=== PATIENT | female | born 1950 | race Caucasian/White ===

== ENCOUNTER 2019-12-06 18:44 | Emergency (ER) | payer MEDICARE, MEDICAID, SELFPAY ==
--- NOTE | ~2019-12-06 | XR_ITS ---
EXAMINATION: XR chest 2V DATE: 12/06/2019 19:32 INDICATION: COPD presenting with shortness of breath TECHNIQUE: PA and lateral views of the chest were obtained. COMPARISON: Chest radiograph dated 11/01/2019 FINDINGS: Persistent mild hyperexpansion of lungs which remain clear with no focal airspace opacities, pulmonar y edema, pleural effusion or pneumothorax. Borderline heart size. Change of prior coronary artery migdalia nting. Mild thoracic spondylosis. IMPRESSION: 1. Borderline heart size with prior coronary artery stenting. 2. Mild hyperexpansion lungs consistent with given history of COPD. Reviewed, dictated and finalized at location A. GER OF WAREHOUSE
[2019-12-06 18:48] VITALS: BP 152/75; PULSE 87; RESP 20; TEMP 36.8; O2SAT 99
--- NOTE | 2019-12-06 18:58 | ECG_ITS ---
Measurements Intervals [place] Rate: 80 P: 61 AL: 158 QRS: 16 QRSD: 85 T: 39 QT: 377 QTc: 437 Interpretive Statements SINUS RHYTHM BASELINE ARTIFACT- I, II, AVR, AVL, AVF NORMAL ECG Electronically Signed On 12-07-2019 7:05:18 FURNITURE MECHANIC by Yvon Gonzales D.O.
[2019-12-06 19:16] LABS: Basophils Absolute Auto 0.03 K/mm3 (0.00-0.10); Basophils Percent Auto 0.4 % (0.0-1.0); Eosinophils Absolute Auto 0.01 K/mm3 (0.02-0.50); Eosinophils Percent Auto 0.1 % (1.0-6.0); Hematocrit 35.9 % (35.0-42.0); Hemoglobin 11.6 g/dL (11.7-13.8); Immature Granulocyte Absolute 0.04 K/mm3 (0.00-0.00); Immature Granulocyte Percent A 0.5 % (0.0-0.0); Lymphocytes Absolute Auto 1.04 K/mm3 (1.10-4.50); Lymphocytes Percent Auto 12.3 % (18.0-42.0); Mean Corpuscular HGB Conc 32.3 g/dL (32.0-36.0); Mean Corpuscular Hemoglobin 28.5 pg (27.0-31.0); Mean Corpuscular Volume 88.2 fL (78.0-102.0); Monocytes Absolute Auto 0.32 K/mm3 (0.10-0.90); Monocytes Percent Auto 3.8 % (2.0-11.0); Neutrophils Percent Auto 82.9 % (50.0-70.0); Platelet Count Result 311 K/mm3 (150-420); Red Blood Count 4.07 M/mm3 (4.20-5.40); Red Cell Distribution Width 13.7 % (11.6-14.4); White Blood Count 8.5 K/mm3 (4.8-10.8)
[2019-12-06 19:31] LABS: D Dimer 0.26 mg/L (0.19-0.50)
[2019-12-06 19:33] LABS: Alanine Aminotransferase 24 U/L (14-59); Albumin Level 3.4 g/dL (3.4-5.0); Alkaline Phosphatase 61 U/L (46-116); Anion Gap 14.2 mmol/L (7-16); Aspartate Amino Transferase 12 U/L (15-37); Bilirubin,Total 0.2 mg/dL (0.00-1.00); Blood Urea Nitrogen 15 mg/dL (7-18); Calcium 8.8 mg/dL (8.5-10.1); Carbon Dioxide 28 mmol/L (21-32); Chloride 101 mmol/L (98-108); Estimated Glomerular Filt Rate 45; Glucose 259 mg/dL (70-99); Lipase 157 U/L (73-393); Osmolality Calculated 297 mOsm/kg (285-295); Potassium 4.2 mmol/L (3.5-5.1); Sodium 139 mmol/L (136-145); Total Protein 7.3 g/dL (6.4-8.2)
[2019-12-06] MEDS: methylPREDNISolone SOD SUCC 125 MG VIAL IV PUSH (19:38)
[2019-12-06 19:39] LABS: Troponin I < 0.02 ng/mL (0.00-0.056)
[2019-12-06] MEDS: IPRATROPIUM 0.5 MG/ALBUTEROL SULFATE 2.5 MG AMPUL.NEB 3 ML INHALATION (19:39)
[2019-12-06 19:40] VITALS: PULSE 80; RESP 20
[2019-12-06 19:56] LABS: Partial Thromboplastin Time 28.5 SEC (22.3-31.6); Prothrombin Time 10.3 Seconds (9.64-11.0)
--- NOTE | 2019-12-06 19:57 | ED.GENADULT ---
HPI - General Adult General Chief complaint: Chest Pain Stated complaint: trouble breathing, chest pain Source: patient Mode of arrival: ambulatory Limitations: no limitations History of Present Illness HPI narrative: Patient presents with some shortness of breath and some chest tightness as have a history of COPD and coronary artery disease with numerous stents, pain started earlier today has been and being treated for a upper respiratory infection with doxycycline. Currently there is some no shortness of breath no nausea vomiting no abdominal pain otherwise some mild wheezing with inspiration. Onset (ago): hour(s) Location: chest Radiation: non-radiation Severity: mild Related Data Home Medications Medication Instructions Recorded Confirmed albuterol sulfate [Ventolin HFA] 2 puff INHALATION PRN 11/01/19 11/01/19 amlodipine 5 mg PO DAILY 11/01/19 11/01/19 atorvastatin 80 mg PO HS 11/01/19 11/01/19 clopidogrel 75 mg PO DAILY 11/01/19 11/01/19 duloxetine 60 mg PO DAILY 11/01/19 11/01/19 fluconazole 150 mg PO DAILY 11/01/19 11/01/19 hydrocodone-acetaminophen 1 tablet PO PRN PRN 11/01/19 11/01/19 isosorbide mononitrate 60 mg PO DAILY 11/01/19 11/01/19 meloxicam 7.5 mg PO DAILY 11/01/19 11/01/19 metoprolol succinate 50 mg PO DAILY 11/01/19 11/01/19 montelukast 10 mg PO DAILY 11/01/19 11/01/19 nitroglycerin 0.4 mg BUCCAL PRN PRN 11/01/19 11/01/19 ranolazine 500 mg PO DAILY 11/01/19 11/01/19 trazodone 50 mg PO HS 11/01/19 11/01/19 umeclidinium-vilanterol [Anoro 1 ea INHALATION DAILY 11/01/19 11/01/19 Ellipta] Allergies Allergy/AdvReac Type Severity Reaction Status Date / Time Cephalosporins Allergy Unknown Verified 11/20/15 14:45 ciprofloxacin Allergy Unknown Verified 04/23/16 12:39 erythromycin base Allergy Unknown Verified 11/20/15 14:45 metronidazole Allergy Unknown Verified 02/05/16 14:11 Sulfa (Sulfonamide Allergy Unknown Verified 11/20/15 14:45 Antibiotics) sulfanilamide Allergy Unknown Verified 04/28/12 16:27 ADHESIVE TAPE Allergy Mild Uncoded 11/08/03 15:54 ERYTHROMYCINS Allergy Mild Uncoded 02/12/09 10:56 CEPHALOSPORIN Allergy Unknown RASH Uncoded 04/26/16 15:12 Review of Systems Review of Systems: All systems reviewed & are unremarkable except as noted in HPI and below PMFSH Past Medical History Medical History COPD (chronic obstructive pulmonary disease) Coronary artery disease Dyslipidemia Hypertension HI (myocardial infarction) Sleep apnea Smoking Surgical History Surgical History H/O breast biopsy H/O tubal ligation 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/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 Family History Family History Father Family history of lung cancer Other Family history of coronary artery disease Social History Social History Smoking status: Current every day smoker Alcohol intake: current Exam Const: General: no acute distress and alert Orientation/consciousness: patient oriented x3 HENMT: Head: normal to inspection Eyes: Conjunctivae: conjunctivae normal Pupils: Equal, round and reactive pupils present Neck: Neck: normal visual inspection Chest: Chest palpation & inspection: normal inspection of the chest Resp: Effort & Inspection: normal respiratory effort Auscultation: wheezes Cardio: Rate: regular rate Rhythm: regular rhythm GI: GI Palp: Yes Soft to palpation : General: Yes no CVA tenderness Back/Spine/Pelvis: Back: no CVA tenderness Skin: General skin exam: normal color Rashes: no rashes Neuro: General: patient oriented x3, moves all extremities and no meningeal signs Extrem: General: normal to inspection and no pedal edema Psych: Appearance: grossly normal Mental Status: mental status grossly normal Medical Decision Making Lab Data Lab re
[2019-12-06 20:05] VITALS: BP 134/64; PULSE 79; RESP 20; O2SAT 98
== END 2019-12-06 20:07 | disposition home or self-care (01) ==
PROVIDERS: Emergency Provider Emergency Medicine; PCP Internal Medicine
DX: J06.9 Acute upper respiratory infection, unspecified (principal); R05 Cough; J44.9 Chronic obstructive pulmonary disease, unspecified
CPT/HCPCS: 36415; 71046; 80053; 83690; 84484; 85025; 85380; 85610; 85730; 93005; 94640; 96374; 99284; J2930

== ENCOUNTER 2019-12-28 16:42 | Outpatient (CLI) | payer MEDICARE, MEDICAID, SELFPAY ==
--- NOTE | ~2019-12-28 | XR_ITS ---
EXAMINATION: XR sinus min 3V DATE: 12/28/2019 17:38 INDICATION: Chronic cough and sinusitis. TECHNIQUE: AP, submental, Barrera, open-mouth Barrera and lateral views of the nasal sinuses were obtai chauncey. COMPARISON: None. FINDINGS: No fractures identified. Specifically the visualized silvestre of the orbits and paranasal sinuses appea r intact. Nasal septum is midline. No nasal bone fracture identified. No air-fluid levels or eviden t mucosal thickening appreciated within the paranasal sinuses and mastoid air cells appear well-aerat ed. IMPRESSION: 1. No evidence sinus disease. Reviewed, dictated and finalized at location A. URCE DEVELOPMENT MANAGER
[2019-12-28 16:59] LABS: Basophils Percent Auto 1.4 % (0.0-1.0); Eosinophils Absolute Auto 0.17 K/mm3 (0.02-0.50); Eosinophils Percent Auto 2.3 % (1.0-6.0); Hematocrit 39.7 % (35.0-42.0); Hemoglobin 12.8 g/dL (11.7-13.8); Immature Granulocyte Absolute 0.02 K/mm3 (0.00-0.00); Immature Granulocyte Percent A 0.3 % (0.0-0.0); Lymphocytes Absolute Auto 2.42 K/mm3 (1.10-4.50); Lymphocytes Percent Auto 32.7 % (18.0-42.0); Mean Corpuscular HGB Conc 32.2 g/dL (32.0-36.0); Mean Corpuscular Hemoglobin 28.7 pg (27.0-31.0); Mean Platelet Volume 8.8 fl (9.2-11.8); Monocytes Absolute Auto 0.65 K/mm3 (0.10-0.90); Monocytes Percent Auto 8.8 % (2.0-11.0); Neutrophils Percent Auto 54.5 % (50.0-70.0); Platelet Count Result 284 K/mm3 (150-420); Red Blood Count 4.46 M/mm3 (4.20-5.40); Red Cell Distribution Width 13.7 % (11.6-14.4); White Blood Count 7.4 K/mm3 (4.8-10.8)
[2019-12-28 17:46] LABS: Cholesterol 188 mg/dL (0-200); HDL Direct 45 mg/dL (40-60); LDL Cholesterol Calculated 111 mg/dL (<130); Triglycerides 161 mg/dL (0-150)
== END 2019-12-28 16:43 | disposition home or self-care (01) ==
LOC: CHSLAB 16:44
PROVIDERS: PCP Internal Medicine; Visit Provider Internal Medicine
DX: R05 Cough (principal); J32.9 Chronic sinusitis, unspecified; E78.5 Hyperlipidemia, unspecified
CPT/HCPCS: 36415; 70220; 80061; 85025

== ENCOUNTER 2020-01-04 11:51 | Outpatient (CLI) | payer MEDICARE, MEDICAID, SELFPAY ==
--- NOTE | ~2020-01-04 | US_ITS ---
EXAMINATION: US venous doppler [facility] DATE: 01/04/2020 12:36 INDICATION: Left lower limb pain and swelling TECHNIQUE: Grayscale ultrasound images without and with compression and Doppler ultrasound images of the left lower extremity veins were obtained. COMPARISON: None. FINDINGS: The visualized portions of left common femoral vein, profunda (deep) femoral vein, femoral vein, popl iteal vein, peroneal veins, posterior tibial veins, gastrocnemius vein and greater saphenous vein out flow are patent. IMPRESSION: 1. No deep venous thrombosis in the left lower limb. Reviewed, dictated and finalized at location A. ING AGENT
--- NOTE | ~2020-01-04 | XR_ITS ---
EXAMINATION: XR knee LT min 4V DATE: 01/04/2020 12:46 INDICATION: Left knee pain. TECHNIQUE: 4 views of left knee were obtained. COMPARISON: Left knee radiographs 07/21/2018 FINDINGS: There is varus angulation at the knee. No fracture. There is severe osteoarthritis of media l compartment and mild osteoarthritis of lateral and patellofemoral compartments. There is a moderate -sized knee joint effusion. IMPRESSION: 1. Severe left knee osteoarthritis. 2. Moderate-sized knee joint effusion. Reviewed, dictated and finalized at location A. STIFFENER AND HEEL DIPPER
== END 2020-01-04 11:52 | disposition home or self-care (01) ==
LOC: CHSIMG 11:54
PROVIDERS: PCP Internal Medicine; Visit Provider Nurse Practitioner Family
DX: M79.89 Other specified soft tissue disorders (principal); M25.562 Pain in left knee
CPT/HCPCS: 73564; 93971

== ENCOUNTER 2020-05-29 07:36 | Emergency (ER) | payer MEDICARE, MEDICAID, SELFPAY ==
[2020-05-29] VITALS (7 sets, daily range): BP systolic 116–133; BP diastolic 55–74; PULSE 66–87; RESP 16–20; TEMP 36.7–36.8; O2SAT 88–96
--- NOTE | ~2020-05-29 | XR_ITS ---
EXAMINATION: XR chest 2V DATE: 05/29/2020 08:47 INDICATION: Chest pain and cough TECHNIQUE: PA and lateral views of the chest are obtained. COMPARISON: 12/06/2019 FINDINGS: The lungs are hyperinflated but free of acute opacities. There is no pleural effusion or pn eumothorax. The cardiomediastinal silhouette is normal. There is mild thoracic spondylosis. Coronary artery stents are noted. IMPRESSION: 1. No acute cardiopulmonary abnormality. Reviewed, dictated and finalized at location B.
--- NOTE | 2020-05-29 07:39 | ECG_ITS ---
Measurements Intervals [place] Rate: 71 P: 64 PA: 168 QRS: 62 QRSD: 89 T: 24 QT: 384 QTc: 419 Interpretive Statements SINUS RHYTHM BORDERLINE R WAVE PROGRESSION, ANTERIOR LEADS BORDERLINE ECG Electronically Signed On 05-29-2020 7:59:50 CDT by Yvon Gonzales D.O.
--- NOTE | 2020-05-29 07:48 | ED.CHESTPAIN ---
HPI - Chest Pain General Chief Complaint: Shortness of Breath/Dyspnea Stated Complaint: cant breathe Time Seen by Provider: 05/29/20 07:39 Source: patient Mode of arrival: wheelchair Limitations: no limitations History of Present Illness HPI narrative: 70-year-old woman with a history of COPD who uses oxygen at home at nighttime (3 L) comes in today complaining of shortness of breath, tightness in her anterior chest, and sats at home on 3 L of oxygen In the 70s when she woke up this morning. She states that she was short of breath yesterday and on room air her sats were in the upper 80s. Her symptoms improved both yesterday and today after using her rescue inhaler. She states he has had rhinorrhea for several days and productive cough. Her systems analysis manager placed her on doxycycline on Tuesday for these symptoms. She states that she gets sweaty with the chest pain but denies nausea, vomiting, lightheadedness, fever or sick exposures. She states she went [employer] a few days ago and no one was wearing masks. Discomfort she had in the past associated with her MT was in her upper back and neck which is far different than today. MD complaint: chest pain Pertinent past history: coronary artery disease and prior MT Onset (ago): hour(s) (3) Timing of current episode: constant Prior episodes: Yes Onset: during rest Pain location: left chest Pain radiation: none Severity: moderate Quality: tightness Exacerbating factors: nothing Context: recent illness Associated symptoms: diaphoresis Risk Factors Coronary artery disease risk factors: none, smoking history, hyperlipidemia and hypertension Related Data On Oral Contraceptives: No Home Medications Medication Instructions Recorded Confirmed albuterol sulfate [Ventolin HFA] 2 puff INHALATION PRN 11/01/19 05/29/20 amlodipine 5 mg PO DAILY 11/01/19 05/29/20 atorvastatin 80 mg PO HS 11/01/19 05/29/20 clopidogrel 75 mg PO DAILY 11/01/19 05/29/20 duloxetine 60 mg PO DAILY 11/01/19 05/29/20 hydrocodone-acetaminophen 1 tablet PO PRN PRN 11/01/19 05/29/20 isosorbide mononitrate 60 mg PO DAILY 11/01/19 05/29/20 meloxicam 7.5 mg PO DAILY 11/01/19 05/29/20 metoprolol succinate 50 mg PO DAILY 11/01/19 05/29/20 montelukast 10 mg PO DAILY 11/01/19 05/29/20 nitroglycerin 0.4 mg BUCCAL PRN PRN 11/01/19 05/29/20 ranolazine 500 mg PO DAILY 11/01/19 05/29/20 umeclidinium-vilanterol [Anoro 1 ea INHALATION DAILY 11/01/19 05/29/20 Ellipta] aspirin 81 mg PO DAILY 05/29/20 05/29/20 duloxetine 30 mg PO HS 05/29/20 05/29/20 omeprazole 20 mg PO DAILY 05/29/20 05/29/20 Allergies Allergy/AdvReac Type Severity Reaction Status Date / Time Cephalosporins Allergy Unknown Verified 11/20/15 14:45 ciprofloxacin Allergy Unknown Verified 04/23/16 12:39 erythromycin base Allergy Unknown Verified 11/20/15 14:45 metronidazole Allergy Unknown Verified 02/05/16 14:11 Sulfa (Sulfonamide Allergy Unknown Verified 11/20/15 14:45 Antibiotics) sulfanilamide Allergy Unknown Verified 04/28/12 16:27 ADHESIVE TAPE Allergy Mild Uncoded 11/08/03 15:54 ERYTHROMYCINS Allergy Mild Uncoded 02/12/09 10:56 CEPHALOSPORIN Allergy Unknown RASH Uncoded 04/26/16 15:12 Review of Systems Constitutional: Constitutional: Denies chills, Denies fatigue, Denies fever(s) and Denies weakness Eyes: Eyes: Denies change in vision and Denies photophobia ENT: Denies dysphagia, Reports nasal congestion and Denies sore throat Cardiovascular: Cardiovascular: Reports as per HPI, Reports chest pain and Denies radiating jaw, neck or arm pain Respiratory: Respiratory: Reports as per HPI, Reports cough, Reports dyspnea and Reports wheezing Gastrointestinal: Gastrointestinal: Denies abdominal pain, Denies diarrhea, Denies nausea and Denies vomiting Genitourinary: Genitourinary: Denies nocturia and Denies dysuria Musculoskeletal: Musculoskeletal: Reports arthralgias ( Chronic knee pain) and Denies joint swelling Integumentary/Breasts: Skin/Breast: [place]
[2020-05-29] MEDS: IPRATROPIUM 0.5 MG/ALBUTEROL SULFATE 2.5 MG AMPUL.NEB 3 ML INHALATION (08:19)
[2020-05-29] MEDS: methylPREDNISolone SOD SUCC 125 MG VIAL IV PUSH (08:20)
[2020-05-29 08:23] LABS: Basophils Absolute Auto 0.07 K/mm3 (0.00-0.10); Eosinophils Absolute Auto 0.15 K/mm3 (0.02-0.50); Eosinophils Percent Auto 2.2 % (1.0-6.0); Hematocrit 36.1 % (35.0-42.0); Hemoglobin 11.8 g/dL (11.7-13.8); Immature Granulocyte Absolute 0.03 K/mm3 (0.00-0.00); Immature Granulocyte Percent A 0.4 % (0.0-0.0); Lymphocytes Percent Auto 27.5 % (18.0-42.0); Mean Corpuscular HGB Conc 32.7 g/dL (32.0-36.0); Mean Corpuscular Hemoglobin 28.9 pg (27.0-31.0); Mean Corpuscular Volume 88.3 fL (78.0-102.0); Mean Platelet Volume 8.6 fl (9.2-11.8); Monocytes Absolute Auto 0.62 K/mm3 (0.10-0.90); Neutrophils Absolute Auto 4.1 K/mm3 (1.7-7.2); Neutrophils Percent Auto 59.9 % (50.0-70.0); Platelet Count Result 247 K/mm3 (150-420); Red Blood Count 4.09 M/mm3 (4.20-5.40); Red Cell Distribution Width 13.4 % (11.6-14.4); White Blood Count 6.9 K/mm3 (4.8-10.8)
[2020-05-29 08:35] LABS: Partial Thromboplastin Time 32.3 SEC (22.3-31.6); Prothrombin Time 10.4 Seconds (9.64-11.0)
[2020-05-29 08:41] LABS: Lactic Acid Reflex 1.5 mmol/L (0.4-2.0)
[2020-05-29 08:42] LABS: Alanine Aminotransferase 26 U/L (14-59); Albumin Level 3.3 g/dL (3.4-5.0); Alkaline Phosphatase 64 U/L (46-116); Anion Gap 9.9 mmol/L (7-16); Aspartate Amino Transferase 16 U/L (15-37); Bilirubin,Total 0.4 mg/dL (0.00-1.00); Blood Urea Nitrogen 15 mg/dL (7-18); CRP 0.5 mg/dL (0.0-0.9); Calcium 9.1 mg/dL (8.5-10.1); Carbon Dioxide 30 mmol/L (21-32); Chloride 103 mmol/L (98-108); Estimated CRCL calculation 53 ml/min; Estimated Glomerular Filt Rate 58; Glucose 112 mg/dL (70-99); Osmolality Calculated 289 mOsm/kg (285-295); Potassium 3.9 mmol/L (3.5-5.1); Sodium 139 mmol/L (136-145); Total Protein 6.9 g/dL (6.4-8.2); Troponin I < 0.02 ng/mL (0.00-0.056)
[2020-05-29 08:46] LABS: BNP 61.7 pg/mL (0-100)
[2020-05-30 02:02] LABS: SARS-CoV-2 RNA PCR Negative
== END 2020-05-29 09:25 | disposition home or self-care (01) ==
PROVIDERS: Emergency Provider Emergency Medicine; PCP Internal Medicine
DX: J44.1 Chronic obstructive pulmonary disease with (acute) exacerbation (principal); I25.10 Atherosclerotic heart disease of native coronary artery without angina pectoris; E78.5 Hyperlipidemia, unspecified; I10 Essential (primary) hypertension; F17.200 Nicotine dependence, unspecified, uncomplicated
CPT/HCPCS: 36415; 71046; 80053; 83605; 83880; 84484; 85025; 85610; 85730; 86140; 87040; 87635; 93005; 94640; 96374; 99284; C9803; J2930; U0003

== ENCOUNTER 2020-07-15 16:19 | Outpatient (CLI) | payer MEDICARE, SELFPAY ==
[2020-07-15 16:37] LABS: Basophils Absolute Auto 0.03 K/mm3 (0.00-0.10); Basophils Percent Auto 0.4 % (0.0-1.0); Eosinophils Absolute Auto 0.01 K/mm3 (0.02-0.50); Eosinophils Percent Auto 0.1 % (1.0-6.0); Hemoglobin 12.5 g/dL (11.7-13.8); Immature Granulocyte Absolute 0.04 K/mm3 (0.00-0.00); Immature Granulocyte Percent A 0.6 % (0.0-0.0); Lymphocytes Absolute Auto 0.93 K/mm3 (1.10-4.50); Lymphocytes Percent Auto 12.8 % (18.0-42.0); Mean Corpuscular HGB Conc 32.1 g/dL (32.0-36.0); Mean Corpuscular Hemoglobin 28.9 pg (27.0-31.0); Mean Corpuscular Volume 90.1 fL (78.0-102.0); Mean Platelet Volume 9.2 fl (9.2-11.8); Monocytes Absolute Auto 0.09 K/mm3 (0.10-0.90); Monocytes Percent Auto 1.2 % (2.0-11.0); Neutrophils Absolute Auto 6.2 K/mm3 (1.7-7.2); Neutrophils Percent Auto 84.9 % (50.0-70.0); Platelet Count Result 303 K/mm3 (150-420); Red Blood Count 4.33 M/mm3 (4.20-5.40); Red Cell Distribution Width 13.2 % (11.6-14.4); White Blood Count 7.3 K/mm3 (4.8-10.8)
[2020-07-15 17:48] LABS: Alanine Aminotransferase 27 U/L (14-59); Albumin Level 3.9 g/dL (3.4-5.0); Alkaline Phosphatase 67 U/L (46-116); Anion Gap 13 mmol/L (8-16); Aspartate Amino Transferase 19 U/L (15-37); Bilirubin,Total 0.3 mg/dL (0.00-1.00); Blood Urea Nitrogen 15 mg/dL (7-18); Calcium 8.9 mg/dL (8.5-10.1); Carbon Dioxide 25 mmol/L (21-32); Chloride 101 mmol/L (98-108); Estimated Glomerular Filt Rate 53; Glucose 236 mg/dL (70-99); Osmolality Calculated 296 mOsm/kg (285-295); Potassium 4.4 mmol/L (3.5-5.1); Sodium 139 mmol/L (136-145); Total Protein 7.5 g/dL (6.4-8.2)
[2020-07-16 10:30] LABS: Hemoglobin A1C 6.4 % (<5.7)
[2020-07-17 12:25] LABS: SARS-CoV-2 RNA PCR Negative
== END 2020-07-15 16:20 | disposition home or self-care (01) ==
LOC: CHSLAB 16:20
PROVIDERS: PCP Internal Medicine; Visit Provider Internal Medicine
DX: R05 Cough (principal); R73.01 Impaired fasting glucose; Z20.828 Contact with and (suspected) exposure to other viral communicable diseases
CPT/HCPCS: 36415; 80053; 83036; 85025; 87635; C9803; U0003

== ENCOUNTER 2020-09-17 12:05 | Outpatient (CLI) | payer MEDICARE, MEDICAID, SELFPAY ==
--- NOTE | ~2020-09-17 | XR_ITS ---
EXAMINATION: XR knee RT 2V DATE: 09/17/2020 12:38 INDICATION: Right knee pain. TECHNIQUE: 2 views of right knee were obtained. COMPARISON: None. FINDINGS: Bone alignment is normal. No fracture. Joint spaces are well maintained. There is no knee j oint effusion. IMPRESSION: 1. Normal right knee. Reviewed, dictated and finalized at location A. SPRING FORMER IMPRESSION: 1. Normal right knee.
--- NOTE | ~2020-09-17 | XR_ITS ---
EXAMINATION: XR knee LT 2V DATE: 09/17/2020 12:39 INDICATION: Left knee pain. TECHNIQUE: 2 views of left knee were obtained. COMPARISON: Left knee radiographs 01/04/2020 FINDINGS: There is varus angulation at the knee. No fracture. There is severe osteoarthritis of media l compartment, moderate osteoarthritis of patellofemoral compartment, and mild osteoarthritis of late ral compartment. There is a small knee joint effusion. IMPRESSION: 1. Severe left knee osteoarthritis. 2. Small knee joint effusion. Reviewed, dictated and finalized at location A. RICT SCOUT EXECUTIVE
== END 2020-09-17 12:06 | disposition home or self-care (01) ==
LOC: CHSIMG 12:07
PROVIDERS: PCP Internal Medicine; Visit Provider Nurse Practitioner Family
DX: M25.561 Pain in right knee (principal); M25.562 Pain in left knee; M17.12 Unilateral primary osteoarthritis, left knee
CPT/HCPCS: 73560

== ENCOUNTER 2021-01-20 15:26 | Outpatient (CLI) | payer MEDICARE, SELFPAY ==
[2021-01-20 15:41] LABS: Basophils Absolute Auto 0.08 K/mm3 (0.00-0.10); Basophils Percent Auto 0.7 % (0.0-1.0); Eosinophils Absolute Auto 0.14 K/mm3 (0.02-0.50); Eosinophils Percent Auto 1.3 % (1.0-6.0); Hematocrit 36.9 % (35.0-42.0); Hemoglobin 11.7 g/dL (11.7-13.8); Immature Granulocyte Absolute 0.03 K/mm3 (0.00-0.00); Immature Granulocyte Percent A 0.3 % (0.0-0.0); Lymphocytes Absolute Auto 2.42 K/mm3 (1.10-4.50); Lymphocytes Percent Auto 21.8 % (18.0-42.0); Mean Corpuscular HGB Conc 31.7 g/dL (32.0-36.0); Mean Corpuscular Hemoglobin 28.3 pg (27.0-31.0); Mean Corpuscular Volume 89.3 fL (78.0-102.0); Mean Platelet Volume 9.1 fl (9.2-11.8); Monocytes Absolute Auto 1.09 K/mm3 (0.10-0.90); Monocytes Percent Auto 9.8 % (2.0-11.0); Neutrophils Absolute Auto 7.4 K/mm3 (1.7-7.2); Neutrophils Percent Auto 66.1 % (50.0-70.0); Platelet Count Result 294 K/mm3 (150-420); Red Blood Count 4.13 M/mm3 (4.20-5.40); White Blood Count 11.1 K/mm3 (4.8-10.8)
[2021-01-20 15:58] LABS: Hemoglobin A1C 7.2 % (<5.7)
[2021-01-20 16:52] LABS: Alanine Aminotransferase 30 U/L (14-59); Albumin Level 3.5 g/dL (3.4-5.0); Alkaline Phosphatase 60 U/L (46-116); Anion Gap 7 mmol/L (8-16); Aspartate Amino Transferase 22 U/L (15-37); Bilirubin,Total 0.4 mg/dL (0.00-1.00); Blood Urea Nitrogen 17 mg/dL (7-18); Calcium 8.9 mg/dL (8.5-10.1); Carbon Dioxide 32 mmol/L (21-32); Chloride 101 mmol/L (98-108); Cholesterol 177 mg/dL (0-200); Estimated Glomerular Filt Rate 54; Ferritin 44 ng/mL (8-252); Glucose 120 mg/dL (70-99); HDL Direct 43 mg/dL (40-60); Iron 37 ug/dL (50-170); LDL Cholesterol Calculated 91 mg/dL (<130); Osmolality Calculated 292 mOsm/kg (285-295); Percent Iron Saturation 11 % (12-57); Potassium 4.1 mmol/L (3.5-5.1); Sodium 140 mmol/L (136-145); Thyroid Stimulating Hormone 1.64 uIU/mL (0.36-3.74); Total Protein 6.7 g/dL (6.4-8.2); Triglycerides 213 mg/dL (0-150)
[2021-01-20 17:22] LABS: Free T4 Free Thyroxine 1.05 ng/dL (0.76-1.46)
[2021-01-24 07:53] LABS: Total Triiodothyronine (T3) 103 ng/dL (76-181)
== END 2021-01-20 15:27 | disposition home or self-care (01) ==
LOC: CHSLAB 15:29
PROVIDERS: PCP Internal Medicine; Visit Provider Internal Medicine Cardiovascular Disease
DX: R53.83 Other fatigue (principal); Z13.6 Encounter for screening for cardiovascular disorders; I87.2 Venous insufficiency (chronic) (peripheral); I25.10 Atherosclerotic heart disease of native coronary artery without angina pectoris; D50.9 Iron deficiency anemia, unspecified; M35.9 Systemic involvement of connective tissue, unspecified; I26.99 Other pulmonary embolism without acute cor pulmonale; R73.09 Other abnormal glucose; E55.9 Vitamin D deficiency, unspecified; R60.9 Edema, unspecified; J98.2 Interstitial emphysema; I10 Essential (primary) hypertension; G47.30 Sleep apnea, unspecified; C53.9 Malignant neoplasm of cervix uteri, unspecified; E78.5 Hyperlipidemia, unspecified; F17.200 Nicotine dependence, unspecified, uncomplicated
CPT/HCPCS: 36415; 80053; 80061; 82728; 83036; 83540; 83550; 84439; 84443; 84480; 85025

== ENCOUNTER → 2021-04-17 04:57 | Outpatient (CLI) | payer MEDICARE, SELFPAY ==
[2021-04-17 18:47] LABS: SARS-CoV-2 RNA PCR Negative
== END ==
PROVIDERS: PCP Internal Medicine; Visit Provider Internal Medicine Gastroenterology
DX: Z01.812 Encounter for preprocedural laboratory examination (principal); Z20.822 Contact with and (suspected) exposure to COVID-19
CPT/HCPCS: C9803; U0003; U0005

== ENCOUNTER 2021-04-20 01:14 | Day surgery (SDC) | payer MEDICARE, MEDICAID, SELFPAY ==
[2021-04-20 07:09] VITALS: BP 140/63; PULSE 98; RESP 18; TEMP 36; O2SAT 96; BMI 31.8
[2021-04-20] MEDS: LACTATED RINGERS 1,000 ML 150 ML IV CONT (07:12)
--- NOTE | 2021-04-20 07:23 | WPDGICN ---
Assessment and Plan Assessment and plan (1) History of colon polyps: Code(s): Z86.010 - Personal history of colonic polyps Status: Acute Assessment and Plan: Patient has a personal history of colon polyps. She has had them recurrent on several occasions. Plan is for surveillance colonoscopy now and at intervals in the future. Further recommendations will be given after endoscopy. GI Consult Note Consult date/time: 04/20/21 07:23 HPI: Felicia Webb is a 71 year old female Presents for screening colonoscopy. Patient has a history of colon polyps in the past. Most recent exam was 5 years ago. Multiple colon polyps were identified. Patient has a history of colon polyps 10 years ago period with post polypectomy bleeding. This was performed at [facility]. Patient states that her current weight appetite bowel movements are normal. She denies abdominal pain. She has had no recent bleeding. Her bowel habits are essentially normal. There is no reported family history of colon polyps or cancer. Patient has been treated for COPD and coronary artery disease. She is felt to have sleep apnea. 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 Family History Family History Father Family history of lung cancer Other Family history of coronary artery disease Social History Social History Smoking packs per day: 1 Smoking cigarettes per day: 20.0 Years smoked: 30 Smoking pack-years: 30.00 Smoking status: Current every day smoker Tobacco type: cigarettes Alcohol intake: current Other substance usage details: norco prn Living arrangements: with family Gender identity (if verbalized by the patient): Female Spiritual care concerns: No Meds Home Medications and Allergies Home Medications Medication Instructions Recorded Confirmed Type albuterol sulfate [Ventolin HFA] 2 puff INHALATION PRN 11/01/19 04/03/21 History amlodipine 5 mg PO DAILY 11/01/19 04/03/21 History atorvastatin 80 mg PO HS 11/01/19 04/03/21 History clopidogrel 75 mg PO DAILY 11/01/19 04/03/21 History doxycycline hyclate 100 mg PO BID #20 tablet 11/01/19 04/03/21 Rx duloxetine 60 mg PO DAILY 11/01/19 04/03/21 History hydrocodone-acetaminophen 1 tablet PO PRN PRN 11/01/19 04/03/21 History isosorbide mononitrate 60 mg PO DAILY 11/01/19 04/03/21 History meloxicam 7.5 mg PO DAILY 11/01/19 04/03/21 History metoprolol succinate 50 mg PO DAILY 11/01/19 04/03/21 History montelukast 10 mg PO DAILY 11/01/19 04/03/21 History nitroglycerin 0.4 mg BUCCAL PRN PRN 11/01/19 04/03/21 History ranolazine 500 mg PO DAILY 11/01/19 04/03/21 History umeclidinium-vilanterol [Anoro 1 ea INHALATION DAILY 11/01/19 04/03/21 History Ellipta] aspirin 81 mg PO DAILY 05/29/20 04/03/21 History duloxetine 30 mg PO HS 05/29/20 04/03/21 History omeprazole 20 mg PO DAILY 05/29/20 04/03/21 History prednisone See Taper PO DAILY 12 Days #42 05/29/20 04/03/21 Rx tablet Allergies Allergy/AdvReac Type Severity Reaction Status Date / Time Cephalosporins Allergy Unknown Other Verified 04/20/21 07:08 ciprofloxacin Allergy Unknown Other Verified 04/20/21 07:08 erythromycin base Allergy Unknown Other Verified 04/20/21 07:08 metronidazole Allergy Unknown Other Verified 04/20/21 07:08 Sulfa (Sulfonamide Allergy Unknown Other Verified 04/20/21 07:08 Antibiotics) sulfa
--- NOTE | 2021-04-20 07:59 | WPDANESEPPF ---
Anes - Initial Pre Proc Eval Procedure: Operation Date: 04/20/21 08:00 Proposed Procedures p Screening Colonoscopy - Sebastian Galaviz MD Date/Time: 04/20/21 07:59 Surgeon: Sebastian Galaviz MD Pre Op Diagnosis: hx colon polyps Patient Data Age: 71 Gender: F Height: 5 ft 5 in Weight: 86.7 kg Last Vital Signs Temp 96.8 F L 04/20/21 07:09 Pulse 98 04/20/21 07:09 Resp 18 04/20/21 07:09 BP 140/63 04/20/21 07:09 Pulse Ox 96 04/20/21 07:09 Allergies Allergy/AdvReac Type Severity Reaction Status Date / Time Cephalosporins Allergy Unknown Other Verified 04/20/21 07:08 ciprofloxacin Allergy Unknown Other Verified 04/20/21 07:08 erythromycin base Allergy Unknown Other Verified 04/20/21 07:08 metronidazole Allergy Unknown Other Verified 04/20/21 07:08 Sulfa (Sulfonamide Allergy Unknown Other Verified 04/20/21 07:08 Antibiotics) sulfanilamide Allergy Unknown Other Verified 04/20/21 07:08 ADHESIVE TAPE Allergy Mild Other Uncoded 04/20/21 07:08 ERYTHROMYCINS Allergy Mild Other Uncoded 04/20/21 07:08 CEPHALOSPORIN Allergy Unknown RASH Uncoded 04/20/21 07:08 Home Medications Medication Instructions Recorded Confirmed Type albuterol sulfate [Ventolin HFA] 2 puff INHALATION PRN 11/01/19 04/03/21 History amlodipine 5 mg PO DAILY 11/01/19 04/03/21 History atorvastatin 80 mg PO HS 11/01/19 04/03/21 History clopidogrel 75 mg PO DAILY 11/01/19 04/03/21 History doxycycline hyclate 100 mg PO BID #20 tablet 11/01/19 04/03/21 Rx duloxetine 60 mg PO DAILY 11/01/19 04/03/21 History hydrocodone-acetaminophen 1 tablet PO PRN PRN 11/01/19 04/03/21 History isosorbide mononitrate 60 mg PO DAILY 11/01/19 04/03/21 History meloxicam 7.5 mg PO DAILY 11/01/19 04/03/21 History metoprolol succinate 50 mg PO DAILY 11/01/19 04/03/21 History montelukast 10 mg PO DAILY 11/01/19 04/03/21 History nitroglycerin 0.4 mg BUCCAL PRN PRN 11/01/19 04/03/21 History ranolazine 500 mg PO DAILY 11/01/19 04/03/21 History umeclidinium-vilanterol [Anoro 1 ea INHALATION DAILY 11/01/19 04/03/21 History Ellipta] aspirin 81 mg PO DAILY 05/29/20 04/03/21 History duloxetine 30 mg PO HS 05/29/20 04/03/21 History omeprazole 20 mg PO DAILY 05/29/20 04/03/21 History prednisone See Taper PO DAILY 12 Days #42 05/29/20 04/03/21 Rx tablet Patient hx anesthesia problems: none Family hx anesthesia problems: none PMFSH Past Medical History Medical History COPD (chronic obstructive pulmonary disease) Coronary artery disease Dyslipidemia Hypertension [place] (myocardial infarction) Sleep apnea Smoking Surgical History Surgical History H/O breast biopsy H/O tubal ligation 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 Family History Family History Father Family history of lung cancer Other Family history of coronary artery disease Social History Social History Smoking packs per day: 1 Smoking cigarettes per day: 20.0 Years smoked: 30 Smoking pack-years: 30.00 Smoking status: Current every day smoker Tobacco type: cigarettes Alcohol intake: current Other substance usage details: norco prn Living arrangements: with family Gender identity (if verbalized by the patient): Female Spiritual care concerns: No Anes - Eval Final PreProcedure Day of Procedure 04/20/21 07:59 Patient weight: obese Heart: regular rate and rhythm Lungs: clear to auscultation Airway: Mallampati scale class II Neurological: alert and oriented Last oral intake: >/= 8 hours ASA classification: III Emergent: no Anesthetic plan: proceed Anesthesia type and monitoring: general GIVS and standard monitoring Informed Consent: The patient's anesthetic plan and its attendant risks and benefits were discussed with the patient/family/POASilvestre Pedraza
[2021-04-20 08:50] VITALS: BP 168/77; PULSE 95; RESP 29; O2SAT 96
[2021-04-20 09:00] VITALS: BP 139/74; PULSE 92; RESP 17; O2SAT 95
[2021-04-20 09:10] VITALS: BP 146/66; PULSE 91; RESP 21; O2SAT 99
== END 2021-04-20 09:46 | disposition home or self-care (01) ==
PROVIDERS: PCP Internal Medicine; Visit Provider Internal Medicine Gastroenterology
PROC: 0DJD8ZZ Inspection of Lower Intestinal Tract, Via Natural or Artificial Opening Endoscopic (ICD-10-PCS; CPT 45378; principal; 2021-04-20 08:00)
DX: Z12.11 Encounter for screening for malignant neoplasm of colon (principal); D12.5 Benign neoplasm of sigmoid colon; D12.2 Benign neoplasm of ascending colon; D12.3 Benign neoplasm of transverse colon; K63.5 Polyp of colon; K57.30 Diverticulosis of large intestine without perforation or abscess without bleeding; J44.9 Chronic obstructive pulmonary disease, unspecified; I25.10 Atherosclerotic heart disease of native coronary artery without angina pectoris; E78.5 Hyperlipidemia, unspecified; I10 Essential (primary) hypertension; I25.2 Old myocardial infarction; G47.30 Sleep apnea, unspecified; Z95.5 Presence of coronary angioplasty implant and graft; F17.210 Nicotine dependence, cigarettes, uncomplicated; Z79.51 Long term (current) use of inhaled steroids; Z79.02 Long term (current) use of antithrombotics/antiplatelets; E66.9 Obesity, unspecified; Z68.31 Body mass index [BMI] 31.0-31.9, adult
CPT/HCPCS: 45385; 88305; J2704; J7120

== ENCOUNTER 2021-05-25 14:33 | Outpatient (CLI) | payer MEDICARE, SELFPAY | END 2021-05-25 14:34 | disposition home or self-care (01) | LOC: CHSLAB 14:38 | PROVIDERS: PCP Internal Medicine | DX: J18.9 Pneumonia, unspecified organism (principal) | CPT/HCPCS: 87070; 87205 ==

== ENCOUNTER 2021-06-05 23:09 | Emergency (ER) | payer MEDICARE, MEDICAID, SELFPAY ==
--- NOTE | ~2021-06-05 | CT_ITS ---
EXAMINATION:CT diagnostic chest wo con DATE: 06/05/2021 23:55 INDICATION: Chest pain. Shortness breath. TECHNIQUE: Computed tomography (CT) of the chest was performed without intravenous contrast. Automate d exposure control and iterative reconstruction technique were employed. The dose-length product (DLP ) was 358.18 mGy-cm. COMPARISON: CT 06/29/2009 FINDINGS: There is diffuse septal thickening in the lungs with a peripheral predominance. There is mi ld atelectasis bilaterally. No bronchiectasis or honeycombing. No pleural effusion. The heart size is normal. There are coronary artery calcifications. No pericardial effusion. There is mild thoracic sp ondylosis. IMPRESSION: 1. Mild chronic interstitial lung disease in a pattern of nonspecific interstitial pneumonia (UIP). Reviewed, dictated and finalized at location A. IMPRESSION: 1. Mild chronic interstitial lung disease in a pattern of nonspecific interstit ial pneumonia (UIP).
--- NOTE | 2021-06-05 23:13 | ECG_ITS ---
Measurements Intervals [place] Rate: 89 P: 58 MS: 169 QRS: 15 QRSD: 89 T: 43 QT: 372 QTc: 454 Interpretive Statements SINUS RHYTHM DELAYED PRECORDIAL R/S TRANSITION BORDERLINE ECG Electronically Signed On 06-06-2021 8:13:00 CDT by Yvon Gonzales D.O.
[2021-06-05 23:36] LABS: Basophils Absolute Auto 0.03 K/mm3 (0.00-0.10); Basophils Percent Auto 0.5 % (0.0-1.0); Immature Granulocyte Absolute 0.05 K/mm3 (0.00-0.00); Immature Granulocyte Percent A 0.8 % (0.0-0.0); Lymphocytes Absolute Auto 0.85 K/mm3 (1.10-4.50); Lymphocytes Percent Auto 12.8 % (18.0-42.0); Mean Corpuscular HGB Conc 32.4 g/dL (32.0-36.0); Mean Corpuscular Hemoglobin 29.1 pg (27.0-31.0); Mean Corpuscular Volume 89.8 fL (78.0-102.0); Monocytes Absolute Auto 0.19 K/mm3 (0.10-0.90); Monocytes Percent Auto 2.9 % (2.0-11.0); Neutrophils Absolute Auto 5.5 K/mm3 (1.7-7.2); Platelet Count Result 263 K/mm3 (150-420); Red Blood Count 4.12 M/mm3 (4.20-5.40); White Blood Count 6.6 K/mm3 (4.8-10.8)
[2021-06-05 23:39] VITALS: BP 139/58; PULSE 90; RESP 18; TEMP 36.5; O2SAT 96
[2021-06-05 23:46] LABS: Partial Thromboplastin Time 29.1 SEC (23.90-30.70); Prothrombin Time 10.3 Seconds (9.50-12.10)
[2021-06-05 23:55] LABS: Alanine Aminotransferase 30 U/L (14-59); Albumin Level 3.4 g/dL (3.4-5.0); Alkaline Phosphatase 70 U/L (46-116); Anion Gap 11 mmol/L (8-16); Aspartate Amino Transferase 14 U/L (15-37); Bilirubin,Total 0.2 mg/dL (0.00-1.00); Blood Urea Nitrogen 16 mg/dL (7-18); Calcium 9.3 mg/dL (8.5-10.1); Carbon Dioxide 26 mmol/L (21-32); Chloride 103 mmol/L (98-108); Estimated CRCL calculation 42 ml/min; Estimated Glomerular Filt Rate 45; Glucose 321 mg/dL (70-99); Lipase 177 U/L (73-393); NT Pro B Type Natriuretic Pept 370 pg/mL (0-125); Osmolality Calculated 303 mOsm/kg (285-295); Potassium 4.2 mmol/L (3.5-5.1); Sodium 140 mmol/L (136-145); Total Protein 7.2 g/dL (6.4-8.2)
[2021-06-05 23:57] LABS: Troponin I < 4.0 ng/L (0.00-60.4)
[2021-06-06] MEDS: methylPREDNISolone SOD SUCC 125 MG VIAL IV PUSH
[2021-06-06] MEDS: ALBUTEROL SULFATE (*SP) INHALER 2 PUFF INHALATION
[2021-06-06] MEDS: MORPHINE SULFATE (*CRX) 2 MG/ML INJ IV PUSH
[2021-06-06] MEDS: ASPIRIN 325 MG ENTERIC TABLET PO
--- NOTE | 2021-06-06 00:02 | ED.CHESTPAIN ---
HPI - Chest Pain General Chief Complaint: Chest Pain Stated Complaint: Shortness of Breath Time Seen by Provider: 06/05/21 23:15 Source: patient and RN notes reviewed Mode of arrival: wheelchair Limitations: no limitations History of Present Illness MD complaint: chest pain Pertinent past history: coronary artery disease, prior [place] and asthma Onset (ago): hour(s) (2) Timing of current episode: episodic Prior episodes: Yes Onset: during rest Pain location: substernal and posterior Pain radiation: none Severity: moderate Pain scale (0-10): 7 Quality: tightness, aching, heaviness and dull Relieving factors: nitroglycerin Exacerbating factors: nothing Context: recent illness Associated symptoms: cough Treatment prior to arrival: nitroglycerin and oxygen Risk Factors Coronary artery disease risk factors: smoking history and family history of CAD before age 50 Related Data Home Medications Medication Instructions Recorded Confirmed albuterol sulfate [Ventolin HFA] 2 puff INHALATION PRN 11/01/19 06/05/21 amlodipine 5 mg PO DAILY 11/01/19 06/05/21 atorvastatin 80 mg PO HS 11/01/19 06/05/21 clopidogrel 75 mg PO DAILY 11/01/19 06/05/21 duloxetine 60 mg PO DAILY 11/01/19 06/05/21 hydrocodone-acetaminophen 1 tablet PO PRN PRN 11/01/19 06/05/21 isosorbide mononitrate 60 mg PO DAILY 11/01/19 06/05/21 meloxicam 7.5 mg PO DAILY 11/01/19 06/05/21 metoprolol succinate 50 mg PO DAILY 11/01/19 06/05/21 montelukast 10 mg PO DAILY 11/01/19 06/05/21 nitroglycerin 0.4 mg BUCCAL PRN PRN 11/01/19 06/05/21 ranolazine 500 mg PO DAILY 11/01/19 06/05/21 umeclidinium-vilanterol [Anoro 1 ea INHALATION DAILY 11/01/19 06/05/21 Ellipta] aspirin 81 mg PO DAILY 05/29/20 06/05/21 duloxetine 30 mg PO HS 05/29/20 06/05/21 omeprazole 20 mg PO DAILY 05/29/20 06/05/21 Allergies Allergy/AdvReac Type Severity Reaction Status Date / Time Cephalosporins Allergy Unknown Other Verified 04/20/21 07:08 ciprofloxacin Allergy Unknown Other Verified 04/20/21 07:08 erythromycin base Allergy Unknown Other Verified 04/20/21 07:08 metronidazole Allergy Unknown Other Verified 04/20/21 07:08 Sulfa (Sulfonamide Allergy Unknown Other Verified 04/20/21 07:08 Antibiotics) sulfanilamide Allergy Unknown Other Verified 04/20/21 07:08 ADHESIVE TAPE Allergy Mild Other Uncoded 04/20/21 07:08 ERYTHROMYCINS Allergy Mild Other Uncoded 04/20/21 07:08 CEPHALOSPORIN Allergy Unknown RASH Uncoded 04/20/21 07:08 Review of Systems Review of Systems: All systems reviewed & are unremarkable except as noted in HPI and below Constitutional: Constitutional: Reports as per HPI and Reports no additional constitutional complaints Eyes: Eyes: Reports as per HPI and Reports no additional eye complaints ENT: Reports system reviewed and no additional complaints, except as documented and Reports as per HPI Cardiovascular: Cardiovascular: Reports as per HPI, Reports no additional cardiovascular complaints and Reports chest pain Respiratory: Respiratory: Reports as per HPI and Reports no additional respiratory complaints Gastrointestinal: Gastrointestinal: Reports as per HPI and Reports no additional gastrointestinal complaints Genitourinary: Genitourinary: Reports no additional female genitourinary complaints and Reports as per HPI Musculoskeletal: Musculoskeletal: Reports no additional musculoskeletal complaints and Reports as per HPI Integumentary/Breasts: Skin/Breast: Reports system reviewed and no additional complaints, except as docu and Reports as per HPI Neurologic: Reports system reviewed and no additional complaints, except as documented and Reports as per HPI Psychiatric: Psychiatric: Reports no additional psychiatric complaints and Reports as per HPI Endocrine: Endocrine: Reports no additional endocrine complaints and Reports as per HPI Hematologic/Lymphatic: Hematologic/Lymphatic: Reports no additional hematologic/lymphatic complaints and Reports as per HPI Allergic/Immunologic:
[2021-06-06 00:30] VITALS: BP 136/59; PULSE 80; RESP 18; O2SAT 98
[2021-06-06 00:59] LABS: SARS-CoV-2 RNA PCR Negative (Negative)
[2021-06-06 01:01] LABS: Device NASAL CANNULA; HCO3 ABG 27.4 mmol/L (23-29); Modified Allen's Test Pass; Oxygen Content ABG 16.6 %vol (16.0-22.0); Oxygen Saturation ABG 95.7 % (95-97); Oxyhemoglobin 91.8 % (94-100); PCO2 ABG 41.2 mmHg (35-45); PO2 ABG 81.6 mmHg (75-85); Site Drawn RIGHT RADIAL; Total Hemoglobin 12.8 g/dL (12.0-18.0); pH ABG 7.44 (7.35-7.45)
[2021-06-06 01:48] LABS: Glucose Point of Care 228 mg/dl (65-105)
[2021-06-06 01:49] VITALS: BP 130/62; PULSE 87; RESP 20; O2SAT 95
[2021-06-06 02:07] VITALS: BP 132/78; PULSE 78; RESP 18; TEMP 36.6; O2SAT 94
== END 2021-06-06 02:18 | disposition home or self-care (01) ==
PROVIDERS: Emergency Provider Emergency Medicine; PCP Internal Medicine
DX: J44.0 Chronic obstructive pulmonary disease with (acute) lower respiratory infection (principal); J44.9 Chronic obstructive pulmonary disease, unspecified; I25.10 Atherosclerotic heart disease of native coronary artery without angina pectoris; E78.5 Hyperlipidemia, unspecified; I10 Essential (primary) hypertension; F17.200 Nicotine dependence, unspecified, uncomplicated; Z20.822 Contact with and (suspected) exposure to COVID-19
CPT/HCPCS: 36415; 36600; 71250; 80053; 82805; 82948; 83690; 83880; 84484; 85025; 85610; 85730; 93005; 96374; 96375; 99283; 99284; A9270; C9803; J2270; J2930; U0003; U0005

== ENCOUNTER 2021-07-09 17:11 | Outpatient (CLI) | payer MEDICARE, SELFPAY ==
[2021-07-09 18:41] LABS: SARS-CoV-2 RNA PCR Negative (Negative)
== END 2021-07-09 17:12 | disposition home or self-care (01) ==
LOC: CHSLAB 17:17
PROVIDERS: PCP Internal Medicine; Visit Provider Internal Medicine
DX: Z20.822 Contact with and (suspected) exposure to COVID-19 (principal)
CPT/HCPCS: C9803; U0003; U0005

== ENCOUNTER 2021-07-16 12:37 | Outpatient (CLI) | payer MEDICARE, MEDICAID, SELFPAY ==
[2021-07-16 12:47] VITALS: BMI 31.6
[2021-07-16 12:58] VITALS: BP 128/67; PULSE 80; RESP 14; TEMP 36.3; O2SAT 97
[2021-07-16] MEDS: DENOSUMAB 60 MG/ML SYRINGE SUB-Q (13:01)
--- NOTE | 2021-07-16 13:05 | PC.NURSE ---
Here for Prolia injection. Patient has had this before. Education given. No concerns voiced. Prolia injection given. Tolerated well. Safe exit of hospital.
== END 2021-07-16 12:38 | disposition home or self-care (01) ==
PROVIDERS: PCP Internal Medicine; Visit Provider Internal Medicine
DX: M80.00XA Age-related osteoporosis with current pathological fracture, unspecified site, initial encounter for fracture (principal)
CPT/HCPCS: 96372; J0897

== ENCOUNTER 2021-07-22 15:53 | Outpatient (CLI) | payer MEDICARE, MEDICAID, SELFPAY ==
--- NOTE | ~2021-07-22 | XR_ITS ---
EXAMINATION: XR hand LT min 3V, XR wrist LT min 3V DATE: 07/22/2021 16:22 INDICATION: Posterior left hand and wrist pain. TECHNIQUE: 1. Posteroanterior, ulnar deviation, oblique, and lateral views of the left wrist were obtained. 2. Dorsal palmar, oblique and lateral views of the left hand were obtained. COMPARISON: None. FINDINGS: Alignment of the hand and wrist are normal. No fracture identified. Minimal osteoarthritis at the tr iscaphe and several distal interphalangeal joints. Diffuse osteopenia. No focal soft tissue swelling. IMPRESSION: 1. No acute osseous abnormality. Reviewed, dictated and finalized at location A. IMPRESSION: 1. No acute osseous abnormality.
== END 2021-07-22 15:54 | disposition home or self-care (01) ==
LOC: CHSLAB 15:55
PROVIDERS: PCP Internal Medicine; Visit Provider Internal Medicine
DX: M25.532 Pain in left wrist (principal); M79.642 Pain in left hand
CPT/HCPCS: 73110; 73130

== ENCOUNTER 2021-07-30 13:12 | Outpatient (CLI) | payer MEDICARE, SELFPAY ==
[2021-07-30 13:31] LABS: Basophils Absolute Auto 0.08 K/mm3 (0.00-0.10); Basophils Percent Auto 0.8 % (0.0-1.0); Eosinophils Absolute Auto 0.06 K/mm3 (0.02-0.50); Eosinophils Percent Auto 0.6 % (1.0-6.0); Hematocrit 36.7 % (35.0-42.0); Immature Granulocyte Absolute 0.06 K/mm3 (0.00-0.00); Immature Granulocyte Percent A 0.6 % (0.0-0.0); Lymphocytes Absolute Auto 1.27 K/mm3 (1.10-4.50); Lymphocytes Percent Auto 12.9 % (18.0-42.0); Mean Corpuscular HGB Conc 32.7 g/dL (32.0-36.0); Mean Corpuscular Volume 91.8 fL (78.0-102.0); Mean Platelet Volume 8.6 fl (9.2-11.8); Monocytes Absolute Auto 0.41 K/mm3 (0.10-0.90); Monocytes Percent Auto 4.2 % (2.0-11.0); Neutrophils Percent Auto 80.9 % (50.0-70.0); Platelet Count Result 275 K/mm3 (150-420); Red Cell Distribution Width 13.3 % (11.6-14.4); White Blood Count 9.9 K/mm3 (4.8-10.8)
[2021-07-30 13:32] LABS: Add Urine Microscopic? NO; Appearance Urine Clear (Clear); Bilirubin Urine Negative (Negative); Blood Urine Negative (Negative); Color Urine Light Yellow (Yellow); Glucose Urine UA Negative (Negative); Ketones Urine Negative (Negative); Leukocyte Esterase Ur Negative (Negative); Nitrate Urine Negative (Negative); Protein Urine Negative (Negative); Urobilinogen Urine 0.2 mg/dL (0.2-1.0); pH Urine 6.5 (5.0-8.0)
[2021-07-30 14:02] LABS: Alanine Aminotransferase 30 U/L (14-59); Albumin Level 3.7 g/dL (3.4-5.0); Alkaline Phosphatase 55 U/L (46-116); Anion Gap 9 mmol/L (8-16); Aspartate Amino Transferase 10 U/L (15-37); Bilirubin,Total 0.4 mg/dL (0.00-1.00); Blood Urea Nitrogen 17 mg/dL (7-18); CRP < 0.2 mg/dL (0.0-0.9); Calcium 9.4 mg/dL (8.5-10.1); Carbon Dioxide 32 mmol/L (21-32); Chloride 101 mmol/L (98-108); Creatine Kinase 41 U/L (26-192); Estimated Glomerular Filt Rate 49; Glucose 155 mg/dL (70-99); Osmolality Calculated 298 mOsm/kg (285-295); Sodium 142 mmol/L (136-145); Total Protein 6.8 g/dL (6.4-8.2)
[2021-08-03 06:54] LABS: Myoglobin, Urine 67 mcg/L (<28)
[2021-08-03 17:19] LABS: Complement Total CH50 >60 U/mL (31-60)
[2021-08-04 10:37] LABS: Complement C3 136 mg/dL (83-193)
[2021-08-06 13:26] LABS: SS-A <1.0; SS-B <1.0
[2021-08-07 09:52] LABS: SM Antibody <1.0; SM/RNP Antibody <1.0
== END 2021-07-30 13:13 | disposition home or self-care (01) ==
LOC: CHSLAB 13:14
PROVIDERS: PCP Internal Medicine; Visit Provider Internal Medicine Rheumatology
DX: M35.9 Systemic involvement of connective tissue, unspecified (principal)
CPT/HCPCS: 36415; 80053; 81003; 82550; 83874; 85025; 86140; 86160; 86162; 86225; 86235

== ENCOUNTER 2021-08-12 14:29 | Outpatient (CLI) | payer MEDICARE, MEDICAID, SELFPAY ==
--- NOTE | ~2021-08-12 | DEXA_ITS ---
Bone Density Report Name: Felicia Webb Age: 71 Sex: Female Ethnicity: White Date of : 1950 Indication: screening for osteoporosis; height loss; prior fracture; hysterectomy; Referring Provider: Pilar, Sebastian Lamar Study: Bone densitometry was performed. Exam Date: August 12, 2021 Accession number: [id number] Bone Density: Region BMD T-score Z-score Classification AP Spine(L1-L4) 0.875 -1.6 0.6 Osteopenia Femoral Neck (Left) 0.456 -3.5 -1.7 Osteoporosis Total Hip (Left) 0.570 -3.1 -1.5 Osteoporosis Femoral Neck (Right) 0.497 -3.2 -1.4 Osteoporosis Total Hip (Right) 0.671 -2.2 -0.7 Osteopenia Femoral Neck Mean 0.476 -3.4 -1.5 Osteoporosis Total Hip Mean 0.620 -2.6 -1.1 Osteoporosis World Health Organization criteria for BMD impression classify patients as: Normal (T-score at or above -1.0), Osteopenia (T-score between -1.0 and -2.5), or Osteoporosis (T-score at or below -2.5). 10-year Fracture Risk: FRAX not reported because: Premenopausal woman Some T-score for Spine Total or Hip Total or Femoral Neck at or below -2.5 Prior hip or vertebral fracture Treated for osteoporosis Clinical Information Provided by Patient: Have had a previous hip or vertebral fracture Has had a low trauma fracture Smokes Has 3 or more alcoholic drinks per day Is being treated for osteoporosis Has used the following medications: Prolia (i.e. denosumab), Vitamin D, Calcium Has the following medical conditions: Hysterectomy Patient maximum height was 67 Menopause Age: 36 No regular weight bearing exercise Drinks caffeinated beverages Onset of menses at age 16 Premenopausal Number of children 3 Impression: The patient's bone mass is within expected range for age, gender and ethnicity. The patient has risk factors, including: smoking, excessive alcohol use, previous fracture. Discussion: It is important to ask patients whether they are taking their medications and to encourage continued and appropriate compliance with their osteoporosis therapies to reduce fracture risk. It is also important to review their risk factors and encourage appropriate calcium and vitamin D intakes, exercise, fall prevention and other lifestyle measures. Follow-Up: Consider a repeat BMD and Vertebral Fracture Assessment (VFA) exam in 2 years or sooner if medically necessary, to reassess this patient's status. Reported by: Dr. Jaspal Chua on 08/12/2021 3:14:00 PM. Reviewed, dictated and finalized at location ASilvestre [facility] CENTERCaroline
== END 2021-08-12 14:30 | disposition home or self-care (01) ==
LOC: CHSIMG 14:31
PROVIDERS: PCP Internal Medicine; Visit Provider Internal Medicine Rheumatology
DX: M81.0 Age-related osteoporosis without current pathological fracture (principal)
CPT/HCPCS: 77080

== ENCOUNTER 2021-10-11 21:51 | Emergency (ER) | payer MEDICARE, MEDICAID, SELFPAY ==
--- NOTE | ~2021-10-11 | XR_ITS ---
EXAMINATION: XR chest 2V EXAM DATE: 10/11/2021 22:46 INDICATION: Chest Pain TECHNIQUE: Frontal and lateral projections of the chest obtained and reviewed. Comparison is made to prior examination from 05/29/2020. FINDINGS: Linear atelectasis best identified on lateral projection, probably in the lingula. There ar e no pleural effusions. The cardiomediastinal silhouette is within normal limits. There is no pneum othorax suspected. The bones and soft tissues are unremarkable. IMPRESSION: Subsegmental linear atelectasis. Reviewed, dictated and finalized at location B. TER DRIVER
--- NOTE | 2021-10-11 21:53 | ECG_ITS ---
Measurements Intervals [place] Rate: 70 P: 52 NC: 147 QRS: 11 QRSD: 85 T: 35 QT: 387 QTc: 418 Interpretive Statements SINUS RHYTHM BASELINE ARTIFACT- III, V3, V6 NORMAL ECG Electronically Signed On 10-12-2021 6:06:27 BLOWER INSULATOR by Yvon Gonzales D.O.
--- NOTE | 2021-10-11 21:53 | ED.CHESTPAIN ---
HPI - Chest Pain General Chief Complaint: Chest Pain Stated Complaint: chest pain Time Seen by Provider: 10/11/21 21:52 Source: patient and RN notes reviewed Mode of arrival: wheelchair Limitations: no limitations History of Present Illness MD complaint: chest heaviness Pertinent past history: coronary artery disease and prior [place] Onset (ago): hour(s) (1) Timing of current episode: constant (but lets up yet never goes away) Onset: during rest Pain location: substernal Pain radiation: left arm Severity: moderate Quality: heaviness (pressure) Relieving factors: nothing Exacerbating factors: nothing Associated symptoms: dyspnea Treatment prior to arrival: nitroglycerin (no help) Risk Factors Thoracic aortic dissection risk factors: history of thoracic aortic aneurysm Related Data Home Medications Medication Instructions Recorded Confirmed albuterol sulfate [Ventolin HFA] 2 puff INHALATION PRN 11/01/19 10/11/21 amlodipine 5 mg PO DAILY 11/01/19 10/11/21 atorvastatin 80 mg PO HS 11/01/19 10/11/21 clopidogrel 75 mg PO DAILY 11/01/19 10/11/21 duloxetine 60 mg PO DAILY 11/01/19 10/11/21 hydrocodone-acetaminophen 1 tablet PO PRN PRN 11/01/19 10/11/21 isosorbide mononitrate 60 mg PO DAILY 11/01/19 10/11/21 meloxicam 7.5 mg PO DAILY 11/01/19 10/11/21 metoprolol succinate 50 mg PO DAILY 11/01/19 10/11/21 montelukast 10 mg PO DAILY 11/01/19 10/11/21 nitroglycerin 0.4 mg BUCCAL PRN PRN 11/01/19 10/11/21 ranolazine 500 mg PO DAILY 11/01/19 10/11/21 umeclidinium-vilanterol [Anoro 1 ea INHALATION DAILY 11/01/19 10/11/21 Ellipta] aspirin 81 mg PO DAILY 05/29/20 10/11/21 duloxetine 30 mg PO HS 05/29/20 10/11/21 omeprazole 20 mg PO DAILY 05/29/20 10/11/21 prednisone 20 mg PO DAILY 10/11/21 10/11/21 Allergies Allergy/AdvReac Type Severity Reaction Status Date / Time Cephalosporins Allergy Unknown Other Verified 10/11/21 22:10 ciprofloxacin Allergy Unknown Other Verified 10/11/21 22:10 erythromycin base Allergy Unknown Other Verified 10/11/21 22:10 metronidazole Allergy Unknown Other Verified 10/11/21 22:10 Sulfa (Sulfonamide Allergy Unknown Other Verified 10/11/21 22:10 Antibiotics) sulfanilamide Allergy Unknown Other Verified 10/11/21 22:10 ADHESIVE TAPE Allergy Mild Other Uncoded 04/20/21 07:08 ERYTHROMYCINS Allergy Mild Other Uncoded 04/20/21 07:08 CEPHALOSPORIN Allergy Unknown RASH Uncoded 04/20/21 07:08 Review of Systems Review of Systems: All systems reviewed & are unremarkable except as noted in HPI and below PMFSH Past Medical History Medical History Bilateral edema of lower extremity Body mass index [BMI] 32.0-32.9, adult (08/28/15) Controlled type 2 diabetes mellitus without complication, without long-term current use of insulin COPD (chronic obstructive pulmonary disease) Coronary artery disease Dyslipidemia Hypertension Major depressive disorder, single episode, unspecified [place] (myocardial infarction) Sleep apnea Smoking Surgical History Surgical History H/O breast biopsy H/O tubal ligation 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 Family History Family History Father Family history of lung cancer Other Family history of coronary artery disease Social History Social History Smoking packs per day: 1 Smoking cigarettes per day: 20.0 Years smoked: 30 Smoking pack-years: 30.00 Smoking status: Current every day smoker Tobacco type: cigarettes Alcohol intake: current Other substance usage details: norco prn Gender identity (if verbalized by the patient): Female Spiritual care concerns: No Exam Const: General: healthy appearing, no acute distress and alert Nutritional Appearance: well nourished and obese centrally obese Orientation/consciousness: patient oriented x3 HENMT:
[2021-10-11 22:00] VITALS: BP 126/70; PULSE 70; RESP 16; O2SAT 97
[2021-10-11 22:12] VITALS: BP 151/66; PULSE 75; RESP 18; TEMP 36.4; O2SAT 99
[2021-10-11 22:16] LABS: Basophils Absolute Auto 0.04 K/mm3 (0.00-0.10); Basophils Percent Auto 0.4 % (0.0-1.0); Hemoglobin 11.9 g/dL (11.7-13.8); Immature Granulocyte Absolute 0.06 K/mm3 (0.00-0.00); Immature Granulocyte Percent A 0.6 % (0.0-0.0); Lymphocytes Absolute Auto 0.83 K/mm3 (1.10-4.50); Lymphocytes Percent Auto 8.3 % (18.0-42.0); Mean Corpuscular HGB Conc 32.2 g/dL (32.0-36.0); Mean Corpuscular Hemoglobin 29.3 pg (27.0-31.0); Mean Corpuscular Volume 91.1 fL (78.0-102.0); Mean Platelet Volume 9.3 fl (9.2-11.8); Neutrophils Absolute Auto 8.8 K/mm3 (1.7-7.2); Neutrophils Percent Auto 87.7 % (50.0-70.0); Platelet Count Result 321 K/mm3 (150-420); Red Blood Count 4.06 M/mm3 (4.20-5.40)
[2021-10-11 22:26] LABS: Partial Thromboplastin Time 27.2 SEC (23.90-30.70); Prothrombin Time 10.7 Seconds (9.50-12.10)
[2021-10-11 22:30] VITALS: BP 121/62; PULSE 67; RESP 16; O2SAT 94
[2021-10-11 22:31] LABS: Alanine Aminotransferase 29 U/L (14-59); Albumin Level 3.5 g/dL (3.4-5.0); Alkaline Phosphatase 50 U/L (46-116); Anion Gap 10 mmol/L (8-16); Aspartate Amino Transferase < 10 U/L (15-37); Bilirubin,Total 0.3 mg/dL (0.00-1.00); Blood Urea Nitrogen 27 mg/dL (7-18); Carbon Dioxide 28 mmol/L (21-32); Chloride 100 mmol/L (98-108); Estimated CRCL calculation 40 ml/min; Estimated Glomerular Filt Rate 42; Glucose 264 mg/dL (70-99); Osmolality Calculated 300 mOsm/kg (285-295); Potassium 4.5 mmol/L (3.5-5.1); Sodium 138 mmol/L (136-145); Total Protein 7.3 g/dL (6.4-8.2)
[2021-10-11 22:51] VITALS: BP 130/59; PULSE 70; RESP 20; O2SAT 97
[2021-10-12 00:42] LABS: Troponin I 6.6 ng/L (0.00-60.4)
[2021-10-12 01:07] VITALS: BP 116/61; PULSE 63; RESP 16; O2SAT 94
== END 2021-10-12 00:55 | disposition home or self-care (01) ==
PROVIDERS: Emergency Provider Emergency Medicine; PCP Internal Medicine
DX: I20.8 Other forms of angina pectoris (principal); E11.9 Type 2 diabetes mellitus without complications; J44.9 Chronic obstructive pulmonary disease, unspecified; E78.5 Hyperlipidemia, unspecified; I10 Essential (primary) hypertension; F17.200 Nicotine dependence, unspecified, uncomplicated
CPT/HCPCS: 36415; 71046; 80053; 84484; 85025; 85610; 85730; 93005; 99283; 99284

== ENCOUNTER 2021-10-20 14:49 | Outpatient (CLI) | payer MEDICARE, MEDICAID, SELFPAY ==
--- NOTE | ~2021-10-20 | XR_ITS ---
XR knee LT min 4V 10/20/2021 15:13 Indication: Left knee pain Procedure: 4 views left knee Comparison: Comparison to multiple prior studies sequentially, with oldest reviewed study dated 03/2018. Findings: Severe tricompartment osteoarthritis, most advanced in the medial compartment. No acute fra cture or traumatic malalignment. No significant joint effusion. There are vascular calcifications. Os teopenia. Impression: 1: Severe osteoarthritis of the left knee. Reviewed, dictated and finalized at location A. AGENT Impression: 1: Severe osteoarthritis of the left knee.
== END 2021-10-20 14:50 | disposition home or self-care (01) ==
LOC: CHSLAB 14:54
PROVIDERS: PCP Internal Medicine
DX: M17.0 Bilateral primary osteoarthritis of knee (principal)
CPT/HCPCS: 73564

== ENCOUNTER 2022-01-07 09:35 | Outpatient (CLI) | payer MEDICARE, SELFPAY ==
[2022-01-07 10:42] LABS: Alanine Aminotransferase 27 U/L (14-59); Albumin Level 3.3 g/dL (3.4-5.0); Alkaline Phosphatase 52 U/L (46-116); Anion Gap 7 mmol/L (8-16); Aspartate Amino Transferase 14 U/L (15-37); Bilirubin,Total 0.4 mg/dL (0.00-1.00); Blood Urea Nitrogen 11 mg/dL (7-18); Calcium 9.1 mg/dL (8.5-10.1); Carbon Dioxide 31 mmol/L (21-32); Chloride 103 mmol/L (98-108); Cholesterol 195 mg/dL (0-200); Estimated Glomerular Filt Rate > 60; Glucose 131 mg/dL (70-99); HDL Direct 49 mg/dL (40-60); LDL Cholesterol Calculated 110 mg/dL (<130); Osmolality Calculated 293 mOsm/kg (285-295); Potassium 4.1 mmol/L (3.5-5.1); Sodium 141 mmol/L (136-145); Total Protein 6.4 g/dL (6.4-8.2); Triglycerides 179 mg/dL (0-150)
== END 2022-01-07 09:36 | disposition home or self-care (01) ==
PROVIDERS: PCP Internal Medicine; Visit Provider Internal Medicine
DX: I25.10 Atherosclerotic heart disease of native coronary artery without angina pectoris (principal); E78.5 Hyperlipidemia, unspecified; R73.01 Impaired fasting glucose
CPT/HCPCS: 36415; 80053; 80061; 83036

== ENCOUNTER 2022-01-16 02:41 | Emergency (ER) | payer MEDICARE, MEDICAID, SELFPAY ==
--- NOTE | ~2022-01-16 | XR_ITS ---
XR hip LT 2V w AP pelvis 01/16/2022 03:24 INDICATION: Left hip pain PROCEDURE: 4 views left hip including AP pelvis COMPARISON: 03/13/2016 FINDINGS: Fracture, dislocation or subluxation is not identified. Pelvic rings are intact. There is m ild osteoarthritis of the hips. The soft tissues appear within normal limits. No foreign bodies are identified. Moderate retained fecal material present in the colon. IMPRESSION: 1: NO ACUTE BONE OR JOINT ABNORMALITY IDENTIFIED. Reviewed, dictated and finalized at location A.
[2022-01-16 02:49] VITALS: BP 148/82; PULSE 74; RESP 22; TEMP 36.6; O2SAT 95
--- NOTE | 2022-01-16 02:59 | ED.LOWEXIN ---
HPI - Extremity Injury (Lower) General Chief Complaint: Extremity Injury, Lower Stated Complaint: R Hip Pain Time Seen by Provider: 01/16/22 03:00 Source: patient, EMS and RN notes reviewed Mode of arrival: EMS Limitations: no limitations History of Present Illness MD complaint: hip injury Onset (ago): hour(s) (4.5) Injury: Left: hip Place: home Severity: severe Relieving factors: nothing Exacerbating factors: weight bearing Context: fall ( Into the wall she was walking with her walker) and walking Other symptoms: none Related Data Home Medications Medication Instructions Recorded Confirmed albuterol sulfate [Ventolin HFA] 2 puff INHALATION PRN 11/01/19 01/16/22 amlodipine 5 mg PO DAILY 11/01/19 01/16/22 atorvastatin 80 mg PO HS 11/01/19 01/16/22 clopidogrel 75 mg PO DAILY 11/01/19 01/16/22 duloxetine 60 mg PO DAILY 11/01/19 01/16/22 hydrocodone-acetaminophen 1 tablet PO PRN PRN 11/01/19 01/16/22 isosorbide mononitrate 60 mg PO DAILY 11/01/19 01/16/22 meloxicam 7.5 mg PO DAILY 11/01/19 01/16/22 metoprolol succinate 50 mg PO DAILY 11/01/19 01/16/22 montelukast 10 mg PO DAILY 11/01/19 01/16/22 nitroglycerin 0.4 mg BUCCAL PRN PRN 11/01/19 01/16/22 ranolazine 500 mg PO DAILY 11/01/19 01/16/22 umeclidinium-vilanterol [Anoro 1 ea INHALATION DAILY 11/01/19 01/16/22 Ellipta] aspirin 81 mg PO DAILY 05/29/20 01/16/22 duloxetine 30 mg PO HS 05/29/20 01/16/22 omeprazole 20 mg PO DAILY 05/29/20 01/16/22 prednisone 20 mg PO DAILY 10/11/21 01/16/22 Allergies Allergy/AdvReac Type Severity Reaction Status Date / Time Cephalosporins Allergy Unknown Other Verified 01/16/22 02:55 ciprofloxacin Allergy Unknown Other Verified 01/16/22 02:55 erythromycin base Allergy Unknown Other Verified 01/16/22 02:55 metronidazole Allergy Unknown Other Verified 01/16/22 02:55 Sulfa (Sulfonamide Allergy Unknown Other Verified 01/16/22 02:55 Antibiotics) sulfanilamide Allergy Unknown Other Verified 01/16/22 02:55 ADHESIVE TAPE Allergy Mild Other Uncoded 01/16/22 02:55 ERYTHROMYCINS Allergy Mild Other Uncoded 01/16/22 02:55 CEPHALOSPORIN Allergy Unknown RASH Uncoded 01/16/22 02:55 Review of Systems Review of Systems: All systems reviewed & are unremarkable except as noted in HPI and below PMFSH Past Medical History Medical History Bilateral edema of lower extremity Body mass index [BMI] 32.0-32.9, adult (08/28/15) Controlled type 2 diabetes mellitus without complication, without long-term current use of insulin COPD (chronic obstructive pulmonary disease) Coronary artery disease Dyslipidemia Hypertension Major depressive disorder, single episode, unspecified [place] (myocardial infarction) Sleep apnea Smoking Surgical History Surgical History H/O breast biopsy H/O tubal ligation 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 Family History Family History Father Family history of lung cancer Other Family history of coronary artery disease Social History Social History Smoking packs per day: 1 Smoking cigarettes per day: 20.0 Years smoked: 30 Smoking pack-years: 30.00 Smoking status: Current every day smoker Tobacco type: cigarettes Alcohol intake: current Other substance usage details: norco prn Gender identity (if verbalized by the patient): Female Spiritual care concerns: No Exam Const: General: healthy appearing, no acute distress and alert Nutritional Appearance: well nourished and obese centrally obese Orientation/consciousness: patient oriented x3 HENMT: Head: normal to inspection Ears: external ears normal Face and sinus: normal facial exam Mouth: Yes moist mucous membranes Eyes: Conjunctivae: conjunctivae normal Pupils: Equal, round and reactive pupils present EOM: EOMs intact bilaterally Ne
[2022-01-16] MEDS: HYDROmorphone HCL INJ (*CRX) 2 MG/ML VIAL 1 MG IM (03:23)
--- NOTE | 2022-01-16 03:54 | PC.NURSE ---
pt used bedside commode with tech assistance
[2022-01-16 05:25] VITALS: BP 148/71; PULSE 77; RESP 18; TEMP 36.6; O2SAT 97
== END 2022-01-16 05:26 | disposition home or self-care (01) ==
PROVIDERS: Emergency Provider Emergency Medicine; PCP Internal Medicine
DX: S76.012A Strain of muscle, fascia and tendon of left hip, initial encounter (principal); W19.XXXA Unspecified fall, initial encounter; J44.9 Chronic obstructive pulmonary disease, unspecified; I25.10 Atherosclerotic heart disease of native coronary artery without angina pectoris; E78.5 Hyperlipidemia, unspecified; I10 Essential (primary) hypertension; F17.200 Nicotine dependence, unspecified, uncomplicated
CPT/HCPCS: 73502; 96372; 99283; J1170

== ENCOUNTER 2022-01-21 10:35 | Emergency (ER) | payer MEDICARE, MEDICAID, SELFPAY ==
[2022-01-21] VITALS (12 sets, daily range): BP systolic 109–154; BP diastolic 59–81; PULSE 82–100; RESP 16–22; TEMP 36.7; O2SAT 93–97
--- NOTE | ~2022-01-21 | XR_ITS ---
EXAMINATION: XR foot LT 2V DATE: 01/21/2022 13:10 INDICATION: Generalized left foot pain post fall TECHNIQUE: Dorsoplantar and lateral views of the left foot were obtained. COMPARISON: None. FINDINGS: Alignment is normal. No fracture. Mild osteoarthritis at the first metatarsophalangeal and a few of t he tarsal metatarsal and interphalangeal joints. Tiny plantar calcaneal spur. Soft tissues are unrema rkable. No ankle joint effusion. IMPRESSION: 1. Mild polyarticular osteoarthritis in the mid and forefoot. No acute osseous abnormality. Reviewed, dictated and finalized at location A.
--- NOTE | ~2022-01-21 | CT_ITS ---
EXAMINATION: CT brain wo con DATE: 01/21/2022 13:03 INDICATION: Status post fall. Head injury. TECHNIQUE: Computed tomography (CT) of the head was performed without intravenous contrast. The dose- length product was 605.33 mGy-cm. Automated exposure control and iterative reconstruction technique w ere employed. COMPARISON: None FINDINGS: There is mild generalized atrophy. There are scattered moderate periventricular and subcort ical white matter changes, most likely related to small vessel ischemic disease (microangiopathy). No ventriculomegaly or midline shift. Basilar cisterns are patent. There is intracranial atherosclerosi s. Paranasal sinuses and mastoids are pneumatized. No depressed skull fractures. IMPRESSION: 1. No acute intracranial abnormality. 2: Chronic age-related findings. Reviewed, dictated and finalized at location A.
[2022-01-21 11:20] LABS: Add Urine Microscopic? NO; Appearance Urine Clear (Clear); Bilirubin Urine Negative (Negative); Blood Urine Negative (Negative); Color Urine Yellow (Yellow); Glucose Urine UA Negative (Negative); Ketones Urine Negative (Negative); Leukocyte Esterase Ur Negative LEU/UL (Negative); Nitrate Urine Negative (Negative); Protein Urine Negative (Negative); Specific Grav Ur 1.018 (1.001-1.035); Urobilinogen Urine Negative mg/dL (<2.0)
[2022-01-21 13:25] LABS: Basophils Absolute Auto 0.1 K/mm3 (0.0-0.1); Basophils Percent Auto 0.7 % (0.2-1.2); Eosinophils Absolute Auto 0.2 K/mm3 (0-0.3); Eosinophils Percent Auto 2.5 % (0-4.4); Hemoglobin 13.6 g/dL (12.0-15.0); Immature Granulocyte Absolute 0.02 K/mm3 (0.00-0.031); Immature Granulocyte Percent A 0.2 % (0-0.5); Lymphocytes Absolute Auto 1.66 K/mm3 (0.9-3.2); Lymphocytes Percent Auto 19.5 % (18.3-44.2); Mean Corpuscular HGB Conc 31.6 g/dl (32-36); Mean Corpuscular Hemoglobin 29.3 pg (26-34); Mean Corpuscular Volume 92.7 fl (80-100); Mean Platelet Volume 9.1 fl (7.4-10.4); Monocytes Absolute Auto 0.8 K/mm3 (0.1-0.6); Monocytes Percent Auto 8.8 % (2.6-8.5); Neutrophils Absolute Auto 5.8 K/mm3 (1.3-6.7); Neutrophils Percent Auto 68.3 % (45.5-73.1); Platelet Count Result 254 k/mm3 (150-375); Red Blood Count 4.64 M/mm3 (4.2-5.4); Red Cell Distribution Width 13.5 % (11.5-14.5); White Blood Count 8.5 K/mm3 (4.5-10.0)
[2022-01-21 13:34] LABS: Anion Gap 2 mmol/L (8-16); Blood Urea Nitrogen 15 mg/dL (7-17); Calcium 8.9 mg/dL (8.4-10.2); Carbon Dioxide 33 mmol/L (22-30); Chloride 102 mmol/L (98-107); Estimated CRCL calculation 54 ml/min; Estimated Glomerular Filt Rate > 60; Glucose 152 mg/dL (65-110); Potassium 3.9 mmol/L (3.4-5.0); Sodium 137 mmol/L (137-145)
--- NOTE | 2022-01-21 13:51 | ED.FALL ---
HPI - Fall General Chief Complaint: Fall Stated Complaint: left leg pain Time Seen by Provider: 01/21/22 10:40 Source: patient Mode of arrival: EMS Limitations: no limitations History of Present Illness HPI Narrative: 71-year-old with a history of hypertension, diabetes, COPD presently rehabbing in the detention for knee pain. Patient states that she was admitted to [facility] and was later discharged to the detention for knee pain. Patient states that she was trying to use the restroom lost her balance and fell backwards. No history of loss of consciousness. Complains of left ankle pain. No history of chest pain or shortness of breath. She states that she fell twice at the detention she has barely any help at the detention MD complaint: fall Onset (ago): day(s) (1) Fall witnessed: yes, by living facility staff Place fall occurred: detention/SNF Loss of consciousness: none Context: other (Loss of balance) Location of injury: head Severity: mild Quality: dull Associated symptoms (after fall): denies Related Data Home Medications Medication Instructions Recorded Confirmed albuterol sulfate [Ventolin HFA] 2 puff INHALATION PRN 11/01/19 01/16/22 amlodipine 5 mg PO DAILY 11/01/19 01/16/22 atorvastatin 80 mg PO HS 11/01/19 01/16/22 clopidogrel 75 mg PO DAILY 11/01/19 01/16/22 duloxetine 60 mg PO DAILY 11/01/19 01/16/22 hydrocodone-acetaminophen 1 tablet PO PRN PRN 11/01/19 01/16/22 isosorbide mononitrate 60 mg PO DAILY 11/01/19 01/16/22 meloxicam 7.5 mg PO DAILY 11/01/19 01/16/22 metoprolol succinate 50 mg PO DAILY 11/01/19 01/16/22 montelukast 10 mg PO DAILY 11/01/19 01/16/22 nitroglycerin 0.4 mg BUCCAL PRN PRN 11/01/19 01/16/22 ranolazine 500 mg PO DAILY 11/01/19 01/16/22 umeclidinium-vilanterol [Anoro 1 ea INHALATION DAILY 11/01/19 01/16/22 Ellipta] aspirin 81 mg PO DAILY 05/29/20 01/16/22 duloxetine 30 mg PO HS 05/29/20 01/16/22 omeprazole 20 mg PO DAILY 05/29/20 01/16/22 prednisone 20 mg PO DAILY 10/11/21 01/16/22 Allergies Allergy/AdvReac Type Severity Reaction Status Date / Time Cephalosporins Allergy Unknown Other Verified 01/21/22 11:11 ciprofloxacin Allergy Unknown Other Verified 01/21/22 11:11 erythromycin base Allergy Unknown Other Verified 01/21/22 11:11 metronidazole Allergy Unknown Other Verified 01/21/22 11:11 Sulfa (Sulfonamide Allergy Unknown Other Verified 01/21/22 11:11 Antibiotics) sulfanilamide Allergy Unknown Other Verified 01/21/22 11:11 ADHESIVE TAPE Allergy Mild Other Uncoded 01/21/22 11:11 ERYTHROMYCINS Allergy Mild Other Uncoded 01/21/22 11:11 CEPHALOSPORIN Allergy Unknown RASH Uncoded 01/21/22 11:11 Review of Systems Constitutional: Constitutional: Reports no additional constitutional complaints Eyes: Eyes: Reports no additional eye complaints ENT: Reports system reviewed and no additional complaints, except as documented Cardiovascular: Cardiovascular: Reports no additional cardiovascular complaints Respiratory: Respiratory: Reports no additional respiratory complaints Gastrointestinal: Gastrointestinal: Reports no additional gastrointestinal complaints Musculoskeletal: Musculoskeletal: Reports no additional musculoskeletal complaints Neurologic: Reports system reviewed and no additional complaints, except as documented Endocrine: Endocrine: Reports no additional endocrine complaints PMFSH Past Medical History Medical History Bilateral edema of lower extremity Body mass index [BMI] 32.0-32.9, adult (08/28/15) Controlled type 2 diabetes mellitus without complication, without long-term current use of insulin COPD (chronic obstructive pulmonary disease) Coronary artery disease Dyslipidemia Hypertension Major depressive disorder, single episode, unspecified [place] (myocardial infarction) Sleep apnea Smoking Surgical History Surgical History H/O breast biopsy H/O tubal ligation History of
== END 2022-01-21 14:43 ==
PROVIDERS: Emergency Provider Family Medicine; PCP Internal Medicine
DX: S93.402A Sprain of unspecified ligament of left ankle, initial encounter (principal); S09.90XA Unspecified injury of head, initial encounter; E11.9 Type 2 diabetes mellitus without complications; J44.9 Chronic obstructive pulmonary disease, unspecified; I25.10 Atherosclerotic heart disease of native coronary artery without angina pectoris; E78.5 Hyperlipidemia, unspecified; I10 Essential (primary) hypertension; I25.2 Old myocardial infarction; G47.30 Sleep apnea, unspecified; Z79.82 Long term (current) use of aspirin; F17.210 Nicotine dependence, cigarettes, uncomplicated; M19.072 Primary osteoarthritis, left ankle and foot; W18.39XA Other fall on same level, initial encounter
CPT/HCPCS: 36415; 51701; 70450; 73620; 80048; 81003; 85025; 99284

== ENCOUNTER 2022-03-16 11:35 | Outpatient (CLI) | payer MEDICARE, MEDICAID, SELFPAY ==
--- NOTE | ~2022-03-16 | XR_ITS ---
EXAM: [id number] HISTORY: Neck pain with finger numbness . COMPARISON: 11/14/2007. FINDINGS: Craniocervical association and atlantoaxial joint are aligned, with moderate degenerative change. No prevertebral soft tissue swelling. 4 mm anterolisthesis of C3 on C4. 6 mm anterolisthesis of C4 on C5, increased since the prior study. Vertebral body heights are maintained. Multilevel disc space narrowing. Multilevel facet sclerosis, worst in the mid cervical spine. IMPRESSION: Presumed degenerative grade 1 anterolistheses at C3-4 and C4-5, more severe at C4-5. Mult ilevel degenerative disc disease and facet arthropathy. Reviewed, dictated and finalized at location K. IMPRESSION: Presumed degenerative grade 1 anterolistheses at C3-4 and C4-5, mor e severe at C4-5. Multilevel degenerative disc disease and facet arthropathy.
== END 2022-03-16 11:36 | disposition home or self-care (01) ==
LOC: CHSIMG 11:41
PROVIDERS: PCP Internal Medicine; Visit Provider Nurse Practitioner Family
DX: M54.2 Cervicalgia (principal)
CPT/HCPCS: 72040

== ENCOUNTER 2022-03-31 14:24 | Outpatient (NON) | payer MEDICARE, MEDICAID, SELFPAY ==
[2022-03-31 14:50] LABS: Basophils Absolute Auto 0.07 K/mm3 (0.00-0.10); Basophils Percent Auto 0.9 % (0.0-1.0); Eosinophils Absolute Auto 0.19 K/mm3 (0.02-0.50); Eosinophils Percent Auto 2.3 % (1.0-6.0); Hematocrit 39.5 % (35.0-42.0); Hemoglobin 12.5 g/dL (11.7-13.8); Immature Granulocyte Absolute 0.04 K/mm3 (0.00-0.00); Immature Granulocyte Percent A 0.5 % (0.0-0.0); Lymphocytes Absolute Auto 1.99 K/mm3 (1.10-4.50); Lymphocytes Percent Auto 24.3 % (18.0-42.0); Mean Corpuscular HGB Conc 31.6 g/dL (32.0-36.0); Mean Corpuscular Hemoglobin 30.3 pg (27.0-31.0); Mean Corpuscular Volume 95.9 fL (78.0-102.0); Mean Platelet Volume 9.5 fl (9.2-11.8); Monocytes Absolute Auto 0.77 K/mm3 (0.10-0.90); Monocytes Percent Auto 9.4 % (2.0-11.0); Neutrophils Absolute Auto 5.1 K/mm3 (1.7-7.2); Neutrophils Percent Auto 62.6 % (50.0-70.0); Platelet Count Result 292 K/mm3 (150-420); Red Blood Count 4.12 M/mm3 (4.20-5.40); White Blood Count 8.2 K/mm3 (4.8-10.8)
[2022-03-31 15:27] LABS: Alanine Aminotransferase 35 U/L (14-59); Albumin Level 3.5 g/dL (3.4-5.0); Alkaline Phosphatase 53 U/L (46-116); Anion Gap 3 mmol/L (8-16); Aspartate Amino Transferase 29 U/L (15-37); Bilirubin,Total 0.3 mg/dL (0.00-1.00); Blood Urea Nitrogen 17 mg/dL (7-18); Calcium 9.4 mg/dL (8.5-10.1); Carbon Dioxide 34 mmol/L (21-32); Chloride 99 mmol/L (98-108); Estimated Glomerular Filt Rate > 60; Glucose 102 mg/dL (70-99); Osmolality Calculated 283 mOsm/kg (285-295); Sodium 136 mmol/L (136-145); Thyroid Stimulating Hormone 1.94 uIU/mL (0.36-3.74); Total Protein 7.1 g/dL (6.4-8.2)
[2022-03-31 15:28] LABS: CRP < 0.2 mg/dL (0.0-0.9)
== END 2022-03-31 14:25 | disposition home or self-care (01) ==
LOC: CHSHH 14:27
PROVIDERS: Visit Provider Internal Medicine
DX: R53.1 Weakness (principal); R20.0 Anesthesia of skin; R63.0 Anorexia
CPT/HCPCS: 80053; 84443; 85025; 86140

== ENCOUNTER 2022-04-20 13:31 | Outpatient (CLI) | payer MEDICARE, MEDICAID, SELFPAY ==
[2022-04-20 13:38] VITALS: BMI 30.9
[2022-04-20 13:41] VITALS: BP 124/62; PULSE 72; RESP 14; TEMP 36.4; O2SAT 96
[2022-04-20] MEDS: DENOSUMAB 60 MG/ML SYRINGE SUB-Q (13:44)
--- NOTE | 2022-04-20 13:47 | PC.NURSE ---
Patient here for Prolia injection. Education on med given. No concerns voiced. Prolia injection given. SEE MAR. Tolerated well. Safe exit of hospital.
== END 2022-04-20 13:32 | disposition home or self-care (01) ==
PROVIDERS: PCP Internal Medicine; Visit Provider Internal Medicine
DX: M81.0 Age-related osteoporosis without current pathological fracture (principal)
CPT/HCPCS: 96372; J0897

== ENCOUNTER 2022-04-26 15:05 | Outpatient (CLI) | payer MEDICARE, SELFPAY ==
--- NOTE | 2022-04-26 15:15 | PC.NURSE ---
PT to room 211 per wc. A&Ox3. Has no complaints. Plan of care explained. Consent signed. Pt apprehensive regarding medication but wishes to receive it anyway. Oriented to room. Call beal in reach. Reminded to call with needs.
[2022-04-26] MEDS: diphenhydrAMINE HCl CAP 25 MG CAPSULE PO (15:27)
[2022-04-26] MEDS: FAMOTIDINE 20 MG TABLET PO (15:27)
[2022-04-26] MEDS: BEBTELOVIMAB 175 MG/2 ML VIAL IV PUSH (15:30)
[2022-04-26 15:42] VITALS: BP 123/61; PULSE 66; RESP 20; O2SAT 94
--- NOTE | 2022-04-26 16:08 | PC.NURSE ---
Pt tolerated medication well. Has no questions or complaints. Discharged to home per with spouse.
== END 2022-04-26 15:06 | disposition home or self-care (01) ==
LOC: CHSTREATRM 15:10
PROVIDERS: PCP Internal Medicine; Visit Provider Internal Medicine
DX: U07.1 COVID-19 (principal); I10 Essential (primary) hypertension; J44.9 Chronic obstructive pulmonary disease, unspecified
CPT/HCPCS: A9270; M0222; Q0222

== ENCOUNTER 2022-06-16 12:15 | Outpatient (CLI) | payer MEDICARE, SELFPAY ==
[2022-06-16 12:35] LABS: Basophils Absolute Auto 0.05 K/mm3 (0.00-0.10); Basophils Percent Auto 0.6 % (0.0-1.0); Eosinophils Absolute Auto 0.15 K/mm3 (0.02-0.50); Eosinophils Percent Auto 1.7 % (1.0-6.0); Hematocrit 39.2 % (35.0-42.0); Hemoglobin 12.8 g/dL (11.7-13.8); Immature Granulocyte Absolute 0.03 K/mm3 (0.00-0.00); Immature Granulocyte Percent A 0.3 % (0.0-0.0); Lymphocytes Absolute Auto 2.14 K/mm3 (1.10-4.50); Lymphocytes Percent Auto 24.3 % (18.0-42.0); Mean Corpuscular HGB Conc 32.7 g/dL (32.0-36.0); Mean Corpuscular Hemoglobin 30.3 pg (27.0-31.0); Mean Corpuscular Volume 92.7 fL (78.0-102.0); Mean Platelet Volume 8.9 fl (9.2-11.8); Monocytes Absolute Auto 0.86 K/mm3 (0.10-0.90); Monocytes Percent Auto 9.8 % (2.0-11.0); Neutrophils Absolute Auto 5.6 K/mm3 (1.7-7.2); Neutrophils Percent Auto 63.3 % (50.0-70.0); Platelet Count Result 285 K/mm3 (150-420); Red Blood Count 4.23 M/mm3 (4.20-5.40); Red Cell Distribution Width 12.4 % (11.6-14.4); White Blood Count 8.8 K/mm3 (4.8-10.8)
[2022-06-16 12:56] LABS: Alanine Aminotransferase 25 U/L (14-59); Albumin Level 3.6 g/dL (3.4-5.0); Alkaline Phosphatase 52 U/L (46-116); Anion Gap 7 mmol/L (8-16); Aspartate Amino Transferase 13 U/L (15-37); Bilirubin,Total 0.4 mg/dL (0.00-1.00); Blood Urea Nitrogen 19 mg/dL (7-18); CRP < 0.5 mg/dL (0.0-0.9); Calcium 9.4 mg/dL (8.5-10.1); Carbon Dioxide 33 mmol/L (21-32); Chloride 97 mmol/L (98-108); Cholesterol 139 mg/dL (0-200); Estimated Glomerular Filt Rate 53; Glucose 102 mg/dL (70-99); HDL Direct 41 mg/dL (40-60); LDL Cholesterol Calculated 56 mg/dL (<130); Osmolality Calculated 286 mOsm/kg (285-295); Sodium 137 mmol/L (136-145); Total Protein 7.1 g/dL (6.4-8.2); Triglycerides 212 mg/dL (0-150)
[2022-06-16 13:01] LABS: Hemoglobin A1C 6.1 % (<5.7)
[2022-06-16 13:18] LABS: Thyroid Stimulating Hormone 2.88 uIU/mL (0.36-3.74)
== END 2022-06-16 12:16 | disposition home or self-care (01) ==
LOC: CHSLAB 12:19
PROVIDERS: PCP Internal Medicine; Visit Provider Internal Medicine
DX: I25.10 Atherosclerotic heart disease of native coronary artery without angina pectoris (principal); M54.9 Dorsalgia, unspecified; E11.9 Type 2 diabetes mellitus without complications
CPT/HCPCS: 36415; 80053; 80061; 83036; 84443; 85025; 86140

== ENCOUNTER 2022-06-23 09:31 | Emergency (ER) | payer MEDICARE, MEDICAID, SELFPAY ==
[2022-06-23] VITALS (21 sets, daily range): BP systolic 110–128; BP diastolic 53–68; PULSE 68–79; RESP 18–20; TEMP 36.2; O2SAT 88–99
--- NOTE | ~2022-06-23 | CT_ITS ---
EXAMINATION: CT chest abdomen pelvis wo con DATE: 06/23/2022 11:12 INDICATION: Wheezing, abdominal pain and constipation. TECHNIQUE: Computed tomography (CT) of the chest, abdomen, and pelvis was performed without intraveno us contrast. Automated exposure control and iterative reconstruction technique were employed. The dos e-length product was 1015.38 mGy-cm. COMPARISON: Chest CT dated 06/05/[address] abdomen and pelvis dated 09/01/2016 FINDINGS: CHEST CT: No significant interval change in a pattern of peripheral and lower lung predominant mild irregular s eptal line thickening consistent with chronic interstitial lung disease with either nonspecific inter stitial pneumonia (NSIP) or usual interstitial pneumonia (UIP) pattern. Mild linear atelectasis/scarr ing at the bilateral lower lobes. No pulmonary edema, pleural effusion or pneumothorax. Heart size is normal. Atherosclerotic coronary artery calcifications and possible coronary artery stenting. Aortic valve calcification. No pericardial effusion. Thoracic aorta is normal in caliber. No pathologically enlarged thoracic lymphadenopathy. Mild thoracic spondylosis. ABDOMEN/PELVIS CT: Liver, gallbladder, spleen, pancreas and bilateral adrenal glands are normal. A few small bilateral n onobstructing renal stones, the largest measuring up to 2 mm in each moderate lumbar and severe lumbo sacral spondylosis. Kidney. There is also some atherosclerotic calcification involving a couple of th e arteries at the left renal hilum. There are also a couple low-attenuation right renal cysts the lar gest at the upper pole measuring 2.2 cm. No no ureteral stones or hydronephrosis. Bladder is normal. There is moderate colonic diverticulosis with a sigmoid predominance. There is no adjacent inflammat ory change to suggest diverticulitis. There is some fatty infiltration of the proximal colonic wall l ikely related to body habitus. Appendix is not visualized and likely surgically absent. No bowel obst ruction. Small fat-containing umbilical hernia and small bilateral fat-containing inguinal hernias. N o free intraperitoneal gas or fluid. No pathologically enlarged abdominal or pelvic lymphadenopathy. There is calcified atherosclerosis of the aorta and many of the other arteries. IMPRESSION: 1. Stable appearance of peripheral and lower lung predominant irregular septal line thickening consis tent with either NSIP or UIP pattern chronic interstitial lung disease. No acute cardiopulmonary dise ase. 2. No acute intra-abdominal/pelvic process. 3. Diverticulosis. 4. Nonobstructing bilateral nephrolithiasis. 5. Small fat-containing umbilical and bilateral inguinal hernias. Reviewed, dictated and finalized at location A. IMPRESSION: 1. Stable appearance of peripheral and lower lung predominant irregular septal line thickening consistent with either NSIP or UIP pattern chronic interstitial lung disease. No acute cardiopulmonary disease. 2. No acute intra-abdominal/pelvic process. 3. Diverticulosis. 4. Nonobstructing bilateral nephrolithiasis. 5. Small fat-containing umbilical and bilateral inguinal hernias.
--- NOTE | 2022-06-23 10:10 | ECG_ITS ---
Measurements Intervals [place] Rate: 67 P: 60 ND: 167 QRS: 29 QRSD: 88 T: 48 QT: 397 QTc: 422 Interpretive Statements SINUS RHYTHM NORMAL ECG COMPARED TO ECG 10/11/2021 21:57:36 NO SIGNIFICANT CHANGES Electronically Signed On 06-23-2022 15:57:41 CDT by Félix Ireland M.D.
[2022-06-23] MEDS: MORPHINE SULFATE (*CRX) 2 MG/ML INJ IV PUSH (10:22)
[2022-06-23] MEDS: ONDANSETRON INJ 4 MG/2 ML VIAL IV PUSH (10:23)
[2022-06-23] MEDS: methylPREDNISolone SOD SUCC 125 MG VIAL IV PUSH (10:23)
[2022-06-23 10:49] LABS: Influenza A QL RT-PCR Negative (Negative); Influenza B QL RT-PCR Negative (Negative); SARS-CoV-2 RNA PCR Negative (Negative)
[2022-06-23 10:50] LABS: Basophils Absolute Auto 0.08 K/mm3 (0.00-0.10); Basophils Percent Auto 1.1 % (0.0-1.0); Eosinophils Absolute Auto 0.14 K/mm3 (0.02-0.50); Eosinophils Percent Auto 1.9 % (1.0-6.0); Hematocrit 38.4 % (35.0-42.0); Hemoglobin 12.2 g/dL (11.7-13.8); Immature Granulocyte Absolute 0.04 K/mm3 (0.00-0.00); Immature Granulocyte Percent A 0.5 % (0.0-0.0); Lymphocytes Absolute Auto 1.64 K/mm3 (1.10-4.50); Lymphocytes Percent Auto 21.8 % (18.0-42.0); Mean Corpuscular HGB Conc 31.8 g/dL (32.0-36.0); Mean Corpuscular Hemoglobin 29.9 pg (27.0-31.0); Mean Corpuscular Volume 94.1 fL (78.0-102.0); Mean Platelet Volume 9.4 fl (9.2-11.8); Monocytes Absolute Auto 0.64 K/mm3 (0.10-0.90); Monocytes Percent Auto 8.5 % (2.0-11.0); Neutrophils Percent Auto 66.2 % (50.0-70.0); Platelet Count Result 263 K/mm3 (150-420); Red Blood Count 4.08 M/mm3 (4.20-5.40); Red Cell Distribution Width 12.3 % (11.6-14.4); White Blood Count 7.5 K/mm3 (4.8-10.8)
[2022-06-23] MEDS: IPRATROPIUM 0.5 MG/ALBUTEROL SULFATE 2.5 MG AMPUL.NEB 3 ML INHALATION (10:50)
[2022-06-23 10:51] LABS: Base Excess ABG 4.6 mmol/L (0-2); Device ROOM AIR; HCO3 ABG 29.5 mmol/L (23-29); Modified Allen's Test Pass; Oxygen Content ABG 18.5 %vol (16.0-22.0); Oxygen Saturation ABG 91.8 % (95-97); Oxyhemoglobin 90.2 % (94-100); PCO2 ABG 44.5 mmHg (35-45); PO2 ABG 59.2 mmHg (75-85); Site Drawn LEFT RADIAL; Total Hemoglobin 14.6 g/dL (12.0-18.0); pH ABG 7.44 (7.35-7.45)
[2022-06-23 10:53] LABS: Add Urine Microscopic? NO; Appearance Urine Clear (Clear); Bilirubin Urine Negative (Negative); Blood Urine Negative (Negative); Color Urine Yellow (Yellow); Glucose Urine UA Negative (Negative); Ketones Urine Negative (Negative); Leukocyte Esterase Ur Negative LEU/UL (Negative); Nitrate Urine Negative (Negative); Protein Urine Negative (Negative)
[2022-06-23 10:55] LABS: Strep Group A RT-PCR Negative (Negative)
[2022-06-23 11:13] LABS: Alanine Aminotransferase 27 U/L (14-59); Albumin Level 3.4 g/dL (3.4-5.0); Alkaline Phosphatase 52 U/L (46-116); Anion Gap 6 mmol/L (8-16); Aspartate Amino Transferase 16 U/L (15-37); Bilirubin,Total 0.3 mg/dL (0.00-1.00); Blood Urea Nitrogen 16 mg/dL (7-18); Carbon Dioxide 31 mmol/L (21-32); Chloride 101 mmol/L (98-108); Estimated CRCL calculation 56 ml/min; Estimated Glomerular Filt Rate > 60; Glucose 147 mg/dL (70-99); NT Pro B Type Natriuretic Pept 617 pg/mL (0-125); Osmolality Calculated 290 mOsm/kg (285-295); Potassium 3.7 mmol/L (3.5-5.1); Sodium 138 mmol/L (136-145); Total Protein 7.1 g/dL (6.4-8.2); Troponin I 6.3 ng/L (0.00-60.4)
--- NOTE | 2022-06-23 11:58 | ED.SOB ---
HPI - SOB/Dyspnea General Chief Complaint: Shortness of Breath/Dyspnea Stated Complaint: sob Time Seen by Provider: 06/23/22 09:35 Source: patient, family and RN notes reviewed Mode of arrival: wheelchair Limitations: no limitations History of Present Illness MD elicited complaint: shortness of breath Pertinent past history: COPD Onset (ago): day(s) (5) Context: recent illness Timing: constant Severity: mild Exacerbating factors: smoke Relieving factors: oxygen and bronchodilators Known history of: COPD Associated symptoms: wheezing Treatment prior to arrival: oxygen Related Data Home oxygen amount: 4 liters Home Medications Medication Instructions Recorded Confirmed albuterol sulfate 90 mcg/actuation 2 puff inhalation PRN 11/01/19 06/23/22 aerosol inhaler (Ventolin HFA) amlodipine 5 mg tablet 5 mg PO DAILY 11/01/19 06/23/22 atorvastatin 80 mg tablet 80 mg PO HS 11/01/19 06/23/22 clopidogrel 75 mg tablet 75 mg PO DAILY 11/01/19 06/23/22 duloxetine 60 mg capsule,delayed 60 mg PO DAILY 11/01/19 06/23/22 release isosorbide mononitrate 60 mg 120 mg PO DAILY 11/01/19 06/23/22 tablet,extended release 24 hr metoprolol succinate 50 mg 100 mg PO DAILY 11/01/19 06/23/22 tablet,extended release 24 hr montelukast 10 mg tablet 10 mg PO DAILY 11/01/19 06/23/22 nitroglycerin 0.4 mg sublingual 0.4 mg buccal PRN PRN Chest Pain 11/01/19 06/23/22 tablet ranolazine 500 mg tablet,extended 500 mg PO DAILY 11/01/19 06/23/22 release,12 hr umeclidinium 62.5 mcg-vilanterol 1 ea inhalation DAILY 11/01/19 06/23/22 25 mcg/actuation powdr for inhalation (Anoro Ellipta) aspirin 81 mg tablet,delayed 81 mg PO DAILY 05/29/20 06/23/22 release duloxetine 30 mg capsule,delayed 30 mg PO HS 05/29/20 06/23/22 release omeprazole 20 mg tablet,delayed 20 mg PO DAILY 05/29/20 06/23/22 release azelastine 205.5 mcg (0.15 %) 2 spray intranasal BID 06/23/22 06/23/22 nasal spray fluticasone propionate 50 2 spray intranasal DAILY 06/23/22 06/23/22 mcg/actuation nasal spray,suspension furosemide 20 mg tablet 20 mg PO DAILY PRN Edema 06/23/22 06/23/22 metformin 500 mg tablet,extended 500 mg PO HS 06/23/22 06/23/22 release 24 hr Allergies Allergy/AdvReac Type Severity Reaction Status Date / Time Cephalosporins Allergy Unknown Other Verified 06/23/22 09:34 ciprofloxacin Allergy Unknown Other Verified 06/23/22 09:34 erythromycin base Allergy Unknown Other Verified 06/23/22 09:34 metronidazole Allergy Unknown Other Verified 06/23/22 09:34 Sulfa (Sulfonamide Allergy Unknown Other Verified 06/23/22 09:34 Antibiotics) sulfanilamide Allergy Unknown Other Verified 06/23/22 09:34 ADHESIVE TAPE Allergy Mild Other Uncoded 06/23/22 09:34 ERYTHROMYCINS Allergy Mild Other Uncoded 06/23/22 09:34 CEPHALOSPORIN Allergy Unknown RASH Uncoded 06/23/22 09:34 Review of Systems Review of Systems: All systems reviewed & are unremarkable except as noted in HPI and below Constitutional: Constitutional: Reports no additional constitutional complaints Eyes: Eyes: Reports no additional eye complaints ENT: Reports system reviewed and no additional complaints, except as documented Cardiovascular: Cardiovascular: Reports no additional cardiovascular complaints Respiratory: Respiratory: Reports no additional respiratory complaints, Reports cough, Reports dyspnea and Reports wheezing Gastrointestinal: Gastrointestinal: Reports no additional gastrointestinal complaints Genitourinary: Genitourinary: Reports no additional female genitourinary complaints Musculoskeletal: Musculoskeletal: Reports no additional musculoskeletal complaints Integumentary/Breasts: Skin/Breast: Reports system reviewed and no additional complaints, except as docu Neurologic: Reports system reviewed and no additional complaints, except as documented Psychiatric: Psychiatric: Reports no additional psychiatric complaints Endocrine: Endocrine: Reports no additional endoc
== END 2022-06-23 12:48 | disposition home or self-care (01) ==
PROVIDERS: Emergency Provider Emergency Medicine; PCP Internal Medicine
DX: J44.9 Chronic obstructive pulmonary disease, unspecified (principal); Z20.822 Contact with and (suspected) exposure to COVID-19
CPT/HCPCS: 36415; 36600; 71250; 74176; 80053; 81003; 82805; 83735; 83880; 84484; 85025; 87040; 87502; 87651; 93005; 94640; 96374; 96375; 99284; C9803; J2270; J2405; J2930; U0003; U0005

== ENCOUNTER 2023-01-18 11:16 | Outpatient (CLI) | payer MEDICARE, MEDICAID, SELFPAY ==
--- NOTE | ~2023-01-18 | XR_ITS ---
PA, oblique, and lateral views of the left fourth finger COMPARISON: 07/22/2021 clinical history: Injury FINDINGS: No acute fracture or dislocation seen. Stable small calcification adjacent to the radial as pect of the base of the fourth distal phalanx. No other soft tissue abnormality seen. Joint spaces ar e preserved. IMPRESSION: No acute abnormality. Reviewed, dictated and finalized at location . IMPRESSION: No acute abnormality.
--- NOTE | ~2023-01-18 | XR_ITS ---
Right Shoulder Technique: AP and scapular Y views were obtained. Clinical History: Pain Findings: No fracture or dislocation is seen. Osseous alignment is anatomic. The glenohumeral and acr omioclavicular joint spaces are preserved. Probable calcific tendinitis noted focally at the distal s upraspinatus tendon insertion region. Impression: Probable calcific tendinitis of the rotator cuff, as noted above. No fracture or dislocation. Reviewed, dictated and finalized at location . Impression: Probable calcific tendinitis of the rotator cuff, as noted above. No fracture or dislocation.
== END 2023-01-18 11:17 | disposition home or self-care (01) ==
PROVIDERS: PCP Family Medicine; Visit Provider Nurse Practitioner Family
DX: S69.92XA Unspecified injury of left wrist, hand and finger(s), initial encounter (principal); M25.511 Pain in right shoulder
CPT/HCPCS: 73030; 73140

== ENCOUNTER 2023-02-03 17:47 | Emergency (ER) | payer MEDICARE, MEDICAID, SELFPAY ==
[2023-02-03 18:01] VITALS: BP 137/60; PULSE 71; RESP 18; TEMP 36.6; O2SAT 97
--- NOTE | 2023-02-03 18:29 | ED.EXTPRO ---
HPI - Extremity Problem General Chief complaint: Extremity Problem,Nontraumatic Stated complaint: leg pain Time Seen by Provider: 02/03/23 18:07 Source: patient and family Mode of arrival: wheelchair Limitations: no limitations History of Present Illness HPI Narrative: this is a 72-year-old female that presents with some left posterior calf and leg pain on the left that started earlier today, patient was confined in a chair for [id number] subsequent to that developed calf pain. The area is warm tender and red to touch, the patient has a remote history of DVT years ago when she was on control. Currently the patient has history of CAD diabetes hypertension and COPD, currently there is no chest pain no shortness of breath no fever chills no nausea vomiting or abdominal pain no known injury to the left lower extremity. MD Complaint: extremity pain Onset (ago): hour(s) Pain Consistency: constant Location: left Severity scale (1-10): 4 Quality: aching Radiation: other ( Posterior left leg and calf tenderness warmth and redness) Relieving factors: immobilization Exacerbating factors: range of motion Related Data Home Medications Medication Instructions Recorded Confirmed albuterol sulfate 90 mcg/actuation 2 puff inhalation PRN 11/01/19 06/23/22 aerosol inhaler (Ventolin HFA) amlodipine 5 mg tablet 5 mg PO DAILY 11/01/19 06/23/22 atorvastatin 80 mg tablet 80 mg PO HS 11/01/19 06/23/22 clopidogrel 75 mg tablet 75 mg PO DAILY 11/01/19 06/23/22 duloxetine 60 mg capsule,delayed 60 mg PO DAILY 11/01/19 06/23/22 release isosorbide mononitrate 60 mg 120 mg PO DAILY 11/01/19 06/23/22 tablet,extended release 24 hr metoprolol succinate 50 mg 100 mg PO DAILY 11/01/19 06/23/22 tablet,extended release 24 hr montelukast 10 mg tablet 10 mg PO DAILY 11/01/19 06/23/22 nitroglycerin 0.4 mg sublingual 0.4 mg buccal PRN PRN Chest Pain 11/01/19 06/23/22 tablet ranolazine 500 mg tablet,extended 500 mg PO DAILY 11/01/19 06/23/22 release,12 hr aspirin 81 mg tablet,delayed 81 mg PO DAILY 05/29/20 06/23/22 release duloxetine 30 mg capsule,delayed 30 mg PO HS 05/29/20 06/23/22 release omeprazole 20 mg tablet,delayed 20 mg PO DAILY 05/29/20 06/23/22 release azelastine 205.5 mcg (0.15 %) 2 spray intranasal BID 06/23/22 06/23/22 nasal spray fluticasone propionate 50 2 spray intranasal DAILY 06/23/22 06/23/22 mcg/actuation nasal spray,suspension furosemide 20 mg tablet 20 mg PO DAILY PRN Edema 06/23/22 06/23/22 metformin 500 mg tablet,extended 500 mg PO HS 06/23/22 06/23/22 release 24 hr cetirizine 10 mg tablet 10 mg PO DAILY 02/03/23 02/03/23 hydrocodone 7.5 mg-acetaminophen 1 tablet PO QID 02/03/23 02/03/23 325 mg tablet hydroxyzine HCl 25 mg tablet 25 mg PO TID 02/03/23 02/03/23 Allergies Allergy/AdvReac Type Severity Reaction Status Date / Time Cephalosporins Allergy Unknown Other Verified 02/03/23 18:34 ciprofloxacin Allergy Unknown Other Verified 02/03/23 18:34 erythromycin base Allergy Unknown Other Verified 02/03/23 18:34 metronidazole Allergy Unknown Other Verified 02/03/23 18:34 Sulfa (Sulfonamide Allergy Unknown Other Verified 02/03/23 18:34 Antibiotics) sulfanilamide Allergy Unknown Other Verified 02/03/23 18:34 ADHESIVE TAPE Allergy Mild Other Uncoded 02/03/23 18:34 ERYTHROMYCINS Allergy Mild Other Uncoded 02/03/23 18:34 CEPHALOSPORIN Allergy Unknown RASH Uncoded 02/03/23 18:34 Review of Systems Review of Systems: All systems reviewed & are unremarkable except as noted in HPI and below PMFSH Past Medical History Medical History Bilateral edema of lower extremity Body mass index [BMI] 32.0-32.9, adult (08/28/15) Controlled type 2 diabetes mellitus without complication, without long-term current use of insulin COPD (chronic obstructive pulmonary disease) Coronary artery disease Dyslipidemia Hypertension Major depressive disorder, single episode, unspecified NV (myocardial infarct
[2023-02-03 18:30] LABS: Basophils Absolute Auto 0.06 K/mm3 (0.00-0.10); Eosinophils Absolute Auto 0.13 K/mm3 (0.02-0.50); Eosinophils Percent Auto 2.1 % (1.0-6.0); Hematocrit 37.5 % (35.0-42.0); Hemoglobin 12.3 g/dL (11.7-13.8); Immature Granulocyte Absolute 0.02 K/mm3 (0.00-0.00); Immature Granulocyte Percent A 0.3 % (0.0-0.0); Lymphocytes Absolute Auto 2.01 K/mm3 (1.10-4.50); Lymphocytes Percent Auto 32.5 % (18.0-42.0); Mean Corpuscular HGB Conc 32.8 g/dL (32.0-36.0); Mean Corpuscular Hemoglobin 29.8 pg (27.0-31.0); Mean Corpuscular Volume 90.8 fL (78.0-102.0); Mean Platelet Volume 8.8 fl (9.2-11.8); Monocytes Absolute Auto 0.68 K/mm3 (0.10-0.90); Neutrophils Absolute Auto 3.3 K/mm3 (1.7-7.2); Neutrophils Percent Auto 53.1 % (50.0-70.0); Platelet Count Result 231 K/mm3 (150-420); Red Blood Count 4.13 M/mm3 (4.20-5.40); Red Cell Distribution Width 12.3 % (11.6-14.4); White Blood Count 6.2 K/mm3 (4.8-10.8)
[2023-02-03 18:44] LABS: D Dimer 0.31 mg/L (0.19-0.50); INR 0.9; Partial Thromboplastin Time 31.7 SEC (23.90-30.70); Prothrombin Time 10.2 Seconds (9.50-12.10)
[2023-02-03 18:46] LABS: Alanine Aminotransferase 23 U/L (14-59); Albumin Level 3.4 g/dL (3.4-5.0); Alkaline Phosphatase 53 U/L (46-116); Anion Gap 4 mmol/L (8-16); Aspartate Amino Transferase 15 U/L (15-37); Bilirubin,Total 0.3 mg/dL (0.00-1.00); Blood Urea Nitrogen 13 mg/dL (7-18); Calcium 9.3 mg/dL (8.5-10.1); Carbon Dioxide 35 mmol/L (21-32); Chloride 102 mmol/L (98-108); Estimated CRCL calculation 53 ml/min; Estimated Glomerular Filt Rate > 60; Glucose 118 mg/dL (70-99); Osmolality Calculated 293 mOsm/kg (285-295); Potassium 4.1 mmol/L (3.5-5.1); Sodium 141 mmol/L (136-145); Total Protein 6.9 g/dL (6.4-8.2)
--- NOTE | 2023-02-03 18:55 | PC.NURSE ---
1814 spoke elvira ambriz sup for U/S at [facility] aware of pt coming 182 [facility] paged out and no response [id number] Adrianna Baker called for transfer for U/S
--- NOTE | 2023-02-03 19:00 | PC.NURSE ---
1899 DR LINCOLN GAVE VERBAL CONSENT FOR PT TO TAKE HER HOME MEDS
--- NOTE | 2023-02-03 19:10 | PC.NURSE ---
On 02/03/23, the student, [SEVERINO TAN ], provided care and completed [facility] documentation on this patient. I have reviewed the student's documentation and agree with the findings.
--- NOTE | 2023-02-03 19:10 | PC.NURSE ---
191 [facility] HERE TO TAKE PT TO [facility] AND RETURN TO [facility] ED
--- NOTE | 2023-02-03 20:31 | PC.NURSE ---
Pt back from having US at [facility]
[2023-02-03 20:39] VITALS: BP 117/87; PULSE 65; RESP 12; O2SAT 94
--- NOTE | 2023-02-03 20:41 | PC.NURSE ---
Spoke with US at [facility], Per US there is no evidence of DVT on pt study. Dr. Langston aware
== END 2023-02-03 20:55 | disposition home or self-care (01) ==
PROVIDERS: Emergency Provider Emergency Medicine; PCP Family Medicine
DX: M79.662 Pain in left lower leg (principal); I25.10 Atherosclerotic heart disease of native coronary artery without angina pectoris; E11.9 Type 2 diabetes mellitus without complications; I10 Essential (primary) hypertension; J44.9 Chronic obstructive pulmonary disease, unspecified; E78.5 Hyperlipidemia, unspecified; I25.2 Old myocardial infarction; F17.210 Nicotine dependence, cigarettes, uncomplicated; Z79.891 Long term (current) use of opiate analgesic
CPT/HCPCS: 36415; 80053; 85025; 85380; 85610; 85730; 99283

== ENCOUNTER 2023-02-03 19:45 | Outpatient (CLI) | payer OTHER, SELFPAY ==
--- NOTE | ~2023-02-03 | US_ITS ---
US venous doppler [facility] DATE: 02/03/2023 20:15 INDICATION: Left leg pain TECHNIQUE: Real-time and color flow imaging and Doppler analysis of the veins of left lower extremity COMPARISON: None FINDINGS: There is spontaneous and phasic flow and normal augmentation and color flow signal and norm al compression of the veins of the left leg. IMPRESSION: No evidence of deep venous thrombosis of the left leg Reviewed, dictated and finalized at Location A. Reviewed, dictated and finalized at location A.
== END 2023-02-03 19:46 | disposition home or self-care (01) ==
LOC: ANHIMG 19:45
PROVIDERS: PCP Family Medicine
DX: M79.662 Pain in left lower leg (principal)
CPT/HCPCS: 93971

== ENCOUNTER 2023-08-17 15:09 | Outpatient (CLI) | payer MEDICARE, MEDICAID, SELFPAY ==
--- NOTE | ~2023-08-17 | XR_ITS ---
XR chest 2V DATE: 08/17/2023 15:32 INDICATION: Cough for one month TECHNIQUE: 2 views COMPARISON: 06/19/2022 CT chest abdomen pelvis FINDINGS: Heart size is within normal limits. Coronary artery calcifications and probable coronary ar dali stenting. Aortic arch calcification. No hilar or mediastinal enlargement. Lungs are hyperinflated suggesting obstructive airways disease. No pulmonary infiltrate or consolidation, pleural effusion or pulmonary vascular congestion or pneumo thorax is detected. Osteopenia. Mild thoracic dextroscoliosis. IMPRESSION: Bilateral hyperinflation suggesting chronic obstructive pulmonary disease No active cardiopulmonary disease Coronary and aortic atherosclerosis, probable coronary artery stenting Osteopenia Reviewed, dictated and finalized at location B. IMPRESSION: Bilateral hyperinflation suggesting chronic obstructive pulmonary d isease No active cardiopulmonary disease Coronary and aortic atherosclerosis, probable coronary artery stenting Osteopenia
== END 2023-08-17 15:10 | disposition home or self-care (01) ==
PROVIDERS: PCP Family Medicine; Visit Provider Family Medicine
DX: R05.9 Cough, unspecified (principal); R91.8 Other nonspecific abnormal finding of lung field; I70.0 Atherosclerosis of aorta; M85.89 Other specified disorders of bone density and structure, multiple sites
CPT/HCPCS: 71046

== ENCOUNTER 2023-11-30 10:29 | Outpatient (CLI) | payer MEDICARE, MEDICAID, SELFPAY ==
--- NOTE | ~2023-11-30 | XR_ITS ---
XR chest 2V DATE: 11/30/2023 11:04 INDICATION: Chronic cough TECHNIQUE: 2 views COMPARISON: 08/17/2023 2 view chest 06/19/2022 CT chest FINDINGS: Moderate bilateral hyperinflation. Borderline heart size. Coronary artery atherosclerosis. Thoracic and abdominal aortic calcification. No hilar or mediastinal enlargement is evident. No pulmonary infiltrate or consolidation, pleural eff usion or pulmonary vascular congestion or pneumothorax. Diffuse osteopenia. IMPRESSION: Moderate hyperinflation; no active pulmonary disease Borderline heart size, coronary artery and thoracic and abdominal aortic calcification Reviewed, dictated and finalized at location B. CARDIOVASCULAR ICU IMPRESSION: Moderate hyperinflation; no active pulmonary disease Borderline heart size, coronary artery and thoracic and abdominal aortic calcif ication
--- NOTE | ~2023-11-30 | US_ITS ---
EXAMINATION: US retroperitoneal comp DATE: 11/30/2023 10:56 INDICATION: Urinary retention TECHNIQUE: Multiple ultrasound grayscale images of the kidneys were obtained. COMPARISON: None. FINDINGS: The right kidney measures 10.9 x 4.4 x 4.9 cm. The left kidney measures 10.3 x 4.9 x 5.4 cm. The kidn eys demonstrate normal echogenicity. 1.8 cm anechoic cyst at the upper pole of the right kidney. Ther e is no hydronephrosis in either kidney. No stones identified. The bladder is normal with calculated prevoid bladder volume of 36 mL and with no postvoid residual bladder volume. IMPRESSION: 1. Normal kidneys without hydronephrosis. 2. Normal bladder which is completely decompressed post void with no post void residual bladder volum e. Reviewed, dictated and finalized at location A. GER APPLICATION IMPRESSION: 1. Normal kidneys without hydronephrosis. 2. Normal bladder which is completely decompressed post void with no post void residual bladder volume.
== END 2023-11-30 10:30 | disposition home or self-care (01) ==
LOC: CHSIMG 10:30
PROVIDERS: PCP Family Medicine; Visit Provider Family Medicine
DX: R05.3 Chronic cough (principal); R33.9 Retention of urine, unspecified; R91.8 Other nonspecific abnormal finding of lung field; I25.10 Atherosclerotic heart disease of native coronary artery without angina pectoris
CPT/HCPCS: 71046; 76770

== ENCOUNTER 2024-05-09 13:06 | Outpatient (CLI) | payer MEDICARE, MEDICAID, SELFPAY ==
--- NOTE | ~2024-05-09 | US_ITS ---
LEFT LOWER EXTREMITY VENOUS ULTRASOUND Ordering provider: Beronica Woodson, History: . LEFT LEG SWELLING . Comparison: None. FINDINGS: --COMMON FEMORAL: Patent and free of thrombus. Normal compressibility, phasic flow and augmentation. --PROXIMAL SUPERFICIAL FEMORAL: Patent and free of thrombus. Normal compressibility, phasic flow and augmentation. --DISTAL SUPERFICIAL FEMORAL: Patent and free of thrombus. Normal compressibility, phasic flow and au gmentation. --POPLITEAL: Patent and free of thrombus. Normal compressibility, phasic flow and augmentation. --POSTERIOR TIBIAL: Patent and free of thrombus. Normal compressibility, phasic flow and augmentation . IMPRESSION: Negative left lower extremity venous US. No deep vein thrombosis. Reviewed, dictated and finalized at location A.
== END 2024-05-09 13:07 | disposition home or self-care (01) ==
PROVIDERS: PCP Family Medicine; Visit Provider Family Medicine
DX: M79.89 Other specified soft tissue disorders (principal)
CPT/HCPCS: 93971

== ENCOUNTER 2024-05-15 14:12 | Outpatient (CLI) | payer MEDICARE, MEDICAID, SELFPAY ==
--- NOTE | ~2024-05-15 | XR_ITS ---
XR foot LT min 3V Ordering provider: Jerry Vinson, WEBLOG[employer] DEVELOPER History: . dropped object on foot, acute LT foot pain . Comparison: January 21, 2022 FINDINGS: BONES: No acute fracture or dislocation. JOINT SPACES: Narrowing of the proximal and distal interphalangeal joints. No tarsal coalition. SOFT TISSUES: Normal. IMPRESSION: No acute osseous abnormality left foot. 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 Reviewed, dictated and finalized at location A.
== END 2024-05-15 14:13 | disposition home or self-care (01) ==
LOC: CHSIMG 14:15
PROVIDERS: PCP Family Medicine; Visit Provider Registered Nurse
DX: S99.922A Unspecified injury of left foot, initial encounter (principal); M19.072 Primary osteoarthritis, left ankle and foot
CPT/HCPCS: 73630

== ENCOUNTER 2024-05-24 15:43 | Outpatient (CLI) | payer MEDICARE, MEDICAID, SELFPAY ==
--- NOTE | ~2024-05-24 | XR_ITS ---
XR foot LT min 3V DATE: 05/24/2024 16:05 INDICATION: Foot injury TECHNIQUE: 4 views COMPARISON: 05/15/2024 FINDINGS: Osteopenia. No fracture, dislocation, periosteal reaction or bone destruction is detected. IMPRESSION: No fracture or dislocation Reviewed, dictated and finalized at location J. IMPRESSION: No fracture or dislocation
== END 2024-05-24 15:44 | disposition home or self-care (01) ==
LOC: CHSIMG 15:46
PROVIDERS: PCP Family Medicine; Visit Provider Family Medicine
DX: S99.922S Unspecified injury of left foot, sequela (principal)
CPT/HCPCS: 73630

== ENCOUNTER 2024-06-20 10:41 | Outpatient (RCR) | payer MEDICARE, MEDICAID, SELFPAY ==
--- NOTE | 2024-06-20 13:28 | OPREHPOC ---
Outpatient Therapy Plan of Care This is a Multidisciplinary Plan of Care that may contain components documented by all disciplines (PT, OT, and ST.) PT Problem 1 PT Problem #1 Knowledge Deficit PT Goal 1 Goal / Goal Update The patient will be independent in a home exercise program. Target Visit 4 PT Problem 2 PT Problem #2 Impaired Endurance PT Goal 1 Goal / Goal Update 1. The patient will be able to ambulate 50 feet without SOB or rest breaks. 2. The patient will be able to transfer sit to stand 5 times without SOB or rest breaks. Target Visit 10 PT Problem 3 PT Problem #3 Impaired Gait PT Goal 1 Goal / Goal Update The patient will be able to ambulate 25 feet with a FWW with SBA. Target Visit 10 PT Problem 4 PT Problem #4 Impaired Strength PT Goal 1 Goal / Goal Update The patient will improve bilateral hip abduction and extension strength to at least 3/5 to improve ability to stand, ambulate, and balance for household mobility. Target Visit 10 PT Problem 5 PT Problem #5 Impaired Balance PT Goal 1 Goal / Goal Update 1. The patient will improve Tinetti Balance Scale score to 19 to move to a moderate fall risk versus high fall risk. 2. The patient will improve her 5x STS time to under 30 seconds indicating improved balance. Target Visit 10
--- NOTE | 2024-06-20 13:28 | PTOPEVAL1 ---
Assessment and note entered by Lynette Burleson, PT Evaluation Information Assessment Status Evaluation Diagnosis Fall Risk Other ICD-10 Condition Codes ( Z91.81 PT) Subjective Information Felicia Sanford reports 4 years ago she started having unrelenting pain in her lower back and was hospitalized. She was put into a medically induced coma for 3 days due to extreme pain. She then went to a longterm and was having PT because she was having difficulty moving her LE. She has been using a wheelchair for her primary mobility for the last 4 years. She has constant low back pain over the past 4 years and has difficulty using her legs. She uses Vicodin on a regular schedule to help with chronic back pain. She is using grab bars in her bathroom to perform toilet transfers and when she gets into bed or a different chair her or caregiver helps her . She is hoping to get to where she can use a walker and eventually a cane for mobility. She also reports she dropped something on her left foot about 6 weeks ago and 2 different x-rays were performed a few weeks apart and did not show fractures. She continues to have pain on the top of her left foot and twisting on it makes the pain worse. In addition, she has neck pain and has been diagnosed with bulging discs which give her pain, weakness, and numbness in both hands. 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 She has been told she needs lumbar, cervical, and L knee surgery however, she is not a candidate for surgery due to her cardiac issues. Reported Pain Level Pain Score 5,7: Self Report Assessment PT Clinical Summary Felicia Sanford presents with chronic low back pain which has lead to her being wheelchair bound. She was hospitalized 4 years ago due to relentless low back pain and was put into a medically induced coma for 3 days due to the severe pain. 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 She is reporting difficulty standing without support as well as inability to transfer without help. She is using a wheelchair for her primary locomotion but is able to perform standing pivot transfers if she is able to hold grab bars or her . She is hoping to improve her ability to walk. She demonstrates bilateral hip weakness, core weakness, poor balance, poor endurance, decreased transfer ability, and is unable to walk more than one a few steps with a walker. She is a high fall risk per the standard balance tests, Plan of Care Interventions Gait Training,Neuro Re-education,Patient/Caregiver Educati,Therapeutic Activities,Therapeutic Exercise PT Services Indicated Yes Treatment Frequency and 2 times a week for 10 visits Duration These treatments will address the objective and functional deficits as defined above. The patient will be advanced safely and appropriately in order for the patient to progress towards his/her prior level of function. Additional exercises will be introduced and as well as a comprehensive home exercise program upon discharge, if needed, ?to ensure carryover of functional gains achieved in the clinic. This treatment plan has been reviewed and agreement upon by the patient.
--- NOTE | 2024-06-20 13:30 | PTOPEVAL1 ---
Assessment and note entered by Lynette Burleosn, PT Evaluation Information Assessment Status Evaluation Diagnosis Fall Risk Other ICD-10 Condition Codes ( Z91.81 PT) Subjective Information Felicia Sanford reports 4 years ago she started having unrelenting pain in her lower back and was hospitalized. She was put into a medically induced coma for 3 days due to extreme pain. She then went to a custodial and was having PT because she was having difficulty moving her LE. She has been using a wheelchair for her primary mobility for the last 4 years. She has constant low back pain over the past 4 years and has difficulty using her legs. She uses Vicodin on a regular schedule to help with chronic back pain. She is using grab bars in her bathroom to perform toilet transfers and when she gets into bed or a different chair her or caregiver helps her . She is hoping to get to where she can use a walker and eventually a cane for mobility. She also reports she dropped something on her left foot about 6 weeks ago and 2 different x-rays were performed a few weeks apart and did not show fractures. She continues to have pain on the top of her left foot and twisting on it makes the pain worse. In addition, she has neck pain and has been diagnosed with bulging discs which give her pain, weakness, and numbness in both hands. 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 She has been told she needs lumbar, cervical, and L knee surgery however, she is not a candidate for surgery due to her cardiac issues. Reported Pain Level Pain Score 5,7: Self Report Assessment PT Clinical Summary Felicia Sanford presents with chronic low back pain which has lead to her being wheelchair bound. She was hospitalized 4 years ago due to relentless low back pain and was put into a medically induced coma for 3 days due to the severe pain. 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 She is reporting difficulty standing without support as well as inability to transfer without help. She is using a wheelchair for her primary locomotion but is able to perform standing pivot transfers if she is able to hold grab bars or her . She is hoping to improve her ability to walk. She demonstrates bilateral hip weakness, core weakness, poor balance, poor endurance, decreased transfer ability, and is unable to walk more than one a few steps with a walker. She is a high fall risk per standard balance tests. She will benefit from skilled PT to address these limitations and improve her daily functional abilities. Plan of Care Interventions Gait Training,Neuro Re-education,Patient/Caregiver Educati,Therapeutic Activities,Therapeutic Exercise PT Services Indicated Yes Treatment Frequency and 2 times a week for 10 visits Duration These treatments will address the objective and functional deficits as defined above. The patient will be advanced safely and appropriately in order for the patient to progress towards his/her prior level of function. Additional exercises will be introduced and as well as a comprehensive home exercise program upon discharge, if needed, ?to ensure carryover of functional gains achieved in the clinic. This treatment plan has been reviewed and agreement upon by the patient.
--- NOTE | 2024-06-26 11:46 | PCPTNOTE ---
Patient called & cancelled scheduled appointment this date due to high heat and clinical geneticist does not want her going out when it is hot. -Lynette Burleson, PT
--- NOTE | 2024-07-10 14:16 | PCPTNOTE ---
Patient called & cancelled scheduled appointment this date due to not feeling well. -Lynette Burleson, PT
--- NOTE | 2024-07-12 14:08 | PCPTNOTE ---
Cancelled session. Will not make it today. Having difficulty keeping oxygen up.
--- NOTE | 2024-08-15 14:55 | OPREHPOC ---
Outpatient Therapy Plan of Care This is a Multidisciplinary Plan of Care that may contain components documented by all disciplines (PT, OT, and ST.) PT Problem 1 PT Problem #1 Knowledge Deficit PT Goal 1 Goal / Goal Update The patient will be independent in a home exercise program. Target Visit 4 Progress Not Met PT Goal 2 Goal / Goal Update Continue Target Visit 8 PT Problem 2 PT Problem #2 Impaired Endurance PT Goal 1 Goal / Goal Update 1. The patient will be able to ambulate 50 feet without SOB or rest breaks. 2. The patient will be able to transfer sit to stand 5 times without SOB or rest breaks. Target Visit 10 Progress Not Met PT Goal 2 Goal / Goal Update Continue Target Visit 14 PT Problem 3 PT Problem #3 Impaired Gait PT Goal 1 Goal / Goal Update The patient will be able to ambulate 25 feet with a FWW with SBA. Target Visit 10 Progress Not Met PT Goal 2 Goal / Goal Update Continue Target Visit 14 PT Problem 4 PT Problem #4 Impaired Strength PT Goal 1 Goal / Goal Update The patient will improve bilateral hip abduction and extension strength to at least 3/5 to improve ability to stand, ambulate, and balance for household mobility. Target Visit 10 Progress Not Met PT Goal 2 Goal / Goal Update Continue Target Visit 14 PT Problem 5 PT Problem #5 Impaired Balance PT Goal 1 Goal / Goal Update 1. The patient will improve Tinetti Balance Scale score to 19 to move to a moderate fall risk versus high fall risk. 2. The patient will improve her 5x STS time to under 30 seconds indicating improved balance. Target Visit 10 Progress Not Met PT Goal 2 Goal / Goal Update Continue Target Visit 14
--- NOTE | 2024-08-15 14:56 | PTOPREEVAL ---
Assessment and note entered by Lynette Burleson, PT Evaluation Information Assessment Status Re-evaluation Diagnosis Fall Risk Other ICD-10 Condition Codes ( Z91.81 PT) Onset 04/17/24 Subjective Information Felicia Sanford reports she developed pneumonia a few days after the last time she came to PT. She was having more trouble breathing and checked her oxygen level and it was 85%. She got on her home oxygen and called her grommet machine operator. She saw the grommet machine operator the next day and was started steroid and antibiotics. She is feeling better and has been monitoring her oxygen levels. She reports she has still been coughing and her oxygen levels have been up and down. She sleeps with a nasal canula with 4L of oxygen but does not usually use it during the day. She has not had any falls since the last time she was seen in PT. Reported Pain Level Pain Score 4,6,0: Self Report Assessment PT Clinical Summary Felicia Sanford presents for re-evaluation after missing the last 6 weeks of PT due to developing pneumonia. She reports she has had to use her home oxygen a lot more lately and has felt more fatigued. She objectively demonstrates decreased LE strength, decreased balance, decreased endurance, and impaired gait. She remains a high fall risk per standard balance tests. She will benefit from re-initiation of skilled PT to improve the above listed physical and functional limitations. Plan of Care Interventions Gait Training,Neuro Re-education,Patient/Caregiver Educati,Therapeutic Activities,Therapeutic Exercise PT Services Indicated Yes Treatment Frequency and 2 times a week for 10 visits Duration These treatments will address the objective and functional deficits as defined above. The patient will be advanced safely and appropriately in order for the patient to progress towards his/her prior level of function. Additional exercises will be introduced and as well as a comprehensive home exercise program upon discharge, if needed, ?to ensure carryover of functional gains achieved in the clinic. This treatment plan has been reviewed and agreement upon by the patient.
== END 2024-09-18 23:59 | disposition home or self-care (01) ==
LOC: CHSPT 10:41
PROVIDERS: PCP Family Medicine; Visit Provider Family Medicine
DX: M54.50 Low back pain, unspecified (principal); G89.29 Other chronic pain; Z91.81 History of falling
CPT/HCPCS: 97110; 97150; 97162; 97164; 97530

== ENCOUNTER 2024-09-17 23:07 | Emergency (ER) | payer MEDICARE, MEDICAID, SELFPAY ==
[2024-09-17] VITALS (7 sets, daily range): BP systolic 141–162; BP diastolic 59–80; PULSE 71–83; RESP 17–20; TEMP 36.2; O2SAT 93–98
--- NOTE | ~2024-09-17 | XR_ITS ---
Portable chest x-ray Comparison: 11/30/2023 Clinical History: Chest pain Findings: Lungs are clear, without focal consolidation or pleural effusion. Cardiomediastinal silho uette is stable. Bones and soft tissues are unremarkable. Impression: Clear lungs. Reviewed, dictated and finalized at location . [facility] Impression: Clear lungs.
--- NOTE | 2024-09-17 23:14 | ED_ITS ---
HPI - Chest Pain General Chief Complaint: Chest Pain Stated Complaint: chest pain Time Seen by Provider: 09/17/24 23:13 Source: patient Mode of arrival: ambulatory History of Present Illness HPI narrative: 74 YEARS OLD WHITE FEMALE CAME FROM HOME WITH HER BY PRIVATE CAR COMPLAINING OF SUDDEN ONSET OF LEFT CHEST, CENTRAL PRESSURE TYPE PAIN, 04/09, AT REST. PATIENT DENIES RADIATION OF PAIN, AGGRAVATION OR RELIEVING FACTORS, FEVER , CHILLS, NAUSEA, VOMITING, OR SHORTNESS OF BREATH. PATIENT CURRENTLY ON BABY ASPIRIN ONCE A DAY AND PLAVIX. PATIENT RECEIVED 2 NITROGLYCERIN AT HOME WITHOUT IMPROVEMENT, ON ARRIVAL TO THE ED CHEST PAIN GOT WORSE UP TO 05/09. PATIENT IS TOBACCO DEPENDENT, HISTORY OF DIABETES, HYPERTENSION, HYPERLIPIDEMIA, COPD, 11 CORONARY STENTS, LAST 1 WAS 8 YEARS AGO. PATIENT ON 4 L OF OXYGEN DURING SLEEP AT NIGHT. PATIENT REPORTS HAVING JAW PAIN 2 DAYS AGO Related Data Home Medications Medication Instructions Recorded Confirmed albuterol sulfate 90 mcg/actuation 2 puff inhalation PRN 11/01/19 09/17/24 aerosol inhaler (Ventolin HFA) amlodipine 5 mg tablet 5 mg PO DAILY 11/01/19 09/17/24 atorvastatin 80 mg tablet 80 mg PO HS 11/01/19 09/17/24 clopidogrel 75 mg tablet 75 mg PO DAILY 11/01/19 09/17/24 duloxetine 60 mg capsule,delayed 60 mg PO DAILY 11/01/19 09/17/24 release isosorbide mononitrate 60 mg 120 mg PO DAILY 11/01/19 09/17/24 tablet,extended release 24 hr metoprolol succinate 50 mg 50 mg PO DAILY 11/01/19 09/17/24 tablet,extended release 24 hr nitroglycerin 0.4 mg sublingual 0.4 mg buccal PRN PRN Chest Pain 11/01/19 09/17/24 tablet ranolazine 500 mg tablet,extended 500 mg PO BID 11/01/19 09/17/24 release,12 hr aspirin 81 mg tablet,delayed 81 mg PO DAILY 05/29/20 09/17/24 release duloxetine 30 mg capsule,delayed 20 mg PO HS 05/29/20 09/17/24 release omeprazole 20 mg tablet,delayed 20 mg PO DAILY 05/29/20 09/17/24 release azelastine 205.5 mcg (0.15 %) 2 spray intranasal BID 06/23/22 09/17/24 nasal spray fluticasone propionate 50 2 spray intranasal DAILY 06/23/22 09/17/24 mcg/actuation nasal spray,suspension furosemide 20 mg tablet 20 mg PO DAILY PRN Edema 06/23/22 09/17/24 metformin 500 mg tablet,extended 500 mg PO HS 06/23/22 09/17/24 release 24 hr cetirizine 10 mg tablet 10 mg PO DAILY 02/03/23 09/17/24 hydroxyzine HCl 25 mg tablet 25 mg PO TID 02/03/23 09/17/24 cholecalciferol (vitamin D3) 50 50 mcg PO DAILY 09/17/24 09/17/24 mcg (2,000 unit) capsule (Vitamin D3) ezetimibe 10 mg tablet 10 mg PO DAILY 09/17/24 09/17/24 fluticasone fur. 100 mcg-umeclid 1 inh inhalation DAILY 09/17/24 09/17/24 62.5 mcg-vilant 25 mcg inhalat.powder (Trelegy Ellipta) hydrocodone 10 mg-acetaminophen 1 tablet PO QID 09/17/24 09/17/24 325 mg tablet roflumilast 250 mcg tablet 250 mcg PO DAILY 09/17/24 09/17/24 Allergies Allergy/AdvReac Type Severity Reaction Status Date / Time Cephalosporins Allergy Unknown Other Verified 02/03/23 18:34 ciprofloxacin Allergy Unknown Other Verified 02/03/23 18:34 erythromycin base Allergy Unknown Other Verified 02/03/23 18:34 metronidazole Allergy Unknown Other Verified 02/03/23 18:34 Sulfa (Sulfonamide Allergy Unknown Other Verified 02/03/23 18:34 Antibiotics) sulfanilamide Allergy Unknown Other Verified 02/03/23 18:34 ADHESIVE TAPE Allergy Mild Other Uncoded 02/03/23 18:34 ERYTHROMYCINS Allergy Mild Other Uncoded 02/03/23 18:34 CEPHALOSPORIN Allergy Unknown RASH Uncoded 02/03/23 18:34 Review of Systems Review of Systems: All systems reviewed & are unremarkable except as noted in HPI and below PMFSH Past Medical History Medical History Bilateral edema of lower extremity Body mass index [BMI] 32.0-32.9, adult (08/28/15) Controlled type 2 diabetes mellitus without complication, without long-term current use of insulin COPD (chronic obstructive pulmonary disease) Coronary artery disease Dyslipidemia Hypertension Major depressive disorder, single episode, unspecified MT (myocardial infarction) Sleep apnea Smoking Surgical History Surgical History H/O breast biopsy H/O tubal ligation 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/P percutaneous transluminal angioplasty (PHOTOTYPESETTING EQUIPMENT MONITOR) with stent placement Family History Family History Father Family history of lung cancer Other Family history of coronary artery disease Social History Social History Smoking packs per day: 1 Smoking cigarettes per day: 20.0 Years smoked: 30 Smoking pack-years: 30.00 Smoking status: Current every day smoker Tobacco type: cigarettes Alcohol intake: current Other substance usage details: norco prn Living arrangements: with family Gender identity (if verbalized by the patient): Female Spiritual care concerns: No Exam Narrative: GENERAL APPEARANCE: WELL-DEVELOPED, WELL-NOURISHED SKIN: NORMAL COLOR , 1+ EDEMA BILATERALLY HEAD: NORMOCEPHALIC, NONTRAUMATIC EYES: CLEAR CONJUNCTIVA ENT: OROPHARYNX NORMAL, EARS NORMAL, NOSE NORMAL NECK: SUPPLE, NONTENDER CHEST AND RESPIRATORY: AIRWAY PATENT, NO RESPIRATORY DISTRESS, NO ACCESSORY MUSCLE USE HEART: REGULAR RATE/RHYTHM ABDOMEN: SOFT, NONTENDER, NO ORGANOMEGALY, QUIET BOWEL SOUNDS VASCULAR: NORMAL PERIPHERAL PULSES, NORMAL CAPILLARY REFILL. MUSCULOSKELETAL: NORMAL RANGE OF MOTION, NONTENDER BACK NEUROLOGIC: ALERT AND ORIENTED ?3, SUBASSEMBLIES WIRER IS NORMAL TESTED, NO GROSS MOTOR DEFICIT Course Consultations Consultation #1: DR CRUM, HOSPITALIST AT [facility] Date: 09/18/24 Time: 01:39 Vital Signs Vital signs: Vital Signs Temperature 36.2 C L 09/17/24 23:07 Pulse Rate 77 09/17/24 23:07 Respiratory Rate 19 09/17/24 23:07 Blood Pressure 162/80 H 09/17/24 23:07 Pulse Oximetry 96 09/17/24 23:07 Oxygen Delivery Room Air 09/17/24 23:07 Temperature 36.2 C L 09/17/24 23:07 Pulse Rate 71 09/18/24 03:01 Respiratory Rate 16 09/18/24 03:01 Blood Pressure 115/58 L 09/18/24 03:01 Pulse Oximetry 92 09/18/24 03:01 Oxygen Delivery Nasal Cannula 09/17/24 23:46 Oxygen Flow Rate 2 09/17/24 23:46 MDM - Chest Pain MDM Narrative Medical decision making narrative: PATIENT CAME TO THE ED BY PRIVATE CAR FROM HOME WITH SUDDEN ONSET CHEST PAIN AT REST, VITAL SIGNS STABLE PHYSICAL EXAMINATION INSIGNIFICANT, DIFFERENTIAL DIAGNOSIS CORONARY ARTERY DISEASE, MUSCULOSKELETAL, COSTOCHONDRITIS, PNEUMONIA, COPD RELATED SYMPTOMS. BLOOD WORKUP TODAY INCLUDE CBC, CMP, TROPONIN, PT PTT , BNP , LIPAS SHOWED INSIGNIFICANT ABNORMALITIES EKG ON ARRIVAL SHOWED POOR R-WAVE PROGRESSION, OCCASIONAL PVCS, NORMAL SINUS RHYTHM, WHICH IS DIFFERENT THAN HER EKG 2 YEARS AGO CHEST X-RAY SHOWED NO ACUTE ABNORMALITIES PATIENT CHEST PAIN STILL 6/10, HEPARIN DRIP STARTED Differential Diagnosis Differential diagnosis: Likely other ( ABOVE) Medical Records Data Attestation: I reviewed the patient's medical records. Lab Data Attestation: I reviewed the patient's lab results. 09/17/24 23:32 09/17/24 23:32 Labs: Lab Results 09/17/24 09/18/24 Range/Units 23:32 01:57 WBC 8.8 (4.8-10.8) K/mm3 RBC 4.14 L (4.20-5.40) M/mm3 Hgb 11.7 (11.7-13.8) g/dL Hct 35.8 (35.0-42.0) % MCV 86.5 (78.0-102.0) fL MCH 28.3 (27.0-31.0) pg MCHC 32.7 (32-36) g/dL RDW 13.0 (11.6-14.4) % Plt Count 253 (150-420) K/mm3 MPV 8.7 L (9.2-11.8) fl Immature Gran % (Auto) 0.3 H (0.0-0.0) % Neut % (Auto) 53.3 (50.0-70.0) % Lymph % (Auto) 34.1 (18.0-42.0) % [place] % (Auto) 9.8 (2.0-11.0) % Eos % (Auto) 1.5 (1.0-6.0) % Baso % (Auto) 1.0 (0.0-1.0) % Lymph # (Auto) 3.00 (1.10-4.50) K/mm3 [place] # (Auto) 0.86 (0.10-0.90) K/mm3 Eos # (Auto) 0.13 (0.02-0.50) K/mm3 Baso # (Auto) 0.09 (0.00-0.10) K/mm3 Abs Immat Gran (auto) 0.03 H (0.00-0.00) K/mm3 Absolute Neuts (auto) 4.69 (1.70-7.20) K/mm3 Absolute Nucleated RBC 0.00 (0.00-0.00) K/mm3 Nucleated RBC % 0.0 (0-0.0) % PT 10.5 (9.50-12.1) Seconds INR 0.9 APTT 29.9 (23.9-30.70) Sec Sodium 139 (136-145) mmol/L Potassium 3.7 (3.5-5.1) mmol/L Chloride 99 (98-108) mmol/L Carbon Dioxide 31 (21-32) mmol/L Anion Gap 9 (4-12) mmol/L BUN 12 (7-18) mg/dL Creatinine 0.96 (0.55-1.02) mg/dL Estim Creat Clear Calc 41 ml/min Estimated GFR 57 L (59 - ) Glucose 96 (70-99) mg/dL Calculated Osmolality 287 (285-295) mOsm/kg Calcium 9.4 (8.5-10.1) mg/dL Total Bilirubin 0.4 (0.00-1.00) mg/dL AST 15 (15-37) U/L ALT 21 (14-59) U/L Alkaline Phosphatase 51 (46-116) U/L Troponin I 4.4 4.8 (0.00-60.4) ng/L NT-Pro-B Natriuret Pep 322 H (0-125) pg/mL Total Protein 7.1 (6.4-8.2) g/dL Albumin 3.7 (3.4-5.0) g/dL Lipase 90 H (16-77) U/L Imaging Data Radiologist's impression: CHEST X-RAY SHOWED A MODERATE HYPERINFLATION, NO ACTIVE PULMONARY DISEASE. ECG Data EKG #1: Attestation: I personally reviewed and interpreted this ECG as follows: ECG completion date: 09/17/24 ECG completion time: 23:36 Prior ECG tracings: available for review Interpretation: NORMAL SINUS RHYTHM AT 75 BEATS PER MINUTE WITH OCCASIONAL PVCS, POOR R-WAVE PROGRESSION, SEPTAL MYOCARDIAL INFARCTION, INDETERMINATE AGE, ABNORMAL EKG, COMPARED TO EKG ON JUNE 21, 2022 WAS NORMAL EKG AT THAT TIME. Critical Care Time Critical Care Time Critical Care Time: No Discharge Plan Discharge Clinical Impression: Angina pectoris, unstable Patient Disposition: Acute Care Hospital Condition: Guarded Prognosis Additional Instructions: TRANSFERRED TO [facility] Prescriptions: No Action atorvastatin 80 mg tablet 80 mg PO HS metoprolol succinate 50 mg tablet extended release 24 hr 50 mg PO DAILY clopidogrel 75 mg tablet 75 mg PO DAILY amlodipine 5 mg tablet 5 mg PO DAILY isosorbide mononitrate 60 mg tablet extended release 24 hr 120 mg PO DAILY nitroglycerin 0.4 mg tablet, sublingual 0.4 mg buccal PRN PRN (Reason: Chest Pain) albuterol sulfate [Ventolin HFA] 90 mcg/actuation HFA aerosol inhaler 2 puff INHALATION PRN duloxetine 60 mg capsule,delayed release(DR/EC) 60 mg PO DAILY ranolazine 500 mg tablet extended release 12 hr 500 mg PO BID furosemide 20 mg tablet 20 mg PO DAILY PRN (Reason: Edema) fluticasone propionate 50 mcg/actuation spray,suspension 2 spray INTRANASAL DAILY metformin 500 mg tablet extended release 24 hr 500 mg PO HS azelastine 205.5 mcg (0.15 %) spray,non-aerosol 2 spray INTRANASAL BID cetirizine 10 mg tablet 10 mg PO DAILY hydroxyzine HCl 25 mg tablet 25 mg PO TID aspirin 81 mg Tablet,Delayed Release (Dr/Ec) 81 mg PO DAILY duloxetine 30 mg Capsule,Delayed Release(Dr/Ec) 20 mg PO HS omeprazole 20 mg Tablet,Delayed Release (Dr/Ec) 20 mg PO DAILY hydrocodone-acetaminophen 10-325 mg tablet 1 tablet PO QID ezetimibe 10 mg tablet 10 mg PO DAILY cholecalciferol (vitamin D3) [Vitamin D3] 50 mcg (2,000 unit) Capsule 50 mcg PO DAILY Trelegy Ellipta 100-62.5-25 mcg blister with device 1 inh INHALATION DAILY roflumilast 250 mcg tablet 250 mcg PO DAILY Follow-up/Referrals: Octavia,MD Mahin [Primary Care Provider] - Quality HEART score for chest pain patients History: highly suspicioius ECG: non specific repolarization disturbance/LBTB/PM Age: > or = to 65 years Risk factors: > or = to 3 risk factors of atherosclerotic disease Troponin: < or = to 1x normal limit Heart score: 7
--- NOTE | 2024-09-17 23:15 | ECG_ITS ---
Test Date: 2024-09-17 23:11:59 Measurements Intervals [place] Rate: 75 P: 55 FL: 156 QRS: 2 QRSD: 94 T: 41 QT: 383 QTc: 428 Interpretive Statements SINUS RHYTHM WITH OCCASIONAL VENTRICULAR PREMATURE COMPLEXES ANTEROSEPTAL INFARCT, AGE INDETERMINATE CONSIDER INFERIOR INFARCT, AGE INDETERMINATE BASELINE ARTIFACT- II, III, AVL, AVF ABNORMAL ECG No previous ECG available for comparison Electronically Signed On 09-18-2024 05:51:55 SWITCH TENDER by Yvon Gonzales D.O.
[2024-09-17] MEDS: NITROGLYCERIN SL 0.4 MG TABLET SUBLINGUAL (23:20)
[2024-09-17] MEDS: ASPIRIN 81 MG CHEWABLE TABLET 324 MG PO (23:23)
[2024-09-17 23:37] LABS: Basophils Absolute Auto 0.09 K/mm3 (0.00-0.10); Eosinophils Absolute Auto 0.13 K/mm3 (0.02-0.50); Eosinophils Percent Auto 1.5 % (1.0-6.0); Hematocrit 35.8 % (35.0-42.0); Hemoglobin 11.7 g/dL (11.7-13.8); Immature Granulocyte Absolute 0.03 K/mm3 (0.00-0.00); Immature Granulocyte Percent A 0.3 % (0.0-0.0); Lymphocytes Percent Auto 34.1 % (18.0-42.0); Mean Corpuscular HGB Conc 32.7 g/dL (32-36); Mean Corpuscular Hemoglobin 28.3 pg (27.0-31.0); Mean Corpuscular Volume 86.5 fL (78.0-102.0); Mean Platelet Volume 8.7 fl (9.2-11.8); Monocytes Absolute Auto 0.86 K/mm3 (0.10-0.90); Monocytes Percent Auto 9.8 % (2.0-11.0); Neutrophils Absolute Auto 4.69 K/mm3 (1.70-7.20); Neutrophils Percent Auto 53.3 % (50.0-70.0); Platelet Count Result 253 K/mm3 (150-420); Red Blood Count 4.14 M/mm3 (4.20-5.40); White Blood Count 8.8 K/mm3 (4.8-10.8)
[2024-09-17 23:49] LABS: INR 0.9; Partial Thromboplastin Time 29.9 Sec (23.9-30.70); Prothrombin Time 10.5 Seconds (9.50-12.1)
[2024-09-17 23:57] LABS: Alanine Aminotransferase 21 U/L (14-59); Albumin Level 3.7 g/dL (3.4-5.0); Alkaline Phosphatase 51 U/L (46-116); Anion Gap 9 mmol/L (4-12); Aspartate Amino Transferase 15 U/L (15-37); Bilirubin,Total 0.4 mg/dL (0.00-1.00); Blood Urea Nitrogen 12 mg/dL (7-18); Calcium 9.4 mg/dL (8.5-10.1); Carbon Dioxide 31 mmol/L (21-32); Chloride 99 mmol/L (98-108); Estimated CRCL calculation 41 ml/min; Estimated Glomerular Filt Rate 57; Glucose 96 mg/dL (70-99); Lipase 90 U/L (16-77); NT Pro B Type Natriuretic Pept 322 pg/mL (0-125); Osmolality Calculated 287 mOsm/kg (285-295); Potassium 3.7 mmol/L (3.5-5.1); Sodium 139 mmol/L (136-145); Total Protein 7.1 g/dL (6.4-8.2); Troponin I 4.4 ng/L (0.00-60.4)
[2024-09-18] VITALS (7 sets, daily range): BP systolic 105–160; BP diastolic 46–74; PULSE 71–77; RESP 16–20; TEMP 36.4; O2SAT 92–99
--- NOTE | 2024-09-18 00:11 | PC.NURSE ---
Pts heading machine operator is Dr Orville Bourgeois and is located at [facility] per pt info. She wants transfer if possible to [facility]. Will make calls for possible transfer to [facility].
--- NOTE | 2024-09-18 00:25 | PC.NURSE ---
After call placed to [facility] for [facility], informed Dr Bourgeois does not go to this hospital. Pt and spouse informed that Dr Bourgeois has no practicing privilege at [facility]. Pt wants to go to where Dr Bourgeois is located. Advised pt she is [facility] and will have to try [facility] for transfer thru [facility]. Call then placed to [facility] for possible transfer to [facility] for Dr Bourgeois.
[2024-09-18] MEDS: ONDANSETRON INJ 4 MG/2 ML VIAL IV PUSH (00:37)
[2024-09-18] MEDS: MORPHINE SULFATE (*CRX) 2 MG/ML INJ IV PUSH (00:38)
[2024-09-18] MEDS: HEPARIN SODIUM 5,000 UNITS/ML VIAL 4000 UNITS IV PUSH (00:41)
[2024-09-18] MEDS: HEPARIN SOD/D5W 100 UNITS/ML 25,000 UNITS/250 ML BAG 8 UNITS IV CONT (00:42)
--- NOTE | 2024-09-18 00:58 | PC.NURSE ---
Pt resting, lights dimmed, VSS. Awaiting call back from [facility] cardiology.
--- NOTE | 2024-09-18 01:17 | PC.NURSE ---
Pt c/o back pain and repositioned in bed. Pt wanting to know if she can have a hydrocodone pill because she normally takes them for her pain. ERP informed and order received.
[2024-09-18] MEDS: HYDROcodone/acetaminophen (*CRX) 5-325 MG TABLET 1 TAB PO (01:21)
--- NOTE | 2024-09-18 01:33 | PC.NURSE ---
Call jackelyn Savage at [facility] transfer center, initial report given and states she is putting in bed placement request for CNE, will call back when bed is made available.
--- NOTE | 2024-09-18 01:35 | ECG_ITS ---
Test Date: 2024-09-18 02:04:39 Measurements Intervals [place] Rate: 76 P: 65 W[place]: 148 QRS: 18 QRSD: 96 T: 39 QT: 396 QTc: 447 Interpretive Statements SINUS RHYTHM ANTEROSEPTAL INFARCT, AGE INDETERMINATE BASELINE ARTIFACT- I, II, III, AVR, AVL, AVF ABNORMAL ECG Compared to ECG 09/17/2024 23:11:59 NO SIGNIFICANT CHANGE Electronically Signed On 09-18-2024 05:52:44 COLLAR STAY FUSER TENDER by Yvon Gonzales D.O.
[2024-09-18 02:33] LABS: Troponin I 4.8 ng/L (0.00-60.4)
--- NOTE | 2024-09-18 03:39 | PC.NURSE ---
Call back received and pt will go to Bed 907 at [facility].
== END 2024-09-18 04:13 | disposition short-term general hospital (02) ==
PROVIDERS: Emergency Provider Emergency Medicine; PCP Family Medicine
DX: I20.0 Unstable angina (principal); I10 Essential (primary) hypertension; E11.9 Type 2 diabetes mellitus without complications; E78.5 Hyperlipidemia, unspecified; J44.9 Chronic obstructive pulmonary disease, unspecified; F17.210 Nicotine dependence, cigarettes, uncomplicated; Z99.81 Dependence on supplemental oxygen; Z79.82 Long term (current) use of aspirin; Z79.899 Other long term (current) drug therapy; Z79.891 Long term (current) use of opiate analgesic
CPT/HCPCS: 36415; 71045; 80053; 83690; 83880; 84484; 85025; 85610; 85730; 93005; 96365; 96366; 96375; 99285; A9270; J1644; J2270; J2405

== ENCOUNTER 2024-09-25 10:08 | Outpatient (RCR) | payer MEDICARE, MEDICAID, SELFPAY ==
--- NOTE | 2024-10-02 14:23 | PCPTNOTE ---
Patient called & cancelled scheduled appointment this date due to pt being sick. -Lynette Burleson, PT
--- NOTE | 2024-10-10 12:11 | OPREHPOC ---
Outpatient Therapy Plan of Care This is a Multidisciplinary Plan of Care that may contain components documented by all disciplines (PT, OT, and ST.) PT Problem 1 PT Problem #1 Knowledge Deficit PT Goal 1 Goal / Goal Update The patient will be independent in a home exercise program. Target Visit 4 Progress Not Met PT Goal 2 Goal / Goal Update Continue Target Visit 24 PT Problem 2 PT Problem #2 Impaired Endurance PT Goal 1 Goal / Goal Update 1. The patient will be able to ambulate 50 feet without SOB or rest breaks. -distance met, still SOB 2. The patient will be able to transfer sit to stand 5 times without SOB or rest breaks. -not met Target Visit 10 Progress Not Met PT Goal 2 Goal / Goal Update Continue Target Visit 24 PT Problem 3 PT Problem #3 Impaired Gait PT Goal 1 Goal / Goal Update The patient will be able to ambulate 25 feet with a FWW with SBA. Target Visit 10 Progress Not Met PT Goal 2 Goal / Goal Update Continue Target Visit 24 PT Problem 4 PT Problem #4 Impaired Strength PT Goal 1 Goal / Goal Update The patient will improve bilateral hip abduction and extension strength to at least 3/5 to improve ability to stand, ambulate, and balance for household mobility. Target Visit 10 Progress Met PT Goal 2 Goal / Goal Update Continue Target Visit 14 Progress Met PT Problem 5 PT Problem #5 Impaired Balance PT Goal 1 Goal / Goal Update 1. The patient will improve Tinetti Balance Scale score to 19 to move to a moderate fall risk versus high fall risk. -not met 2. The patient will improve her 5x STS time to under 30 seconds indicating improved balance. - met Target Visit 10 Progress Partially Met PT Goal 2 Goal / Goal Update Continue Target Visit 24
--- NOTE | 2024-10-10 12:12 | PTOPPROG ---
Assessment and note entered by Lynette Burleson, PT Evaluation Information Assessment Status Progress Diagnosis Fall Risk Other ICD-10 Condition Codes ( Z91.81 PT) Onset 04/17/24 Subjective Information Felicia Sanford reports she is moving around better since she started PT. She notes she feels more energized after her PT sessions and she is able to transfer easier. She has been working on sit to stand transfers at home but has not been walking with her rollator. She uses her wheelchair for her primary locomotion at home. She notes her balance is better with transferring as well. She would like to continue skilled PT. Assessment PT Clinical Summary Felicia Sanford has completed 14 skilled PT visits for fall risk. She is reporting improved balance with transfers, improved LE strength, and improved endurance. She does still get SOB with ambulation and is not ambulating on her own only at PT. She demonstrates improved LE strength, improved ambulation distance, and improved balance. She does still have deficits in these areas and remains a high fall risk. She is only ambulating 50 feet at a time and is not safe to do so without a wheelchair follow or CGA. She will continue to benefit from skilled PT to further address these limitations and improve her functional mobility and endurance. Plan of Care Interventions Neuro Re-education,Patient/Caregiver Education, Therapeutic Activities,Therapeutic Exercise PT Services Indicated Yes Treatment Frequency and 2 times a week for 10 visits Duration These treatments will address the objective and functional deficits as defined above. The patient will be advanced safely and appropriately in order for the patient to progress towards his/her prior level of function. Additional exercises will be introduced and as well as a comprehensive home exercise program upon discharge, if needed, ?to ensure carryover of functional gains achieved in the clinic. This treatment plan has been reviewed and agreement upon by the patient.
--- NOTE | 2024-10-16 11:30 | PCPTNOTE ---
Patient called & cancelled scheduled appointment this date due to illness. -Lynette Burleson, PT
--- NOTE | 2024-11-06 17:29 | PCPTNOTE ---
Patient called & cancelled scheduled appointment this date due to the weather.
== END 2024-12-24 23:59 | disposition home or self-care (01) ==
LOC: CHSPT 10:08
PROVIDERS: PCP Family Medicine; Visit Provider Family Medicine
DX: M54.50 Low back pain, unspecified (principal); G89.29 Other chronic pain; Z91.81 History of falling
CPT/HCPCS: 97110; 97530; 97750

== ENCOUNTER 2025-01-22 15:09 | Outpatient (RCR) | payer MEDICARE, MEDICAID, SELFPAY ==
--- NOTE | 2025-01-22 16:18 | OPREHPOC ---
Outpatient Therapy Plan of Care This is a Multidisciplinary Plan of Care that may contain components documented by all disciplines (PT, OT, and ST.) PT Problem 1 PT Problem #1 Knowledge Deficit PT Goal 1 Goal / Goal Update The patient will be independent in a home exercise program. Target Visit 4 PT Problem 2 PT Problem #2 Impaired Gait PT Goal 1 Goal / Goal Update The patient will ambulate 100 feet with the least restrictive assistive device to improve household ambulation. Target Visit 10 PT Problem 3 PT Problem #3 Impaired Strength PT Goal 1 Goal / Goal Update The patient will demonstrate 3+/5 or greater bilateral LE strength. The patient will perform 10 sit to stands with SBA with minimal UE use indicating improved functional LE strength. Target Visit 10 PT Problem 4 PT Problem #4 Impaired Balance PT Goal 1 Goal / Goal Update The patient will improve Tinetti balance score to 19 or higher indicating a moderate fall risk versus high fall risk. The patient will improve TUG score to 30 seconds or less. Target Visit 10
--- NOTE | 2025-01-22 16:18 | PTOPEVAL1 ---
Assessment and note entered by Lynette Burleson, PT Evaluation Information Assessment Status Evaluation Diagnosis Fall Risk Other ICD-10 Condition Codes ( Z91.81 PT) Onset 01/22/25 Subjective Information Felicia Sanford reports she was in the hospital at the end of October for 4 days for chest pain, difficulty breathing, and malnutrition. She has been having weakness since then. She has been using just her wheelchair for mobility. She is still able to perform pivot transfers into bed and onto the toilet. She has not had any falls. She has been taking steroids for her breathing so her usual low back pain, left knee pain, and right shoulder pain is better. Reported Pain Level Pain Score 6,5: Self Report Assessment PT Clinical Summary Felicia Sanford presents with a decline in her strength and endurance after a recent hospitalization. She has a history of VA and CAD, COPD, and lumbar surgery that has lead to her using a wheelchair for her primary means of locomotion. She is using pivot transfers for bed and toilet transfers. Her assists with her showers and getting dressed. She does not perform cooking or cleaning. She demonstrates decreased endurance, decreased LE and UE strength, decreased balance, and impaired gait. She is a high fall risk. She will benefit from skilled PT to address these limitations and improve her functional mobility. Plan of Care Interventions Gait Training,Neuro Re-education,Patient/Caregiver Education,Therapeutic Activities,Therapeutic Exercise PT Services Indicated Yes Treatment Frequency and 2 times a week for 10 visits Duration These treatments will address the objective and functional deficits as defined above. The patient will be advanced safely and appropriately in order for the patient to progress towards his/her prior level of function. Additional exercises will be introduced and as well as a comprehensive home exercise program upon discharge, if needed, ?to ensure carryover of functional gains achieved in the clinic. This treatment plan has been reviewed and agreement upon by the patient.
--- NOTE | 2025-01-24 07:27 | PCPTNOTE ---
Patient called & cancelled scheduled appointment this date due to patient states she is not going to make it in. -Lynette Burleson, PT
--- NOTE | 2025-02-07 09:51 | PCPTNOTE ---
Patient called & cancelled scheduled appointment this date due to forgetting the appointment. -Lynette Burleson, PT
--- NOTE | 2025-02-14 10:01 | PCPTNOTE ---
Patient called & cancelled scheduled appointment this date.
--- NOTE | 2025-02-28 09:42 | PCPTNOTE ---
Patient called & cancelled scheduled appointment this date due to not feeling well. -Lynette Burleson, PT
--- NOTE | 2025-03-15 10:59 | OPREHPOC ---
Outpatient Therapy Plan of Care This is a Multidisciplinary Plan of Care that may contain components documented by all disciplines (PT, OT, and ST.) PT Problem 1 PT Problem #1 Knowledge Deficit PT Goal 1 Goal / Goal Update The patient will be independent in a home exercise program. Target Visit 4 Progress Met PT Problem 2 PT Problem #2 Impaired Gait PT Goal 1 Goal / Goal Update The patient will ambulate 100 feet with the least restrictive assistive device to improve household ambulation. Target Visit 10 Progress Not Met PT Problem 3 PT Problem #3 Impaired Strength PT Goal 1 Goal / Goal Update The patient will demonstrate 3+/5 or greater bilateral LE strength. -partially met The patient will perform 10 sit to stands with SBA with minimal UE use indicating improved functional LE strength. -partially met, pt performs 3 without use of arms Target Visit 10 Progress Partially Met PT Problem 4 PT Problem #4 Impaired Balance PT Goal 1 Goal / Goal Update The patient will improve Tinetti balance score to 19 or higher indicating a moderate fall risk versus high fall risk. -not met The patient will improve TUG score to 30 seconds or less. -met Target Visit 10 Progress Partially Met
--- NOTE | 2025-03-15 11:00 | PTOPPROG ---
Assessment and note entered by Lorena Colorado, PT Evaluation Information Assessment Status Progress Diagnosis Fall Risk Other ICD-10 Condition Codes ( Z91.81 PT) Onset 01/22/25 Subjective Information Pt feels that her fall set her back in PT. She stated she is not having a good day because of her pain and oversleeping this morning. Pt recently started a new medicine and it might be why she feels off. She also reports that she does not feel like PT has made her stronger, however she states she regularly performs sit to stands when doing transfers and also performs seated marching throughout the day. Assessment PT Clinical Summary Mrs. Webb is a 74 yo Female who is on her 6th skilled PT visit for revaluation. Despite subjective reports of continued weakness pt has made slight improvements in her gross LE strength. She also demonstrates slightly improved functional mobility and is able to perform sit to stands without use of arms for short periods of time. Her TUG time improved however she is still at high fall risk per Tinetti. She also continues to demonstrate impaired endurance and only tolerates short distance ambulation. She will benefit from continued skilled PT intervention to improve deficits and keep progressing toward goals to be able to perform daily functional tasks safely at home. Plan of Care Interventions Gait Training,Neuro Re-education,Patient/Caregiver Education,Therapeutic Activities,Therapeutic Exercise PT Services Indicated Yes Treatment Frequency and 2x/week for 6 additional visits Duration These treatments will address the objective and functional deficits as defined above. The patient will be advanced safely and appropriately in order for the patient to progress towards his/her prior level of function. Additional exercises will be introduced and as well as a comprehensive home exercise program upon discharge, if needed, ?to ensure carryover of functional gains achieved in the clinic. This treatment plan has been reviewed and agreement upon by the patient.
--- NOTE | 2025-04-02 11:48 | OPREHPOC ---
Outpatient Therapy Plan of Care This is a Multidisciplinary Plan of Care that may contain components documented by all disciplines (PT, OT, and ST.) PT Problem 1 PT Problem #1 Knowledge Deficit PT Goal 1 Goal / Goal Update The patient will be independent in a home exercise program. Target Visit 4 Progress Met PT Problem 2 PT Problem #2 Impaired Gait PT Goal 1 Goal / Goal Update The patient will ambulate 100 feet with the least restrictive assistive device to improve household ambulation. Target Visit 10 Progress Met PT Goal 2 Goal / Goal Update New Goal: The patient will ambulate 200 feet with the least restrictive device to improve household ambulation. Target Visit 18 PT Problem 3 PT Problem #3 Impaired Strength PT Goal 1 Goal / Goal Update The patient will demonstrate 3+/5 or greater bilateral LE strength. -partially met The patient will perform 10 sit to stands with SBA with minimal UE use indicating improved functional LE strength. -partially met, heavier UE use after 5 reps Target Visit 10 Progress Partially Met PT Goal 2 Goal / Goal Update continue Target Visit 18 PT Problem 4 PT Problem #4 Impaired Balance PT Goal 1 Goal / Goal Update The patient will improve Tinetti balance score to 19 or higher indicating a moderate fall risk versus high fall risk. -not met The patient will improve TUG score to 30 seconds or less. -regressed, not met Target Visit 10 Progress Not Met PT Goal 2 Goal / Goal Update continue Target Visit 18
--- NOTE | 2025-04-02 11:49 | PTOPPROG ---
Assessment and note entered by Lynette Burleson, PT Evaluation Information Assessment Status Progress Diagnosis Fall Risk Other ICD-10 Condition Codes ( Z91.81 PT) Onset 01/22/25 Subjective Information Felicia Sanford reports she is getting stronger and able to do more since she has been coming to PT. She reports she was able to make a cake for her 's birthday over the weekend with frequent sitting rest breaks. She still uses her wheelchair primarily for getting around in the house. She would like to try using her rollator more but she is afraid of falling. She has not had any falls since she has started PT. She has been having less pain recently after changes to her pain medication were made by her pain management doctor the last few weeks. She is having more pain today because she is not able to take her 12 hour pain pill until 10:30 am. She would like to continue PT to further improve her standing and walking tolerance. Assessment PT Clinical Summary Felicia Sanford has completed 11 skilled PT visits for decreased balance and weakness. She is reporting improved endurance with standing since re-initiating PT and she has not had any falls. She still uses her wheelchair as her primary locomotion and does not use her rollator for fear of falling. She demonstrates improving strength in the LE, improving balance, and improving gait and endurance. She does still have deficits in these areas and is a high fall risk. She will continue to benefit from skilled PT to improve deficits and keep progressing toward goals to be able to perform daily functional tasks safely at home. Plan of Care Interventions Gait Training,Neuro Re-education,Patient/Caregiver Education,Therapeutic Activities,Therapeutic Exercise PT Services Indicated Yes Treatment Frequency and 2x/week for 6 additional visits Duration These treatments will address the objective and functional deficits as defined above. The patient will be advanced safely and appropriately in order for the patient to progress towards his/her prior level of function. Additional exercises will be introduced and as well as a comprehensive home exercise program upon discharge, if needed, ?to ensure carryover of functional gains achieved in the clinic. This treatment plan has been reviewed and agreement upon by the patient.
--- NOTE | 2025-05-29 15:25 | PCPTNOTE ---
The patient was last seen in the clinic on 04/02/25 and has not returned since. She is discharged. -Lynette Burleson, PT
== END 2025-04-22 23:59 | disposition home or self-care (01) ==
LOC: CHSPT 15:09
PROVIDERS: PCP Family Medicine; Visit Provider Family Medicine
DX: Z91.81 History of falling (principal); R53.1 Weakness
CPT/HCPCS: 97110; 97112; 97150; 97161; 97530; 97750

== ENCOUNTER 2025-02-16 15:53 | Emergency (ER) | payer MEDICARE, MEDICAID, SELFPAY ==
--- NOTE | ~2025-02-16 | CT_ITS ---
CT brain wo con Ordering provider: Martin Langston MD History: 74 years Female with . Fall, head injury. Headache/dizziness/cervical pain . Comparison: January 21, 2022 Technique: CT of the head without contrast. Radiation reduction technique utilized.The dose-length pr oduct was 681 mGy-cm. FINDINGS: BRAIN PARENCHYMA AND CSF SPACES: Small Focus of calcification seen in the left centrum semiovale unch anged. Bilateral old lacunar infarcts in the anterior limb of the internal capsule bilaterally unchan ged. Old lacunar infarct in the left insula unchanged. Matter ischemic changes are noted. No midline shift, mass effect or hemorrhage. The brain parenchyma and CSF spaces are otherwise normal. VISUALIZED PARANASAL SINUSES: Well aerated. MASTOIDS: Well aerated. BONES: The bones appear intact. SOFT TISSUES: Visualized nasopharynx is normal. Superficial soft tissues are normal. IMPRESSION: No acute intracranial findings. Reviewed, dictated and finalized at location A.
--- NOTE | ~2025-02-16 | CT_ITS ---
CT cervical spine wo con Ordering provider: Martin Langston MD History: . Fall, head injury. Headache/dizziness/cervical pain . Comparison: April 2005 Technique: CT of the cervical spine was performed without contrast. Sagittal and coronal reformatted images were also obtained and reviewed. Automated exposure control and iterative reconstruction martha hnique were employed. The dose-length product was 405.78 mGy-cm. FINDINGS: VERTEBRAE: Anterolisthesis at the level of C3-C4 and C4-C5 is noted. Areas of calcification are seen near to the occipital condyles which may be ligamentous ossification. No definite bony stone is seen in the area. Otherwise, No subluxation or acute fracture. The occipital condyles are intact. DISC SPACES: Narrowing of the disc C5-C6 is noted. Multilevel facet joint disease. Multilevel uncover tebral joint osteoarthritic changes. Narrowing of both foramina at the level of C3-C4. Narrowing of t he left foramina at the level of C4-C5. PARASPINOUS SOFT TISSUES: Bilateral carotid calcification. IMPRESSION: Anterolisthesis at the level of C3-C4 and C4-C5. Otherwise, no definite acute osseous abnormality. If still suspicious MRI is advised. Small foci of calcifications seen bilaterally near to the occipital condyles with no definite fractur es. Degenerative disc disease at the level of C5-C6. Reviewed, dictated and finalized at location A. IMPRESSION: Anterolisthesis at the level of C3-C4 and C4-C5. Otherwise, no definite acute o sseous abnormality. If still suspicious MRI is advised. Small foci of calcifications seen bilaterally near to the occipital condyles wi th no definite fractures. Degenerative disc disease at the level of C5-C6.
--- NOTE | ~2025-02-16 | XR_ITS ---
XR shoulder RT min 2V Ordering provider: Martin Langston MD History: . Fall, Rt. shoulder pain . Comparison: None. FINDINGS: BONES: No acute fracture or dislocation. JOINT SPACES: The acromioclavicular joint shows osteoarthritic changes.. The glenohumeral joint is no rmal. SOFT TISSUES: Ossification of the insertion of the tendo Achilles is noted. IMPRESSION: No acute osseous abnormality right shoulder. Ossific tendinosis of the supraspinatus tendon. Reviewed, dictated and finalized at location A.
--- OUTSIDE RECORDS SUMMARY | 2025-02-16 15:55 | XMS_ITS ---
Author Organization [facility] Address [address] [place] [id number] Care Team Providers Care Lumber Stacker Driver Name Role Phone Lourdes August NP Unavailable [phone] Mahin Dudley MD Primary Care Provider [phone] Marek Vitale MD Unavailable [phone] Active Problems Problem Noted Date Diagnosed Date Chest pain 09/18/2024 Moderate protein-calorie malnutrition 09/18/2024 Other and unspecified angina pectoris 04/05/2022 Jaw pain 03/03/2022 Acute left-sided low back pain with left-sided s ciatica 01/16/2022 Assessment & Plan (01/20/2022 11:45 AM CDT): Patient presents with acute on chronic low back pain with sciatica. Follows with pain management in [place]; on chronic Vicodin 7.5mg TID PRN. Last injection 2 weeks ago. No red flag symptoms. Lumbar Xray neg for fracture; last MRI 07/2021 - Pain control: hydrocodone/apap 7.5mg q4 PRN, flexeril 5 TID PRN, lidocaine patches; continue home duloxetine 60mg AM/20mg PM -T spine MRI-- degenerative changes of the cervical, lumbar, and thoracic spine - PT-- recommended SNF, planning to discharge today Assessment & Plan (01/19/2022 2:17 PM CDT): Patient presents with acute on chronic low back pain with sciatica. Follows with pain management in [place]; on chronic Vicodin 7.5mg TID PRN. Last injection 2 weeks ago. No red flag symptoms. Lumbar Xray neg for fracture; last MRI 07/2021 - Pain control: hydrocodone/apap 7.5mg q4 PRN, flexeril 5 TID PRN, lidocaine patches; continue home duloxetine 60mg AM/20mg PM -T spine MRI-- degenerative changes of the cervical, lumbar, and thoracic spine - PT-- recommended SNF, patient currently agreeable Assessment & Plan (01/18/2022 3:46 PM CDT): Patient presents with acute on chronic low back pain with sciatica. Follows with pain management in [place]; on chronic Vicodin 7.5mg TID PRN. Last injection 2 weeks ago. No red flag symptoms. Lumbar Xray neg for fracture; last MRI 07/2021 - Pain control: hydrocodone/apap 7.5mg q4 PRN, flexeril 5 TID PRN, lidocaine patches; continue home duloxetine 60mg AM/20mg PM -T spine MRI-- degenerative changes of the cervical, lumbar, and thoracic spine - PT Assessment & Plan (01/17/2022 12:17 PM CDT): Patient presents with acute on chronic low back pain with sciatica. Follows with pain management in [place]; on chronic Vicodin 7.5mg TID PRN. Last injection 2 weeks ago. No red flag symptoms. Lumbar Xray neg for fracture; last MRI 07/2021 -Pain control: hydrocodone/apap 7.5mg q4 PRN, flexeril 5 TID PRN, lidocaine patches; continue home duloxetine 60mg AM/20mg PM -PT -Basic labs -Will check T spine MRI Assessment & Plan (01/16/2022 9:34 PM CDT): Patient presents with acute on chronic low back pain with sciatica. Follows with pain management in [place]; on chronic Vicodin 7.5mg TID PRN. Last injection 2 weeks ago No red flag symptoms. Lumbar Xray neg for fracture; last MRI 07/2021 -Pain control: hydrocodone/apap 7.5mg q4 PRN, flexeril 5 TID PRN, lidocaine patches; continue home duloxetine 60mg AM/20mg PM -PT -Basic labs Neuropathy 01/16/2022 Assessment & Plan (01/20/2022 11:45 AM CDT): Reports several weeks of numbness of tips of fingers/toes - Cervical spine XR demonstrated Multilevel degenerative disc disease of the cervical spine greatest and moderate C5-C6 and C6-C7. - A1c 7.0% (recently started on metformin for pre-DM), HIV non reactive, TSH normal, B12 normal - T spine MRI as above Assessment & Plan (01/19/2022 2:18 PM CDT): Reports several weeks of numbness of tips of fingers/toes - Cervical spine XR demonstrated Multilevel degenerative disc disease of the cervical spine greatest and moderate C5-C6 and C6-C7. - A1c 7.0% (recently started on metformin for pre-DM), HIV non reactive, TSH normal, B12 normal - T spine MRI as above Assessment & Plan (01/18/2022 3:47 PM CDT): Reports several weeks of numbness of tips of fingers/toes - Cervical spine XR demonstrated Multilevel degenerative disc disease of the cervical spine greatest and moderate C5-C6 and C6-C7. - A1c 7.0% (recently started on metformin for pre-DM), HIV non reactive, TSH normal, B12 normal - T spine MRI as above Assessment & Plan (01/17/2022 12:18 PM CDT): Reports several weeks of numbness of tips of fingers/toes -Cervical spine XR demonstrated Multilevel degenerative disc disease of the cervical spine greatest and moderate C5-C6 and C6-C7. -A1c 7.0% (recently started on metformin for pre-DM), HIV non reactive, TSH normal, B12 normal -check T spine MRI Assessment & Plan (01/16/2022 9:34 PM CDT): Reports several weeks of numbness of tips of fingers/toes -C spine xr -A1c (recently started on metformin for pre-DM), HIV, TSH, B12 Hyperlipidemia 06/12/2021 Venous insufficiency 01/22/2020 Primary osteoarthritis of both knees 02/19/2019 Dental decay 03/09/2018 Chronic midline low back pain without sciatica 1 11/19/2016 Chronic rhinosinusitis 07/29/2017 Cough 07/29/2017 Bronchitis, not specified as acute or chronic Obesity (BMI 30.0-34.9) 07/27/2017 Assessment & Plan (01/20/2022 11:46 AM CDT): Outpatient f/u Assessment & Plan (01/19/2022 2:18 PM CDT): Outpatient f/u Assessment & Plan (01/18/2022 3:47 PM CDT): Outpatient f/u Assessment & Plan (01/17/2022 11:58 AM CDT): Outpatient f/u Assessment & Plan (01/16/2022 9:37 PM CDT): Outpatient f/u Mass of breast 05/16/2017 High risk medication use 05/11/2017 Ecchymosis 05/11/2017 Scarring of lung 05/11/2017 Iron deficiency anemia 12/01/2016 Disorder of connective tissue (CMS/HCC) 10/28/20 16 Other abnormal glucose 10/28/2016 Other pulmonary embolism without acute cor pulmo nale 10/28/2016 Vitamin D deficiency 10/28/2016 Abnormal cervical Papanicolaou smear 10/15/2016 Abdominal bloating 10/15/2016 Papanicolaou smear of cervix with high grade squamous intraepithelial lesion (HGSIL) 09/14/2016 Screening for malignant neoplasm of cervix 08/04 Acquired trigger finger 05/31/2016 Inguinal pain 03/19/2016 Edema 03/04/2016 Fatigue 02/25/2016 Memory impairment 02/25/2016 Lumbago 06/27/2015 Arthralgia of shoulder 10/29/2014 Bursitis of hip 02/15/2014 Cervical intraepithelial malick plasia grade III with severe dysplasia 10/29/2013 Human papilloma virus (HPV) infection 10/29/2013 Gastric ulcer 09/24/2013 Gastroesophageal reflux disease 09/20/2013 Heartburn 09/13/2013 Osteoporosis 07/26/2013 Overview (02/10/2018): Description: seen in bone health 2011 on ALN starting 07/2013 DMAb only took 2 doses, quit do to dental problem and then lost to f/u 01/2017 BMD in hip has CRATERED -->restart DMAb Assessment & Plan (06/12/2020 2:07 PM CDT): She wants to restart prolia as this is the only Rx which has led to a BMD increase. Warned of the risk of discontinuation and rebound, we will see if her local hospital can accept order to get it there Difficulty in swallowing 06/13/2013 Crohn's disease 04/05/2013 Abdominal pain 10/03/2012 Menopausal and postmenopausal disorder 2 Laryngopharyngeal reflux 11/25/2011 Tobacco dependence syndrome 12/19/2009 Encounter for screening for cardiovascular disor ders 06/16/2009 Pulmonary emphysema ([facility] 02/04/2009 Assessment & Plan (01/20/2022 11:45 AM CDT): -Trelegy ellipta per med list -PRN albuterol Assessment & Plan (01/19/2022 2:17 PM CDT): -Trelegy ellipta per med list -PRN albuterol Assessment & Plan (01/18/2022 3:46 PM CDT): -Trelegy ellipta per med list -PRN albuterol Assessment & Plan (01/17/2022 12:15 PM CDT): -Trelegy ellipta per med list -PRN albuterol Assessment & Plan (01/16/2022 9:35 PM CDT): -Trelegy ellipta per med list -PRN albuterol Sleep apnea, unspecified 07/15/2008 Assessment & Plan (01/20/2022 11:46 AM CDT): Nocturnal hypoventilation related to obesity -Continue chronic O2 4L PRN sleeping Assessment & Plan (01/19/2022 2:18 PM CDT): Nocturnal hypoventilation related to obesity -Continue chronic O2 4L PRN sleeping Assessment & Plan (01/18/2022 3:50 PM CDT): Nocturnal hypoventilation related to obesity -Continue chronic O2 4L PRN sleeping Assessment & Plan (01/17/2022 11:58 AM CDT): Nocturnal hypoventilation related to obesity -Continue chronic O2 4L PRN sleeping Assessment & Plan (01/16/2022 9:36 PM CDT): Nocturnal hypoventilation related to obesity -Continue chronic O2 4L PRN sleeping Malignant neoplasm of cervix 04/03/2008 Atherosclerotic heart diseas e of [place] coronary artery without angina pectoris 10/31/1958 Overview (04/05/2022): Description: loaded with blockage now has 11-stents Assessment & Plan (01/20/2022 11:45 AM CDT): With prior stents -ASA, plavix -Atorvastatin, Zetia -Imdur, metoprolol Assessment & Plan (01/19/2022 2:18 PM CDT): With prior stents -ASA, plavix -Atorvastatin, Zetia -Imdur, metoprolol Assessment & Plan (01/18/2022 3:46 PM CDT): With prior stents -ASA, plavix -Atorvastatin, Zetia -Imdur, metoprolol Assessment & Plan (01/17/2022 12:13 PM CDT): With prior stents -ASA, plavix -Atorvastatin, Zetia -Imdur, metoprolol Assessment & Plan (01/16/2022 9:37 PM CDT): With prior stents -ASA, plavix -Atorvastatin, Zetia -Imdur, metoprolol Essential (primary) hypertension 10[birth year]31/1958 Assessment & Plan (01/20/2022 11:45 AM CDT): -Imdur, metoprolol, lasix, amlodipine -Unclear if patient still taking amlodipine as listed on med list Assessment & Plan (01/19/2022 2:17 PM CDT): -Imdur, metoprolol, lasix, amlodipine -Unclear if patient still taking amlodipine as listed on med list Assessment & Plan (01/18/2022 3:46 PM CDT): -Imdur, metoprolol, lasix, amlodipine -Unclear if patient still taking amlodipine as listed on med list Assessment & Plan (01/17/2022 12:14 PM CDT): -Imdur, metoprolol, lasix, amlodipine -Unclear if patient still taking amlodipine as listed on med list Assessment & Plan (01/16/2022 9:35 PM CDT): -Imdur, metoprolol, lasix -Unclear if patient still taking amlodipine as listed on med list Solitary pulmonary nodule Current Treatment and Therapy Plans No current plan information found. Past Treatment and Therapy Plans Lifetime Dose Tracking * Chemical Lifetime Dose Automatic Entry Manual Entr y Fluoro Time 2.336 minutes 2.336 minutes 0 minutes Air kerma at the reference point (Ka,r) 0.001 mGy 0 .001 mGy 0 mGy
--- OUTSIDE RECORDS SUMMARY | 2025-02-16 15:55 | XMS_ITS | Encounter Summary ---
Author Organization [facility] Healthcare Address [address] [place] [address] Care Team Providers Care School Speech Language Pathologist Name Role Phone Cooper Nieto MD Primary Care Provider [phone] Lourdes August NP Unavailable [phone] Mahin Dudley MD Primary Care Provider Marek Vitale MD Unavailable [phone] Encounter Details Date Type Department Care Team (Late st Contact Info) Description 01/20/2022 Documentation [facility] [address] [place] [id number] Heike Howard Social History Tobacco Use Types Packs/Day Years Used Date Smoking Tobacco: Every Day Smokeless Tobacco: Never Alcohol Use Standard Drinks/Week Comments No 0 (1 standard drink = 0.6 oz pur e alcohol) AUDIT-C Answer Date Recorded Q1: How often do you have a drink containing alc ohol? Never 01/17/2022 Average Number of Drinks Not on file 022 Q3: How often do you have si x or more drinks on one occasion? 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 Gender Identity Not on file Sexual Orientation Not on file documented as of this encounter Plan of Treatment Not on file documented as of this encounter Visit Diagnoses Not on filedocumented in this encounter Care Teams School Speech Language Pathologist Relationship Specialty Start Date End Date Cooper Nieto MD PCP - General Internal Medicine 08/25/18 03/11/24 Mahin Dudley MD [address] [place] [id number] PCP - General Family Medicine 03/12/24 Lourdes August NP Nurse Practitioner Plastic Surgery 06/10/22 Marek Vitale MD [address] [place] [address] Consulting Physician Cardiology 09/19/24 documented as of this encounter
--- OUTSIDE RECORDS SUMMARY | 2025-02-16 15:55 | XMS_ITS | Continuity of Care Document ---
Author Organization [facility] Address [address] [place] [address] [place] [address] Phone Care Team Providers Care Folder Machine Name Role Phone Leo Piper Unavailable Unavailable Procedures Procedure Date Office/outpatient Visit, [facility] No Script Advance Directives Directive Yes / No Effective Date File Name No Information Encounters Encounter Description Practice Location Reason(s) For Visit Diagnoses Date Provider Providers Copied on Encounter Office/outpat ient Visit, [facility], [address] [place], [place], [id number], [place] tel:[phone] [facility] No Information [address] Larymari Leo. [address] [facility] [address], [address], [place]. tel:[phone] Family History Family Member Type Diagnosis Age At Onset No Information Payers Payer name Insurance type Covered democrat ID Authoriza tion(s) Medicare [facility] [id number] [employer] SOI 09 [id number] Social History Type Description Quantity Date Captured [...]
--- OUTSIDE RECORDS SUMMARY | 2025-02-16 15:55 | XMS_ITS | Encounter Summary ---
Author Organization [facility] Healthcare Address [address] [place] [address] Care Team Providers Care Zigzag Stitcher Name Role Phone Cooper Nieto MD Primary Care Provider [phone] Lourdes August NP Unavailable [phone] Mahin Dudley MD Primary Care Provider Marek Vitale MD Unavailable [phone] Encounter Details Date Type Department Care Team (Late st Contact Info) Description 12/19/2020 Telephone [facility] [address] [place] [id number] Eyal Platt, RT Social History Tobacco Use Types Packs/Day Years Used Date Smoking Tobacco: Every Day Smokeless Tobacco: Never Alcohol Use Standard Drinks/Week Comments No 0 (1 standard drink = 0.6 oz pur e alcohol) Comments No Sex and Gender Information Value Date Recorded Sex Assigned at Not on file Legal Sex 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 Gender Identity Not on file Sexual Orientation Not on file documented as of this encounter Plan of Treatment Not on file documented as of this encounter Visit Diagnoses Not on filedocumented in this encounter Additional Health Concerns Infection Onset Date Last Indicated Resolved Time COVID: Suspected 01/19/2022 01/19/2022 01/19/2022 7:50 PM CDT documented as of this encounter Care Teams Zigzag Stitcher Relationship Specialty Start Date End Date Cooper Nieto MD PCP - General Internal Medicine 08/25/18 03/11/24 Mahin Dudley MD [address] [place] [id number] PCP - General Family Medicine 03/12/24 Lourdes August NP Nurse Practitioner Plastic Surgery 06/10/22 Marek Vitale MD [address] [place] [address] Consulting Physician Cardiology 09/19/24 documented as of this encounter
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
--- OUTSIDE RECORDS SUMMARY | 2025-02-16 15:55 | XMS_ITS | Encounter Summary ---
Author Organization [facility] Address [facility] [place] [address] Care Team Providers Care Roving Tester Laboratory Name Role Phone Cooper Nieto MD Primary Care Provider [phone] Mahin Dudley MD Primary Care Provider [phone] Encounter Details Date Type Department Care Team (Late st Contact Info) Description 02/16/2023 Hospital Orders Only [facility] [address] [place] [address] [place] [address] Kathy Vega RN Social History Tobacco Use Types Packs/Day Years Used Date Smoking Tobacco: Never Assessed Comments Unknown Sex and Gender Information Value Date Recorded Sex Assigned at Female 12/13/2024 9:43 AM SURETY BOND AGENT Legal Sex Female 8:58 PM CDT Gender Identity Not on file Sexual Orientation Not on file documented as of this encounter Plan of Treatment Not on file documented as of this encounter Visit Diagnoses Not on filedocumented in this encounter Care Teams Roving Tester Laboratory Relationship Specialty Start Date End Date Cooper Nieto MD [address] [place] [address] PCP - General INTERNAL MEDICINE 01/28/21 02/23/23 Mahin Dudley MD [address] [place] [id number] PCP - General FAMILY PRACTICE 02/24/23 documented as of this encounter
--- OUTSIDE RECORDS SUMMARY | 2025-02-16 15:55 | XMS_ITS | Referral Summary ---
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 No 09/19/2024 Social Connection and Isolat ion Panel [NHANES] Answer Date Recorded In a typical week, how many times do you talk on the phone with family, friends, or neighbors? Patient declined 09/19/2024 How often do you get togethe r with friends or relatives? Patient declined 09/19/2024 How often do you attend chur ch or druze services? More than 4 times per year 09/19/2024 Do you belong to any clubs o r organizations such as caodaism groups, unions, fraternal or athletic groups, or [...] any time in the past 12 m [facility], were you homeless or living in a chcf (including now)? No 09/19/2024 Personal Safety Answer Date Recorded Have you ever been in or are you currently in a harmful physical or emotional relationship or is someone making you feel afraid or unsafe? 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 MACHINE OFFBEARER Gender Identity Not on file Sexual Orientation Not on file Last Filed Vital Signs Vital Sign Reading Time Taken Comments Blood Pressure 114/54 09/19/2024 6:05 PM COMPOUND COATING MACHINE OFFBEARER Pulse 76 09/19/2024 6:05 PM COMPOUND COATING MACHINE OFFBEARER Temperature 36.7 C (98 F) 09/19/2024 4:50 AM COMPOUND COATING MACHINE OFFBEARER Respiratory Rate 18 09/19/2024 6:05 PM COMPOUND COATING MACHINE OFFBEARER Oxygen Saturation 90% 09/19/2024 6:05 PM COMPOUND COATING MACHINE OFFBEARER Inhaled Oxygen Concentration - - Weight 71.7 kg (158 lb 1.1 oz) 09/18/2024 5:20 A M [employer] COATING MACHINE OFFBEARER Height 165.1 cm (5' 5 ) 09/18/2024 8:22 AM COMPOUND COATING MACHINE OFFBEARER Body Mass Index 26.3 09/18/2024 5:20 AM COMPOUND COATING MACHINE OFFBEARER Plan of Treatment Not on file Procedures Procedure Name Priority Date/Time Associated Diagnosis Comments SCREENING MAMMOGRAM BILATERAL W JOHNNY Schedule Routine, Read Routine (OP Routine) 08/09/2024 10:54 AM CDT Visit for screening mammogram CT LUNG CANCER SCREENING Schedule Routine, Read Routine (OP Routine) 12/06/2018 12:38 PM COMPOUND COATING MACHINE OFFBEARER Personal history of tobacco use, presenting hazards to health BONE MINERAL DENSITY 03/09/2018 SERUM HEPATITIS C AB Routine 07/20/2016 4:49 PM CDT from Last 3 Months or Most Recently Relevant to Health Maintenance Results * Screening Mammogram Bilateral W Johnny (08/09/2024 10:54 AM CDT) Anatomical Region Laterality [...] nodes seen in the axillae or elsewhere. us Mahin Dudley MD IMG MAMMO PROCEDURES Final Result * CT Lung Cancer Screening (12/06/2018 12:38 PM COMPOUND COATING MACHINE OFFBEARER) Anatomical Region Laterality Modality Chest N/A Computed Tomogra phy 12/06/2018 12:5 5 PM COMPOUND COATING MACHINE OFFBEARER Impressions 12/06/2018 1:10 PM COMPOUND COATING MACHINE OFFBEARER INTERVAL RIGHT LOWER LOBE 6 MM NODULE, PROBABLY BENIGN, CATEGORY 2 PER LUNG-RADS. RECOMMEND 6 MONTH FOLLOW-UP LOW DOSE CT CHEST. BRONCHIAL THICKENING WITH MOSAIC LUNG ATTENUATION PROBABLY AT TRAPPING FROM BRONCHIOLITIS. STABLE RIGHT MIDDLE LOBE MEDIAL SEGMENTAL ATELECTASIS WITH INTERVAL UPPER LOBE SUBSEGMENTAL ATELECTASIS. Electronically signed by: Anna Castañeda M.D. Narrative 12/06/2018 1:10 PM COMPOUND COATING MACHINE OFFBEARER RESULT: Examination: CT LUNG CANCER SCREENING Date: [...] Narrative 03/09/2018 Ordered by an unspecified provider. Result [facility] Tammi Provider IMG DXA PROCEDURES Final Result * Serum Hepatitis C ab (07/20/2016 4:49 PM CDT) HCV ab Negative Negative CDR HISTOR ICAL RESULTS Serum 07/20/2016 4:49 PM CDT Amber Terrazas MD LAB BLOOD ORDERABLES Final Resul t CDR HISTORICAL RESULTS from Last 3 Months or Most Recently Relevant to Health Maintenance Insurance [facility] [employer] [employer] [employer] Advance Directives For more information, please contact: [phone] * Full Code (Latest Code Status on File) Date Activated Date Inactivated Comments 09/18/2024 5:54 AM 09/19/2024 11:16 PM * Full Code Date Activated Date Inactivated Comments 11/01/2023 10:33 AM 11/01/2023 5:11 PM * Full Code Date Activated Date Inactivated Comments 11/01/2023 10:32 AM 11/01/2023 10:33 AM * Full Code Date Activated Date Inactivated Comments 01/17/2022 2:31 AM 01/20/2022 5:37 PM Care Teams Back Digger Operator Relationship Specialty Start Date End Date Mahin Dudley MD [address] [place] [id number] PCP - General Family Medicine 03/12/24 Lourdes August NP Nurse Practitioner Plastic Surgery 06/10/22 Marek Vitale MD [address] [place] [address] Consulting Physician Cardiology 09/19/24
--- OUTSIDE RECORDS SUMMARY | 2025-02-16 15:55 | XMS_ITS | Clinical Summary ---
Author Organization [facility] Address [address] [place] [id number] Phone Care Team Providers Care Consultant Education Name Role Phone [facility], External Provider Primary Care Provider Un available Allergies Active Allergy Reactions Criticality Noted Date Comments Cephalosporins Hives High 01/24/2015 Erythromycin Hives High 01/24/2015 Sulfa (Sulfonamide Antibiotics) Hives High 12/30 Medications Aspirin, Buffered 81 mg Tablet Take by mouth. Activ e omeprazole (PRILOSEC) 10 mg Capsule, Delayed Release(E.C.) Take 10 mg by mouth daily. Active metoprolol succinate (TOPROL XL) 100 mg Extended Release 24 hour tablet Take 100 mg by mouth daily. Active ranolazine ER (RANEXA) 500 mg Extended Release 12 hour tablet Take 500 mg by mouth every 12 hours. Active amLODIPine (NORVASC) 5 mg tablet Take 5 mg by mouth daily. Active ALPRAZolam (XANAX) 0.5 mg tablet Take 0.5 mg by mouth nightly as needed for Anxiety. Active clopidogrel (PLAVIX) 75 mg Tablet Take 75 mg by mouth. Active atorvastatin (LIPITOR) 80 mg tablet Take 80 mg by mouth Daily LATE. Active isosorbide mononitrate (IMDUR) 60 mg Extended Release 24 hour tablet Take 60 mg by mouth daily talent advisor. Active DULoxetine (CYMBALTA) 60 mg Capsule, Delayed Release(E.C.) Take 60 mg by mouth daily. Active NYSTATIN, BULK, MISC by Misc.(Non-Drug; Combo Route) route. Active nitroglycerin (NITROSTAT) 0.3 mg Tablet, Sublingual Place 0.3 mg under tongue every 5 minutes as needed for Chest Pain. Active HYDROcodone-acet aminophen (NORCO) 5-325 mg tablet Take 1 Tab by mouth every 4 hours as needed for Pain, Moderate. Active furosemide (LASIX) 20 mg tablet Take 20 mg by mouth daily. Active donepezil (ARICEPT) 5 mg tablet Take 5 mg by mouth daily at bedtime. Active cyclobenzaprine (FLEXERIL) 10 mg tablet Take 10 mg by mouth 3 times daily as needed for Spasm. Active fluticasone-salm eterol (ADVAIR DISKUS) 250-50 mcg/dose Disk with Device Take 1 Puff by inhalation 2 times daily. Active Active Problems No known active problems Immunizations Immunization Administration Dates Next Due (TDVAX)(7 YRS UP) TETANUS AN D DIPHTHERIA TOXOIDS, ADSORBED (2 LF OF TETANUS TOXOID AND 2 LF OF DIPHTHERIA TOXOID), 0.5ML (PF), IM 08/10/1999 Influenza Vaccine High Dose 65+ Yrs IM 6 Social History Tobacco Use Types Packs/Day Years Used Date Smoking Tobacco: Every Day Alcohol Use Standard Drinks/Week Comments No 0 (1 standard drink = 0.6 oz pur e alcohol) Comments No Sex and Gender Information Value Date Recorded Sex Assigned at Not on file Legal Sex Female 2:56 PM CDT Gender Identity Not on file Sexual Orientation Not on file Last Filed Vital Signs Vital Sign Reading Time Taken Comments Blood Pressure 132/75 01/24/2015 3:36 PM CDT Pulse 70 01/24/2015 3:36 PM CDT Temperature 37.2 C (98.9 F) 01/24/2015 3:36 PM CDT Respiratory Rate 20 01/24/2015 3:36 PM CDT Oxygen Saturation 98% 01/24/2015 3:36 PM CDT Inhaled Oxygen Concentration - - Weight 76.2 kg (168 lb) 01/24/2015 3:36 PM CDT Height 167.6 cm (5' 6 ) 01/24/2015 3:36 PM CDT Body Mass Index 27.12 01/24/2015 3:36 PM CDT Plan of Treatment Health Maintenance Due Date Last Done Comments PNEUMOCOCCAL VACCINE 50+ YEARS (1 of 2 - PCV) 03/21/19 70 BREAST CANCER SCREENING 1991 COLORECTAL SCREENING 1996 Colorectal Cancer Screening 1996 FIT-DNA Q 3 years 1996 FIT/FOBT Q 1 year 1996 Flex Sig/CT Colonography Q 5 years 1996 DTAP/TDAP/TD VACCINES (1 - Tdap) 08/11/1999 08/10/19 99 ZOSTER VACCINE (1 of 2) 2001 OSTEOPOROSIS SCREENING 2016 INFLUENZA VACCINE (#1) 2024 07/30/2016 RSV VACCINE (60+ or ) (1 - 1-dose 75+ series) 2026 Insurance MEDICARE PART A AND B MEDICAID [place] Care Teams Consultant Education Relationship Specialty Start Date End Date [facility], External Provider [address] [place] [address] PCP - General 01/24/15
--- OUTSIDE RECORDS SUMMARY | 2025-02-16 15:55 | XMS_ITS | CONTINUITY OF CARE DOCUMENT ---
Author Name bonnie nicole Address Unknown Organization [facility] Address [address] [place] [address] Phone [phone] Care Team Providers Care Oil Sprayer Name Role Phone Bk RANDALL, Ayla Unavailable [phone] ADAN BARRAZA MD Unavailable [phone] ADAN BARRAZA MD Unavailable [phone] PROBLEMS Condition Status Date Provider Notes Dyspnea on exertion--stress nuc nl, 04/2023 active Shekhar Hewitt Hyperlipidemia active Ayla Bourgeois MD Fatigue active Sylvester Bustillo Iron deficiency anemia active Savanna brady CERVICAL CANCER active Rachna Noble CAD-07/08 CAROTID NEG completed - Ayla Bourgeois MD HTN ESSENTIAL--echo ef nl, 04/2023 active Shekhar Hewitt ANGINA PECTORIS-NO NEW LESIO NS ON completed - Ayla Bourgeois MD SLEEP APNEA ON HOME 02 active Ayla Bourgeois MD CAD-08/06 TAXUS LAD, multipl e RCA stents, , small rev lat wall defect on nuc 01/2021 active Ayla Bourgeois MD EMPHYSEMA active Ayla Bourgeois MD TOBACCO ABUSE active Ayla Bourgeois MD DIARRHEA completed - Ayla Bourgeois MD hx of Microvascular angina;h ad ecp completed - Ayla Bourgeois MD Vitamin D deficiency active Yimi Velazquez PREDIABETES; active Yimi Hernández MD B12 deficiency completed - Ayla Bourgeois MD Venous insufficiency active Ayla Bourgeois MD Acute back pain with sciatica active Ayla Bourgeois MD Jaw pain completed - Ayla Bourgeois MD Cardiology examination active Shekhar Hewitt ENCOUNTERS Date Type Provider Location Encounter Diag nosis - In-person encounter Office Visit Ayla Bourgeois MD [facility] Cardiology examinati on - In-person encounter Office Visit Ayla Bourgeois MD [facility] hx of Microvascular angina;had ecpJaw pain - In-person encounter Office Visit Ayla Bourgeois MD [facility] - In-person encounter Office Visit Ayla Bourgeois MD [facility] Acute back pain with sciatica - In-person encounter Office Visit Ayla Bourgeois MD SL - In-person encounter Office Visit Ayla Bourgeois MD [facility] - In-person encounter Office Visit Ayla Bourgeois MD TeleHealth - In-person encounter Office Visit Ayla Bourgeois MD TeleHealth hx of Microvascular angina;had ecpB12 deficiencyVenous insufficiency - In-person encounter Office Visit Ayla Bourgeois MD [facility] - In-person encounter Office Visit Ayla Bourgeois MD [facility] - In-person encounter Office Visit Ayla Bourgeois MD [facility] - In-person encounter Office Visit Ayla Bourgeois MD [facility] - In-person encounter Office Visit Yimi Hernández MD [facility] -08/06 TAXUS LAD, multiple RCA stents, , small rev lat wall defect on nuc 01/2021Vitamin D deficiencyPREDIABETES; - In-person encounter Office Visit Ayla Bourgeois MD [facility] - In-person encounter Office Visit Ayla Bourgeois MD [facility] - In-person encounter Office Visit Ayla Bourgeois MD [facility] - In-person encounter Office Visit Ayla Bourgeois MD [facility] - In-person encounter Office Visit Ayla Bourgeois MD [facility] - In-person encounter Office Visit Ayla Bourgeois MD [facility] CAD-07/08 CAROTID NEGANGINA PECTORIS-NO NEW LESIONS ON CATH11/09CAD-08/06 TAXUS LAD, multiple RCA stents, , small rev lat wall defect on nuc IARRHEA - In-person encounter Office Visit Ayla Bourgeois MD [facility] - In-person encounter Office Visit Ayla Bourgeois MD [facility] - In-person encounter Office Visit Ayla Bourgeois MD [facility] - In-person encounter Office Visit Ayla Bourgeois MD [facility] - In-person encounter Office Visit Ayla Bourgeois MD [facility] - In-person encounter Office Visit Ayla Bourgeois MD [facility] - In-person encounter Office Visit Ayla Bourgeois MD [facility] - In-person encounter Office Visit Ayla Bourgeois MD [facility] - In-person encounter Office Visit Ayla [facility] - In-person encounter Office Visit Ayla Bourgeois MD [facility] - In-person encounter Office Visit Ayla [facility] SLEEP APNEA ON HOME 02TOBACCO ABUSE - In-person encounter Office Visit Ayla [place] [facility] - In-person encounter Office Visit Ayla Bourgeois MD [facility] - In-person encounter Office Visit Augie Pugh MD [facility] - In-person encounter Office Visit Ayla Bourgeois MD [facility] - In-person encounter Office Visit Ayla Bourgeois MD [facility] - In-person encounter Office Visit Ayla Bourgeois MD [facility] HTN ESSENTIAL--echo ef nl, NGINA PECTORIS-NO NEW LESIONS ON CATH11/09CAD-08/06 TAXUS LAD, multiple RCA stents, , small rev lat wall defect on nuc MPHYSEMA - In-person encounter Office Visit Ayla Bourgeois MD [facility] - In-person encounter Office Visit Ayla Bourgeois MD [facility] SLEEP APNEA ON HOME - In-person encounter Office Visit Ayla Bourgeois MD [facility] - In-person encounter Office Visit Ayla Bourgeois MD [facility] VITAL SIGNS Date Observation Value Provider Body Mass Index (Ratio) 25.82 kg/m2 Pravin Bourgeois MD blood pressure, diastolic 48 mm[Hg] Deborah nkLoglisy blood pressure, systolic 120 mm[Hg] Bianca kLoglisy pulse rate 83 /min Sasha Bartlett blood pressure, cuff size regular Justen Bartlett blood pressure, diastolic 48 mm[Hg] Justen Bartlett blood pressure, systolic 120 mm[Hg] Geo itharpan Bartlett oxygen saturation, oximetry 96 % Sasha Bartlett weight E&M 160 [lb_av] Sashasteph Bartlett respiratory rate E&M 12 /min Sasha Bartlett height E&M 66 [in_i] Sasha Bartlett Body Mass Index (Ratio) 26.79 kg/m2 Pravin Bourgeois MD blood pressure, cuff size regular Eric rret blood pressure, diastolic 64 mm[Hg] Ja rret blood pressure, systolic 118 mm[Hg] Jar ret pulse rate 73 /min Prince y oxygen saturation, oximetry 94 % Prince respiratory rate E&M 14 /min Prince weight E&M 166 [lb_av] Prince y height E&M 66 [in_i] Prince y Body Mass Index (Ratio) 27.76 kg/m2 Pravin Bourgeois MD blood pressure, diastolic 64 mm[Hg] St torri Moreno blood pressure, systolic 122 mm[Hg] Juancarlos Moreno oxygen saturation, oximetry 90 % Patito Moreno pulse rate 74 /min Patito Moreno respiratory rate E&M 18 /min Patito vick weight E&M 172 [lb_av] Patito Moreno height E&M 66 [in_i] Patito Moreno blood pressure, diastolic 69 mm[Hg] Kristi Ambriz blood pressure, systolic 119 mm[Hg] Josie Ambriz respiratory rate E&M 18 /min Antoni Ambriz pulse rate 74 /min Yuliya brady oxygen saturation, oximetry 94 % Yuliya Ambriz blood pressure, cuff size regular Kristi Ambriz height E&M 66 [in_i] Yuliya brady Body Mass Index (Ratio) 31.15 kg/m2 Pravin Bourgeois MD blood pressure, cuff size large Isaiah quintana Keaton blood pressure, diastolic 60 mm[Hg] Isaiah quintana Keaton blood pressure, systolic 116 mm[Hg] Diane bearden Keaton oxygen saturation, oximetry 97 % Ramu Keaton respiratory rate E&M 16 /min Ramu Keaton pulse rate 73 /min Ramu Keaton weight E&M 193 [lb_av] Ramu Keaton height E&M 66 [in_i] Ramu Keaton height E&M 66 [in_i] Sunil Smith Body Mass Index (Ratio) 31.15 kg/m2 Pravin Bourgeois MD blood pressure, cuff size regular Cy vira Duncan blood pressure, diastolic 64 mm[Hg] Cy ntashutosha Duncan blood pressure, systolic 116 mm[Hg] Ebonie gaudencio Duncan oxygen saturation, oximetry 92 % Sana Duncan respiratory rate E&M 16 /min Sana Duncan pulse rate 69 /min Sana Campbel l weight E&M 193 [lb_av] Sana Campbel l height E&M 66 [in_i] Sana Campbel l Body Mass Index (Ratio) 29.37 kg/m2 Pravin Bourgeois MD blood pressure, diastolic 60 mm[Hg] Ki elvi Ordonez blood pressure, systolic 100 mm[Hg] Wes Ordonez oxygen saturation, oximetry 98 % Fernando Ordonez respiratory rate E&M 16 /min Fernando Ordonez pulse rate 83 /min Fernando Ordonez weight E&M 182 [lb_av] Houston Ordonez height E&M 66 [in_i] Fernando Ordonez Body Mass Index (Ratio) 28.08 kg/m2 Pravin Bourgeois MD blood pressure, diastolic 68 mm[Hg] Isaiah Martinez blood pressure, systolic 121 mm[Hg] Emilee Martinez oxygen saturation, oximetry 94 % Brice Martinez respiratory rate E&M 18 /min Je Martinez pulse rate 77 /min Brice rm weight E&M 174 [lb_av] Brice Miguel kit height E&M 66 [in_i] Brice Miguel [facility] Body Mass Index (Ratio) 28.57 kg/m2 Pravin Bourgeois MD blood pressure, diastolic 58 mm[Hg] David daniels Rod blood pressure, systolic 134 mm[Hg] Tommy scanlon [facility] oxygen saturation, oximetry 97 % [facility] respiratory rate E&M 15 /min Francesca [facility] pulse rate 77 /min [facility]&M 177 [lb_av] [facility] height E&M 66 [in_i] [facility] Body Mass Index (Ratio) 29.82 kg/m2 Adrienne ica N Campbell blood pressure, diastolic 68 mm[Hg] Je ssica N Campbell blood pressure, systolic 138 mm[Hg] Judi teddy N Campbell oxygen saturation, oximetry 98 % Savanna N Campbell respiratory rate E&M 18 /min Savanna N Campbell pulse rate 86 /min Savanna N Efrainso n weight E&M 184.8 [lb_av] Savanna Raquel pantoja Body Mass Index (Ratio) 29.99 kg/m2 Adrienne ica N Campbell blood pressure, diastolic 70 mm[Hg] Je ssica N Campbell blood pressure, systolic 120 mm[Hg] Judi teddy N Campbell oxygen saturation, oximetry 95 % Savanna Raquel Campbell respiratory rate E&M 20 /min Savanna N Campbell pulse rate 77 /min Savanna Zunigalori n weight E&M 185.8 [lb_av] Savanna Richards on Body Mass Index (Ratio) 30.82 kg/m2 Fritz Hernández MD blood pressure, resting Yes Fritz Hernández MD blood pressure, diastolic 70 mm[Hg] Ralph Arndtby blood pressure, systolic 122 mm[Hg] Marsha Arndtby pulse rate 71 /min Belkys Lattimore respiratory rate E&M 16 /min Belkys Digna oxygen saturation, oximetry 98 % Belkys Lattimore weight E&M 191.0 [lb_av] Belkys Lattimore blood pressure, cuff size regular Ralph Arndtby height E&M 66 [in_i] Belkys Lattimore blood pressure, diastolic 66 mm[Hg] Me kalpana Alvarez blood pressure, systolic 118 mm[Hg] Nandini smith Alvarez pulse rate 72 /min Cristina Alvarez oxygen saturation, oximetry 96 % Cristina Alvarez respiratory rate E&M 15 /min Cristina Alvarez Body Mass Index (Ratio) 30.82 kg/m2 Ngoc gomez Alvarez weight E&M 191 [lb_av] Cristina Alvarez blood pressure, diastolic 70 mm[Hg] Me acuna Jeevan blood pressure, systolic 127 mm[Hg] Nandini mongea Jeevan pulse rate 88 /min Cristina Jeevan oxygen saturation, oximetry 94 % Cristina Jeevan respiratory rate E&M 18 /min Cristina Jeevan Body Mass Index (Ratio) 32.76 kg/m2 Ngoc jason Jeevan weight E&M 203.0 [lb_av] Cristina Chew blood pressure, diastolic 72 mm[Hg] Garth Trevizo blood pressure, systolic 120 mm[Hg] Ilene Trevizo pulse rate 82 /min Felix Trevizo oxygen saturation, oximetry 96 % Felix Trevizo respiratory rate E&M 18 /min Felix Trevizo Body Mass Index (Ratio) 33.83 kg/m2 Mekhi Trevizo weight E&M 209.6 [lb_av] Felix Trevizo blood pressure, diastolic 67 mm[Hg] Isaiah Martinez blood pressure, systolic 118 mm[Hg] Emilee Lemus Martinez Body Mass Index (Ratio) 29.05 kg/m2 Skylar Serrano Martinez pulse rate 69 /min Brice Miguel jag oxygen saturation, oximetry 91 % Brice Martinez respiratory rate E&M 16 /min Je Martinez weight E&M 180 [lb_av] Brice Miguel carlkit Body Mass Index (Ratio) 28.89 kg/m2 Anea darin Wynne blood pressure, diastolic 67 mm[Hg] An eatris Ricci blood pressure, systolic 116 mm[Hg] Ane atrijosias Wynne pulse rate 70 /min Aneatris Ricci oxygen saturation, oximetry 93 % Eddie Wynne respiratory rate E&M 16 /min Aneatri josias Wynne weight E&M 179 [lb_av] Eddie Wynne Body Mass Index (Ratio) 27.92 kg/m2 Josselyn Harvey blood pressure, ontiveros tolic, second observation 60 mm[Hg] Ninfa Harvey blood pressure, syst olic, second observation 116 mm[Hg] Ninfa Harvey blood pressure, diastolic 60 mm[Hg] Na guillermo Harvey blood pressure, systolic 116 mm[Hg] Alondra Harvey pulse rate 99 /min Ninfa Harvey oxygen saturation, oximetry 95 % Ninfa Harvey respiratory rate E&M 17 /min Ninfa Harvey weight E&M 173 [lb_av] Ninfa Harvey Body Mass Index (Ratio) 28.83 kg/m2 Josselyn Harvey blood pressure, ontiveros tolic, second observation 71 mm[Hg] Ninfa Harvey blood pressure, syst olic, second observation 107 mm[Hg] Ninfa Harvey blood pressure, diastolic 71 mm[Hg] Na guillermo Harvey blood pressure, systolic 107 mm[Hg] Alondra Harvey pulse rate 75 /min Ninfa Harvey oxygen saturation, oximetry 94 % Ninfa Harvey respiratory rate E&M 17 /min Ninfa Harvey weight E&M 178 [lb_av] Ninfa Bashironey blood pressure, diastolic 67 mm[Hg] Justen Quiros blood pressure, systolic 112 mm[Hg] Tyson Quiros pulse rate 64 /min Jahaira Ishaan oxygen saturation, oximetry 92 % Jahaira Ishaan Body Mass Index (Ratio) 27.38 kg/m2 Nemo Quiros respiratory rate E&M 17 /min Jahaira Quiros weight E&M 169 [lb_av] Jahaira Quiros pulse rate 64 /min Martha Ko oxygen saturation, oximetry 93 % Martha Ko blood pressure, diastolic 67 mm[Hg] Ch erese Maikel blood pressure, systolic 135 mm[Hg] Annmarie reshyun Ko respiratory rate E&M 18 /min Martha Ko weight E&M 181 [lb_av] Martha Ko blood pressure, diastolic 60 mm[Hg] Ta rossana Quiros blood pressure, systolic 120 mm[Hg] Tyson Quiros Body Mass Index (Ratio) 29.64 kg/m2 Nemo davila Qiuros pulse rate 74 /min Jahaira Quiros oxygen saturation, oximetry 93 % Jahaira Quiros respiratory rate E&M 17 /min Jahaira Quiros height E&M 66 [in_i] Jahaira Quiros weight E&M 183 [lb_av] Jahaira Quiros blood pressure, diastolic 72 mm[Hg] Logan Gallegos blood pressure, systolic 126 mm[Hg] Marleny Gallegos pulse rate 65 /min Anca jameson oxygen saturation, oximetry 97 % Anca Gallegos respiratory rate E&M 16 /min Anca bowers weight E&M 185.8 [lb_av] Anca joshua blood pressure, diastolic 75 mm[Hg] Zakidonita fitzgerald Nestor blood pressure, systolic 137 mm[Hg] Zakiyl beck Nestor pulse rate 78 /min Zakiylisha Nestor oxygen saturation, oximetry 95 % Angieisharpan Baez respiratory rate E&M 16 /min Zakiylisha Nestor weight E&M 187 [lb_av] Angieisha Nestor blood pressure, diastolic 67 mm[Hg] Basurto blood pressure, systolic 123 mm[Hg] Edward Jacob pulse rate 77 /min Yolette Jacob respiratory rate E&M 16 /min Yolette Jacob oxygen saturation, oximetry 97 % Yolette Jacob weight E&M 191 [lb_av] Yolette Jacob blood pressure, diastolic, left arm 52 mm [Hg] Milton Martínez blood pressure, systolic, left arm 90 mm[ Hg] [facility], [facility], right arm 53 m m[Hg] [facility], systolic, right arm 98 mm [Hg] [facility], [facility] 53 mm[Hg] [facility], systolic 98 mm[Hg] [facility] /[facility] E&M 16 /min [facility] weight E&M 189 [lb_av] [facility] blood pressure, diastolic, left arm 72 mm [Hg] Eduardo Benito RN blood pressure, systolic, left arm 127 mm [Hg] Eduardo Benito RN blood pressure, diastolic, right arm 71 m m[Hg] Eduardo Benito RN blood pressure, systolic, right arm 121 m m[Hg] Eduardo Benito RN blood pressure, diastolic 71 mm[Hg] Eric Benito RN blood pressure, systolic 121 mm[Hg] Eduardo Benito RN pulse rate 73 /min Eduardo Benito RN oxygen saturation, oximetry 95 % Eduardo Benito RN respiratory rate E&M 16 /min Eduardo sargent RN weight E&M 187.5 [lb_av] Eduardo Benito RN blood pressure, diastolic, left arm 62 mm [Hg] Nora Josh blood pressure, systolic, left arm 120 mm [Hg] Nora Josh blood pressure, diastolic, right arm 60 m m[Hg] Nora Josh blood pressure, systolic, right arm 118 m m[Hg] Nora Josh blood pressure, diastolic 60 mm[Hg] Do francoisa Josh blood pressure, systolic 118 mm[Hg] Lan Moreno pulse rate 66 /min Nora Josh oxygen saturation, oximetry 96 % Nora Moreno respiratory rate E&M 16 /min Nora artels weight E&M 197 [lb_av] Nora Josh blood pressure, diastolic, left arm 68 mm [Hg] Poppy [facility] blood pressure, systolic, left arm 110 mm [Hg] Poppy [facility] blood pressure, diastolic, right arm 64 m m[Hg] Poppy [facility] blood pressure, systolic, right arm 108 m m[Hg] Poppy [facility] pulse rate 72 /min Poppy [facility] oxygen saturation, oximetry 95 % Poppy [facility] respiratory rate E&M 16 /min Poppy rice weight E&M 195 [lb_av] Poppy [facility] blood pressure, diastolic 78 mm[Hg] Reshma seph Manacop blood pressure, systolic 136 mm[Hg] Bryant eph [place] pulse rate 74 /min Milton [place] oxygen saturation, oximetry 95 % Milton [place] respiratory rate E&M 16 /min Milton [place] weight E&M 197 [lb_av] Milton [place] blood pressure, diastolic 74 mm[Hg] Ca diana LaceyBonnie blood pressure, systolic 116 mm[Hg] Hugo Laceykermann pulse rate 81 /min Poppy [facility] oxygen saturation, oximetry 94 % Poppy [facility] respiratory rate E&M 20 /min Poppy rice weight E&M 200 [lb_av] Poppy Bonnie blood pressure, diastolic 64 mm[Hg] Reshma seph [place] blood pressure, systolic 18 mm[Hg] Bryant eph [place] pulse rate 80 /min Milton [place] oxygen saturation, oximetry 97 % Milton [place] respiratory rate E&M 16 /min Milton [place] weight E&M 194 [lb_av] Milton [place] blood pressure, diastolic 73 mm[Hg] Eric garcía Benito RN blood pressure, systolic 118 mm[Hg] Eduardo Benito RN pulse rate 76 /min Eduardo Benito RN oxygen saturation, oximetry 95 % Eduardo Benito RN respiratory rate E&M 16 /min Eduardo Cosmo sargent RN weight E&M 198 [lb_av] Eduardo Benito RN blood pressure, diastolic 62 mm[Hg] Eric raquel Thomass RN blood pressure, systolic 110 mm[Hg] Eduardo Benito RN pulse rate 88 /min Eduardo Benito RN oxygen saturation, oximetry 97 % Eduardo Benito RN respiratory rate E&M 16 /min Eduardo Cosmo sargent RN weight E&M 198 [lb_av] Eduardo Benito RN blood pressure, diastolic 70 mm[Hg] Jia Shukla MA blood pressure, systolic 113 mm[Hg] Moris Shukla MA pulse rate 68 /min Ebony Shukla MA oxygen saturation, oximetry 96 % Ebony Shukla MA respiratory rate E&M 18 /min Ebony Shukla MA weight E&M 198 [lb_av] Ebony Shukla MA blood pressure, diastolic 67 mm[Hg] Pradeep Dukes blood pressure, systolic 103 mm[Hg] Willis pulse rate 72 /min Shantell Dukes oxygen saturation, oximetry 97 % Shantell Dukes respiratory rate E&M 20 /min Shantell myrick weight E&M 190 [lb_av] Shantell Dukes blood pressure, diastolic 74 mm[Hg] Te raphael Dukes blood pressure, systolic 122 mm[Hg] Willis pulse rate 88 /min Shantell Dukes oxygen saturation, oximetry 95 % Sahntell Dukes respiratory rate E&M 20 /min Shantell myrick weight E&M 196 [lb_av] Shantell Dukes blood pressure, diastolic 67 mm[Hg] Pradeep Dukes blood pressure, systolic 115 mm[Hg] Willis pulse rate 83 /min Shantell Dukes oxygen saturation, oximetry 94 % Shantell Dukes respiratory rate E&M 16 /min Shantell myrick weight E&M 193 [lb_av] Shantell Dukes ALLERGIES Allergy Name Onset Date Reaction Criticality Status CEPHALOSPORINS High Criticality acti ve AVELOX rash rash High Criticality active SULFA High Criticality active ERYTHROMYCIN High Criticality active RESULTS Date Observation Value Provider Reference Range Interpretation Location very low density lipoproteins 40.2 mg/dL [facility] 5.0 - 40.0 High LDL/HDL (low-density lipoprotein/high-den sity lipoprotein) ratio 3.3 RATIO [facility] - lipoprotein, beta, serum, point, quantitative, calculated 153.8 (?) [facility] 0.0 - 100.0 High HDL cholesterol, serum 46.0 mg/dL [facility] 45.0 - 65.0 cholesterol, serum 240.0 mg/dL [facility] 0.0 - 200.0 High triglyceride, serum, fasting 201.0 mg/dL [facility] 0.0 - 150.0 High urea nitrogen/creatinine ratio, serum 17.5 [facility] - Estimated Glomerular Filtration Rate (calc) 76.3 (?) [facility] 59.0 - chloride, serum 100.1 mmol/L [facility] 98.0 - 107.0 potassium, serum 4.4 mmol/L [facility] 3.5 - 5.1 sodium, serum 140.0 mmol/L [facility] 136.0 - 145.0 creatinine, serum 0.8 mg/dL [facility] 0.5 - 1.0 carbon dioxide, venous blood 23.0 mmol/L [facility] 23.0 - 31.0 calcium, serum 9.6 mg/dL [facility] 8.6 - 10.2 urea nitrogen, blood 14.0 mg/dL [facility] 8.0 - 23.0 blood glucose, random 105.0 mg/dL [facility] 74.0 - 99.0 High red blood cell distribution width, size density 42.5 fL [facility] - immature granulocytes, percentage of total cells, blood 0.2 % [facility] - nucleated red blood cells as percent of blood leukocytes 0.0 % [facility] - red blood cell (erythrocyte) count, per high power field 0.0 10*3/UL [facility] - eosinophils as percent of blood leukocytes 1.7 % [facility] - neutrophils as percent of blood leukocytes 58.3 % [facility] - Absolute Neutrophils 3.8 CELLS/[facility] 1[facility] - 7.8 basophils as percent of blood leukocytes 0.9 % [facility] - Absolute Basophils 0.1 CELLS/UL [facility] 0.0 - 0.2 monocytes as percent of blood leukocytes 7.2 % [facility] - Absolute Monocytes 0.5 CELLS/UL [facility] 0.2 - 1.0 lymphocytes as percent of blood leukocytes 31.7 % [facility] - Absolute Lymphocytes 2.1 CELLS/UL [facility] 0.9 - 3.9 mean platelet volume 9.9 (?) [facility] - platelet count 272.0 THOUSAND/ UL [facility] 100.0 - 400.0 mean corpuscular hemoglobin concentration, RBC 33.1 G/DL [facility] 31.0 - 38.0 mean corpuscular hemoglobin, RBC 30.1 pg [facility] 25.0 - 35.0 mean corpuscular volume, RBC 90.9 fL [facility] 75.0 - 100.0 hematocrit, blood 39.0 % [facility] 35.0 - 55.0 hemoglobin, blood 12.9 g/dL [facility] 11.5 - 16.5 erythrocyte count, whole blood 4.3 MILLION/U L [facility] 3.5 - 5.5 prothrombin time (patient) 9.6 [facility] 9.0 - 11.5 international normalized ratio (INR) 0.9 [facility] 0.9 - 1.1 pro brain natriuretic peptide 461.3 pg/mL [facility] 0.0 - 125.0 High very low density lipoproteins 26.2 mg/dL [facility] 5.0 - 40.0 LDL/HDL (low-density lipoprotein/high-den sity lipoprotein) ratio 2.3 RATIO [facility] - lipoprotein, beta, serum, point, quantitative, calculated 122.8 (?) [facility] 0.0 - 100.0 High HDL cholesterol, serum 54.0 mg/dL [facility] 45.0 - 65.0 cholesterol, serum 203.0 mg/dL [facility] 0.0 - 200.0 High triglyceride, serum, fasting 131.0 mg/dL [facility] 0.0 - 150.0 ferritin, serum 22.1 ng/mL [facility] 13.0 - 150.0 iron, serum 58.0 ug/dL [facility] 25.0 - 156.0 iron saturation percent, serum 12.1 % [facility] 20.0 - 50.0 Low iron binding capacity, total 480.2 ug/dL [facility] 250.0 - 450.0 High hemoglobin A1C, blood, as % of total hemoglobin 6.0 % [facility] 4.0 - 5.6 High troponin I <0.02 Annette Miramontes creatine kinase, serum 38 1/L Annette Miramontes anion gap, serum 8 Annette Miramontes estimated glomerular filtration rate 68 mL/min Annette Miramontes albumin/globulin ratio, serum 1.1 [facility] protein, total, serum 7.0 g/dL [facility] albumin, serum 3.6 g/dL [facility] bilirubin, serum, total 0.23 mg/dL [facility] alkaline phosphatase, serum 59 1/L [facility] alanine aminotransferase (SGPT), serum 45 1/L [facility] aspartate aminotransferase (SGOT), serum 21 1/L [facility] calcium, serum 8.9 mg/dL [facility] blood glucose, fasting 91 mg/dL [facility] creatinine, serum 0.9 mg/dL [facility] urea nitrogen, blood 13 mg/dL [facility] carbon dioxide, serum, total 30.7 mmol/L [facility] [facility], serum 103 mmol/L [facility] potassium, serum 3.8 mmol/L [facility] sodium, serum 142 mmol/L [facility] PTT patient 28.6 s [facility] prothrombin time (patient) 10.20 s [facility] international normalized ratio (INR) 0.99 [facility] monocytes as percent of blood leukocytes 7.6 % [facility] lymphocytes as percent of blood leukocytes 36.0 % [facility] platelet count 346 10*3/uL [facility] mean corpuscular hemoglobin concentration, RBC 32.1 g/dL [facility] mean corpuscular hemoglobin, RBC 25.2 pg [facility] mean corpuscular volume, RBC 78 fL [facility] hematocrit, blood 35.8 % [facility] hemoglobin, blood 11.5 g/dL [facility] erythrocyte (RBC) count 4.57 10*6/mm3 [facility] leukocyte count, blood 6.5 10*3/mm3 [facility] prothrombin time (patient) 10.1 s [facility] international normalized ratio (INR) 0.98 [facility] calcium, serum 9.1 mg/dL [facility] blood glucose, fasting 99 mg/dL [facility] creatinine, serum 0.9 mg/dL [facility] urea nitrogen, blood 13 mg/dL [facility] carbon dioxide, serum, total 34.4 mmol/L [facility] chloride, serum 103 mmol/L [facility] potassium, serum 4.3 mmol/L [facility] sodium, serum 139 mmol/L [facility] platelet count 250 10*3/uL [facility] mean corpuscular hemoglobin concentration, RBC 32.8 g/dL [facility] mean corpuscular hemoglobin, RBC 28.9 pg [facility] mean corpuscular volume, RBC 88 fL [facility] hematocrit, blood 40.2 % [facility] hemoglobin, blood 13.2 g/dL [facility] erythrocyte (RBC) count 4.56 10*6/mm3 [facility] monocytes as percent of blood leukocytes 9.8 % [facility] lymphocytes as percent of blood leukocytes 30.3 % [facility] leukocyte count, blood 7.7 10*3/mm3 [facility] international normalized ratio (INR) 1.0 Joie Brown RN blood glucose, random 96 mg/dL Joie Brown RN creatinine, serum 1.0 mg/dL Joie Brown RN urea nitrogen, blood 17 mg/dL Joie Brown RN carbon dioxide, serum, total 34 mmol/L Joie Brown RN chloride, serum 100 mmol/L Joie Brown RN potassium, serum 4.0 mmol/L Joie Brown RN sodium, serum 138 mmol/L Joie Brown RN platelet count 341 10*3/uL Joie Brown RN hematocrit, blood 37.8 % Joie Brown RN hemoglobin, blood 12.6 g/dL Joie Brown RN leukocyte count, blood 8.5 10*3/mm3 Joie Brown RN HISTORY OF MEDICATION USE Medication Status Instructions Dates Provider Indications Com ments nitroglycerin 0.4 mg tablet, [address] active [address] 1 TABLET UNDER TONGUE EVERY 5 MINS, UP TO 3 DOSES NEEDED FOR CHEST PAIN, GO TO ER AFTER 3RD Radha Wynne RN ezetimibe 10 mg tablet active TAKE 1 TABLET BY MOUTH EVERY DAY [facility] nitroglycerin 0.4 mg tablet, sublingual completed PLACE 1 TABLET UNDER TONGUE EVERY 5 MINS, UP TO 3 DOSES NEEDED FOR CHEST PAIN , AFTER 3RD GO ER - Radha Wynne RN nitroglycerin 0.4 mg tablet, sublingual completed 1 TABLET UNDER TONGUE FOR CHEST PAIN. MAY REPEAT EVERY 5 MIN- TO MAX OF 3 TABLETS PER EPISODE. IF NO RELIEF AFTER 3RD DOSE, GO TO ER - Radha Wynne RN atorvastatin 80 mg tablet active TAKE 1 TABLET BY MOUTH EVERY DAY [facility] ranolazine 500 mg tablet extended release 12 hr active TAKE 1 TABLET BY MOUTH TWICE A DAY [facility] isosorbide mononitrate 60 mg tablet extended release 24 hr active TAKE 2 TABLETS BY MOUTH EVERY DAY [facility] ranolazine 500 mg tablet extended release 12 hr completed TAKE 1 TABLET BY MOUTH TWICE A DAY - Shekhar Hewitt furosemide 20 mg tablet active TAKE 1 TABLET BY MOUTH EVERY DAY NEEDED Sasha Bartlett clopidogrel 75 mg tablet active TAKE 1 TABLET BY MOUTH EVERY DAY [facility] ezetimibe 10 mg tablet completed Take 1 tablet by mouth once a day - Lorna Osborne metoprolol succinate 50 mg tablet extended release 24 hr active TAKE 1 TABLET BY MOUTH THREE TIMES A DAY Dionnainocencia Mosher ezetimibe 10 mg tablet completed Take 1 tablet by mouth every night - Jody Clements RN amlodipine 5 mg tablet active TAKE 1 TABLET BY MOUTH EVERY DAY Sasha Bartlett Anoro Ellipta 62.5-25 mcg/actuation blister with device active Take 2 puff twice a day Sana Duncan ERGOCALCIFEROL [id number] UNIT ORAL CAPSULE completed 1 cap once a week - Fernando Ordonez SPIRIVA HANDIHALER 18 MCG INHALATION CAPSULE completed as directed - Sana Duncan azelastine 137 mcg (0.1 %) aerosol,spray active as directed Brice Martinez donepezil 10 mg tablet completed 1 tablet once a day - Shekhar Hewitt TIZANIDINE HCL 4 MG ORAL TABLET completed 1 tab 3 times daily as needed - Ramu Keaton montelukast 10 mg tablet active as directed Brice Martinez TRAZODONE HCL TABLET completed 50 mg 1 tab daily - Sana Duncan ranolazine 1,000 mg tablet extended release 12 hr completed Take 1 tablet by mouth twice a day - Guera Martinez atorvastatin 80 mg tablet completed Take 1 tablet by mouth once a day as directed - Viviana Power VITAMIN B-12 1000 MCG ORAL TABLET completed One tablet daily - Ramu Keaton omeprazole 20 mg capsule,delayed release(/EC) active Take 1 capsule once a day Shekhar Hewitt VITAMIN D TABLET completed D2 [id number] international units once weekly - Yimi Hernández MD HYDROXYCHLOROQUINE SULFATE 200 MG ORAL TABLET completed TAKE ONE TABLET BY MOUTH ONCE DAILY - Fernando Ordonez RANITIDINE HCL 150 MG ORAL TABLET completed ONE TAB TWICE DAILY - Cristina Alvarez amlodipine 5 mg tablet completed Take 1 tablet by mouth once a day - Shekhar Hewitt Floshanice Allergy Relief 50 mcg/actuation spray,suspension active Take as needed Shekhar Hewitt VENTOLIN HFA 108 (90 BASE) MCG/ACT INHALATION AEROSOL SOLUTION completed TAKE NEEDED - Brice Martinez BENADRYL 25 MG ORAL CAPSULE completed 2-3 times daily as needed - Ramu Pugh NYSTATIN ORAL POWDER active as needed Skylar Martinez OMEPRAZOLE 10 MG ORAL CAPSULE DELAYED RELEASE completed 1 tab daily - Ayla Bourgeois MD furosemide 20 mg tablet completed Take 1 tablet by mouth once a day - Guera Martinez ADVAIR DISKUS AEROSOL POWDER BREATH ACTIVATED completed twice daily - Brice Martinez AMLODIPINE BESYLATE 5 MG ORAL TABLET completed po daily - Ayla Bourgeois MD CYCLOBENZAPRINE HCL 10 MG ORAL TABLET completed 1 three times daily - Brice Martinez ISOSORBIDE MONONITRATE ER 60 MG ORAL TABLET EXTENDED RELEASE 24 HOUR completed 1 daily - Ninfa Harvey CYMBALTA 60 MG ORAL CAPSULE DELAYED RELEASE PARTICLES completed 1 daily - Brice Martinez LASIX 20 MG ORAL TABLET completed 1 tab bid daily - Ninfa Harvey TRICOR 145 MG ORAL TABLET completed ONE TAB. DAILY - Ninfa Harvey isosorbide mononitrate 60 mg tablet extended release 24 hr completed Take 2 tablet by mouth once a day - Shekhar ANNAON [id number] UNIT ORAL CAPSULE DELAYED RELEASE PARTICLES completed daily - Jahaira Quiros AMLODIPINE BESYLATE 10 MG ORAL TABLET completed daily - Reshma Hightower VENLAFAXINE HCL ER 150 MG ORAL TABLET EXTENDED RELEASE 24 HOUR completed daily - Ninfa Harvey RANITIDINE HCL 150 MG ORAL TABLET completed daily - Aneatrestella Brown LOMOTIL TABLET completed as directed - Jahaira Quiros DONEPEZIL HCL 5 MG ORAL TABLET completed once daily - Felix Trevizo BENADRYL CAPSULE completed as directed - Jahaira Quiros LOVASTATIN 40 MG ORAL TABLET completed Take one tablet daily - Patricia Camarena RN Lipid panel w/ elevated levels ISOSORBIDE MONONITRATE ER 60 MG ORAL TABLET EXTENDED RELEASE 24 HOUR completed 2 TABS DAILY - Ayla Bourgeois MD NITRO-DUR 0.4 MG/HR TRANSDERMAL PATCH 24 HOUR completed ONCE DAILY 8am and 10 pm - Jahaira Quiros NITROSTAT 0.4 MG SUBLINGUAL TABLET SUBLINGUAL completed as directed as needed - Jahaira Quiros SYMBICORT 80-4.5 MCG/ACT INHALATION AEROSOL completed 2 puffs by mouth twice daily - Ninfa Harvey ZYRTEC ALLERGY TABLET DISINTEGRATING completed as needed - Jahaira Quiros RANITIDINE HCL 150 MG ORAL TABLET completed twice daily - Ayla Bourgeois MD NYSTATIN SUSPENSION completed 480ml four times daily - Ninfa Harvey CADUET 10-80 MG ORAL TABLET completed ONE TAB. DAILY - Jahaira Quiros NORVASC 10 MG ORAL TABLET completed one tablet daiy - Zylbeck Baez SKELAXIN 800 MG ORAL TABLET completed 1 tablet by mouth 3 times daily as needed - Jahaira Quiros hydrocodone-acetamin ophen 5-325 mg tablet active 1 tablet every six hours Shekhar Hewitt NITROSTAT 0.4 MG SUBLINGUAL TABLET SUBLINGUAL completed 1 tab as needed - Zakiylbeck Nestor SYMBICORT 80-4.5 MCG/ACT INHALATION AEROSOL completed as directed - Zakiylbeck Billingsted RANEXA 500 MG ORAL TABLET EXTENDED RELEASE 12 HOUR completed twice a day - Skylar Brink RN KLOR-CON 10 10 MEQ ORAL TABLET EXTENDED RELEASE completed ONE TALBE DAILY - Lubna Baez DARVOCET A500 TABS completed - Zakisanjay Nestor LEVAQUIN 500 MG ORAL TABLET completed one tab. daily for 7 days - Eduardo Benito RN metoprolol succinate 50 mg tablet extended release 24 hr completed Take 1 tablet by mouth three times a day - Radha Wynne RN PER PHONE NOTE MIRALAX ORAL POWDER completed NEEDED - Milton Manacolen VICODIN 5-500 MG TABS completed every 4 hours as needed - Lubna Baez ALBUTEROL AERS completed DIRECTED - Zakisanjay Nestor ABILIFY TABLET completed 1mg daily - Poppy Nicole XANAX 0.5 MG ORAL TABLET completed ONE TAB. DAILY - Milton Martínez PRILOSEC 20 MG ORAL CAPSULE DELAYED RELEASE completed ONE TAB.twice DAILY - Yolette MORAI PRES-B LIQD completed NEEDED - Yolette Jacob AMRIX 30 MG ORAL CAPSULE EXTENDED RELEASE 24 HOUR completed NEEDED - Yolette Jacob LOVAZA 1 GM ORAL CAPSULE completed - Eduardo Benito RN LIPITOR 80 MG ORAL TABLET completed one tablet daily - Lubna Baez TRICOR 145 MG ORAL TABLET completed 1 tablet by mouth at bedtime - Ayla Bourgeois MD DARVOCET A500 TABS completed - Poppy Nicole ASPIRIN 81 MG ORAL TABLET completed ONE TAB. DAILY - Ebony Shukla MA LASIX 40 MG ORAL TABLET completed 1 tab daiyl - Lubna Baez nitroglycerin 0.4 mg tablet, sublingual completed Use as directed - Yolis Barraza ASPIRIN 81 MG ORAL TABLET active 1 tablet once a day [facility] AMOXICILL[facility]T completed 875mg one tab . twice daily - Shantell Dukes EFFEXOR XR 150 MG ORAL CAPSULE EXTENDED RELEASE 24 HOUR completed 1 tab daily - Ayla Bourgeois MD XANAX 0.5 MG ORAL TABLET completed 1 tablet by mouth as needed - Brice Martinez LIPITOR 80 MG ORAL TABLET completed ONE TAB. DAILY - Shantell Dukes RANEXA 1000 MG ORAL TABLET EXTENDED RELEASE 12 HOUR completed ONE TAB. TWICE DAILY for chronic angina - Ramesh Franco TOPROL XL 100 MG ORAL TABLET EXTENDED RELEASE 24 HOUR completed ONE TAB DAILY IN AM - Eduardo Benito RN Plavix 75 mg tablet completed 1 tablet onc e a day - Radha Wynne RN IMDUR 60 MG ORAL TABLET EXTENDED RELEASE 24 HOUR completed 2 tablets by mouth daily - Ayla Bourgeois MD SOCIAL HISTORY Date Observation Value Provider drug use none [facility] smoking/tobacco cess ation, patient education and counseling yes [facility] number of years as a smoker less than 10 years [facility] smoking, date started 1971 [facility] smoking history, tot al pack/year 45 [facility] smoking history, tot al pack/day 1 [facility] cigarette use yes [facility] smoking status Current [facility] use none [facility] smoking/tobacco cess ation, patient education and counseling [facility] number of years as a smoker less than 10 [facility], tot al pack/day 1 Shekhar Solimaninocencio cigarette use yes Shekhar Solimaninocencio smoking status Current every day smoker R tequila Shiness smoking status Current every day smoker Mandy lopez Chema social history reviewed E&M revi ewed - no changes required Erich Bear seatbelt usage 100 % Patito Josh exercise type swimming Patito Josh physical exercise, f requency, days per week 2 /wk Patito Josh caffeine use, averag e drinks per day 3 /d Patito Josh smoking/tobacco cess ation, patient education and counseling yes Patito Josh number of years as a smoker less than 10 years Patito Josh smoking, date started 1971 Patito Josh smoking history, tot al pack/year 45 Patito Josh smoking history, tot al pack/day 1 Patito Josh cigarette use yes Patito Josh smoking/tobacco cess ation, patient education and counseling yes Ayla Bourgeois MD social history reviewed E&M revi ewed - no changes required Teri Fernández drug use none Sebastian Bear social history E&M Marital Statu s: L little with family/friends E thnicity: S moking History: P atulices currently smokes every day. P atulices has been counseled to quit. Sebastian Bear social history reviewed E&M revi ewed - no changes required Sebastian Bear social history reviewed E&M revi ewed - no changes required Sylvester Mccauley seatbelt usage 100 % Ramu Keaton exercise type swimming Ramu Keaton physical exercise, f requency, days per week 2 /wk Ramu Keaton caffeine use, averag e drinks per day 3 /d Ramu Keaton number of years as a smoker less than 10 years Ramusuleiman Pugh smoking, date started 1971 Ramusuleiman Pugh smoking history, tot al pack/year 45 Ramusuleiman Pugh smoking history, tot al pack/day 1 Ramusuleiman Pugh cigarette use yes Ramusuleiman Pugh smoking status Current every day smoker M suleiman Pugh social history E&M Marital Statu s: L little with family/friends E thnicity: Smoking History: P atient currently smokes every day. P atient has been counseled to quit. Ayla Bourgeois MD social history reviewed E&M revi ewed - no changes required Ayla Bourgeois MD seatbelt usage 100 % [facility] exercise type swimming [facility] physical exercise, f requency, days per week 2 /wk [facility] caffeine use, averag e drinks per day 3 /d [facility] smoking/tobacco cess ation, patient education and counseling yes [facility] number of years as a smoker less than 10 years [facility] smoking, date started 1971 [facility] smoking history, tot al pack/year 45 [facility] smoking history, tot al pack/day 1 [facility] cigarette use yes [facility] smoking status Current every day smoker [facility] social history E&M Marital Statu s: L little with family/friends E thnicity: Smoking History: P atient currently smokes every day. P atient has been counseled to quit. Ayla Bourgeois MD seatbelt usage 100 % Ayla Bourgeois MD exercise type swimming Ayla Velazquez physical exercise, f requency, days per week 2 /wk Ayla Bourgeois MD caffeine use, averag e drinks per day 3 /d Ayla Bourgeois MD smoking/tobacco cess ation, patient education and counseling yes Ayla Bourgeois MD number of years as a smoker less than 10 years Ayla Bourgeois MD smoking, date started 1971 Ayla Bourgeois MD smoking history, tot al pack/year 45 Ayla Bourgeois MD smoking history, tot al pack/day 1 Ayla Bourgeois MD cigarette use yes Ayla Velazquez smoking status Current every day smoker T delilah Bourgeois MD social history reviewed E&M revi ewed - no changes required Ayla Bourgeois MD smoking/tobacco cess ation, patient education and counseling yes Ayla Bourgeois MD smoking status Current every day smoker T delilah Bourgeois MD social history E&M Marital Statu s: L little with family/friends E thnicity: Smoking History: P atient currently smokes every day. P atient has been counseled to quit. Ayla Bourgeois MD social history reviewed E&M revi ewed - no changes required Ayla Bourgeois MD seatbelt usage 100 % Sana tovar exercise type swimming Sana ngo physical exercise, f requency, days per week 2 /wk Sana Duncan caffeine use, averag e drinks per day 3 /d Sana Duncan number of years as a smoker less than 10 years Sana Duncan smoking, date started 1971 Charlie Duncan smoking history, tot al pack/year 45 Sana Duncan smoking history, tot al pack/day 1 Sana Duncan cigarette use yes Sana ngo social history reviewed E&M revi ewed - no changes required Ayla Bourgeois MD social history E&M Marital Statu s: L little with family/friends E thnicity: Smoking History: P atient currently smokes every day. P atient has been counseled to quit. Ayla Bourgeois MD number of grandchildren Toniya Bourgeois MD K tiana Alsey seatbelt usage 100 % [facility] exercise type swimming [facility] physical exercise, f requency, days per week 2 /wk [facility] alcohol use, average drinks per day social basis only [facility] caffeine use, averag e drinks per day 3 /d [facility] smoking/tobacco cess ation, patient education and counseling yes [facility] drug use none [facility] number of years as a smoker less than 10 years [facility] smoking, date started 1971 [facility] raquel Alsey smoking history, tot al pack/year 45 [facility] smoking history, tot al pack/day 1 [facility] cigarette use yes [facility] smoking status Current every day smoker K tiana Alsey smoking history, tot al pack/day 1 [facility] cigarette use yes [facility] smoking status Current every day smoker Arabella Thao exercise type swimming [facility] physical exercise, f requency, days per week 2 /wk [facility] caffeine use, averag e drinks per day 3 /d [facility] seatbelt usage 100 % Kim zhou physical exercise, f requency, days per week no Kim Gonzalez alcohol use, average drinks per day social basis only Kim Gonzalez caffeine use, averag e drinks per day yes Kim Gonzalez smoking/tobacco cess ation, patient education and counseling yes Kim Gonzalez drug use none Kim zambrano number of years as a smoker less than 10 years Kim Gonzalez smoking, date started 1971 Kim Gonzalez smoking history, tot al pack/year 45 Kim Gonzalez smoking history, tot al pack/day 1/2 Kim Gonzalez smoking status Current every day smoker S uriah Gonzalez cigarette use yes Kim carballo seatbelt usage 100 % Kim zhou physical exercise, f requency, days per week no Kim Gonzalez alcohol use, average drinks per day social basis only Kim Gonzalez caffeine use, averag e drinks per day yes Kim Gonzalez smoking/tobacco cess ation, patient education and counseling yes Kim Gonzalez drug use none Kim Vasquez r number of years as a smoker less than 10 years Kim Gonzalez smoking, date started 1971 Kim Gonzalez smoking history, tot al pack/year 45 Kim Gonzalez smoking history, tot al pack/day 1/2 Kim Gonzalez smoking status Current every day smoker S uriah Gonzalez cigarette use yes Kim carballo social history reviewed E&M revi ewed - no changes required Ayla Bourgeois MD physical exercise, f requency, days per week no Brice Martinez alcohol use, average drinks per day social basis only Brice Martinez caffeine use, averag e drinks per day yes Brice Martinez smoking/tobacco cess ation, patient education and counseling yes Brice Martinez drug use none Brice Lamont jag number of years as a smoker less than 10 years Brice Martinez smoking, date started 1971 Geo Martinez smoking history, tot al pack/year 45 Brice Leeenson smoking history, tot al pack/day 1/2 Brice Leeenson cigarette use yes Brice Jesus francisca smoking status Current every day smoker Arabella Ammy Maritnez smoking history, tot al pack/year 45 Donna Bwoman RN social history reviewed E&M revi ewed - no changes required Toniya Bourgeois MD social history E&M Marital Statu s: Triny fitch with family/friends E thnicity: Smoking History: P lashonda currently smokes every day. P lashonda has been counseled to quit. Yimi Hernández MD social history reviewed E&M revi ewed - no changes required Yimi Hernández MD number of grandchildren Yimi Sawyer physical exercise, f requency, days per week no [facility] alcohol use, average drinks per day social basis only [facility] caffeine use, averag e drinks per day yes [facility] smoking/tobacco cess ation, patient education and counseling yes [facility] drug use none [facility] number of years as a smoker less than 10 years [facility] smoking, date started 1971 [facility] smoking history, tot al pack/year 44 [facility] smoking history, tot al pack/day 1/2 [facility] cigarette use yes [facility] smoking status Current every day smoker Ash Sawyer smoking history, tot al pack/year 44 Anca El social history reviewed E&M revi ewed - no changes required Ayla Bourgeois MD physical exercise, f requency, days per week no Cristina Hurtadoann alcohol use, average drinks per day social basis only Cristina Hurtadoann caffeine use, averag e drinks per day yes Cristina Alvarez drug use none Cristina Alvarez number of years as a smoker less than 10 years Cristina Hurtadoann smoking, date started 1971 Marisela Alvarez smoking history, tot al pack/year 44 Cristina Alvarez smoking history, tot al pack/day 1/2 Cristina Hurtadoann cigarette use yes Cristina Alvarez smoking status Current every day smoker Arabella Alvarez smoking history, tot al pack/year 44 Skylar Sanchez RN physical exercise, f requency, days per week no Cristina Chew alcohol use, average drinks per day social basis only Cristina Chew caffeine use, averag e drinks per day yes Cristina Chew smoking/tobacco cess ation, patient education and counseling yes Cristina Chew drug use none Cristina Chew number of years as a smoker less than 10 years Cristina Chew smoking, date started 1971 Marisela Chew smoking history, tot al pack/year 44 Cristina Chew smoking history, tot al pack/day 1/2 Cristina Chew cigarette use yes Cristina Chew smoking status Current every day smoker Arabella Chew social history reviewed E&M revi ewed - no changes required Cristina Chew smoking history, tot al pack/year 44 Elio Coppola RN social history reviewed E&M revi ewed - no changes required Ayla Bourgeois MD social history reviewed E&M revi ewed - no changes required Ayla Bourgeois MD physical exercise, f requency, days per week no Brice Martinez alcohol use, average drinks per day social basis only Brice Martinez caffeine use, averag e drinks per day yes Brice Martinez drug use none Brice rm smoking/tobacco cess ation, patient education and counseling yes Brice Martinez number of years as a smoker less than 10 years Brice Martinez smoking, date started 1971 Geo Martinez smoking history, tot al pack/year 42 Brice Martinez smoking history, tot al pack/day 1/2 Brice Martinez cigarette use yes Brice espinosa smoking status Current every day smoker Arabella Martinez social history reviewed E&M revi ewed - no changes required [facility] physical exercise, f requency, days per week no [facility] alcohol use, average drinks per day social basis only [facility] caffeine use, averag e drinks per day yes [facility] drug use none [facility] smoking/tobacco cess ation, patient education and counseling yes [facility] number of years as a smoker less than 10 years [facility] smoking, date [facility] tot [facility] pack/year 42 [facility] smoking history, tot al pack/day 1/2 [facility] cigarette use yes [facility] smoking status current every day smoker [facility] social history reviewed E&M revi ewed - no changes required Ayla Bourgeois MD physical exercise, f requency, days per week no Ninfa Harvey alcohol use, average drinks per day social basis only Ninfa Harvey caffeine use, averag e drinks per day yes Ninfa Harvey drug use none Ninfa Harvey smoking/tobacco cess ation, patient education and counseling yes Ninfa Harvey number of years as a smoker less than 10 years Ninfa Harvey smoking, date started 1971 [place] [facility] smoking history, tot al pack/year 42 Ninfa Harvey smoking history, tot al pack/day 1/2 Ninfa Harvey cigarette use yes Ninfa Harvey smoking status current every day smoker Raquel Harvey smoking/tobacco cess ation, patient education and counseling yes Ayla Bourgeois MD social history reviewed E&M reviewed Ayla Bourgeois MD smoking status current every day smoker N sriram Harvey smoking history, tot al pack/year 42 Ninfa Wes social history reviewed E&M reviewed Ayla Bourgeois MD smoking history, tot al pack/year 41 Jahaira Ishaan social history reviewed E&M reviewed Ayla Bourgeois MD smoking history, tot al pack/year 41 Martha Ko smoking, date started 1972 Cheres hyun Ko smoking history, tot al pack/day 1/ Martha Ko cigarette use yes Martha Ko social history reviewed E&M reviewed Ayla Bourgeois MD smoking status smoker - current status unknown Jahaira Ishaan social history reviewed E&M reviewed Ayla Bourgeois MD social history reviewed E&M reviewed Ayla Bourgeois MD smoking/tobacco cess ation, patient education and counseling yes Ayla Bourgeois MD social history reviewed E&M reviewed Ayla Bourgeois MD social history reviewed E&M reviewed Ayla Bourgeois MD smoking/tobacco cess ation, patient education and counseling yes Ayla Bourgeois MD smoking/tobacco cess ation, patient education and counseling yes Ayla Bourgeois MD social history reviewed E&M reviewed Ayla Bourgeois MD smoking status Smoker Eduardo Benito RN smoking/tobacco cess ation, patient education and counseling yes Eduardo Benito RN social history reviewed E&M reviewed Eduardo Benito RN social history reviewed E&M reviewed Ayla Bourgeois MD social history reviewed E&M reviewed Ayla Bourgeois MD smoking/tobacco cess ation, patient education and counseling yes Ayla Bourgeois MD social history reviewed E&M reviewed Augie Pugh MD social history reviewed E&M reviewed Eduardo Benito RN social history reviewed E&M reviewed Eduardo Benito RN social history reviewed E&M reviewed Ayla Bourgeois MD drug use none Ayla Bourgeois MD social history reviewed E&M reviewed Ayla Bourgeois MD social history E&M Marital Statu s: L little with family/friends E thnicity: Ayla Bourgeois MD social history reviewed E&M reviewed Ayla Bourgeois MD physical exercise, f requency, days per week no [employer] caffeine use, averag e drinks per day yes [employer] alcohol use, average drinks per day social basis only [employer] number of years as a smoker less than 10 years [employer] smoking status Quit [employer] FUNCTIONAL STATUS Date Observation Value Provider HRA, CV Assess/Plan, Angina (inactive) Management Plan continue current therapy Shekhar Hewitt HRA, CV Assess/Plan, Angina (inactive) Management Plan continue current therapy Shekhar Hewitt HRA, CV Assess/Plan, Angina (inactive) Management Plan continue current therapy Erich Bear HRA, CV Assess/Plan, Angina (inactive) Management Plan continue current therapy Teri Fernández HRA, CV Assess/Plan, Angina (inactive) Management Plan continue current therapy Sebastian Bear HRA, CV Assess/Plan, Angina (inactive) Management Plan continue current therapy Sylvester Mccauley HRA, CV Assess/Plan, Angina (inactive) Management Plan continue current therapy Ayla Bourgeois MD HRA, CV Assess/Plan, Angina (inactive) Management Plan continue current therapy Ayla Bourgeois MD HRA, CV Assess/Plan, Angina (inactive) Management Plan continue current therapy Ayla Bourgeois MD HRA, CV Assess/Plan, Angina (inactive) Management Plan continue current therapy Ayla Bourgeois MD HRA, CV Assess/Plan, Angina (inactive) Management Plan schedule PCI Ayla Bourgeois MD HRA, CV Assess/Plan, Angina (inactive) Management Plan continue current therapy Yimi Hernández MD HRA, CV Assess/Plan, Angina (inactive) Management Plan continue current therapy Ayla Bourgeois MD HRA, CV Assess/Plan, Angina (inactive) Management Plan continue current therapy Ayla Bourgeois MD HRA, CV Assess/Plan, Angina (inactive) Management Plan continue current therapy Ayla Bourgeois MD MENTAL STATUS Date Observation Value Provider assessment of judgme nt and insight E&M Alert and oriented to time, place and person. Mood and affect are normal. Eduardo Benito RN assessment of judgme nt and insight E&M Alert and oriented to time, place and person. Mood and affect are normal. Ayla Bourgeois MD assessment of judgme nt and insight E&M Alert and oriented to time, place and person. Mood and affect are normal. Ayla Bourgeois MD assessment of judgme nt and insight E&M Alert and oriented to time, place and person. Mood and affect are normal. Ayla Bourgeois MD assessment of judgme nt and insight E&M Alert and oriented to time, place and person. Mood and affect are normal. Ayla Bourgeois MD assessment of judgme nt and insight E&M Alert and oriented to time, place and person. Mood and affect are normal. Ayla Bourgeois MD assessment of judgme nt and insight E&M Alert and oriented to time, place and person. Mood and affect are normal. Ayla Bourgeois MD assessment of judgme nt and insight E&M Alert and oriented to time, place and person. Mood and affect are normal. Ayla Bourgeois MD assessment of judgme nt and insight E&M Alert and oriented to time, place and person. Mood and affect are normal. Eduardo Benito RN assessment of judgme nt and insight E&M Alert and oriented to time, place and person. Mood and affect are normal. Ayla Bourgeois MD assessment of judgme nt and insight E&M Alert and oriented to time, place and person. Mood and affect are normal. Ayla Bourgeois MD assessment of judgme nt and insight E&M Alert and oriented to time, place and person. Mood and affect are normal. Augie Pugh MD assessment of judgme nt and insight E&M Alert and oriented to time, place and person. Mood and affect are normal. Ayla Bourgeois MD assessment of judgme nt and insight E&M Alert and oriented to time, place and person. Mood and affect are normal. Eduardo Benito RN assessment of judgme nt and insight E&M Alert and oriented to time, place and person. Mood and affect are normal. Eduardo Benito RN assessment of judgme nt and insight E&M Alert and oriented to time, place and person. Mood and affect are normal. Ayla Bourgeois MD assessment of judgme nt and insight E&M Alert and oriented to time, place and person. Mood and affect are normal. Ayla Bourgeois MD assessment of judgme nt and insight E&M Alert and oriented to time, place and person. Mood and affect are normal. Ayla Bourgeois MD assessment of judgme nt and insight E&M Alert and oriented to time, place and person. Mood and affect are normal. Ayla Bourgeois MD FAMILY HISTORY Family Member Condition Mother Family History Unkno wn Father Negative FH of Coron grant Artery Disease INSURANCE PROVIDERS Payer name Policy type / Coverage type [place] red green party ID [facility] [id number] (PPO C-SNP) [place] insurance [employer] [id number] HEALTHCARE AND FAMILY SERVICES Medicaid 2 [id number] ADVANCE DIRECTIVES Name Date DISCUSSED - NO DECISION MADE TREATMENT PLAN Date Name Performer [id number],Shekhar Mattson i [id number],SShekhar i [id number],SShekhar i [id number],Shekhar Mattson i [id number],Shekhar Mattson i [id number],Shekhar Mattson i [id number],Ayla Knox MD [id number],S, Ayla Bourgeois MD [id number],S, Ayla Bourgeois MD [id number],S, Ayla Bourgeois MD [id number],W, Ayla Bourgeois MD [id number],S, Shekhar Ahmedza i [id number],S, Shekhar Ahmedza i [id number],S, Shekhar Ahmedza i [id number],S, Shekhar Ahmedza i [id number],S, Shekhar Ahmedza i [id number],S, Shekhar Ahmedza i [id number],S, Shekhar Ahmedza i [id number],S, Shekhar Ahmedza i [id number],S, Shekhar Ahmedza i [id number],S, Shekhar Ahmedza i [id number],S, Shekhar Ahmedza i [id number],S, Shekhar Ahmedza i [id number],W, Teri Fernández [id number],S, Teri Fernández [id number],S, Teri Fernández [id number],N, Teri Fernández [id number],S, Ayla Bourgeois MD [id number],S, Ayla Bourgeois MD [id number],S, Ayla Bourgeois MD [id number],B, Ayla Bourgeois MD [id number],S,S ANNA ENCOURAGED TO STOP SMOKING; SMOKING CESSATION TECHNIQUES DISCUSSED. Ingris More [id number],SShekhar i [id number],SShekhar i [id number],SShekhar i [id number],S, Shekhar Soliman i [id number],S, Shekhar Soliman i [id number],SShekhar i Telehealth Ayla Bourgeois MD Telehealth Ayla Bourgeois MD Telehealth: H er updated medication list for this problem includes: Metoprolol Succinate 50 Mg Tablet Extended Release 24 Hr (Metoprolol succinate) ..... Take 1 tablet by mouth three times a day Amlodipine 5 Mg Tablet (Amlodipine) ..... Take 1 tablet by mouth every day Furosemide 20 Mg Tablet (Furosemide) ..... Take 1 tablet by mouth every day as needed Prior BP: 120/48 (06/25/2024) Labs Reviewed: C reat: 0.8 (06/11/2017) C hol: 240.0 (06/11/2017) HDL: 46.0 (06/11/2017) LDL: 153.8 (?) (06/11/2017) T.0 (06/11/2017) Ayla Bourgeois MD Telehealth: H er updated medication list for this problem includes: Atorvastatin 80 Mg Tablet (Atorvastatin) ..... Take 1 tablet by mouth every day Ezetimibe 10 Mg Tablet (Ezetimibe) ..... Take 1 tablet by mouth every day Ayla Bourgeois MD Telehealth: H er updated medication list for this problem includes: Metoprolol Succinate 50 Mg Tablet Extended Release 24 Hr (Metoprolol succinate) ..... Take 1 tablet by mouth three times a day Amlodipine 5 Mg Tablet (Amlodipine) ..... Take 1 tablet by mouth every day Isosorbide Mononitrate 60 Mg Tablet Extended Release 24 Hr (Isosorbide mononitrate) ..... Take 2 tablets by mouth every day Nitroglycerin 0.4 Mg Tablet, Sublingual (Nitroglycerin) ..... Place 1 tablet under tongue every 5 mins, up to 3 doses as needed for chest pain, go to er after 3rd Clopidogrel 75 Mg Tablet (Clopidogrel) ..... Take 1 tablet by mouth every day Ranolazine 500 Mg Tablet Extended Release 12 Hr (Ranolazine) ..... Take 1 tablet by mouth twice a day Ayla Bourgeois MD Telehealth Ayla Bourgeois MD Telehealth: H er updated medication list for this problem includes: Metoprolol Succinate 50 Mg Tablet Extended Release 24 Hr (Metoprolol succinate) ..... Take 1 tablet by mouth three times a day Amlodipine 5 Mg Tablet (Amlodipine) ..... Take 1 tablet by mouth every day Isosorbide Mononitrate 60 Mg Tablet Extended Release 24 Hr (Isosorbide mononitrate) ..... Take 2 tablets by mouth every day Nitroglycerin 0.4 Mg Tablet, Sublingual (Nitroglycerin) ..... Place 1 tablet under tongue every 5 mins, up to 3 doses as needed for chest pain, go to er after 3rd Clopidogrel 75 Mg Tablet (Clopidogrel) ..... Take 1 tablet by mouth every day Ranolazine 500 Mg Tablet Extended Release 12 Hr (Ranolazine) ..... Take 1 tablet by [facility] Tele[facility] Telehealth: H er updated medication list for this problem includes: Atorvastatin 80 Mg Tablet (Atorvastatin) ..... Take 1 tablet by mouth every day Ezetimibe 10 Mg Tablet (Ezetimibe) ..... Take 1 tablet by mouth every day [facility] Tele[facility]: H er updated medication list for this problem includes: Amlodipine 5 Mg Tablet (Amlodipine) ..... Take 1 tablet by mouth every day Isosorbide Mononitrate 60 Mg Tablet Extended Release 24 Hr (Isosorbide mononitrate) ..... Take 2 tablets by mouth every day Nitroglycerin 0.4 Mg Tablet, Sublingual (Nitroglycerin) ..... Place 1 tablet under tongue every 5 mins, up to 3 doses as needed for chest pain, go to er after 3rd Clopidogrel 75 Mg Tablet (Clopidogrel) ..... Take 1 tablet by mouth every day Ranolazine 500 Mg Tablet Extended Release 12 Hr (Ranolazine) ..... Take 1 tablet by mouth twice a day Metoprolol Succinate 50 Mg Tablet Extended Release 24 Hr (Metoprolol succinate) ..... Take 1 tablet by mouth three times a day [facility] Telehealth: Len aviles BP: 120/48 (06/25/2024) Labs Reviewed: C reat: 0.8 (06/11/2017) C hol: 240.0 (06/11/2017) HDL: 46.0 (06/11/2017) LDL: 153.8 (?) (06/11/2017) T.0 (06/11/2017) Her updated medication list for this problem includes: Amlodipine 5 Mg Tablet (Amlodipine) ..... Take 1 tablet by mouth every day Furosemide 20 Mg Tablet (Furosemide) ..... Take 1 tablet by mouth every day as needed Metoprolol Succinate 50 Mg Tablet Extended Release 24 Hr (Metoprolol succinate) ..... Take 1 tablet by mouth three times a day [facility] Cardiology:This visi t has been a part of the consistent, comprehensive, and ongoing management of the chronic medical condition(s) listed above for the patient. Her updated medication list for this problem includes: Isosorbide Mononitrate 60 Mg Tablet Extended Release 24 Hr (Isosorbide mononitrate) ..... Take 2 tablets by mouth every day Nitroglycerin 0.4 Mg Tablet, Sublingual (Nitroglycerin) ..... Place 1 tablet under tongue every 5 mins, up to 3 doses as needed for chest pain, go to er after 3rd Clopidogrel 75 Mg Tablet (Clopidogrel) ..... Take 1 tablet by mouth every day Ranolazine 500 Mg Tablet Extended Release 12 Hr (Ranolazine) ..... Take 1 tablet by mouth twice a day Metoprolol Succinate 50 Mg Tablet Extended Release 24 Hr (Metoprolol succinate) ..... Take 1 tablet by mouth three times a day Amlodipine 5 Mg Tablet (Amlodipine) ..... Take 1 tablet by mouth every day Ayla Bourgeois MD Cardiology: H er updated medication list for this problem includes: Atorvastatin 80 Mg Tablet (Atorvastatin) ..... Take 1 tablet by mouth every day Ezetimibe 10 Mg Tablet (Ezetimibe) ..... Take 1 tablet by mouth every day [facility] Cardiology:Patient w as advised to stop smoking. Shekharzaki Hewitt Cardiology Shekhar sharon Cardiology: H er updated medication list for this problem includes: Metoprolol Succinate 50 Mg Tablet Extended Release 24 Hr (Metoprolol succinate) ..... Take 1 tablet by mouth three times a day Furosemide 20 Mg Tablet (Furosemide) ..... Take 1 tablet by mouth every day as needed Amlodipine 5 Mg Tablet (Amlodipine) ..... Take 1 tablet by mouth every day BP today: 120/48 Prior BP: 118/64 (01/17/2024) Labs Reviewed: C reat: 0.8 (06/11/2017) C hol: 240.0 (06/11/2017) HDL: 46.0 (06/11/2017) LDL: 153.8 (?) (06/11/2017) T.0 (06/11/2017) [facility]aki Hewitt [facility]: H er updated medication list for this problem includes: Isosorbide Mononitrate 60 Mg Tablet Extended Release 24 Hr (Isosorbide mononitrate) ..... Take 2 tablets by mouth every day Nitroglycerin 0.4 Mg Tablet, Sublingual (Nitroglycerin) ..... Place 1 tablet under tongue every 5 mins, up to 3 doses as needed for chest pain, go to er after 3rd Clopidogrel 75 Mg Tablet (Clopidogrel) ..... Take 1 tablet by mouth every day Ranolazine 500 Mg Tablet Extended Release 12 Hr (Ranolazine) ..... Take 1 tablet by mouth twice a day Metoprolol Succinate 50 Mg Tablet Extended Release 24 Hr (Metoprolol succinate) ..... Take 1 tablet by mouth three times a day Amlodipine 5 Mg Tablet (Amlodipine) ..... Take 1 tablet by mouth every day Shekhar Hewitt Cardiology: B P today: 118/64 P rior BP: 122/64 (04/18/2023) Labs Reviewed: C reat: 0.8 (06/11/2017) C hol: 240.0 (06/11/2017) HDL: 46.0 (06/11/2017) LDL: 153.8 (?) (06/11/2017) T.0 (06/11/2017) Her updated medication list for this problem includes: Metoprolol Succinate 50 Mg Tablet Extended Release 24 Hr (Metoprolol succinate) ..... Take 1 tablet by mouth three times a day Furosemide 20 Mg Tablet (Furosemide) ..... Take 1 tablet by mouth every day as needed Amlodipine 5 Mg Tablet (Amlodipine) ..... Take 1 tablet by mouth every day Shekhar Hewitt Cardiology: H er updated medication list for this problem includes: Metoprolol Succinate 50 Mg Tablet Extended Release 24 Hr (Metoprolol succinate) ..... Take 1 tablet by mouth three times a day Isosorbide Mononitrate 60 Mg Tablet Extended Release 24 Hr (Isosorbide mononitrate) ..... Take 2 tablets by mouth every day Amlodipine 5 Mg Tablet (Amlodipine) ..... Take 1 tablet by mouth every day Ranolazine 500 Mg Tablet Extended Release 12 Hr (Ranolazine) ..... Take 1 tablet by mouth twice a day Nitroglycerin 0.4 Mg Tablet, Sublingual (Nitroglycerin) ..... Place 1 tablet under tongue every 5 mins, up to 3 doses as needed for chest pain , after 3rd go er Clopidogrel 75 Mg Tablet (Clopidogrel) ..... Take 1 tablet by mouth every day Shekhar Prakashbrettness Cardiology:Patient w as advised to stop smoking. Shekhar Dwainmedzai Cardiology Shekhar Dwainmedzai Cardiology Shekhar Dwainmedzai Cardiology Shekhar Prakashmedzai Telehealth- 11-20 min Shekhrazaki ramoni Telehealth- 11-20 min Shekharzaki ramoni Telehealth- 11-20 min Shekhar ramoni Telehealth- 11-20 min Shekharzaki ramoni Telehealth- 11-20 min Shekhar ramoni Telehealth- 11-20 min Shekhar Jose Guadalupe arzola Cardiology- High Complexity Pravininocencio Bourgeois MD Cardiology- High Complexity Pravin jareth Bourgeois MD Cardiology- High Complexity Pravininocencio Bourgeois MD Cardiology- High Complexity Pravin jareth Bourgeois MD Cardiology- High Complexity Pravin jareth Bourgeois MD Telehealth Shekhar Ahmedzai Telehealth Shekhar Prakashmedzai Telehealth Shekhar Ahmedzai Telehealth Shekhar Prakashmedzai Telehealth Shekhar Ahmedzai Telehealth Shekhar Ahmedzai Telehealth Shekhar Ahmedzai Telehealth Shekhar Ahmedzai Telehealth Shekhar Ahmedzai Telehealth Shekhar Ahmedzai Telehealth Shekhar Ahmedzai Telehealth Shekhar Ahmedzai Cardiology Teri Fernández Cardiology Teri Fernández Cardiology Teri Fernández Cardiology Teri Fernández Telehealth Ayla Bourgeois MD Telehealth Ayla Bourgeois MD Telehealth Ayla Bourgeois MD Telehealth Ayla Bourgeois MD Telehealth:STRONGLY ENCOURAGED TO STOP SMOKING; SMOKING CESSATION TECHNIQUES DISCUSSED. Ingris Desirin Telehealth Shekhar Ahmedzai Telehealth Shekhar Ahmedzai Telehealth Shekhar Ahmedzai Telehealth Shekhar Ahmedzai Telehealth Shekhar Ahmedzai Telehealth Shekhar Ahmedzai Cardiology:The Patie nt was reencouraged to stop smoking. Sebastian Bear Cardiology Sebastian Bear Cardiology: P rior BP: 116/60 (06/04/2020) Labs Reviewed: C reat: 0.8 (06/11/2017) C hol: 240.0 (06/11/2017) HDL: 46.0 (06/11/2017) T.0 (06/11/2017) Her updated medication list for this problem includes: Aspirin 81 Mg Oral Tablet (Aspirin) ..... One tab. daily- on hold while taking med for gi infection Amlodipine Besylate 5 Mg Tab (Amlodipine besylate) ..... Take 1 tablet by mouth every day Furosemide 20 Mg Oral Tablet (Furosemide) ..... 1 tab daily as needed Metoprolol Succ Er 50 Mg Tab (Metoprolol succinate) ..... Take 1 tablet by mouth three times a day Sebastian Bear Cardiology Sebastian Bear Cardiology Sebastian Bear Telehealth, rega str es, echo, carotid, labs, f/u after testing Sylvester Bustillo Telehealth, rega str es, echo, carotid, labs, f/u after testing Sylvester Bustillo Telehealth, rega str es, echo, carotid, labs, f/u after testing Sylvester Bustillo Telehealth, rega str es, echo, carotid, labs, f/u after testing Sylvester Bustillo Telehealth, rega str es, echo, carotid, labs, f/u after testing Sylvester Bustillo Cardiology Ayla Bourgeois MD Cardiology Ayla Bourgeois MD Cardiology Ayla Bourgeois MD Cardiology Ayla Bourgeois MD TeleHealth 3 month f/up Ayla mays MD TeleHealth 3 month f/up Ayla mays MD TeleHealth 3 month f/up Ayla mays MD TeleHealth 3 month f/up Ayla mays MD TeleHealth 3 month f/up Ayla mays MD TeleHealth, 3 MONTH F/U, send im your doc link Ayla Bourgeois MD TeleHealth, 3 MONTH F/U, send im your doc link Ayla Bourgeois MD TeleHealth, 3 MONTH F/U, send im your doc link Ayla Bourgeois MD TeleHealth, 3 MONTH F/U, send im your doc link Ayla Bourgeois MD TeleHealth, 3 MONTH F/U, send im your doc link Ayla Bourgeois MD Cardiology follow up Ayla pro MD Cardiology follow up Ayla pro MD Cardiology follow up Ayla pro MD Cardiology follow up Ayla pro MD Cardiology follow up :Advised to take an extra dose of Lasix PRN for swelling, lower extremity, and compression stocking compliance. Ayla Bourgeois MD Cardiology Ayla Bourgeois MD Cardiology Ayla Bourgeois MD Cardiology Ayla Bourgeois MD Cardiology Ayla Bourgeois MD Cardiology Ayla Bourgeois MD Cardiology Ayla Bourgeois MD Cardiology Ayla Bourgeois MD Cardiology:Increase Lipitor to 8 0mg Ayla Bourgeois MD Cardiology Ayla Bourgeois MD Cardiology:Cath showed no new di sease. Ayla Bourgeois MD Cardiology faxed 08-11, magaly Bourgeois MD Cardiology faxed 08-11, magaly Bourgeois MD Cardiology faxed 08-11, magaly Bourgeois MD Cardiology faxed 08-11, magaly Bourgeois MD Cardiology Yimi Hernández MD Cardiology Yimi Hernández MD Cardiology:check pro bnp and sta nding venous doppler Yimi Hernández MD Cardiology:all stent ss opein in 2009, stress nuc neg 15, clear for surgery, just want to check iron levels and ehco Yimi Hernández MD Cardiology: H er updated medication list for this problem includes: Lovastatin 40 Mg Oral Tabs (Lovastatin) ..... Take one tablet daily Yimi Hernández MD Cardiology:will fu Yimi Hernández MD Cardiology: H er updated medication list for this problem includes: Aspirin 81 Mg Tabs (Aspirin) ..... One tab. daily- on hold while taking med for gi infection Amlodipine Besylate 5 Mg Oral Tabs (Amlodipine besylate) ..... Take 1 tablet once a day. Metoprolol Succinate 50 Mg [id number] (Metoprolol succinate) ..... 1 tablet by mouth 3 times daily Furosemide 40 Mg Tabs (Furosemide) ..... Po daily BP today: 122/70 P rior BP: 118/66 (08/31/2016) Labs Reviewed: C reat: 0.9 (02/19/2011) Yimi Hernández MD Cardiology:will rx Yimi Hernández MD Cardiology:sees johnathon ochoa MD Cardiology Ayla Bourgeois MD Cardiology Ayla Bourgeois MD Cardiology Ayla Bourgeois MD Cardiology Ayla Bourgeois MD Cardiology Ayla Bourgeois MD Cardiology Ayla Bourgeois MD Cardiology Ayla Bourgeois MD Cardiology Ayla Bourgeois MD Cardiology Ayla Bourgeois MD Cardiology Ayla Bourgeois MD Cardiology Ayla Bourgeois MD Cardiology Ayla Bourgeois MD Cardiology Ayla Bourgeois MD Cardiology Ayla Bourgeois MD Cardiology Ayla Bourgeois MD Cardiology Ayla Bourgeois MD fu Ayla Bourgeois MD fu Ayla Bourgeois MD fu:on 02 at night Ayla Velazquez fu:increase sob and jaw pain will schedule stress cardiolite Ayla Bourgeois MD follow up: H er updated medication list for this problem includes: Aspirin 81 Mg Tabs (Aspirin) ..... One tab. daily- on hold while taking med for gi infection Amlodipine Besylate 5 Mg Tabs (Amlodipine besylate) ..... Po daily Metoprolol Succinate 50 Mg [id number] (Metoprolol succinate) ..... 1 tablet by mouth 3 times daily Furosemide 20 Mg Tabs (Furosemide) ..... 1 tab daily Ayla Bourgeois MD follow up: H er updated medication list for this problem includes: Aspirin 81 Mg Tabs (Aspirin) ..... One tab. daily- on hold while taking med for gi infection Plavix 75 Mg Tabs (Clopidogrel bisulfate) ..... One tab. daily Amlodipine Besylate 5 Mg Tabs (Amlodipine besylate) ..... Po daily Metoprolol Succinate 50 Mg [id number] (Metoprolol succinate) ..... 1 tablet by mouth 3 times daily Lipitor 80 Mg Tabs (Atorvastatin calcium) ..... Daily Nitroglycerin 0.4 Mg Subl (Nitroglycerin) ..... Use as directed for chest pain Ranexa 500 Mg Tb12 (Ranolazine) ..... 1 tablet by mouth in the morning and 2 tablets in the afternoon Isosorbide Mononitrate Er 60 Mg [id number] (Isosorbide mononitrate) ..... 2 tablets daily Ayal Bourgeois MD follow up: H er updated medication list for this problem includes: Aspirin 81 Mg Tabs (Aspirin) ..... One tab. daily- on hold while taking med for gi infection Amlodipine Besylate 5 Mg Tabs (Amlodipine besylate) ..... Po daily Metoprolol Succinate 50 Mg [id number] (Metoprolol succinate) ..... 1 tablet by mouth 3 times daily Furosemide 20 Mg Tabs (Furosemide) ..... 1 tab daily Ayla Bourgeois MD follow up : T he following medications were removed from the medication list: Lasix 20 Mg Tabs (Furosemide) ..... 1 tab bid daily Her updated medication list for this problem includes: Amlodipine Besylate 5 Mg Tabs (Amlodipine besylate) ..... Po daily Metoprolol Succinate 50 Mg [id number] (Metoprolol succinate) ..... 1 tablet by mouth 3 times daily Aspirin 81 Mg Tabs (Aspirin) ..... One tab. daily- on hold while taking med for gi infection Ayla Bourgeois MD follow up : H er updated medication list for this problem includes: Lipitor 80 Mg Tabs (Atorvastatin calcium) ..... Daily Tricor 145 Mg Tabs (Fenofibrate) ..... One tab. daily BP today: 107/71 Prior BP: 112/67 (06/22/2013) Ayla Bourgeois MD follow up : H er updated medication list for this problem includes: Metoprolol Succinate 50 Mg [id number] (Metoprolol succinate) ..... 1 tablet by mouth 3 times daily Plavix 75 Mg Tabs (Clopidogrel bisulfate) ..... One tab. daily Aspirin 81 Mg Tabs (Aspirin) ..... One tab. daily- on hold while taking med for gi infection Nitroglycerin 0.4 Mg Subl (Nitroglycerin) ..... Use as directed for chest pain Ranexa 500 Mg Tb12 (Ranolazine) ..... 1 tablet by mouth in the morning and 2 tablets in the afternoon Amlodipine Besylate 10 Mg Tabs (Amlodipine besylate) ..... Daily Isosorbide Mononitrate Er 60 Mg [id number] (Isosorbide mononitrate) ..... 2 tablets daily Isosorbide Mononitrate Er 60 Mg [id number] (Isosorbide mononitrate) ..... 1 daily BP today: 107/71 Prior BP: 112/67 (06/22/2013) N uclear Stress Findings: 1. Normal myocardial perfusion imaging after vasodilator stress with Regadenoson. 2 . Normal left ventricular systolic function with a calculated ejection fraction of 66%. 3 . No obvious significant scintigraphic evidence of myocardial ischemia or scar. - GC (07/03/2013) C ardiac Cath: Patent stents. Normal LV systolic function. EF 55%. The patient is on a fair amount of antianginal medication. She continues to have chest pain. We will schedule her for EECP. (11/05/2009) C ardiac Cath Comments: Successful stenting of the LAD with a 3.0 x 12mm Taxus stent. (08/02/2007) C arotid Doppler/Duplex: Normal (09/18/2009) A rterial Doppler (leg): Normal arterial flow of the upper extremities. G C (09/18/2009) C K: 38 (02/19/2011) Troponin I: <0.02 (02/19/2011) Hgb: 11.5 (02/19/2011) HCT: 35.8 (02/19/2011) RBC: 4.57 (02/19/2011) WBC: 6.5 (02/19/2011) B UN: 13 (02/19/2011) Creat: 0.9 (02/19/2011) Glucose: 91 (02/19/2011) N a+: 142 (02/19/2011) K+: 3.8 (02/19/2011) Cl: 103 (02/19/2011) PT: 10.20 (02/19/2011) INR: 0.99 (02/19/2011) P TT: 28.6 (02/19/2011) Ayla Bourgeois MD follow up : H er updated medication list for this problem includes: Metoprolol Succinate 50 Mg [id number] (Metoprolol succinate) ..... 1 tablet by mouth 3 times daily Aspirin 81 Mg Tabs (Aspirin) ..... One tab. daily- on hold while taking med for gi infection Amlodipine Besylate 10 Mg Tabs (Amlodipine besylate) ..... Daily Lasix 20 Mg Tabs (Furosemide) ..... 1 tab daily & #13;BP today: 107/71 P rior BP: 112/67 (06/22/2013) Labs Reviewed: C reat: 0.9 (02/19/2011) Ayla Bourgeois MD follow up: H er updated medication list for this problem includes: Metoprolol Succinate 50 Mg [id number] (Metoprolol succinate) ..... 1 tablet by mouth 3 times daily Aspirin 81 Mg Tabs (Aspirin) ..... One tab. daily Amlodipine Besylate 10 Mg Tabs (Amlodipine besylate) ..... Daily Lasix 20 Mg Tabs (Furosemide) ..... 1 tab daily BP today: 112/67 P rior BP: 135/67 (12/22/2012) Labs Reviewed: C reat: 0.9 (02/19/2011) Ayla Bourgeois MD follow up: H er updated medication list for this problem includes: Lipitor 80 Mg Tabs (Atorvastatin calcium) ..... Daily Tricor 145 Mg Tabs (Fenofibrate) ..... One tab. daily BP today: 112/67 Prior BP: 135/67 (12/22/2012) Ayla Bourgeois MD follow up: H er updated medication list for this problem includes: Metoprolol Succinate 50 Mg [id number] (Metoprolol succinate) ..... 1 tablet by mouth 3 times daily Plavix 75 Mg Tabs (Clopidogrel bisulfate) ..... One tab. daily Aspirin 81 Mg Tabs (Aspirin) ..... One tab. daily Nitroglycerin 0.4 Mg Subl (Nitroglycerin) ..... Use as directed for chest pain Ranexa 500 Mg Tb12 (Ranolazine) ..... 1 tablet by mouth in the morning and 2 tablets in the afternoon Lipitor 80 Mg Tabs (Atorvastatin calcium) ..... Daily Amlodipine Besylate 10 Mg Tabs (Amlodipine besylate) ..... Daily Isosorbide Mononitrate Er 60 Mg Ma41t-pby (Isosorbide mononitrate) ..... 2 tablets daily Tricor 145 Mg Tabs (Fenofibrate) ..... One tab. daily BP today: 112/67 Prior BP: 135/67 (12/22/2012) N uclear Stress Findings: 1. Regadenoson mediated myocardial perfusion study 2 . Normal left ventricular systolic function with a calculated ejection fraction of 50%. 3. No obvious significant scintigraphic evidence of myocardial ischemia or scar. (03/18/2011) C ardiac Cath: Patent stents. Normal LV systolic function. EF 55%. The patient is on a fair amount of antianginal medication. She continues to have chest pain. We will schedule her for EECP. (11/05/2009) C ardiac Cath Comments: Successful stenting of the LAD with a 3.0 x 12mm Taxus stent. (08/02/2007) C arotid Doppler/Duplex: Normal (09/18/2009) A rterial Doppler (leg): Normal arterial flow of the upper extremities. (09/18/2009) C K: 38 (02/19/2011) Troponin I: <0.02 (02/19/2011) Hgb: 11.5 (02/19/2011) HCT: 35.8 (02/19/2011) RBC: 4.57 (02/19/2011) WBC: 6.5 (02/19/2011) B UN: 13 (02/19/2011) Creat: 0.9 (02/19/2011) Glucose: 91 (02/19/2011) N a+: 142 (02/19/2011) K+: 3.8 (02/19/2011) Cl: 103 (02/19/2011) PT: 10.20 (02/19/2011) INR: 0.99 (02/19/2011) P TT: 28.6 (02/19/2011) Ayla Bourgeois MD follow up: H er updated medication list for this problem includes: Metoprolol Succinate 50 Mg [id number] (Metoprolol succinate) ..... 1 tablet by mouth 3 times daily Aspirin 81 Mg Tabs (Aspirin) ..... One tab. daily Amlodipine Besylate 10 Mg Tabs (Amlodipine besylate) ..... Daily Lasix 20 Mg Tabs (Furosemide) ..... 1 tab daily BP today: 112/67 P rior BP: 135/67 (12/22/2012) Labs Reviewed: C reat: 0.9 (02/19/2011) Ayla Bourgeois MD follow up: H er updated medication list for this problem includes: Metoprolol Succinate 50 Mg [id number] (Metoprolol succinate) ..... 1 tablet by mouth 3 times daily Plavix 75 Mg Tabs (Clopidogrel bisulfate) ..... One tab. daily Aspirin 81 Mg Tabs (Aspirin) ..... One tab. daily Nitroglycerin 0.4 Mg Subl (Nitroglycerin) ..... Use as directed for chest pain Ranexa 500 Mg Tb12 (Ranolazine) ..... 1 tablet by mouth in the morning and 2 tablets in the afternoon Amlodipine Besylate 10 Mg Tabs (Amlodipine besylate) ..... Daily Isosorbide Mononitrate Er 60 Mg [id number] (Isosorbide mononitrate) ..... 2 tablets daily Ayla Bourgeois MD follow up Ayla Bourgeois MD follow up: H er updated medication list for this problem includes: Metoprolol Succinate 50 Mg Kb79s-act (Metoprolol succinate) ..... 1 tablet by mouth 3 times daily Plavix 75 Mg Tabs (Clopidogrel bisulfate) ..... One tab. daily Aspirin 81 Mg Tabs (Aspirin) ..... One tab. daily Nitroglycerin 0.4 Mg Subl (Nitroglycerin) ..... Use as directed for chest pain Ranexa 500 Mg Tb12 (Ranolazine) ..... 1 tablet by mouth in the morning and 2 tablets in the afternoon Lipitor 80 Mg Tabs (Atorvastatin calcium) ..... Daily Amlodipine Besylate 10 Mg Tabs (Amlodipine besylate) ..... Daily Imdur 60 Mg [id number] (Isosorbide mononitrate) ..... Daily Tricor 145 Mg Tabs (Fenofibrate) ..... One tab. daily BP today: 135/67 Prior BP: 120/60 (09/01/2012) N uclear Stress Findings: 1. Regadenoson mediated myocardial perfusion study 2 . Normal left ventricular systolic function with a calculated ejection fraction of 50%. 3 . No obvious significant scintigraphic evidence of myocardial ischemia or scar. (03/18/2011) C ardiac Cath: Patent stents. Normal LV systolic function. EF 55%. The patient is on a fair amount of antianginal medication. She continues to have chest pain. We will schedule her for EECP. (11/05/2009) C ardiac Cath Comments: Successful stenting of the LAD with a 3.0 x 12mm Taxus stent. (08/02/2007) Carotid Doppler/Duplex: Normal (09/18/2009) A rterial Doppler (leg): Normal arterial flow of the upper extremities. (09/18/2009) C K: 38 (02/19/2011) Troponin I: <0.02 (02/19/2011) Hgb: 11.5 (02/19/2011) HCT: 35.8 (02/19/2011) RBC: 4.57 (02/19/2011) WBC: 6.5 (02/19/2011) B UN: 13 (02/19/2011) Creat: 0.9 (02/19/2011) Glucose: 91 (02/19/2011) N a+: 142 (02/19/2011) K+: 3.8 (02/19/2011) Cl: 103 (02/19/2011) PT: 10.20 (02/19/2011) INR: 0.99 (02/19/2011) P TT: 28.6 (02/19/2011) Ayla Bourgeois MD follow up: T he following medications were removed from the medication list: Caduet 10-80 Mg Tabs (Amlodipine-atorvastatin) ..... One tab. daily Her updated medication list for this problem includes: Toprol Xl 50 Mg Tb24 (Metoprolol succinate) ..... Three tabs po daily Aspirin 81 Mg Tabs (Aspirin) ..... One tab. daily BP today: 120/60 P rior BP: 126/72 (04/11/2012) Labs Reviewed: C reat: 0.9 (02/19/2011) Ayla Bourgeois MD follow up Ayla Bourgeois MD follow up: T he following medications were removed from the medication list: Tricor 145 Mg Tabs (Fenofibrate) ..... 1 tablet by mouth at bedtime Caduet 10-80 Mg Tabs (Amlodipine-atorvastatin) ..... One tab. daily Nitrostat 0.4 Mg Subl (Nitroglycerin) ..... As directed as needed Nitro-dur 0.4 Mg/hr Pt24 (Nitroglycerin) ..... Once daily 8am and 10 pm Isosorbide Mononitrate Cr 60 Mg [id number] (Isosorbide mononitrate) ..... 2 tabs daily Her updated medication list for this problem includes: Toprol Xl 50 Mg Tb24 (Metoprolol succinate) ..... Three tabs po daily Plavix 75 Mg Tabs (Clopidogrel bisulfate) ..... One tab. daily Aspirin 81 Mg Tabs (Aspirin) ..... One tab. daily Nitroglycerin 0.4 Mg Subl (Nitroglycerin) ..... Use as directed for chest pain Ranexa 500 Mg Tb12 (Ranolazine) ..... 1 tablet by mouth in the morning and 2 tablets in the afternoon Lipitor 80 Mg Tabs (Atorvastatin calcium) ..... Daily Ayla Bourgeois MD follow up Ayla Bourgeois MD follow up Ayla Bourgeois MD Chest Pain Ayla Bourgeois MD Chest Pain Ayla Bourgeois MD Chest Pain: T he following medications were removed from the medication list: Imdur 60 Mg [id number]-xuy (Isosorbide mononitrate) ..... 2 tablets by mouth daily Her updated medication list for this problem includes: Toprol Xl 50 Mg Tb24 (Metoprolol succinate) ..... 2 tabs in am = 100mg one tab daily at night Plavix 75 Mg Tabs (Clopidogrel bisulfate) ..... One tab. daily Aspirin 81 Mg Tabs (Aspirin) ..... One tab. daily Nitroglycerin 0.4 Mg Subl (Nitroglycerin) ..... Use as directed for chest pain Tricor 145 Mg Tabs (Fenofibrate) ..... 1 tablet by mouth at bedtime Ranexa 500 Mg Tb12 (Ranolazine) ..... 1 tablet by mouth in the morning and 2 tablets in the afternoon Caduet 10-80 Mg Tabs (Amlodipine-atorvastatin) ..... One tab. daily Nitrostat 0.4 Mg Subl (Nitroglycerin) ..... As directed as needed Nitro-dur 0.4 Mg/hr Pt24 (Nitroglycerin) ..... Once daily 8am and 10 pm Ayla Bourgeois MD Chest Pain: H er updated medication list for this problem includes: Toprol Xl 50 Mg Tb24 (Metoprolol succinate) ..... 2 tabs in am = 100mg one tab daily at night Aspirin 81 Mg Tabs (Aspirin) ..... One tab. daily Caduet 10-80 Mg Tabs (Amlodipine-atorvastatin) ..... One tab. daily BP today: 126/72 P rior BP: 137/75 (01/14/2012) Labs Reviewed: C reat: 0.9 (02/19/2011) Ayla Bourgeois MD folllow up: T he following medications were removed from the medication list: Lipitor 80 Mg Tabs (Atorvastatin calcium) ..... One tablet daily Her updated medication list for this problem includes: Tricor Tabs (Fenofibrate tabs) ..... 145mg once daily Caduet 10-80 Mg Tabs (Amlodipine-atorvastatin) ..... One tab. daily BP today: 137/75 Prior BP: 123/67 (11/16/2011) Ayla Bourgeois MD folllow up: T he following medications were removed from the medication list: Lasix 40 Mg Tabs (Furosemide) ..... 1 tab daiyl Norvasc 10 Mg Tabs (Amlodipine besylate) ..... One tablet daiy Her updated medication list for this problem includes: Toprol Xl 50 Mg Tb24 (Metoprolol succinate) ..... 2 tabs in am = 100mg one tab daily at night Aspirin 81 Mg Tabs (Aspirin) ..... One tab. daily Caduet 10-80 Mg Tabs (Amlodipine-atorvastatin) ..... One tab. daily BP today: 137/75 P rior BP: 123/67 (11/16/2011) Labs Reviewed: C reat: 0.9 (02/19/2011) Ayla Bourgeois MD folllow up: T he following medications were removed from the medication list: Nitrostat 0.4 Mg Subl (Nitroglycerin) ..... 1 tab as needed Norvasc 10 Mg Tabs (Amlodipine besylate) ..... One tablet anisay Her updated medication list for this problem includes: Toprol Xl 50 Mg Tb24 (Metoprolol succinate) ..... 2 tabs in am = 100mg one tab daily at night Plavix 75 Mg Tabs (Clopidogrel bisulfate) ..... One tab. daily Aspirin 81 Mg Tabs (Aspirin) ..... One tab. daily Nitroglycerin 0.4 Mg Subl (Nitroglycerin) ..... Use as directed for chest pain Ranexa 500 Mg Tb12 (Ranolazine) ..... 1tab. twice daily for chronic angina Ayla Bourgeois MD follow up: H er updated medication list for this problem includes: Toprol Xl 50 Mg Tb24 (Metoprolol succinate) ..... 2 tabs in am = 100mg one tab daily at night Caduet 10-80 Mg Tabs (Amlodipine-atorvastatin) ..... One tab. daily Lasix 40 Mg Tabs (Furosemide) ..... 1 tab daiyl Aspirin 81 Mg Tabs (Aspirin) ..... One tab. daily BP today: 123/67 P rior BP: 98/53 (07/17/2010) Labs Reviewed: C reat: 0.9 (02/19/2011) Ayla Bourgeois MD follow up: H er updated medication list for this problem includes: Toprol Xl 50 Mg Tb24 (Metoprolol succinate) ..... 2 tabs in am = 100mg one tab daily at night Plavix 75 Mg Tabs (Clopidogrel bisulfate) ..... One tab. daily Aspirin 81 Mg Tabs (Aspirin) ..... One tab. daily Nitroglycerin 0.4 Mg Subl (Nitroglycerin) ..... Use as directed for chest pain Ranexa 500 Mg Tb12 (Ranolazine) ..... 1tab. twice daily for chronic angina Nitrostat 0.4 Mg Subl (Nitroglycerin) ..... 1 tab as needed Orders: Hyun KG ([id number]) Ayla Bourgeois MD follow up: H er updated medication list for this problem includes: Toprol Xl 50 Mg Tb24 (Metoprolol succinate) ..... 2 tabs in am = 100mg one tab daily at night Caduet 10-80 Mg Tabs (Amlodipine-atorvastatin) ..... One tab. daily Plavix 75 Mg Tabs (Clopidogrel bisulfate) ..... One tab. daily Aspirin 81 Mg Tabs (Aspirin) ..... One tab. daily Nitroglycerin 0.4 Mg Subl (Nitroglycerin) ..... Use as directed for chest pain Tricor Tabs (Fenofibrate tabs) ..... 145mg once daily Ranexa 500 Mg Tb12 (Ranolazine) ..... 1tab. twice daily for chronic angina Nitrostat 0.4 Mg Subl (Nitroglycerin) ..... 1 tab as needed BP today: 123/67 Prior BP: 98/53 (07/17/2010) N uclear Stress Findings: 1. Regadenoson mediated myocardial perfusion study 2 . Normal left ventricular systolic function with a calculated ejection fraction of 50%. 3 . No obvious significant scintigraphic evidence of myocardial ischemia or scar. GC (03/18/2011) C ardiac Cath: Patent stents. Normal LV systolic function. EF 55%. The patient is on a fair amount of antianginal medication. She continues to have chest pain. We will schedule her for EECP. (11/05/2009) C ardiac Cath Comments: Successful stenting of the LAD with a 3.0 x 12mm Taxus stent. (08/02/2007) C arotid Doppler/Duplex: Normal GC (09/18/2009) A rterial Doppler (leg): Normal arterial flow of the upper extremities. GC (09/18/2009) C K: 38 (02/19/2011) Troponin I: <0.02 (02/19/2011) Hgb: 11.5 (02/19/2011) HCT: 35.8 (02/19/2011) RBC: 4.57 (02/19/2011) WBC: 6.5 (02/19/2011) B UN: 13 (02/19/2011) Creat: 0.9 (02/19/2011) Glucose: 91 (02/19/2011) N a+: 142 (02/19/2011) K+: 3.8 (02/19/2011) Cl: 103 (02/19/2011) PT: 10.20 (02/19/2011) INR: 0.99 (02/19/2011) P TT: 28.6 (02/19/2011) Ayla Bourgeois MD : H er updated medication list for this problem includes: Caduet 10-80 Mg Tabs (Amlodipine-atorvastatin) ..... One tab. daily Tricor Tabs (Fenofibrate tabs) ..... 145mg once daily BP today: / Prior BP: 98/53 (07/17/2010) Ayla Bourgeois MD : H er updated medication list for this problem includes: Toprol Xl 50 Mg Tb24 (Metoprolol succinate) ..... 2 tabs in am = 100mg one tab daily at night Ranexa 1000 Mg Tb12 (Ranolazine) ..... One tab. twice daily for chronic angina Plavix 75 Mg Tabs (Clopidogrel bisulfate) ..... One tab. daily Aspirin 81 Mg Tabs (Aspirin) ..... One tab. daily Nitroglycerin 0.4 Mg Subl (Nitroglycerin) ..... Use as directed for chest pain Ayla Bourgeois MD 3 month follow-up: H er updated medication list for this problem includes: Toprol Xl 50 Mg Tb24 (Metoprolol succinate) ..... 2 tabs in am = 100mg one tab daily at night Caduet 10-80 Mg Tabs (Amlodipine-atorvastatin) ..... One tab. daily Lasix 20 Mg Tabs (Furosemide) ..... One tab daily Aspirin 81 Mg Tabs (Aspirin) ..... One tab. daily Orders: E KG ([id number]) B P today: 98/53 P rior BP: 121/71 (04/27/2010) Labs Reviewed: C reat: 0.9 (11/04/2009) Ayla Bourgeois MD 3 month follow-up: H er updated medication list for this problem includes: Toprol Xl 50 Mg Tb24 (Metoprolol succinate) ..... 2 tabs in am = 100mg one tab daily at night Ranexa 500 Mg Tb12 (Ranolazine) ..... Two tabs in am and 1 tab in evening Caduet 10-80 Mg Tabs (Amlodipine-atorvastatin) ..... One tab. daily Plavix 75 Mg Tabs (Clopidogrel bisulfate) ..... One tab. daily Aspirin 81 Mg Tabs (Aspirin) ..... One tab. daily Nitroglycerin 0.4 Mg Subl (Nitroglycerin) ..... Use as directed for chest pain Tricor Tabs (Fenofibrate tabs) ..... 145mg once daily & #13;BP today: 98/53 Prior BP: 121/71 (04/27/2010) N uclear Stress Findings: EF - 49% N o EKG changes diagnostic for ischemia. M oderate sized reversible anteroapcial defect consistent ischemia. (07/26/2007) C ardiac Cath: Patent stents. Normal LV systolic function. EF 55%. The patient is on a fair amount of antianginal medication. She continues to have chest pain. We will schedule her for EECP. (11/05/2009) C ardiac Cath Comments: Successful stenting of the LAD with a 3.0 x 12mm Taxus stent. (08/02/2007) C arotid Doppler/Duplex: Normal GC (09/18/2009) Arterial Doppler (leg): Normal arterial flow of the upper extremities. GC (09/18/2009) H gb: 13.2 (11/04/2009) HCT: 40.2 (11/04/2009) RBC: 4.56 (11/04/2009) WBC: 7.7 (11/04/2009) B UN: 13 (11/04/2009) Creat: 0.9 (11/04/2009) Glucose: 99 (11/04/2009) N a+: 139 (11/04/2009) K+: 4.3 (11/04/2009) Cl: 103 (11/04/2009) PT: 10.1 (11/04/2009) INR: 0.98 (11/04/2009) Ayla Bourgeois MD 3 month follow-up: H er updated medication list for this problem includes: Toprol Xl 50 Mg Tb24 (Metoprolol succinate) ..... 2 tabs in am = 100mg one tab daily at night Caduet 10-80 Mg Tabs (Amlodipine-atorvastatin) ..... One tab. daily Lasix 20 Mg Tabs (Furosemide) ..... One tab daily Aspirin 81 Mg Tabs (Aspirin) ..... One tab. daily BP today: 98/53 P rior BP: 121/71 (04/27/2010) Labs Reviewed: C reat: 0.9 (11/04/2009) Ayla Bourgeois MD 3 month follow-up Ayla eVlazquez : H er updated medication list for this problem includes: Toprol Xl 50 Mg Tb24 (Metoprolol succinate) ..... 2 tabs in am = 100mg one tab daily at night Caduet 10-80 Mg Tabs (Amlodipine-atorvastatin) ..... One tab. daily Lasix 20 Mg Tabs (Furosemide) ..... One tab daily Aspirin 81 Mg Tabs (Aspirin) ..... One tab. daily Prior BP: 118/60 (12/19/2009) Labs Reviewed: C reat: 0.9 (11/04/2009) Ayla Bourgeois MD : H er updated medication list for this problem includes: Toprol Xl 50 Mg Tb24 (Metoprolol succinate) ..... 2 tabs in am = 100mg one tab daily at night Ranexa 500 Mg Tb12 (Ranolazine) ..... Two tabs in am and 1 tab in evening Plavix 75 Mg Tabs (Clopidogrel bisulfate) ..... One tab. daily Aspirin 81 Mg Tabs (Aspirin) ..... One tab. daily Nitroglycerin Pt24 (Nitroglycerin pt24) ..... As needed BP today: / Prior BP: 118/60 (12/19/2009) N uclear Stress Findings: EF - 49% N o EKG changes diagnostic for ischemia. M oderate sized reversible anteroapcial defect consistent ischemia. (07/26/2007) C ardiac Cath: Patent stents. Normal LV systolic function. EF 55%. The patient is on a fair amount of antianginal medication. She continues to have chest pain. We will schedule her for EECP. (11/05/2009) C ardiac Cath Comments: Successful stenting of the LAD with a 3.0 x 12mm Taxus stent. (08/02/2007) C arotid Doppler/Duplex: Normal GC (09/18/2009) A rterial Doppler (leg): Normal arterial flow of the upper extremities. GC (09/18/2009) H gb: 13.2 (11/04/2009) HCT: 40.2 (11/04/2009) RBC: 4.56 (11/04/2009) WBC: 7.7 (11/04/2009) B UN: 13 (11/04/2009) Creat: 0.9 (11/04/2009) Glucose: 99 (11/04/2009) N a+: 139 (11/04/2009) K+: 4.3 (11/04/2009) Cl: 103 (11/04/2009) PT: 10.1 (11/04/2009) INR: 0.98 (11/04/2009) E chocardiogram: TDS. Normal LV systolic function. Normal LV size. Normal LV wall thickness. There is E to A wave reversal consistent with impaired LV relaxation. Normal E/E` 9.0. LVEF 55%. Trace MR. Non-specific t hickening of the MVL. Mild MAV. AV appears structurally normal. Trace TR. Non-specific thickening of the TV. IVC is normal in size. Unable to adequately assess the RVSP. GC (10/30/2009) Ayla Bourgeois MD Ayla Bourgeois MD : H er updated medication list for this problem includes: Toprol Xl 50 Mg Tb24 (Metoprolol succinate) ..... 2 tabs in am = 100mg one tab daily at night Ranexa 500 Mg Tb12 (Ranolazine) ..... Two tabs in am and 1 tab in evening Caduet 10-80 Mg Tabs (Amlodipine-atorvastatin) ..... One tab. daily Plavix 75 Mg Tabs (Clopidogrel bisulfate) ..... One tab. daily Aspirin 81 Mg Tabs (Aspirin) ..... One tab. daily Nitroglycerin Pt24 (Nitroglycerin pt24) ..... As needed Tricor Tabs (Fenofibrate tabs) ..... 145mg once daily BP today: / Prior BP: 118/60 (12/19/2009) N uclear Stress Findings: EF - 49% N o EKG changes diagnostic for ischemia. M oderate sized reversible anteroapcial defect consistent ischemia. (07/26/2007) C ardiac Cath: Patent stents. Normal LV systolic function. EF 55%. The patient is on a fair amount of antianginal medication. She continues to have chest pain. We will schedule her for EECP. (11/05/2009) C ardiac Cath Comments: Successful stenting of the LAD with a 3.0 x 12mm Taxus stent. (08/02/2007) C arotid Doppler/Duplex: Normal GC (09/18/2009) A rterial Doppler (leg): Normal arterial flow of the upper extremities. (09/18/2009) H gb: 13.2 (11/04/2009) HCT: 40.2 (11/04/2009) RBC: 4.56 (11/04/2009) WBC: 7.7 (11/04/2009) B UN: 13 (11/04/2009) Creat: 0.9 (11/04/2009) Glucose: 99 (11/04/2009) N a+: 139 (11/04/2009) K+: 4.3 (11/04/2009) Cl: 103 (11/04/2009) PT: 10.1 (11/04/2009) INR: 0.98 (11/04/2009) Ayla Bourgeois MD : H er updated medication list for this problem includes: Toprol Xl 50 Mg Tb24 (Metoprolol succinate) ..... 2 tabs in am = 100mg one tab daily at night Caduet 10-80 Mg Tabs (Amlodipine-atorvastatin) ..... One tab. daily Lasix 20 Mg Tabs (Furosemide) ..... One tab daily Aspirin 81 Mg Tabs (Aspirin) ..... One tab. daily Prior BP: 118/60 (12/19/2009) Labs Reviewed: C reat: 0.9 (11/04/2009) Ayla Bourgeois MD Follow-up from Cardiac Cath RM#3 Ayla Bourgeois MD Follow-up from Cardi ac Cath RM#3: H er updated medication list for this problem includes: Toprol Xl 50 Mg Tb24 (Metoprolol succinate) ..... 2 tabs in am = 100mg one tab daily at night Caduet 10-80 Mg Tabs (Amlodipine-atorvastatin) ..... One tab. daily Lasix 20 Mg Tabs (Furosemide) ..... As needed for 5 days then go off Aspirin 81 Mg Tabs (Aspirin) ..... One tab. daily & #13;BP today: 118/60 P rior BP: 136/78 (06/09/2009) Labs Reviewed: C reat: 0.9 (11/04/2009) Ayla Bourgeois MD Follow-up from Cardi ac Cath RM#3: H er updated medication list for this problem includes: Toprol Xl 50 Mg Tb24 (Metoprolol succinate) ..... 2 tabs in am = 100mg one tab daily at night Caduet 10-80 Mg Tabs (Amlodipine-atorvastatin) ..... One tab. daily Lasix 20 Mg Tabs (Furosemide) ..... As needed for 5 days then go off Aspirin 81 Mg Tabs (Aspirin) ..... One tab. daily & #13;BP today: 118/60 P rior BP: 136/78 (06/09/2009) Labs Reviewed: C reat: 0.9 (11/04/2009) Ayla Bourgeois MD Follow-up from Cardi ac Cath RM#3: B P today: 118/60 Prior BP: 136/78 (06/09/2009) N uclear Stress Findings: EF - 49% N o EKG changes diagnostic for ischemia. M oderate sized reversible anteroapcial defect consistent ischemia. (07/26/2007) C ardiac Cath: Patent stents. Normal LV systolic function. EF 55%. The patient is on a fair amount of antianginal medication. She continues to have chest pain. We will schedule her for EECP. (11/05/2009) C ardiac Cath Comments: Successful stenting of the LAD with a 3.0 x 12mm Taxus stent. (08/02/2007) C arotid Doppler/Duplex: Normal GC (09/18/2009) A rterial Doppler (leg): Normal arterial flow of the upper extremities. GC (09/18/2009) H gb: 13.2 (11/04/2009) HCT: 40.2 (11/04/2009) RBC: 4.56 (11/04/2009) WBC: 7.7 (11/04/2009) B UN: 13 (11/04/2009) Creat: 0.9 (11/04/2009) Glucose: 99 (11/04/2009) N a+: 139 (11/04/2009) K+: 4.3 (11/04/2009) Cl: 103 (11/04/2009) PT: 10.1 (11/04/2009) INR: 0.98 (11/04/2009) E chocardiogram: TDS. Normal LV systolic function. Normal LV size. Normal LV wall thickness. There is E to A wave reversal consistent with impaired LV relaxation. Normal E/E` 9.0. LVEF 55%. Trace MR. Non-specific t hickening of the MVL. Mild MAV. AV appears structurally normal. Trace TR. Non-specific thickening of the TV. IVC is normal in size. Unable to adequately assess the RVSP. GC (10/30/2009) Ayla Bourgeois MD Follow-up from Cardi ac Cath RM#3: H er updated medication list for this problem includes: Toprol Xl 50 Mg Tb24 (Metoprolol succinate) ..... 2 tabs in am = 100mg one tab daily at night Ranexa 500 Mg Tb12 (Ranolazine) ..... One tab. twice daily for chronic angina Plavix 75 Mg Tabs (Clopidogrel bisulfate) ..... One tab. daily Aspirin 81 Mg Tabs (Aspirin) ..... One tab. daily Nitroglycerin Pt24 (Nitroglycerin pt24) ..... As needed BP today: 118/60 Prior BP: 136/78 (06/09/2009) N uclear Stress Findings: EF - 49% N o EKG changes diagnostic for ischemia. Moderate sized reversible anteroapcial defect consistent ischemia. (07/26/2007) C ardiac Cath: Patent stents. Normal LV systolic function. EF 55%. The patient is on a fair amount of antianginal medication. She continues to have chest pain. We will schedule her for EECP. (11/05/2009) C ardiac Cath Comments: Successful stenting of the LAD with a 3.0 x 12mm Taxus stent. (08/02/2007) C arotid Doppler/Duplex: Normal GC (09/18/2009) A rterial Doppler (leg): Normal arterial flow of the upper extremities. GC (09/18/2009) H gb: 13.2 (11/04/2009) HCT: 40.2 (11/04/2009) RBC: 4.56 (11/04/2009) WBC: 7.7 (11/04/2009) B UN: 13 (11/04/2009) Creat: 0.9 (11/04/2009) Glucose: 99 (11/04/2009) N a+: 139 (11/04/2009) K+: 4.3 (11/04/2009) Cl: 103 (11/04/2009) PT: 10.1 (11/04/2009) INR: 0.98 (11/04/2009) E chocardiogram: TDS. Normal LV systolic function. Normal LV size. Normal LV wall thickness. There is E to A wave reversal consistent with impaired LV relaxation. Normal E/E` 9.0. LVEF 55%. Trace MR. Non-specific t hickening of the MVL. Mild MAV. AV appears structurally normal. Trace TR. Non-specific thickening of the TV. IVC is normal in size. Unable to adequately assess the RVSP. GC (10/30/2009) Ayla Bourgeois MD 3 month follow-up: H er updated medication list for this problem includes: Caduet 10-80 Mg Tabs (Amlodipine-atorvastatin) ..... One tab. daily Tricor Tabs (Fenofibrate tabs) ..... 145mg once daily BP today: / Prior BP: 136/78 (06/09/2009) Ayla Bourgeois MD 3 month follow-up: H er updated medication list for this problem includes: Toprol Xl 50 Mg Tb24 (Metoprolol succinate) ..... 2 tabs in am = 100mg one tab daily at night Ranexa 500 Mg Tb12 (Ranolazine) ..... One tab. twice daily for chronic angina Caduet 10-80 Mg Tabs (Amlodipine-atorvastatin) ..... One tab. daily Plavix 75 Mg Tabs (Clopidogrel bisulfate) ..... One tab. daily Aspirin 81 Mg Tabs (Aspirin) ..... One tab. daily Nitroglycerin Pt24 (Nitroglycerin pt24) ..... As needed Tricor Tabs (Fenofibrate tabs) ..... 145mg once daily Orders: E KG (CPT-63299) BP today: / Prior BP: 136/78 (06/09/2009) N uclear Stress Findings: EF - 49% N o EKG changes diagnostic for ischemia. M oderate sized reversible anteroapcial defect consistent ischemia. (07/26/2007) C ardiac Cath: Angiography and RADI wire assessment revealed no signficant stenosis in the LAD. N o significant stenosis of the RCA. C ollaterals were noted from the LAD towards the RCA that may suggest there is an occluded right ventricular branch. [facility] (02/11/2009) C ardiac Cath Comments: Successful stenting of the LAD with a 3.0 x 12mm Taxus stent. (08/02/2007) C arotid Doppler/Duplex: Normal GC (09/18/2009) A rterial Doppler (leg): Normal arterial flow of the upper extremities. (09/18/2009) H gb: 12.6 (02/11/2009) HCT: 37.8 (02/11/2009) WBC: 8.5 (02/11/2009) B UN: 17 (02/11/2009) Creat: 1.0 (02/11/2009) Glucose: 96 (02/11/2009) N a+: 138 (02/11/2009) K+: 4.0 (02/11/2009) Cl: 100 (02/11/2009) INR: 1.0 (02/11/2009) Ayla Bourgeois MD 3 month follow-up: H er updated medication list for this problem includes: Toprol Xl 50 Mg Tb24 (Metoprolol succinate) ..... 2 tabs in am = 100mg one tab daily at night Ranexa 500 Mg Tb12 (Ranolazine) ..... One tab. twice daily for chronic angina Plavix 75 Mg Tabs (Clopidogrel bisulfate) ..... One tab. daily Aspirin 81 Mg Tabs (Aspirin) ..... One tab. daily Nitroglycerin Pt24 (Nitroglycerin pt24) ..... As needed Orders: E KG (CPT-03555) BP today: / Prior BP: 136/78 (06/09/2009) N uclear Stress Findings: EF - 49% N o EKG changes diagnostic for ischemia. M oderate sized reversible anteroapcial defect consistent ischemia. (07/26/2007) C ardiac Cath: Angiography and RADI wire assessment revealed no signficant stenosis in the LAD. No significant stenosis of the RCA. C ollaterals were noted from the LAD towards the RCA that may suggest there is an occluded right ventricular branch. [facility] (02/11/2009) C ardiac Cath Comments: Successful stenting of the LAD with a 3.0 x 12mm Taxus stent. (08/02/2007) C arotid Doppler/Duplex: Normal (09/18/2009) A rterial Doppler (leg): Normal arterial flow of the upper extremities. (09/18/2009) H gb: 12.6 (02/11/2009) HCT: 37.8 (02/11/2009) WBC: 8.5 (02/11/2009) B UN: 17 (02/11/2009) Creat: 1.0 (02/11/2009) Glucose: 96 (02/11/2009) N a+: 138 (02/11/2009) K+: 4.0 (02/11/2009) Cl: 100 (02/11/2009) INR: 1.0 (02/11/2009) E chocardiogram: EF - 60%. D iastolic dysfunction. B orderline LVH. M itral annular calcification. M inimal mitral regurgitation. M inimal to mild tricuspid regurgitation. (02/21/2008) Ayla Bourgeois MD 3 month follow-up: H er updated medication list for this problem includes: Toprol Xl 50 Mg Tb24 (Metoprolol succinate) ..... 2 tabs in am = 100mg one tab daily at night Ranexa 500 Mg Tb12 (Ranolazine) ..... One tab. twice daily for chronic angina Caduet 10-80 Mg Tabs (Amlodipine-atorvastatin) ..... One tab. daily Plavix 75 Mg Tabs (Clopidogrel bisulfate) ..... One tab. daily Aspirin 81 Mg Tabs (Aspirin) ..... One tab. daily Nitroglycerin Pt24 (Nitroglycerin pt24) ..... As needed Tricor Tabs (Fenofibrate tabs) ..... 145mg once daily BP today: / Prior BP: 136/78 (06/09/2009) N uclear Stress Findings: EF - 49% N o EKG changes diagnostic for ischemia. M oderate sized reversible anteroapcial defect consistent ischemia. (07/26/2007) C ardiac Cath: Angiography and RADI wire assessment revealed no signficant stenosis in the LAD. N o significant stenosis of the RCA. C ollaterals were noted from the LAD towards the RCA that may suggest there is an occluded right ventricular branch. [facility] (02/11/2009) C ardiac Cath Comments: Successful stenting of the LAD with a 3.0 x 12mm Taxus stent. (08/02/2007) C arotid Doppler/Duplex: Normal GC (09/18/2009) A rterial Doppler (leg): Normal arterial flow of the upper extremities. GC (09/18/2009) H gb: 12.6 (02/11/2009) HCT: 37.8 (02/11/2009) WBC: 8.5 (02/11/2009) B UN: 17 (02/11/2009) Creat: 1.0 (02/11/2009) Glucose: 96 (02/11/2009) N a+: 138 (02/11/2009) K+: 4.0 (02/11/2009) Cl: 100 (02/11/2009) INR: 1.0 (02/11/2009) Ayla Bourgeois MD 3 month follow-up: H er updated medication list for this problem includes: Toprol Xl 50 Mg Tb24 (Metoprolol succinate) ..... 2 tabs in am = 100mg one tab daily at night Caduet 10-80 Mg Tabs (Amlodipine-atorvastatin) ..... One tab. daily Lasix 20 Mg Tabs (Furosemide) ..... As needed for 5 days then go off Aspirin 81 Mg Tabs (Aspirin) ..... One tab. daily Prior BP: 136/78 (06/09/2009) Labs Reviewed: C reat: 1.0 (02/11/2009) Ayla Bourgeois MD 3 month follow-up Ayla Velazquez 3 month follow-up: H er updated medication list for this problem includes: Toprol Xl 100 Mg Tb24 (Metoprolol succinate) ..... One tab daily in am Toprol Xl 50 Mg Tb24 (Metoprolol succinate) ..... One tab daily at night Caduet 10-80 Mg Tabs (Amlodipine-atorvastatin) ..... One tab. daily Lasix 20 Mg Tabs (Furosemide) ..... As needed for 5 days then go off Aspirin 81 Mg Tabs (Aspirin) ..... One tab. daily Ayla Bourgeois MD 3 month follow-up: H er updated medication list for this problem includes: Toprol Xl 100 Mg Tb24 (Metoprolol succinate) ..... One tab daily in am Toprol Xl 50 Mg Tb24 (Metoprolol succinate) ..... One tab daily at night Caduet 10-80 Mg Tabs (Amlodipine-atorvastatin) ..... One tab. daily Lasix 20 Mg Tabs (Furosemide) ..... As needed for 5 days then go off Aspirin 81 Mg Tabs (Aspirin) ..... One tab. daily Ayla Bourgeois MD 3 month follow-up: H er updated medication list for this problem includes: Toprol Xl 100 Mg Tb24 (Metoprolol succinate) ..... One tab daily in am Toprol Xl 50 Mg Tb24 (Metoprolol succinate) ..... One tab daily at night Ranexa 500 Mg Tb12 (Ranolazine) ..... One tab. twice daily for chronic angina Caduet 10-80 Mg Tabs (Amlodipine-atorvastatin) ..... One tab. daily Plavix 75 Mg Tabs (Clopidogrel bisulfate) ..... One tab. daily Aspirin 81 Mg Tabs (Aspirin) ..... One tab. daily Nitroglycerin Pt24 (Nitroglycerin pt24) ..... As needed Tricor Tabs (Fenofibrate tabs) ..... 145mg once daily BP today: 136/78 Prior BP: 116/74 (05/27/2009) N uclear Stress Findings: EF - 49% N o EKG changes diagnostic for ischemia. M oderate sized reversible anteroapcial defect consistent ischemia. (07/26/2007) C ardiac Cath: Angiography and RADI wire assessment revealed no signficant stenosis in the LAD. N o significant stenosis of the RCA. C ollaterals were noted from the LAD towards the RCA that may suggest there is an occluded right ventricular branch. [facility] (02/11/2009) C ardiac Cath Comments: Successful stenting of the LAD with a 3.0 x 12mm Taxus stent. (08/02/2007) C arotid Doppler/Duplex: Minimal smooth atherosclerotic plaque (<39%). Antegrade flow in both vertebrals. (07/22/2008) H gb: 12.6 (02/11/2009) HCT: 37.8 (02/11/2009) WBC: 8.5 (02/11/2009) B UN: 17 (02/11/2009) Creat: 1.0 (02/11/2009) Glucose: 96 (02/11/2009) N a+: 138 (02/11/2009) K+: 4.0 (02/11/2009) Cl: 100 (02/11/2009) INR: 1.0 (02/11/2009) Ayla Bourgeois MD 3 month follow-up Ayla Velazquez pt having chest -back discomfort Augie Pugh MD pt having chest -raffaele k discomfort: H er updated medication list for this problem includes: Plavix 75 Mg Tabs (Clopidogrel bisulfate) ..... One tab. daily Toprol Xl 100 Mg Tb24 (Metoprolol succinate) ..... One tab daily in am Ranexa 500 Mg Tb12 (Ranolazine) ..... One tab. twice daily for chronic angina Aspirin 81 Mg Tabs (Aspirin) ..... One tab. daily Nitroglycerin Pt24 (Nitroglycerin pt24) ..... As needed Tricor Tabs (Fenofibrate tabs) ..... 145mg once daily Caduet 10-80 Mg Tabs (Amlodipine-atorvastatin) ..... One tab. daily Toprol Xl 50 Mg Tb24 (Metoprolol succinate) ..... One tab daily at night Augie Pugh MD pt having chest -raffaele k discomfort: H er updated medication list for this problem includes: Toprol Xl 100 Mg Tb24 (Metoprolol succinate) ..... One tab daily in am Aspirin 81 Mg Tabs (Aspirin) ..... One tab. daily Lasix 20 Mg Tabs (Furosemide) ..... As needed for 5 days then go off Caduet 10-80 Mg Tabs (Amlodipine-atorvastatin) ..... One tab. daily Toprol Xl 50 Mg Tb24 (Metoprolol succinate) ..... One tab daily at night Augie Pugh MD pt having chest -raffaele k discomfort: H er updated medication list for this problem includes: Plavix 75 Mg Tabs (Clopidogrel bisulfate) ..... One tab. daily Toprol Xl 100 Mg Tb24 (Metoprolol succinate) ..... One tab daily in am Ranexa 500 Mg Tb12 (Ranolazine) ..... One tab. twice daily for chronic angina Aspirin 81 Mg Tabs (Aspirin) ..... One tab. daily Nitroglycerin Pt24 (Nitroglycerin pt24) ..... As needed Toprol Xl 50 Mg Tb24 (Metoprolol succinate) ..... One tab daily at night s he is feeling better today and will leave her on her current meds. Augie Pugh MD 1 month follow-up: H er updated medication list for this problem includes: Plavix 75 Mg Tabs (Clopidogrel bisulfate) ..... One tab. daily Toprol Xl Tb24 (Metoprolol succinate tb24) ..... 100 mg bid Ranexa 1000 Mg Tb12 (Ranolazine) ..... 1/2 tab. twice daily Aspirin 81 Mg Tabs (Aspirin) ..... One tab. daily Nitroglycerin Pt24 (Nitroglycerin pt24) ..... As needed Ayla Bourgeois MD 1 month follow-up Ayla Velazquez 1 month follow-up: H er updated medication list for this problem includes: Plavix 75 Mg Tabs (Clopidogrel bisulfate) ..... One tab. daily Toprol Xl Tb24 (Metoprolol succinate tb24) ..... 100 mg bid Ranexa 1000 Mg Tb12 (Ranolazine) ..... 1/2 tab. twice daily Aspirin 81 Mg Tabs (Aspirin) ..... One tab. daily Nitroglycerin Pt24 (Nitroglycerin pt24) ..... As needed Tricor Tabs (Fenofibrate tabs) ..... 145mg once daily Caduet 10-80 Mg Tabs (Amlodipine-atorvastatin) ..... One tab. daily BP today: 18/64 Prior BP: 118/73 (02/10/2009) N uclear Stress Findings: EF - 49% N o EKG changes diagnostic for ischemia. M oderate sized reversible anteroapcial defect consistent ischemia. (07/26/2007) C ardiac Cath: Angiography and RADI wire assessment revealed no signficant stenosis in the LAD. N o significant stenosis of the RCA. C ollaterals were noted from the LAD towards the RCA that may suggest there is an occluded right ventricular branch. [facility] (02/11/2009) C ardiac Cath Comments: Successful stenting of the LAD with a 3.0 x 12mm Taxus stent. (08/02/2007) C arotid Doppler/Duplex: Minimal smooth atherosclerotic plaque (<39%). Antegrade flow in both vertebrals. (07/22/2008) H gb: 12.6 (02/11/2009) HCT: 37.8 (02/11/2009) WBC: 8.5 (02/11/2009) B UN: 17 (02/11/2009) Creat: 1.0 (02/11/2009) Glucose: 96 (02/11/2009) N a+: 138 (02/11/2009) K+: 4.0 (02/11/2009) Cl: 100 (02/11/2009) INR: 1.0 (02/11/2009) Ayla Bourgeois MD Ayla Bourgeois MD Ayla Bourgeois MD Ayla Bourgeois MD : H er updated medication list for this problem includes: Toprol Xl Tb24 (Metoprolol succinate tb24) ..... 150 mg twice daily Aspirin 81 Mg Tabs (Aspirin) ..... One tab. daily Lasix 20 Mg Tabs (Furosemide) ..... Od Caduet 10-20 Mg Tabs (Amlodipine-atorvastatin) ..... One tab. daily BP today: 110/62 P rior BP: 113/70 (12/11/2008) Ayla Bourgeois MD : T he following medications were removed from the medication list: Lovaza 1 Gm Caps (Lwniv-4-jezr ethyl esters) Her updated medication list for this problem includes: Imdur Tb24 (Isosorbide mononitrate tb24) ..... 150mg one tab. daily Plavix 75 Mg Tabs (Clopidogrel bisulfate) ..... One tab. daily Toprol Xl Tb24 (Metoprolol succinate tb24) ..... 150 mg twice daily Ranexa 1000 Mg Tb12 (Ranolazine) ..... 1/2 tab. twice daily Aspirin 81 Mg Tabs (Aspirin) ..... One tab. daily Nitroglycerin Pt24 (Nitroglycerin pt24) ..... As needed Tricor Tabs (Fenofibrate tabs) ..... 145mg once daily Caduet 10-20 Mg Tabs (Amlodipine-atorvastatin) ..... One tab. daily BP today: 110/62 Prior BP: 113/70 (12/11/2008) N uclear Stress Findings: EF - 49% N o EKG changes diagnostic for ischemia. M oderate sized reversible anteroapcial defect consistent ischemia. (07/26/2007) C ardiac Cath: EF - 55%. M ild hypokinesis. % LAD stenosis: mid 50%, 30% distal. % posterolateral branch stenosis: 50-60%. (08/02/2007) C ardiac Cath Comments: Successful stenting of the LAD with a 3.0 x 12mm Taxus stent. (08/02/2007) C arotid Doppler/Duplex: Minimal smooth atherosclerotic plaque (<39%). Antegrade flow in both vertebrals. (07/22/2008) Orders: E KG (CPT-10818) Ayla Bourgeois MD : H er updated medication list for this problem includes: Imdur Tb24 (Isosorbide mononitrate tb24) ..... 150mg one tab. daily Plavix 75 Mg Tabs (Clopidogrel bisulfate) ..... One tab. daily Toprol Xl Tb24 (Metoprolol succinate tb24) ..... 150 mg twice daily Ranexa 1000 Mg Tb12 (Ranolazine) ..... 1/2 tab. twice daily Aspirin 81 Mg Tabs (Aspirin) ..... One tab. daily Nitroglycerin Pt24 (Nitroglycerin pt24) ..... As needed BP today: 110/62 Prior BP: 113/70 (12/11/2008) N uclear Stress Findings: EF - 49% N o EKG changes diagnostic for ischemia. M oderate sized reversible anteroapcial defect consistent ischemia. (07/26/2007) C ardiac Cath: EF - 55%. M ild hypokinesis. % LAD stenosis: mid 50%, 30% distal. % posterolateral branch stenosis: 50-60%. (08/02/2007) C ardiac Cath Comments: Successful stenting of the LAD with a 3.0 x 12mm Taxus stent. (08/02/2007) C arotid Doppler/Duplex: Minimal smooth atherosclerotic plaque (<39%). Antegrade flow in both vertebrals. (07/22/2008) E chocardiogram: EF - 60%. D iastolic dysfunction. B orderline LVH. M itral annular calcification. M inimal mitral regurgitation. M inimal to mild tricuspid regurgitation. (02/21/2008) Ayla Bourgeois MD : H er updated medication list for this problem includes: Toprol Xl Tb24 (Metoprolol succinate tb24) ..... 150 mg twice daily Aspirin 81 Mg Tabs (Aspirin) ..... One tab. daily Lasix 20 Mg Tabs (Furosemide) ..... Od Caduet 10-20 Mg Tabs (Amlodipine-atorvastatin) ..... One tab. daily BP today: 110/62 P rior BP: 113/70 (12/11/2008) Ayla Bourgeois MD : T he following medications were removed from the medication list: Lovaza 1 Gm Caps (Piilo-9-tard ethyl esters) Her updated medication list for this problem includes: Imdur Tb24 (Isosorbide mononitrate tb24) ..... 150mg one tab. daily Plavix 75 Mg Tabs (Clopidogrel bisulfate) ..... One tab. daily Toprol Xl Tb24 (Metoprolol succinate tb24) ..... 150 mg twice daily Ranexa 1000 Mg Tb12 (Ranolazine) ..... 1/2 tab. twice daily Aspirin 81 Mg Tabs (Aspirin) ..... One tab. daily Nitroglycerin Pt24 (Nitroglycerin pt24) ..... As needed Tricor Tabs (Fenofibrate tabs) ..... 145mg once daily Caduet 10-20 Mg Tabs (Amlodipine-atorvastatin) ..... One tab. daily BP today: 110/62 Prior BP: 113/70 (12/11/2008) N uclear Stress Findings: EF - 49% N o EKG changes diagnostic for ischemia. M oderate sized reversible anteroapcial defect consistent ischemia. (07/26/2007) C ardiac Cath: EF - 55%. M ild hypokinesis. % LAD stenosis: mid 50%, 30% distal. % posterolateral branch stenosis: 50-60%. (08/02/2007) C ardiac Cath Comments: Successful stenting of the LAD with a 3.0 x 12mm Taxus stent. (08/02/2007) C arotid Doppler/Duplex: Minimal smooth atherosclerotic plaque (<39%). Antegrade flow in both vertebrals. (07/22/2008) Ayla Bourgeois MD FU: T he following medications were removed from the medication list: Aspirin 81 Mg Tabs (Aspirin) ..... One tab. daily Her updated medication list for this problem includes: Imdur Tb24 (Isosorbide mononitrate tb24) ..... 150mg one tab. daily Plavix 75 Mg Tabs (Clopidogrel bisulfate) ..... One tab. daily Toprol Xl Tb24 (Metoprolol succinate tb24) ..... 150 mg twice daily Ranexa 1000 Mg Tb12 (Ranolazine) ..... One tab. twice daily Aspirin 81 Mg Tabs (Aspirin) ..... One tab. daily Nitroglycerin Pt24 (Nitroglycerin pt24) ..... As needed Tricor Tabs (Fenofibrate tabs) ..... Once daily Caduet 10-20 Mg Tabs (Amlodipine-atorvastatin) ..... One tab. daily Lovaza 1 Gm Caps (Vnbnr-3-lwhm ethyl esters) BP today: 113/70 Prior BP: 103/67 (07/15/2008) N uclear Stress Findings: EF - 49% N o EKG changes diagnostic for ischemia. M oderate sized reversible anteroapcial defect consistent ischemia. (07/26/2007) C ardiac Cath: EF - 55%. M ild hypokinesis. % LAD stenosis: mid 50%, 30% distal. % posterolateral branch stenosis: 50-60%. (08/02/2007) C ardiac Cath Comments: Successful stenting of the LAD with a 3.0 x 12mm Taxus stent. (08/02/2007) C arotid Doppler/Duplex: Minimal smooth atherosclerotic plaque (<39%). Antegrade flow in both vertebrals. (07/22/2008) Ayla Bourgeois MD FU Ayla Bourgeois MD FU: H er updated medication list for this problem includes: Tricor Tabs (Fenofibrate tabs) ..... Once daily Caduet 10-20 Mg Tabs (Amlodipine-atorvastatin) ..... One tab. daily Lovaza 1 Gm Caps (Xdabc-3-rvae ethyl esters) Ayla Bourgeois MD FU: T he following medications were removed from the medication list: Aspirin 81 Mg Tabs (Aspirin) ..... One tab. daily Her updated medication list for this problem includes: Imdur Tb24 (Isosorbide mononitrate tb24) ..... 150mg one tab. daily Plavix 75 Mg Tabs (Clopidogrel bisulfate) ..... One tab. daily Toprol Xl Tb24 (Metoprolol succinate tb24) ..... 150 mg twice daily Ranexa 1000 Mg Tb12 (Ranolazine) ..... One tab. twice daily Aspirin 81 Mg Tabs (Aspirin) ..... One tab. daily Nitroglycerin Pt24 (Nitroglycerin pt24) ..... As needed BP today: 113/70 Prior BP: 103/67 (07/15/2008) N uclear Stress Findings: EF - 49% N o EKG changes diagnostic for ischemia. M oderate sized reversible anteroapcial defect consistent ischemia. (07/26/2007) C ardiac Cath: EF - 55%. M ild hypokinesis. % LAD stenosis: mid 50%, 30% distal. % posterolateral branch stenosis: 50-60%. (08/02/2007) C ardiac Cath Comments: Successful stenting of the LAD with a 3.0 x 12mm Taxus stent. (08/02/2007) C arotid Doppler/Duplex: Minimal smooth atherosclerotic plaque (<39%). Antegrade flow in both vertebrals. (07/22/2008) E chocardiogram: EF - 60%. D iastolic dysfunction. B orderline LVH. M itral annular calcification. M inimal mitral regurgitation. M inimal to mild tricuspid regurgitation. (02/21/2008) Ayla Bourgeois MD routine : T he following medications were removed from the medication list: Lipitor 80 Mg Tabs (Atorvastatin calcium) ..... One tab. daily Her updated medication list for this problem includes: Imdur Tb24 (Isosorbide mononitrate tb24) ..... 180mg one tab. daily Plavix 75 Mg Tabs (Clopidogrel bisulfate) ..... One tab. daily Toprol Xl Tb24 (Metoprolol succinate tb24) ..... 150 mg daily Ranexa 1000 Mg Tb12 (Ranolazine) ..... One tab. twice daily Aspirin 81 Mg Tabs (Aspirin) ..... One tab. daily Nitroglycerin Pt24 (Nitroglycerin pt24) ..... As needed Aspirin 81 Mg Tabs (Aspirin) ..... One tab. daily Tricor Tabs (Fenofibrate tabs) ..... Once daily Caduet 10-20 Mg Tabs (Amlodipine-atorvastatin) BP today: 103/67 Prior BP: 122/74 (04/19/2008) N uclear Stress Findings: EF - 49% N o EKG changes diagnostic for ischemia. M oderate sized reversible anteroapcial defect consistent ischemia. (07/26/2007) C ardiac Cath: EF - 55%. M ild hypokinesis. % LAD stenosis: mid 50%, 30% distal. % posterolateral branch stenosis: 50-60%. (08/02/2007) C ardiac Cath Comments: Successful stenting of the LAD with a 3.0 x 12mm Taxus stent. (08/02/2007) C arotid Doppler/Duplex: normal: (06/15/2005) Ayla Bourgeois MD routine : H er updated medication list for this problem includes: Imdur Tb24 (Isosorbide mononitrate tb24) ..... 180mg one tab. daily Plavix 75 Mg Tabs (Clopidogrel bisulfate) ..... One tab. daily Toprol Xl Tb24 (Metoprolol succinate tb24) ..... 150 mg daily Ranexa 1000 Mg Tb12 (Ranolazine) ..... One tab. twice daily Aspirin 81 Mg Tabs (Aspirin) ..... One tab. daily Nitroglycerin Pt24 (Nitroglycerin pt24) ..... As needed Aspirin 81 Mg Tabs (Aspirin) ..... One tab. daily BP today: 103/67 Prior BP: 122/74 (04/19/2008) N uclear Stress Findings: EF - 49% N o EKG changes diagnostic for ischemia. M oderate sized reversible anteroapcial defect consistent ischemia. (07/26/2007) C ardiac Cath: EF - 55%. M ild hypokinesis. % LAD stenosis: mid 50%, 30% distal. % posterolateral branch stenosis: 50-60%. (08/02/2007) C ardiac Cath Comments: Successful stenting of the LAD with a 3.0 x 12mm Taxus stent. (08/02/2007) C arotid Doppler/Duplex: normal: (06/15/2005) E chocardiogram: EF - 60%. D iastolic dysfunction. B orderline LVH. M itral annular calcification. M inimal mitral regurgitation. M inimal to mild tricuspid regurgitation. (02/21/2008) Ayla Bourgeois MD office visit: H er updated medication list for this problem includes: Toprol Xl 100 Mg Tb24 (Metoprolol succinate) ..... One tab daily Aspirin 81 Mg Tabs (Aspirin) ..... One tab. daily Ayla Bourgeois MD office visit Ayla Bourgeois MD office visit:Please adjust cholesterol medication to keep LDL less than 70 and HDL greater than 50 Her updated medication list for this problem includes: Lipitor 80 Mg Tabs (Atorvastatin calcium) ..... One tab. daily Ayla Bourgeois MD office visit: H er updated medication list for this problem includes: Imdur Tb24 (Isosorbide mononitrate tb24) ..... 180mg one tab. daily Plavix 75 Mg Tabs (Clopidogrel bisulfate) ..... One tab. daily Toprol Xl 100 Mg Tb24 (Metoprolol succinate) ..... One tab daily Ranexa 1000 Mg Tb12 (Ranolazine) ..... One tab. twice daily Lipitor 80 Mg Tabs (Atorvastatin calcium) ..... One tab. daily Aspirin 81 Mg Tabs (Aspirin) ..... One tab. daily Nitroglycerin Pt24 (Nitroglycerin pt24) ..... As needed N uclear Stress Findings: EF - 49% N o EKG changes diagnostic for ischemia. M oderate sized reversible anteroapcial defect consistent ischemia. (07/26/2007) E cho: EF - 60%. D iastolic dysfunction. B orderline LVH. M itral annular calcification. M inimal mitral regurgitation. M inimal to mild tricuspid regurgitation. (02/21/2008) C ardiac Cath: EF - 55%. M ild hypokinesis. % LAD stenosis: mid 50%, 30% distal. % posterolateral branch stenosis: 50-60%. (08/02/2007) C ardiac Cath Comments: Successful stenting of the LAD with a 3.0 x 12mm Taxus stent. (08/02/2007) C arotid Doppler/Duplex: normal: (06/15/2005) Ayla Bourgeois MD signature:Please adj ust cholesterol medication to keep LDL less than 70 and HDL greater than 50 Her updated medication list for this problem includes: Lipitor 80 Mg Tabs (Atorvastatin calcium) ..... One tab. daily Ayla Bourgeois MD Date Name Carotid Duplex Bilat eral Complete Echo Stress Regadenoson Complete Echo HEMOGLOBIN A1c COMPREHENSIVE METABO LIC PANEL, W/EGFR LIPID PANEL TSH, free T4, total T3 IRON AND TOTAL IRON BINDING CAPACITY FERRITIN CBC (INCLUDES DIFF/P LT) Carotid Duplex Bilat eral Complete Echo Stress Regadenoson PROTHROMBIN TIME WIT H INR CBC (INCLUDES DIFF/P LT) LIPID PANEL BASIC METABOLIC PANE L W/EGFR Venous Doppler Bilat eral LE - Standing PROBNP, N TERMINAL HEMOGLOBIN A1c LIPID PANEL Sleep Study Home Complete Echo IRON AND TOTAL IRON BINDING CAPACITY FERRITIN Carotid Duplex Bilat eral Renal Artery Duplex Preop clearance, phn /internet/emr >5min 78609 HIGH 40-54min HISTORY OF PROCEDURES Procedure Date Procedure Name Provider Procedure Notes S tatus Complex e/m visit add on Ayla Bourgeois MD completed EKG Ayla Bourgeois MD completed EKG Ayla Bourgeois MD completed EKG Ayla Bourgeois MD completed Schedule Followup Ayla Bourgeois MD in 6 mo co mpleted EKG Ayla Bourgeois MD completed EKG Ayla Bourgeois MD completed SNOMED-CT: [id number] Current Medications Documented Ayla Bourgeois MD completed EKG Yimi Hernández MD complete d SNOMED-CT: 064803455 [id number] Current Medications Documented Yimi Hernández MD completed SNOMED-CT: 16878739 Physical Exam, Performed: Pulse Exam of Foot Alya Bourgeois MD completed SNOMED-CT: [id number] 366020 Current Medications Documented Ayla Bourgeois MD completed SNOMED-CT: [id number] Physical Exam, Performed: Pulse Exam of Foot Ayla Bourgeois MD completed SNOMED-CT: [id number] 248798 Current Medications Documented Ayla Bourgeois MD completed SNOMED-CT: 30789194 Physical Exam, Performed: Pulse Exam of Foot Ayla Bourgeois MD completed EKG Ayla Bourgeois MD completed SNOMED-CT: 196178943 139427 Current Medications Documented Ayla Bourgeois MD completed EKG Ayla Bourgeois MD completed ePrescribe - Check t his box if eRx is used Ayla Bourgeois MD completed EKG Ayla Bourgeois MD completed EKG Ayla Bourgeois MD completed EKG Ayla Bourgeois MD completed EKG Ayla Bourgeois MD completed EKG Ayla Bourgeois MD completed EKG Ayla Bourgeois MD completed
--- OUTSIDE RECORDS SUMMARY | 2025-02-16 15:55 | XMS_ITS | Encounter Summary ---
Author Organization [facility] Healthcare Address [address] [place] [address] Care Team Providers Care Gis Mapping Technician Name Role Phone Cooper Nieto MD Primary Care Provider [phone] Lourdes August NP Unavailable [phone] Mahin Dudley MD Primary Care Provider Marek Vitale MD Unavailable [phone] Encounter Details Date Type Department Care Team (Late st Contact Info) Description 03/27/2021 Telephone [facility] [address] [place] [id number] Eyal Platt, RT Social History Tobacco Use Types Packs/Day Years Used Date Smoking Tobacco: Every Day Smokeless Tobacco: Never Alcohol Use Standard Drinks/Week Comments No 0 (1 standard drink = 0.6 oz pur e alcohol) Comments No Sex and Gender Information Value Date Recorded Sex Assigned at Not on file 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 Gender Identity Not on file Sexual Orientation Not on file documented as of this encounter Plan of Treatment Not on file documented as of this encounter Visit Diagnoses Not on filedocumented in this encounter Additional Health Concerns Infection Onset Date Last Indicated Resolved Time COVID: Suspected 01/19/2022 01/19/2022 01/19/2022 7:50 PM CDT documented as of this encounter Care Teams Gis Mapping Technician Relationship Specialty Start Date End Date Cooper Nieto MD PCP - General Internal Medicine 08/25/18 03/11/24 Mahin Dudley MD [address] [place] [id number] PCP - General Family Medicine 03/12/24 Lourdes August NP Nurse Practitioner Plastic Surgery 06/10/22 Marek Vitale MD [address] [place] [address] Consulting Physician Cardiology 09/19/24 documented as of this encounter
--- OUTSIDE RECORDS SUMMARY | 2025-02-16 15:55 | XMS_ITS | Clinical Summary ---
Author Organization [facility] Address [address] [place] [id number] Care Team Providers Care Database Marketing Manager Name Role Phone Mahin Dudley MD Primary Care Provider Allergies Active Allergy Reactions Criticality Noted Date Comments Cephalosporins Hives,Rash,Unknown High 01/14/2012 Reaction: RASH, , , Reaction: Rash, Erythromycin Hives,Nausea and Vomiting,Nausea Only,Other (see comment),GI Upset,Unknown High 04/03/2008 Reaction: GI, , , Reaction: Stomach Cramps, Nausea, Feathers Unknown 02/24/2023 Metronidazole Unknown,Other (see comment) Low 02/24/2023 Reaction: Other Reaction: OTHER, , Reaction: Confusion, Other, Moxifloxacin Rash High 10/17/2009 Sulfa Antibiotics Unknown High 04/03/2008 Sulfasalazine Rash Medium 06/27/2014 Tape Other (see comment),Rash Medium 02/24/2023 Reaction: Other Reaction: OTHER;, Medications DULoxetine (CYMBALTA) 20 MG capsule TAKE 1 CAPSULE (20 MG) BY MOUTH AT BEDTIME 3 Active ezetimibe (ZETIA) 10 MG tablet ezetimibe 10 mg tablet 3 Active fluconazole (DIFLUCAN) 150 MG tablet TAKE 1 TABLET BY MOUTH FOR 1 DOSE 3 Active fluticasone propionate (FLONASE) 50 MCG/ACT nasal spray 2 sprays by Each Nostril route daily. 3 Active TRELEGY ELLIPTA 100-62.5-25 MCG/ACT AEROSOL POWDER, BREATH ACTIVATED INHALE 1 PUFF BY MOUTH ONCE A DAY 3 Active furosemide (LASIX) 20 MG tablet Take 1 tablet (20 mg total) by mouth daily. 3 Active HYDROcodone-anil taminophen (NORCO) 10-325 MG tablet 3 Active hydrOXYzine (ATARAX) 25 MG tablet Take 1 tablet (25 mg total) by mouth 3 (three) times daily. 3 Active ipratropium-alb uterol (DUONEB) 0.5-2.5 (3) MG/3ML Solution USE 1 VIAL IN NEBULIZER 4 TIMES A DAY NEEDED (DX: J44.1) 2 Active isosorbide mononitrate ER (IMDUR) 60 MG 24 hr tablet isosorbide mononitrate 60 mg tablet extended release 24 hr 2 Active levoFLOXacin (LEVAQUIN) 500 MG tablet Take 1 tablet (500 mg total) by mouth daily. 3 Active metFORMIN ER (GLUCOPHAGE-XR) 500 MG 24 hr tablet TAKE 1 TABLET BY MOUTH ONCE DAILY WITH THE EVENING MEAL 3 Active metoprolol succinate ER (TOPROL-XL) 50 MG 24 hr tablet Take 1 tablet (50 mg total) by mouth 3 (three) times daily. 3 Active montelukast (SINGULAIR) 10 MG tablet Take 1 tablet (10 mg total) by mouth daily. 3 Active nitroglycerin (NITROSTAT) 0.4 MG SL tablet nitroglycerin 0.4 mg tablet, sublingual 3 Active omeprazole (PRILOSEC) 20 MG capsule TAKE 2 CAPSULES BY MOUTH EVERY DAY BEFORE A MEAL 2 Active predniSONE 50 MG tablet Take 1 tablet (50 mg total) by mouth every morning. 3 Active ranolazine ER (RANEXA) 500 MG 12 hr tablet Take 1 tablet (500 mg total) by mouth 2 (two) times daily. 3 Active triamcinolone (KENALOG) 0.1 % cream 1 APPLICATION TO (AFFECTED) SKIN TOPICALLY DAILY 3 Active amLODIPine (NORVASC) 5 MG tablet 3 Active atorvastatin (LIPITOR) 80 MG tablet 3 Active AZELASTINE 137 MCG/SPRAY nasal spray USE 2 SPRAYS IN EACH NOSTRIL TWICE A DAY 3 Active cetirizine (ZYRTEC) 10 MG tablet Take 1 tablet (10 mg total) by mouth every evening. 3 Active clopidogrel (PLAVIX) 75 MG tablet Take 1 tablet (75 mg total) by mouth daily. 3 Active albuterol sulfate HFA 108 (90 Base) MCG/ACT inhaler INHALE 2 PUFFS EVERY 4-6 HOURS NEEDED FOR SHORTNESS OF BREATH. 3 Active Active Problems Problem Noted Date Diagnosed Date Trigger ring finger of left hand 03/11/2023 Post-menopausal osteoporosis 02/16/2023 Encounters Date Type Department Care Team Description 12/31/2024 Transcribe Orders [facility] [place] [address] Daniel Myers MD 12/31/2024 Transcribe Orders [facility] [place] [address] Daniel Myers MD 12/27/2024 10:08 AM SERVICE RIG OPERATOR - 12/27/2024 11:59 PM SERVICE RIG OPERATOR Hospital Encounter [facility] [place] [address] Mahin Dudley MD Injection Discharge Disposition: Home or Self Care (Routine Discharge) 12/27/2024 10:07 AM SERVICE RIG OPERATOR Hospital Encounter [facility] [place] [address] Daniel Myers MD Discharge Disposition: Home or Self Care (Routine Discharge) 12/27/2024 10:00 AM SERVICE RIG OPERATOR - 12/27/2024 10:06 AM [facility] Hospital Encounter [facility] [place] [address] Mahin Dudley MD Discharge Disposition: Home or Self Care (Routine Discharge) 12/27/2024 Travel 11/19/2024 Orders Only [facility] [place] [address] Mahin Dudley MD from Last 3 Months Social History Tobacco Use Types Packs/Day Years Used Date Smoking Tobacco: Every Day Cigarettes 1 50 Tobacco Cessation:Ready to Q uit: Not Asked; Counseling Given: Not Answered Comments Unknown Sex and Gender Information Value Date Recorded Sex Assigned at Female 12/13/2024 9:43 AM SERVICE RIG OPERATOR Legal Sex Female 8:58 PM CDT Gender Identity Not on file Sexual Orientation Not on file Last Filed Vital Signs Vital Sign Reading Time Taken Comments Blood Pressure 115/50 12/27/2024 10:58 AM SERVICE RIG OPERATOR Pulse 74 12/27/2024 10:58 AM SERVICE RIG OPERATOR Temperature 35.7 C (96.3 F) 12/27/2024 10:58 AM SERVICE RIG OPERATOR Respiratory Rate 18 12/27/2024 10:58 AM SERVICE RIG OPERATOR Oxygen Saturation 93% 12/27/2024 10:58 AM SERVICE RIG OPERATOR Inhaled Oxygen Concentration - - Weight 73.2 kg (161 lb 6 oz) 12/27/2024 10:58 AM SERVICE RIG OPERATOR Height 165.1 cm (5' 5 ) 02/24/2023 11:01 AM CDT Body Mass Index 26.85 02/24/2023 11:01 AM CDT Plan of Treatment Health Maintenance Due Date Last Done Comments Colorectal Cancer Screening Colonoscopy (10 Years) 1950 Hepatitis C 1969 DTaP, Tdap and Td Vaccines (1 - Tdap) 08/11/1999 08/10/1999 Annual Medicare Wellness Visit 2016 Dexa Scan (General) 2016 COVID-19 Vaccine ( season) 2024 02/16/2024, 11/26/2022, 04/08/2022, Additional history exists Lung Cancer Screening 07/23/2025 07/23/2024 , 05/02/2023, 01/16/2020, Additional history exists Mammogram Screening 08/09/2026 08/09/2024, 02/09/2023, 02/03/2021, Additional history exists Zoster Vaccines Completed 07/10/2020, 07/01, 04/30/2019, Additional history exists Pneumococcal Vaccine: 50+ Years Completed 07/13/2023, 08/02/2018 RSV Immunization or 60+ Years Completed 01/03/2024 Meningococcal B Vaccine Aged Out No l onger eligible based on patient's age to complete this topic Meningococcal Vaccine Aged Out No yevgeniy eduardo eligible based on patient's age to complete this topic RSV Immunizations Under 20 Months Aged Out No longer eligible based on patient's age to complete this topic Procedures Procedure Name Priority Date/Time Associated Diagnosis Comments SIX MINUTE WALK Routine 12/31/2024 10:46 AM SERVICE RIG OPERATOR Chronic obstructive pulmonary disease, unspecified COPD type ([facility]) PULMONARY FUNCTION TEST Routine 12/31/2024 10:46 AM SERVICE RIG OPERATOR Chronic obstructive pulmonary disease, unspecified COPD type ([facility]) COMPREHENSIVE METABOLIC PANEL Routine 12/27/2024 10:25 AM SERVICE RIG OPERATOR Post-menopausal osteoporosis CT LUNG SCREENING Routine 07/23/2024 1:2 1 PM CDT Cigarette smoker from Last 3 Months or Most Recently Relevant to Health Maintenance Results * Complete PFT (pre/post [facility], Lung Vol, Diff Capacity) (53244, 82186, 66070, 84531) (12/31/2024 10:46 AM SERVICE RIG OPERATOR) 12/31/2024 10:4 6 AM SERVICE RIG OPERATOR Narrative ESCRIPTION - 01/02/2025 11:14 AM SERVICE RIG OPERATOR Patient Name: RIVKA SANFORD Date of : 1950 Account: [id number] Facility: [facility] Location: [facility] Date of Service: 12/27/2024 Pulmonary Function Test ORDERED BY: Mahin Dudley MD INDICATION: COPD and smoking. Patient had spirometry before and after bronchodilators, lung volumes, diffusion lung capacity. Pulmonary function test is acceptable and reproducible. Baseline spirometry shows moderate airway obstruction. FEV1 is 1.47 liters or 68%, FVC 78% with ratio FEV1/FVC of 0.67, small response to bronchodilators, FEV1 improved by 5%. Normal total lung capacity 101% with increased RV 246%, consistent with air trapping. Reduced diffusion lung capacity down to 68%. IMPRESSION: Moderate airway obstruction with baseline FEV1 of 68%, air trapping, and reduced diffusion lung capacity, small response to bronchodilators. Clinical correlation is required. Signature/Date: Arabella MYERS MD #[id number] /PUS Daniel Myers MD PFT ORDERABLES Final Result ESCRIPTION * (ABNORMAL) COMPREHENSIVE METABOLIC PANEL (12/27/2024 10:25 AM SERVICE RIG OPERATOR) SODIUM S/P/B 141 136 - 145 MMOL/L 12/27/2024 10:48 AM [facility] POTASSIUM S/P/B 3.8 3.5 - 5.1 MMOL/L 12/27/2024 10:48 AM [facility] CHLORIDE S/P/B 103 98 - 107 MMOL/L 12/27/2024 10:48 AM [facility] CO2 30.8 21.0 - 32.0 MMOL/L 12/27/2024 10:48 AM [facility] GLUCOSE 140(H) 70 - 99 MG/DL 12/27/2024 10:48 AM [facility] Comment: FASTING GLUCOSE 100 TO 125 MG/DL IS CONSISTENT WITH IMPAIRED FASTING GLUCOSE. FASTING GLUCOSE >125 MG/DL IS CONSISTENT WITH DIABETES. RANDOM GLUCOSE >200 MG/DL WITH HYPERGLYCEMIC SYMPTOMS IS CONSISTENT WITH DIABETES. PER ADA GUIDELINES BUN 19 6 - 24 MG/DL 12/27/2024 10:48 AM [facility] CREATININE S/P/B 1.01 0.55 - 1.02 MG/DL 12/27/2024 10:48 AM [facility] CALCIUM S/P/B 8.9 8.4 - 10.5 MG/DL 12/27/2024 10:48 AM [facility] BILIRUBIN TOTAL S/P/B 0.4 0.2 - 1.0 MG/DL 12/27/2024 10:48 AM [facility] Comment: THIS ASSAY IS NOT RECOMMENDED FOR PATIENTS UNDERGOING TREATMENT WITH ELTROMBOPAG DUE TO THE POTENTIAL FOR FALSELY ELEVATED RESULTS. ALKALINE PHOSPHATASE S/P/B 53(L) 55 - 142 U/L 12/27/2024 10:48 AM SERVICE RIG OPERATOR [facility] AST 21 15 - 37 U/L 12/27/2024 10:48 AM SERVICE RIG OPERATOR [facility] ALT 25 14 - 59 U/L 12/27/2024 10:48 AM [facility] TOTAL PROTEIN S/P/B 6.6 6.4 - 8.2 G/DL 12/27/2024 10:48 AM SERVICE RIG OPERATOR [facility] ALBUMIN S/P/B 3.3(L) 3.4 - 5.0 G/DL 12/27/2024 10:48 AM SERVICE RIG OPERATOR [facility] ANION GAP 7.2 5.0 - 15.0 MMOL/L 12/27/2024 10:48 AM [facility] OSMOLALITY (CALC) 297 MOSM/KG 025 10:48 AM [facility] Comment:REFERENCE RANGE NOT ESTABLISHED GFR ESTIMATE 59(L) >89 ML/MIN/1. 73 M2 12/27/2024 10:48 AM [facility] GFR NOTES GFR REFERENCE S: 12/27/2024 10:48 AM [facility] Comment: THE ESTIMATED GFR IS CALCULATED USING THE 2020 CKD-EPI EQUATION. THE FOLLOWING CATEGORIES FOR GRADING RENAL FUNCTION ARE RECOMMENDED BY THE INTERNATIONAL SOCIETY OF NEPHROLOGY (KDIGO 2012 CLINICAL PRACTICE GUIDELINE). G1,NORMAL OR HIGH: >89 ml/min/1.73 m2 G2,MILDLY DECREASED: 60-89 ml/min/1.73 m2 G3A,MILDLY TO MODERATELY DECREASED: 45-59 ml/min/1.73 m2 G3B,MODERATELY TO SEVERELY DECREASED: 30-44 ml/min/1.73 m2 G4,SEVERELY DECREASED: 15-29 ml/min/1.73 m2 G5,KIDNEY FAILURE: <15 ml/min/1.73 m2 12/27/2024 10:2 5 AM SERVICE RIG OPERATOR us Mahin Dudley MD LABORATORY Final Resul t [facility] [address] [place] [address], * CT LUNG SCREENING (07/23/2024 1:21 PM CDT) Anatomical Region Laterality Modality Chest Computed Tomogra phy 08/03/2024 11:0 8 AM CDT Impressions 08/03/2024 11:17 AM CDT IMPRESSION: 1. LUNG-RADS category 1: Negative, no evidence of primary lung cancer. 2. LUNG-RADS category S: Dense coronary artery calcifications. 3. Other incidental findings as above. RECOMMENDATIONS: Continued routine annual LDCT lung screening. Suggest next exam on or around 07/24/2025 Thank you for choosing the [facility]. Ordered By: DANIEL MYERS Interpreted By: Kimmy Alan MD, 08/03/2024 11:08 AM Narrative 08/03/2024 11:17 AM CDT [address] [place] [address] EXAM: LUNG SCREENING LOW-DOSE CT THORAX WITHOUT CONTRAST DATE: 07/23/2024. There was a delay in the final report for this exam due to attempts made to obtain outside prior comparison CT images from [facility] and [facility] which were unsuccessful through 08/03/2024. A final report is being issued without these comparisons exams available for direct visual comparison. HISTORY: Asymptomatic patient with history of smoking meeting CMS high-risk criteria for lung screening. * 74 years * 20 pack years or greater * Current smoker or have quit smoking within the last 15 years COMPARISON: Reports only from outside prior CT of the chest 05/02/2023, 01/16/2020, 12/06/2018 TECHNIQUE: Noncontrast, helical, low-dose CT (LDCT) chest per standard departmental protocol. A dose lowering technique was used for this procedure, which may include, but is not limited to, dose reduction technique, automated exposure control, the use of iterative reconstruction, and ALARA (As Low As Reasonably Achievable) / Image Gently techniques. FINDINGS: Lung Screening Specific (LUNG-RADS): Negative. Potentially Significant Incidentals (LUNG-RADS category S): Dense coronary artery calcifications. Pulmonary Incidentals: Multifocal atelectasis and/or scarring throughout the lungs with bandlike atelectasis at the right lung base. Mild groundglass and reticular opacities opacities in a peripheral basilar distribution are likely inflammatory or related to early fibrotic change. Mild emphysema. Other Incidentals: Atherosclerotic calcification of the thoracic and upper abdominal aorta. Aortic valvular calcification. Probable exophytic right renal cyst. Osteopenia. Multilevel spondylosis Procedure Note Kimmy Alan MD - 08/03/20[address] [facility] [address] [place] [address] EXAM: LUNG SCREENING LOW-DOSE CT THORAX WITHOUT CONTRAST DATE: 07/23/2024. There was a delay in the final report for this exam dueto attempts made to obtain outside prior comparison CT images from [facility] which were unsuccessful through 08/03/2024. A finalreport is being issued without these comparisons exams available fordirect visual comparison. HISTORY: Asymptomatic patient with history of smoking meeting CMShigh-risk criteria for lung screening. * 74 years * 20 pack years or greater * Current smoker or have quit smoking within the last 15 years COMPARISON: Reports only from outside prior CT of the chest 05/02/2023,01/16/2020, 12/06/2018 TECHNIQUE: Noncontrast, helical, low-dose CT (LDCT) chest per standarddepartmental protocol. A dose lowering technique was used for thisprocedure, which may include, but is not limited to, dose reductiontechnique, automated exposure control, the use of iterativereconstruction, and ALARA (As Low As Reasonably Achievable) / Image Gentlytechniques. FINDINGS: Lung Screening Specific (LUNG-RADS): Negative. Potentially Significant Incidentals (LUNG-RADS category S): Dense coronaryartery calcifications. Pulmonary Incidentals: Multifocal atelectasis and/or scarring throughoutthe lungs with bandlike atelectasis at the right lung base. Mildgroundglass and reticular opacities opacities in a peripheral basilardistribution are likely inflammatory or related to early fibrotic change.Mild emphysema. Other Incidentals: Atherosclerotic calcification of the thoracic and upperabdominal aorta. Aortic valvular calcification. Probable exophytic rightrenal cyst. Osteopenia. Multilevel spondylosis IMPRESSION: 1. LUNG-RADS category 1: Negative, no evidence of primary lung cancer. 2. LUNG-RADS category S: Dense coronary artery calcifications. 3. Other incidental findings as above. RECOMMENDATIONS: Continued routine annual LDCT lung screening. Suggestnext exam on or around 07/24/2025 Thank you for choosing the [facility]. Ordered By: DANIEL MYERS Interpreted By: Kimmy Alan MD, 08/03/2024 11:08 AM us Daniel Myers MD CT Final Result from Last 3 Months or Most Recently Relevant to Health Maintenance Insurance MEDICAID [facility] Care Teams Database Marketing Manager Relationship Specialty Start Date End Date Mahin Dudley MD [address] [place] [phone] PCP - General FAMILY PRACTICE 02/24/23
--- OUTSIDE RECORDS SUMMARY | 2025-02-16 15:55 | XMS_ITS | Encounter Summary ---
Author Organization [facility] Address [address] [place] [address] Care Team Providers Care Administrative Secretary Name Role Phone Cooper Nieto MD Primary Care Provider [phone] Lourdes Augsut NP Unavailable [phone] Mahin Dudley MD Primary Care Provider [phone] Marek Vitale MD Unavailable [phone] Encounter Details Date Type Department Care Team (Late st Contact Info) Description 01/01/2021 Telephone [facility] [address] [place] [id number] Eyal Platt, RT Social History Tobacco Use Types Packs/Day Years Used Date Smoking Tobacco: Every Day Smokeless Tobacco: Never Alcohol Use Standard Drinks/Week Comments No 0 (1 standard drink = 0.6 oz pur e alcohol) Comments No Sex and Gender Information Value Date Recorded Sex Assigned at Not on file 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 Gender Identity Not on file Sexual Orientation Not on file documented as of this encounter Plan of Treatment Not on file documented as of this encounter Visit Diagnoses Not on filedocumented in this encounter Additional Health Concerns Infection Onset Date Last Indicated Resolved Time COVID: Suspected 01/19/2022 01/19/2022 01/19/2022 7:50 PM CDT documented as of this encounter Care Teams Administrative Secretary Relationship Specialty Start Date End Date Cooper Nieto MD PCP - General Internal Medicine 08/25/18 03/11/24 Mahin Dudley MD [address] [place] [id number] PCP - General Family Medicine 03/12/24 Lourdes August NP Nurse Practitioner Plastic Surgery 06/10/22 Marek Vitale MD [address] [place] [address] Consulting Physician Cardiology 09/19/24 documented as of this encounter
--- OUTSIDE RECORDS SUMMARY | 2025-02-16 15:55 | XMS_ITS | Clinical Summary ---
Author Organization [facility] Address [address] [facility] [place] [address] Care Team Providers Care Security Advisor Name Role Phone Ketan Nguyễn MD Primary Care Provider [phone] Source Comments [facility],non-owned Affiliates and Associated Physician Practices is amultiple site organization consisting of ambulatory clinics and hospital sitesin [place], [place], [place] and [place]. This disclosure is being madepursuant to the Care Everywhere program and may not contain all information available regarding this patient. Last updated 18.[facility] Allergies Active Allergy Reactions Criticality Noted Date Comments Cephalosporins 05/25/2014 Erythromycin 05/25/2014 Sulfa Drugs 05/25/2014 Medications * Be aware that medications may not be up to date on this document. Alwaysverify current medications with the patient. cyclobenzaprine (FLEXERIL) 10 MG tablet Take 10 mg by mouth 3 times daily as needed for Muscle Spasms. Active amLODIPine (NORVASC) 10 MG tablet Take 10 mg by mouth once daily. Active metoprolol tartrate IR (LOPRESSOR) 50 MG tablet Take 150 mg by mouth once daily Active DULoxetine (CYMBALTA) 60 MG capsule Take 60 mg by mouth once daily. Active diphenhydrAMINE (BENADRYL) 25 MG capsule Take 25 mg by mouth every 4 hours as needed for Itching. Active hydrocodone-anil taminophen (NORCO) 5-325 MG tablet Take 1 Tab by mouth every 4 hours as needed for Pain. Active Ranolazine (RANEXA PO) Take 1,000 mg by mouth every 12 hours Active furosemide (LASIX) 20 MG tablet Take 20 mg by mouth once daily. Active omeprazole (PRILOSEC) 20 MG capsule Take 20 mg by mouth daily before breakfast. Active donepezil (ARICEPT) 10 MG tablet Take 10 mg by mouth at bedtime. Active nitroglycerin (NITROSTAT) 0.4 MG tablet Dissolve 0.4 mg under the tongue every 5 minutes as needed for Angina. Active clopidogrel (PLAVIX) 75 MG tablet Take 75 mg by mouth once daily. Active ALPRAZolam (XANAX) 0.5 MG tablet Take 0.5 mg by mouth 3 times daily as needed for Anxiety Active atorvastatin (LIPITOR) 80 MG tablet Take 80 mg by mouth at bedtime. Active isosorbide mononitrate CR 24hr (IMDUR) 60 MG tablet Take 60 mg by mouth once daily. Active nystatin (MYCOSTATIN) 317072 UNIT/ML suspension Take 5 mL by mouth 4 times daily. Active fluticasone-delma meterol (ADVAIR) 250-50 MCG/DOSE inhaler Inhale 1 Puff by mouth 2 times daily Active albuterol (PROVENTIL;VENT KENNEDY) (2.5 MG/3ML) 0.083% nebulizer solution Inhale 1 Vial by mouth 4 times daily as needed for Shortness of Breath or Wheezing Active aspirin (ASPIRIN) 81 MG chew tablet Take 81 mg by mouth once daily Active azelastine (ASTELIN) 0.1 % nasal spray Spade 2 Sprays into each nostril 2 times daily Active montelukast (SINGULAIR) 10 MG tablet Take 10 mg by mouth at bedtime Active hydroxychloroqu ine (PLAQUENIL) 200 MG tablet Take 200 mg by mouth 2 times daily Active denosumab (PROLIA) 60 MG/ML SC injection Inject 60 mg subcutaneously every 30 days Active albuterol HFA (PROVENTIL;VENT KENNEDY;PROAIR) 108 (90 BASE) MCG/ACT inhaler Inhale 2 Puffs by mouth every 4 hours as needed Active cyanocobalamin (VITAMIN B-12) 1000 MCG tablet Take 1,000 mcg by mouth once daily Active Cholecalciferol (VITAMIN D3) 94106 UNITS TABS Take 1 Tab by mouth every 7 days Active Social History Tobacco Use Types Packs/Day Years Used Date Smoking Tobacco: Some Days Cigarettes 0.5 40 Smokeless Tobacco: Never Alcohol Use Standard Drinks/Week Comments No 0 (1 standard drink = 0.6 oz pur e alcohol) Comments Unknown Sex and Gender Information Value Date Recorded Sex Assigned at Not on file 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 Gender Identity Not on file Sexual Orientation Not on file Last Filed Vital Signs Vital Sign Reading Time Taken Comments Blood Pressure 108/54 06/15/2017 10:45 AM CDT Pulse 75 06/15/2017 10:50 AM CDT Temperature 36.2 C (97.2 F) 06/15/2017 7:37 AM CDT Respiratory Rate 21 06/15/2017 10:50 AM CDT Oxygen Saturation 97% 06/15/2017 10:50 AM CDT Inhaled Oxygen Concentration - - Weight 78.7 kg (173 lb 9.6 oz) 06/15/2017 7:37 A M CDT Height 167.6 cm (5' 6 ) 06/15/2017 7:37 AM CDT Body Mass Index 28.02 06/15/2017 7:37 AM CDT Plan of Treatment Health Maintenance Due Date Last Done Comments BONE DENSITY TESTING 1950 COLOGUARD (AGES 45-75) - COL ON CA SCREENING 1950 COLON MONITORING 1951 COLONOSCOPY - COLON CA SCREENING 1950 CT COLONOGRAPHY - COLON CA SCREENING 1950 Colorectal Cancer Screening 1950 FIT - COLON CA SCREENING 1950 FLEX SIG - COLON CA SCREENING 1950 MAMMOGRAM 1950 HEPATITIS C SCREENING 03/16/1969 DTAP/TDAP/TD VACCINES (1 - Tdap) 1970 PNEUMOCOCCAL VACCINE 50+ (1 of 1 - PCV) 2001 ZOSTER VACCINE (1 of 2) 2001 COVID-19 VACCINE ( - 2023-2 5 season) 2024 DEPRESSION SCREENING 10/31/2024 INFLUENZA VACCINE (Season Ended) 2025 07/30/20 16 Respiratory Syncytial Virus (RSV) Vaccine Pt: or over 60 yrs (1 - 1-dose 75+ series) 2026 HEPATITIS B VACCINE Aged Out No longe r eligible based on patient's age to complete this topic HIB VACCINE Aged Out No longer eligi ble based on patient's age to complete this topic HPV VACCINE Aged Out No longer eligi ble based on patient's age to complete this topic MENINGOCOCCAL (Group B) VACC INE SHARED DECISION-MAKING Aged Out No longer eligibl e based on patient's age to complete this topic MENINGOCOCCAL GROUPS A/C/Y/W VACCINE Aged Out No longer eligible b ased on patient's age to complete this topic Insurance MEDICARE MEDICAID - [place] MEDICARE MEDICAID - OUT OF STATE Advance Directives * Full Code (Latest Code Status on File) Date Activated Date Inactivated Comments 06/15/2017 9:09 AM 06/15/2017 3:14 PM * Full Code Date Activated Date Inactivated Comments 05/25/2014 7:36 PM 05/25/2014 10:27 PM Care Teams Security Advisor Relationship Specialty Start Date End Date Ketan Nguyễn MD [address] [place] [address] PCP - General Family Medicine 05/25/14
[2025-02-16 16:00] VITALS: BP 142/60; PULSE 72; RESP 16; TEMP 36.4; O2SAT 96
--- OUTSIDE RECORDS SUMMARY | 2025-02-16 16:07 | XMS_ITS | CONTINUITY OF CARE DOCUMENT ---
Author Name bonnie nicole Address Unknown Organization [facility] Address [address] [place] [address] Phone [phone] Care Team Providers Care Pole Classifier Name Role Phone Bk RANDALL, Ayla Unavailable [phone] ADAN BARRAZA MD Unavailable [phone] ADAN BARRAZA MD Unavailable [phone] PROBLEMS Condition Status Date Provider Notes Dyspnea on exertion--stress nuc nl, 04/2023 active Shekhar Hewitt Hyperlipidemia active Ayla Bourgeois MD Fatigue active Sylvester Bustillo Iron deficiency anemia active Savanna Raquel Efrain son CERVICAL CANCER active Rachna Noble CAD-08/06 TAXUS LAD, multipl e RCA stents, , small rev lat wall defect on nuc 01/2021 active Ayla Bourgeois MD TOBACCO ABUSE active Ayla Bourgeois MD DIARRHEA completed - Ayla Bourgeois MD hx of Microvascular angina;h ad ecp completed - Ayla Bourgeois MD PREDIABETES; active Yimi Hernández MD Venous insufficiency active Ayla Bourgeois MD Acute back pain with sciatica active Ayla Bourgeois MD Cardiology examination active Shekhar Hewitt Jaw pain completed - Ayla Bourgeois MD B12 deficiency completed - Ayla Bourgeois MD Vitamin D deficiency active Yimi Velazquez EMPHYSEMA active Ayla Bourgeois MD SLEEP APNEA ON HOME 02 active Ayla Bourgeois MD ANGINA PECTORIS-NO NEW LESIO NS ON completed - Ayla Bourgeois MD HTN ESSENTIAL--echo ef nl, 04/2023 active Shekhar Kash CAD-07/08 CAROTID NEG completed - Ayla Bourgeois MD ENCOUNTERS Date Type Provider Location Encounter Diag nosis - In-person encounter Office Visit Ayla Bourgeois MD [facility] Cardiology examinati on - In-person encounter Office Visit Ayla Bourgeois MD [facility] hx of Microvascular angina;had ecpJaw pain - In-person encounter Office Visit Ayla Bourgeois MD [facility] - In-person encounter Office Visit Ayla Bourgeois MD [facility] Acute back pain with sciatica - In-person encounter Office Visit Ayla Bourgeois MD [facility] - In-person encounter Office Visit Ayla Bourgeois MD [facility] - In-person encounter Office Visit Ayla Bourgeois MD Tele[facility] - In-person encounter Office Visit Ayla Bourgeois MD [facility] hx of Microvascular angina;had ecpB12 deficiencyVenous insufficiency - In-person encounter Office Visit Ayla Bourgeois MD [facility] - In-person encounter Office Visit Ayla Bourgeois MD [facility] - In-person encounter Office Visit Ayla Bourgeois MD [facility] - In-person encounter Office Visit Ayla Bourgeois MD [facility] - In-person encounter Office Visit Yimi Hernández MD [facility] CAD-08/06 TAXUS LAD, multiple RCA stents, , small rev lat wall defect on nuc 01/2021Vitamin D deficiencyPREDIABETES; - In-person encounter Office Visit Ayla Bourgeois MD [facility] - In-person encounter Office Visit Ayla Bourgeois MD [facility] - In-person encounter Office Visit Ayla Bourgeois MD [facility] - In-person encounter Office Visit Ayla Bourgeois MD [facility] - In-person encounter Office Visit Ayla Bourgeois MD [facility] - In-person encounter Office Visit Ayla Bourgeois MD [facility] CAD-07/08 CAROTID NEGANGINA PECTORIS-NO NEW LESIONS ON CATH11/09CAD-08/06 TAXUS LAD, multiple RCA stents, , small rev lat wall defect on nuc IARRHEA - In-person encounter Office Visit Ayla Bourgeois MD [facility] - In-person encounter Office Visit Ayla Bourgeois MD [facility] - In-person encounter Office Visit Ayla Bourgeois MD [facility] - In-person encounter Office Visit Ayla Bourgeois MD [facility] - In-person encounter Office Visit Ayla Bourgeois MD [facility] - In-person encounter Office Visit Ayla Bourgeois MD [facility] - In-person encounter Office Visit Ayla Bourgeois MD [facility] - In-person encounter Office Visit Ayla Bourgeois MD [facility] - In-person encounter Office Visit [facility] - In-person encounter Office Visit Ayla Bourgeois MD [facility] - In-person encounter Office Visit Ayla [facility] SLEEP APNEA ON HOME 02TOBACCO ABUSE - In-person encounter Office Visit [facility] [place] - In-person encounter Office Visit Ayla Bourgeois MD [facility] - In-person encounter Office Visit Augie Pugh MD [facility] - In-person encounter Office Visit Ayla Bourgeois MD [facility] - In-person encounter Office Visit Ayla Bourgeois MD [facility] - In-person encounter Office Visit Ayla Bourgeois MD [facility] HTN ESSENTIAL--echo ef nl, NGINA PECTORIS-NO NEW LESIONS ON CATH11/09CAD-08/06 TAXUS LAD, multiple RCA stents, , small rev lat wall defect on nuc MPHYSEMA - In-person encounter Office Visit Ayla Bourgeois MD [facility] - In-person encounter Office Visit Ayla Bourgeois MD [facility] SLEEP APNEA ON HOME - In-person encounter Office Visit Ayla Bourgeois MD [facility] - In-person encounter Office Visit Ayla Bourgeois MD [facility] VITAL SIGNS Date Observation Value Provider [...] % Sasha Bartlett weight E&M 160 [lb_av] Sasahsteph Bartlett respiratory rate E&M 12 /min Sasha [...] Patito Moreno height E&M 66 [in_i] Patito Morneo blood pressure, diastolic 69 mm[Hg] Kristi Ambriz [...] /min Fernando Ordonez weight E&M 182 [lb_av] [place] Ordonez height E&M 66 [in_i] Fernando Ordonez Body Mass Index (Ratio) 28.08 kg/m2 Pravin Bourgeois MD blood pressure, diastolic 68 mm[Hg] Isaiah Martinez blood pressure, systolic 121 mm[Hg] Emilee Martinez oxygen saturation, oximetry 94 % Brice Martinez respiratory rate E&M 18 /min Je Martinez pulse rate 77 /min Brice rm weight E&M 174 [lb_av] Brice Miguel kit height E&M 66 [in_i] Brice Miguel [facility] Body Mass Index (Ratio) 28.57 kg/m2 Pravin Bourgeois MD blood pressure, diastolic 58 mm[Hg] David daniels Rod blood pressure, systolic 134 mm[Hg] Tommy scanlon [facility] oxygen saturation, oximetry 97 % [facility] respiratory rate E&M 15 /min Francesca [facility] pulse rate 77 /min [facility] E&M 177 [lb_av] [facility] height E&M 66 [in_i] [facility] Body Mass Index (Ratio) 29.82 kg/m2 Adrienne [...] Marsha Arndtby pulse rate 71 /min [facility] [place] respiratory rate E&M 16 /min [facility] [place] oxygen saturation, oximetry 98 % [facility] [place] weight E&M 191.0 [lb_av] [facility] [place] blood pressure, cuff size regular Ralph Arndtby height E&M 66 [in_i] [facility] [place] blood pressure, diastolic 66 mm[Hg] Me kalpana [...] guillermo Harvey blood pressure, systolic 116 mm[Hg] Alonrda Harvey pulse rate 99 /min Ninfa Harvey [...] Mass Index (Ratio) 29.64 kg/m2 Nemo davila Quiros pulse rate 74 /min Jahaira Quiros oxygen [...] pressure, systolic, left arm 90 mm[ Hg] [facility], diastolic, right arm 53 m m[Hg] [facility] blood pressure, systolic, right arm 98 mm [Hg] [facility] pressure, diastolic 53 mm[Hg] [facility], systolic 98 mm[Hg] [facility] pulse rate 69 /min [facility] respiratory rate E&M 16 /min [facility] weight E&M 189 [lb_av] [facility] blood pressure, diastolic, left arm [...] diastolic, left arm 68 mm [Hg] [facility] blood pressure, systolic, left arm 110 mm [Hg] [facility] blood pressure, diastolic, right arm 64 m m[Hg] [facility] blood pressure, systolic, right arm 108 m m[Hg] [facility] pulse rate 72 /min [facility] oxygen saturation, oximetry 95 % [facility] respiratory rate E&M 16 /min Poppy [place] weight E&M 195 [lb_av] [facility] blood pressure, diastolic 78 mm[Hg] Reshma seph [place] blood pressure, systolic 136 mm[Hg] Bryant eph [place] pulse rate 74 /min Milton [place] oxygen saturation, oximetry 95 % [facility] [place] respiratory rate E&M 16 /min Milton [place] weight E&M 197 [lb_av] [facility] [place] blood pressure, diastolic 74 mm[Hg] Ca diana LaceyBonnie blood pressure, systolic 116 mm[Hg] Hugo Laceykermann pulse rate 81 /min [facility] oxygen saturation, oximetry 94 % [facility] respiratory rate E&M 20 /min Poppy rice [...] Benito RN pulse rate 76 /min Eduardo Beniot RN oxygen saturation, oximetry 95 % Eduardo [...] Shantell Dukes oxygen saturation, oximetry 95 % Shantell Dukes respiratory rate E&M 20 [...] (low-density lipoprotein/high-den sity lipoprotein) ratio 3.3 RATIO [facility] - lipoprotein, beta, serum, point, quantitative, calculated [...] 1.0 carbon dioxide, venous blood 23.0 mmol/L [facility] 23.0 - 31.0 calcium, serum 9.6 mg/dL [facility] 8.6 - 10.2 urea nitrogen, blood 14.0 mg/dL [facility] 8.0 - 23.0 blood glucose, random 105.0 mg/dL [facility] 74.0 - 99.0 High red blood cell distribution width, size density 42.5 fL [facility] - immature granulocytes, percentage of total cells, blood 0.2 % [facility] - nucleated red blood cells as percent of blood leukocytes 0.0 % [facility] - red blood cell (erythrocyte) count, per high power field 0.0 10*3/UL [facility] - eosinophils as percent of blood leukocytes 1.7 % [facility] - neutrophils as percent of blood leukocytes 58.3 % [facility] - Absolute Neutrophils 3.8 CELLS/UL [facility] 1.5 - 7.8 basophils as percent of blood leukocytes 0.9 % [facility] - Absolute Basophils 0.1 CELLS/UL [facility] 0.0 - 0.2 monocytes as percent of blood leukocytes 7.2 % [facility] - Absolute Monocytes 0.5 CELLS/UL [facility] 0.2 - 1.0 lymphocytes as percent of blood leukocytes 31.7 % [facility] - Absolute Lymphocytes 2.1 CELLS/UL [facility] 0.9 - 3.9 mean platelet volume 9.9 (?) [facility] - platelet count 272.0 THOUSAND/ UL [facility] 100.0 - 400.0 mean corpuscular hemoglobin concentration, RBC 33.1 G/DL [facility] 31.0 - 38.0 mean corpuscular hemoglobin, RBC 30.1 pg [facility] 25.0 - 35.0 mean corpuscular volume, RBC 90.9 fL [facility] 75.0 - 100.0 hematocrit, blood 39.0 % [facility] 35.0 - 55.0 hemoglobin, blood 12.9 g/dL [facility] 11.5 - 16.5 erythrocyte count, whole blood 4.3 MILLION/U L [facility] 3.5 - 5.5 prothrombin time (patient) 9.6 s [facility] 9.0 - 11.5 international normalized ratio (INR) 0.9 [facility] 0.9 - 1.1 pro brain natriuretic peptide 461.3 pg/mL [facility] 0.0 - 125.0 High very low density lipoproteins 26.2 mg/dL [facility] 5.0 - 40.0 LDL/HDL (low-density lipoprotein/high-den sity lipoprotein) ratio 2.3 RATIO [facility] - lipoprotein, beta, serum, point, quantitative, calculated 122.8 (?) [facility] 0.0 - 100.0 High HDL cholesterol, serum 54.0 mg/dL [facility] 45.0 - 65.0 cholesterol, serum 203.0 mg/dL [facility] 0.0 - 200.0 High triglyceride, serum, fasting 131.0 mg/dL [facility] 0.0 - 150.0 ferritin, serum 22.1 ng/mL [facility] 13.0 - 150.0 iron, serum 58.0 ug/dL [facility] 25.0 - 156.0 iron saturation percent, serum 12.1 % [facility] 20.0 - 50.0 Low iron binding capacity, total 480.2 ug/dL [facility] 250.0 - 450.0 High hemoglobin A1C, blood, as % of total hemoglobin 6.0 % [facility] 4.0 - 5.6 High troponin I <0.02 Annette Miramontes creatine kinase, serum 38 1/L Annette Miramontes anion gap, serum 8 Annette Miramontes estimated glomerular filtration rate 68 mL/min Annette Miramontes albumin/globulin ratio, serum 1.1 [facility] protein, total, serum 7.0 g/dL [facility] albumin, serum 3.6 g/dL [facility] bilirubin, serum, total 0.23 mg/dL [facility] alkaline phosphatase, serum 59 1/L [facility] alanine aminotransferase (SGPT), serum 45 1/L [facility] aspartate aminotransferase (SGOT), serum 21 1/L [facility] calcium, serum 8.9 mg/dL [facility] blood glucose, fasting 91 mg/dL [facility] creatinine, serum 0.9 mg/dL [facility] urea nitrogen, blood 13 mg/dL [facility] carbon dioxide, serum, total 30.7 mmol/L [facility] chloride, serum 103 mmol/L [facility] potassium, serum 3.8 mmol/L [facility] sodium, serum 142 mmol/L [facility] PTT patient 28.6 s [facility] prothrombin time (patient) 10.20 s [facility] international normalized ratio (INR) 0.99 [facility] monocytes as percent of blood leukocytes 7.6 % [facility] lymphocytes as percent of blood leukocytes 36.0 % [facility] platelet count 346 10*3/uL [facility] mean corpuscular hemoglobin concentration, RBC 32.1 g/dL [facility] mean corpuscular hemoglobin, RBC 25.2 pg [facility] mean corpuscular volume, RBC 78 fL [facility] hematocrit, blood 35.8 % [facility] hemoglobin, blood 11.5 g/dL [facility] erythrocyte (RBC) count 4.57 10*6/mm3 [facility] leukocyte count, blood 6.5 10*3/mm3 [facility] prothrombin time (patient) 10.1 s [facility] international normalized ratio (INR) 0.98 [facility] calcium, serum 9.1 mg/dL [facility] blood glucose, fasting 99 mg/dL [facility] creatinine, serum 0.9 mg/dL [facility] urea nitrogen, blood 13 mg/dL [facility] carbon dioxide, serum, total 34.4 mmol/L [facility] chloride, serum 103 mmol/L [facility] potassium, serum 4.3 mmol/L [facility] sodium, serum 139 mmol/L [facility] platelet count 250 10*3/uL [facility] mean corpuscular hemoglobin concentration, RBC 32.8 g/dL [facility] mean corpuscular hemoglobin, RBC 28.9 pg [facility] mean corpuscular volume, RBC 88 fL [facility] hematocrit, blood 40.2 % [facility] hemoglobin, blood 13.2 g/dL [facility] erythrocyte (RBC) count 4.56 10*6/mm3 [facility] monocytes as percent of blood leukocytes 9.8 % [facility] lymphocytes as percent of blood leukocytes 30.3 % [facility] leukocyte count, blood 7.7 10*3/mm3 [facility] Kulwinder international normalized ratio (INR) 1.0 Joie [...] TAKE 1 TABLET BY MOUTH EVERY DAY [facility] nitroglycerin 0.4 mg tablet, sublingual completed PLACE [...] TAKE 1 TABLET BY MOUTH EVERY DAY [facility] ranolazine 500 mg tablet extended release 12 hr active TAKE 1 TABLET BY MOUTH TWICE A DAY [facility] isosorbide mononitrate 60 mg tablet extended release 24 hr active TAKE 2 TABLETS BY MOUTH EVERY DAY [facility] ranolazine 500 mg tablet extended release 12 hr completed TAKE 1 TABLET BY MOUTH TWICE A DAY - Shekhar Hewitt furosemide 20 mg tablet active TAKE 1 TABLET BY MOUTH EVERY DAY NEEDED Sasha Bartlett clopidogrel 75 mg tablet active TAKE 1 TABLET BY MOUTH EVERY DAY [facility] ezetimibe 10 mg tablet completed Take 1 [...] puff twice a day Sana Duncan ERGOCALCIFEROL [id number] UNIT ORAL CAPSULE completed 1 cap once [...] Shekhar Hewitt VITAMIN D TABLET completed D2 32116 international units once weekly - Yimi Hernández [...] RELEASE 24 HOUR completed 1 daily - Nifna Harvey CYMBALTA 60 MG ORAL CAPSULE DELAYED RELEASE PARTICLES completed 1 daily - Brice Martinez LASIX 20 MG ORAL TABLET completed 1 tab bid daily - Ninfa Harvey TRICOR 145 MG ORAL TABLET completed ONE TAB. DAILY - Ninfa Harvey isosorbide mononitrate 60 mg tablet extended release 24 hr completed Take 2 tablet by mouth once a day - Shekhar ANNAON [id number] UNIT ORAL CAPSULE DELAYED RELEASE PARTICLES completed [...] active 1 tablet once a day [facility] AMOXICILLIN TABLET completed 875mg one tab . [...] Date Observation Value Provider drug use none [facility] smoking/tobacco cess ation, patient education and counseling yes [facility] number of years as a smoker less than 10 years [facility] smoking, date started 1971 [facility] smoking history, tot al pack/year 45 [facility] smoking history, tot al pack/day 1 [facility] cigarette use yes [facility] smoking status Current every day [facility] drug use none [facility] smoking/tobacco cess ation, patient education and counseling yes [facility] number of years as a smoker less than 10 years [facility], date [facility], tot al pack/year [facility], tot al pack/day 1 Shekhar [...] smoking status Current every day smoker M sulemian Pugh social history E&M Marital Statu s: L little with family/friends E thnicity: Smoking History: P atient currently smokes every day. P atient has been counseled to quit. Ayla Bourgeois MD social history reviewed E&M revi ewed - no changes required Ayla Bourgeois MD seatbelt usage 100 % [facility] exercise type swimming [facility] physical exercise, f requency, days per week 2 /wk [facility] caffeine use, averag e drinks per day 3 /d [facility] smoking/tobacco cess ation, patient education and counseling yes [facility] number of years as a smoker less than 10 years [facility] smoking, date started 1971 [facility] smoking history, tot al pack/year 45 [facility] smoking history, tot al pack/day 1 [facility] cigarette use yes [facility] smoking status Current every day smoker [facility] social history E&M Marital Statu s: L [...] of grandchildren Toniya Bourgeois MD K tiana [place] seatbelt usage 100 % [facility] exercise type swimming [facility] physical exercise, f requency, days per week 2 /wk [facility] alcohol use, average drinks per day social basis only [facility] caffeine use, averag e drinks per day 3 /d [facility] smoking/tobacco cess ation, patient education and counseling yes [facility] drug use none [facility] number of years as a smoker less than 10 years [facility] smoking, date started 1971 [facility] raquel [place] smoking history, tot al pack/year 45 [facility] smoking history, tot al pack/day 1 [facility] cigarette use yes [facility] smoking status Current every day smoker K tiana [place] smoking history, tot al pack/day 1 [facility] cigarette use yes [facility] smoking status Current every day smoker Arabella Thao exercise type swimming [facility] physical exercise, f requency, days per week 2 /wk [facility] caffeine use, averag e drinks per day 3 /d [facility] seatbelt usage 100 % Kim zhou [...] average drinks per day social basis only Birce Martinez caffeine use, averag e drinks per day yes Brice Martinez smoking/tobacco cess ation, patient education and counseling yes Brice Martinez drug use none Brice [place] [facility] number of years as a smoker less than 10 years Brice Martinez smoking, date started 1971 Geo Martinez smoking history, tot al pack/year 45 Brice Leeenson smoking history, tot al pack/day 1/2 Brice Leeenson cigarette use yes Brice Jesus francisca smoking status Current every day smoker Arabella Ammy Martinez smoking history, tot al pack/year 45 Donna Bowman RN social history reviewed E&M revi ewed [...] yes Brice Martinez drug use none Brice mr smoking/tobacco cess ation, patient education and counseling [...] E&M revi ewed - no changes required [facility] physical exercise, f requency, days per week no [facility] alcohol use, average drinks per day social basis only [facility] caffeine use, averag e drinks per day yes [facility] drug use none [facility] smoking/tobacco cess ation, patient education and counseling yes [facility] number of years as a smoker less than 10 years [facility], date [facility], tot [facility] pack/year [facility] smoking history, tot al pack/day 1/2 [facility] cigarette use yes [facility] smoking status current every day smoker Arpan andrea [facility] social history reviewed E&M revi ewed [...] Payer name Policy type / Coverage type [place] red democrat ID [id number] (PPO C-SNP) Paymate insurance [employer] [id number] HEALTHCARE AND FAMILY SERVICES Medicaid 2 [id number] ADVANCE DIRECTIVES Name Date DISCUSSED - NO DECISION MADE TREATMENT PLAN Date Name Performer [id number],Shekhar Mattson i [id number],SShekhar i [id number],SShekhar i [id number],Shekhar Mattson i [id number],Shekhar Mattson i [id number],Shekhar Mattson i [id number],Ayla Knox MD [id number],S, Ayla Bourgeois MD [id number],S, Ayla Bourgeois MD [id number],S, Ayla Bourgeois MD [id number],W, Ayla Bourgeois MD [id number],S, Shekhar Ahmedza i [id number],S, Shekhar Ahmedza i [id number],S, Shekhar Ahmedza i [id number],S, Shekhar Ahmedza i [id number],S, Shekhar Ahmedza i [id number],S, Shekhar Ahmedza i [id number],S, Shekhar Ahmedza i [id number],S, Shekhar Ahmedza i [id number],S, Shekhar Ahmedza i [id number],S, Shekhar Ahmedza i [id number],S, Shekhar Ahmedza i [id number],S, Shekhar Ahmedza i [id number],W, Teri Fernández [id number],S, Teri Fernández [id number],S, Teri Fernández [id number],N, Teri Fernández [id number],S, Ayla Bourgeois MD [id number],S, Ayla Bourgeois MD [id number],S, Ayla Bourgeois MD [id number],B, Ayla Bourgeois MD [id number],S,S ANNA ENCOURAGED TO STOP SMOKING; SMOKING CESSATION TECHNIQUES DISCUSSED. Ingris More [id number],SShekhar i [id number],SShekhar i [id number],SShekhar i [id number],S, Shekhar Soilman i [id number],S, Shekhar Soliman i [id number],SShekhar i Telehealth Ayla Bourgeois MD Telehealth Ayla [...] 1 tablet by mouth twice a day [facility] Tele[facility] Telehealth: H er updated medication list for this problem includes: Atorvastatin 80 Mg Tablet (Atorvastatin) ..... Take 1 tablet by mouth every day Ezetimibe 10 Mg Tablet (Ezetimibe) ..... Take 1 tablet by mouth every day [facility] Tele[facility]: H er updated medication list for [...] tablet by mouth three times a day [facility]: Len aviles BP: 120/48 (06/25/2024) Labs [...] tablet by mouth three times a day [facility] [facility] [place]This visi t has been a part [...] Take 1 tablet by mouth every day [facility] Cardiology:Patient w as advised to [...] (?) (06/11/2017) T.0 (06/11/2017) [facility] H er updated medication list for [...] [facility] Shekhar Prakashmedzai Telehealth- 11-20 min Shekharzaki ramoni Telehealth- 11-20 min Shekharzaki ramoni Telehealth- [...] once a day. Metoprolol Succinate 50 Mg Mu50j-vbi (Metoprolol succinate) ..... 1 tablet by mouth 3 times daily Furosemide 40 Mg Tabs (Furosemide) ..... Po daily BP today: 122/70 P rior BP: 118/66 (08/31/2016) Labs Reviewed: C reat: 0.9 (02/19/2011) Yimi Hernández MD Cardiology:will rx Yimi Hernández MD Cardiology:sees johnathon ochoa MD Cardiology Ayla Bourgeois MD Cardiology Ayla Bourgeois MD Cardiology Ayal Bourgeois MD Cardiology Ayla Bourgeois MD Cardiology [...] ..... Po daily Metoprolol Succinate 50 Mg St59b-rvy (Metoprolol succinate) ..... 1 tablet by mouth [...] ..... Po daily Metoprolol Succinate 50 Mg Vb61b-oeh (Metoprolol succinate) ..... 1 tablet by mouth 3 times daily Lipitor 80 Mg Tabs (Atorvastatin calcium) ..... Daily Nitroglycerin 0.4 Mg Subl (Nitroglycerin) ..... Use as directed for chest pain Ranexa 500 Mg Tb12 (Ranolazine) ..... 1 tablet by mouth in the morning and 2 tablets in the afternoon Isosorbide Mononitrate Er 60 Mg Qt19y-xvs (Isosorbide mononitrate) ..... 2 tablets daily Ayla Bourgeois MD follow up: H er updated medication list for this problem includes: Aspirin 81 Mg Tabs (Aspirin) ..... One tab. daily- on hold while taking med for gi infection Amlodipine Besylate 5 Mg Tabs (Amlodipine besylate) ..... Po daily Metoprolol Succinate 50 Mg Qn16l-zif (Metoprolol succinate) ..... 1 tablet by mouth [...] ..... Po daily Metoprolol Succinate 50 Mg Zy48o-bhv (Metoprolol succinate) ..... 1 tablet by mouth [...] this problem includes: Metoprolol Succinate 50 Mg Kh53q-trl (Metoprolol succinate) ..... 1 tablet by mouth [...] ..... Daily Isosorbide Mononitrate Er 60 Mg Tp17z-bfx (Isosorbide mononitrate) ..... 2 tablets daily Isosorbide Mononitrate Er 60 Mg Np63s-rns (Isosorbide mononitrate) ..... 1 daily BP today: [...] this problem includes: Metoprolol Succinate 50 Mg Hp19n-nwf (Metoprolol succinate) ..... 1 tablet by mouth [...] this problem includes: Metoprolol Succinate 50 Mg Jx90k-nnb (Metoprolol succinate) ..... 1 tablet by mouth [...] this problem includes: Metoprolol Succinate 50 Mg Js04a-kvw (Metoprolol succinate) ..... 1 tablet by mouth [...] ..... Daily Isosorbide Mononitrate Er 60 Mg Ch36u-yhd (Isosorbide mononitrate) ..... 2 tablets daily Tricor [...] this problem includes: Metoprolol Succinate 50 Mg Kr25h-yny (Metoprolol succinate) ..... 1 tablet by mouth [...] this problem includes: Metoprolol Succinate 50 Mg Yd54h-ves (Metoprolol succinate) ..... 1 tablet by mouth [...] ..... Daily Isosorbide Mononitrate Er 60 Mg Zx06v-xcj (Isosorbide mononitrate) ..... 2 tablets daily Ayla Bourgeois MD follow up Ayla Bourgeois MD follow up: H er updated medication list for this problem includes: Metoprolol Succinate 50 Mg Oj94f-zhi (Metoprolol succinate) ..... 1 tablet by mouth [...] (Amlodipine besylate) ..... Daily Imdur 60 Mg Dt73p-vvk (Isosorbide mononitrate) ..... Daily Tricor 145 Mg [...] 10 pm Isosorbide Mononitrate Cr 60 Mg Tv24j-gql (Isosorbide mononitrate) ..... 2 tabs daily Her [...] from the medication list: Imdur 60 Mg Je60m-umy (Isosorbide mononitrate) ..... 2 tablets by mouth [...] Labs Reviewed: C reat: 0.9 (02/19/2011) Ayla Bourgeosi MD folllow up: T he following medications [...] 1 tab as needed Orders: Hyun KG ([id number]) Ayla Bourgeois MD follow up: H er [...] ..... One tab. daily Orders: E KG ([id number]) B P today: 98/53 P rior BP: [...] Bourgeois MD 3 month follow-up Ayla Velazquez : H er updated medication list for [...] RVSP. GC (10/30/2009) Ayla Bourgeois MD Ayla Bourgeosi MD : H er updated medication list [...] ..... 145mg once daily Orders: E KG ([id number]) BP today: / Prior BP: 136/78 (06/09/2009) [...] pt24) ..... As needed Orders: E KG ([id number]) BP today: / Prior BP: 136/78 (06/09/2009) [...] the medication list: Lovaza 1 Gm Caps (Hgxel-7-isuf ethyl esters) Her updated medication list for [...] in both vertebrals. (07/22/2008) Orders: E KG ([id number]) Ayla Bourgeois MD : H er updated [...] the medication list: Lovaza 1 Gm Caps (Xpzov-8-xpqg ethyl esters) Her updated medication list for [...] One tab. daily Lovaza 1 Gm Caps (Msqme-6-peel ethyl esters) BP today: 113/70 Prior BP: [...] One tab. daily Lovaza 1 Gm Caps (Vvxjh-0-qgfc ethyl esters) Ayla Bourgeois MD FU: T [...] B orderline LVH. M itral annular calcification. Minimal mitral regurgitation. M inimal to mild tricuspid [...] Artery Duplex Preop clearance, phn /internet/emr >5min 91519 HIGH 40-54min HISTORY OF PROCEDURES Procedure Date Procedure Name Provider Procedure Notes S tatus Complex e/m visit add on Ayla Bourgeois MD completed EKG Ayla Bourgeois MD completed EKG Ayla Bourgeois MD completed EKG Ayla Bourgeois MD completed Schedule Followup Ayla Bourgeois MD in 6 mo co mpleted EKG Ayla Bourgeois MD completed EKG Ayla Bourgeois MD completed SNOMED-CT: 483239056 [id number] Current Medications Documented Ayla Bourgeois MD completed EKG Yimi Hernández MD complete d SNOMED-CT: [id number] 558074 Current Medications Documented Yimi Hernández MD completed SNOMED-CT: 76180490 Physical Exam, Performed: Pulse Exam of Foot Ayla Bourgeois MD completed SNOMED-CT: 775757646 829627 Current Medications Documented Ayla Bourgeois MD completed SNOMED-CT: 91117151 Physical Exam, Performed: Pulse Exam of Foot Ayla Bourgeois MD completed SNOMED-CT: 057636970 077850 Current Medications Documented Ayla Bourgeois MD completed SNOMED-CT: 69242824 Physical Exam, Performed: Pulse Exam of Foot Ayla Bourgeois MD completed EKG Ayla Bourgeois MD completed SNOMED-CT: 708335712 434389 Current Medications Documented Ayla Bourgeois MD completed EKG Ayla Bourgeois MD completed ePrescribe - Check t his box if eRx is used Ayla Bourgeois MD completed EKG Ayla Bourgeois MD completed EKG Ayla Bourgeois MD completed EKG Ayla Bourgeois MD completed EKG Ayla Bourgeois MD completed EKG Ayla Bourgeois MD completed EKG Ayla Bourgeois MD completed
--- OUTSIDE RECORDS SUMMARY | 2025-02-16 16:07 | XMS_ITS | Continuity of Care Document ---
Author Organization [facility] Address [address] [place] [address] [place] [address] Phone Care Team Providers Care Acls Specialist Name Role Phone Leo Piper Unavailable Unavailable Procedures Procedure Date Office/outpatient Visit, [facility] No Script Advance Directives Directive Yes / No Effective Date File Name No Information Encounters Encounter Description Practice Location Reason(s) For Visit Diagnoses Date Provider Providers Copied on Encounter Office/outpat ient Visit, [facility], [address], [place], [place], [id number], [place] tel:[phone] [facility] No Information [address] Lary[address] Leo. [address] [facility] [address], [place], [address], [place]. tel:[phone] Family History Family Member Type Diagnosis Age At Onset No Information Payers Payer name Insurance type Covered green party ID Authoriza tion(s) Medicare [facility] [id number] [employer] SOI 09 [id number] Social History Type Description Quantity Date Captured [...]
[2025-02-16] MEDS: ACETAMINOPHEN 500 MG TABLET 1000 MG PO (16:33)
--- NOTE | 2025-02-16 17:06 | ED_ITS ---
HPI - Fall General Chief Complaint: Fall Stated Complaint: fall Time Seen by Provider: 02/16/25 16:01 Source: patient and family Mode of arrival: wheelchair Limitations: physical limitation History of Present Illness HPI Narrative: this is a 74-year-old female history of CAD is currently on Plavix that had a fall out of her wheelchair she fell backwards and hit the occipital region of her head causing a pump, unsure of if she passed out but she is having right shoulder pain and headache with some mild neck pain no nausea vomiting pain she rates about a 6/10 with no other injuries noted. No neurological deficits. MD complaint: fall Onset (ago): hour(s) Fall from: wheelchair Fall witnessed: yes, by family Place fall occurred: home Loss of consciousness: unsure Related Data Home Medications ?Medication ?Instructions ?Recorded ?Confirmed ?Last Taken ?Type albuterol sulfate 90 mcg/actuation 2 puff inhalation PRN 11/01/19 09/17/24 Unknown History aerosol inhaler (Ventolin HFA) amlodipine 5 mg tablet 5 mg PO DAILY 11/01/19 09/17/24 Unknown History atorvastatin 80 mg tablet 80 mg PO HS 11/01/19 09/17/24 Unknown History clopidogrel 75 mg tablet 75 mg PO DAILY 11/01/19 09/17/24 Unknown History duloxetine 60 mg capsule,delayed 60 mg PO DAILY 11/01/19 09/17/24 Unknown History release isosorbide mononitrate 60 mg 120 mg PO DAILY 11/01/19 09/17/24 Unknown History tablet,extended release 24 hr metoprolol succinate 50 mg 50 mg PO DAILY 11/01/19 09/17/24 Unknown History tablet,extended release 24 hr nitroglycerin 0.4 mg sublingual 0.4 mg buccal PRN PRN Chest Pain 11/01/19 09/17/24 Unknown History tablet ranolazine 500 mg tablet,extended 500 mg PO BID 11/01/19 09/17/24 Unknown History release,12 hr aspirin 81 mg tablet,delayed 81 mg PO DAILY 05/29/20 09/17/24 Unknown History release duloxetine 30 mg capsule,delayed 20 mg PO HS 05/29/20 09/17/24 Unknown History release omeprazole 20 mg tablet,delayed 20 mg PO DAILY 05/29/20 09/17/24 Unknown History release azelastine 205.5 mcg (0.15 %) 2 spray intranasal BID 06/23/22 09/17/24 Unknown History nasal spray fluticasone propionate 50 2 spray intranasal DAILY 06/23/22 09/17/24 Unknown History mcg/actuation nasal spray,suspension furosemide 20 mg tablet 20 mg PO DAILY PRN Edema 06/23/22 09/17/24 Unknown History metformin 500 mg tablet,extended 500 mg PO HS 06/23/22 09/17/24 Unknown History release 24 hr cetirizine 10 mg tablet 10 mg PO DAILY 02/03/23 09/17/24 Unknown History hydroxyzine HCl 25 mg tablet 25 mg PO TID 02/03/23 09/17/24 Unknown History cholecalciferol (vitamin D3) 50 50 mcg PO DAILY 09/17/24 09/17/24 Unknown History mcg (2,000 unit) capsule (Vitamin D3) ezetimibe 10 mg tablet 10 mg PO DAILY 09/17/24 09/17/24 Unknown History fluticasone fur. 100 mcg-umeclid 1 inh inhalation DAILY 09/17/24 09/17/24 Unknown History 62.5 mcg-vilant 25 mcg inhalat.powder (Trelegy Ellipta) hydrocodone 10 mg-acetaminophen 1 tablet PO QID 09/17/24 09/17/24 Unknown History 325 mg tablet roflumilast 250 mcg tablet 250 mcg PO DAILY 09/17/24 09/17/24 Unknown History Allergies Allergy/AdvReac Type Severity Reaction Status Date / Time Cephalosporins Allergy Unknown Other Verified 02/16/25 16:02 ciprofloxacin Allergy Unknown Other Verified 02/16/25 16:02 erythromycin base Allergy Unknown Other Verified 02/16/25 16:02 metronidazole Allergy Unknown Other Verified 02/16/25 16:02 Sulfa (Sulfonamide Allergy Unknown Other Verified 02/16/25 16:02 Antibiotics) sulfanilamide Allergy Unknown Other Verified 02/16/25 16:02 ADHESIVE TAPE Allergy Mild Other Uncoded 02/16/25 16:02 ERYTHROMYCINS Allergy Mild Other Uncoded 02/16/25 16:02 CEPHALOSPORIN Allergy Unknown RASH Uncoded 02/16/25 16:02 Review of Systems Review of Systems: All systems reviewed & are unremarkable except as noted in HPI and below PMFSH Past Medical History Medical History Bilateral edema of lower extremity Body mass index [BMI] 32.0-32.9, adult (08/28/15) Controlled type 2 diabetes mellitus without complication, without long-term current use of insulin Major depressive disorder, single episode, unspecified Smoking Sleep apnea Hypertension Dyslipidemia [place] (myocardial infarction) Coronary artery disease COPD (chronic obstructive pulmonary disease) Surgical History Surgical History H/O breast biopsy H/O tubal ligation 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/P percutaneous transluminal angioplasty ([employer]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 Family History Family History Father Family history of lung cancer Other Family history of coronary artery disease Social History Social History Smoking packs per day: 1 Smoking cigarettes per day: 20.0 Years smoked: 30 Smoking pack-years: 30.00 Smoking status: Current every day smoker Tobacco type: cigarettes Alcohol intake: current Other substance usage details: [facility] Living arrangements: with family Gender identity (if verbalized by the patient): Female Spiritual care concerns: No Exam Const: General: healthy appearing and no acute distress Nutritional Appearance: well nourished Orientation/consciousness: patient oriented x3 Limitations: physical limitations HENMT: Head: normal to inspection Ears: external ears normal Face and sinus: normal facial exam Eyes: Conjunctivae: conjunctivae normal Pupils: Equal, round and reactive pupils present EOM: EOMs intact bilaterally Direct Ophthalmoscopy: no photophobia Neck: Neck: normal visual inspection, no lymphadenopathy and no meningeal signs Chest: Chest palpation & inspection: normal inspection of the chest Resp: Effort & Inspection: normal respiratory effort Auscultation: clear to auscultation bilaterally Cardio: Rate: regular rate Rhythm: regular rhythm GI: GI Palp: Yes Soft to palpation Skin: General skin exam: normal color Rashes: no rashes Wounds: wounds noted Neuro: General: patient oriented x3, moves all extremities, no meningeal signs, no focal motor deficits and CN's II-XI intact bilaterally Cranial nerves: Yes Nystagmus not present Speech: normal speech Course Course Emergency Course: Patient received 30mg IM Toradol, which decreased her pain level, CT scan of the brain and cervical sign without any acute abnormalities. Shoulder x-ray performed and reviewed with patient and family. Vital Signs Vital signs: Vital Signs Temperature 36.4 C 02/16/25 16:00 Pulse Rate 72 02/16/25 16:00 Respiratory Rate 16 02/16/25 16:00 Blood Pressure 142/60 H 02/16/25 16:00 Pulse Oximetry 96 02/16/25 16:00 Oxygen Delivery Room Air 02/16/25 16:00 Temperature 36.4 C 02/16/25 16:00 Pulse Rate 72 02/16/25 16:00 Respiratory Rate 16 02/16/25 16:00 Blood Pressure 142/60 H 02/16/25 16:00 Pulse Oximetry 96 02/16/25 16:00 Oxygen Delivery Room Air 02/16/25 16:00 Critical Care Time Critical Care Time Critical Care Time: No Discharge Plan Discharge Clinical Impression: Minor head injury Qualifiers: Encounter type: initial encounter Qualified Code(s): S09.90XA - Unspecified injury of head, initial encounter Muscle strain of right shoulder Qualifiers: Encounter type: initial encounter Qualified Code(s): S46.911A - Strain of unspecified muscle, fascia and tendon at shoulder and upper arm level, right arm, initial encounter Patient Disposition: Home Condition: Stable Instructions: Antibiotic Form, Muscle Strain (ED), Head Injury (ED) Patient Language: Irish Prescriptions: No Action atorvastatin 80 mg tablet 80 mg PO HS metoprolol succinate 50 mg tablet extended release 24 hr 50 mg PO DAILY clopidogrel 75 mg tablet 75 mg PO DAILY amlodipine 5 mg tablet 5 mg PO DAILY isosorbide mononitrate 60 mg tablet extended release 24 hr 120 mg PO DAILY nitroglycerin 0.4 mg tablet, sublingual 0.4 mg buccal PRN PRN (Reason: Chest Pain) albuterol sulfate [Ventolin HFA] 90 mcg/actuation HFA aerosol inhaler 2 puff INHALATION PRN duloxetine 60 mg capsule,delayed release(DR/EC) 60 mg PO DAILY ranolazine 500 mg tablet extended release 12 hr 500 mg PO BID furosemide 20 mg tablet 20 mg PO DAILY PRN (Reason: Edema) fluticasone propionate 50 mcg/actuation spray,suspension 2 spray INTRANASAL DAILY metformin 500 mg tablet extended release 24 hr 500 mg PO HS azelastine 205.5 mcg (0.15 %) spray,non-aerosol 2 spray INTRANASAL BID cetirizine 10 mg tablet 10 mg PO DAILY hydroxyzine HCl 25 mg tablet 25 mg PO TID aspirin 81 mg Tablet,Delayed Release (Dr/Ec) 81 mg PO DAILY duloxetine 30 mg Capsule,Delayed Release(Dr/Ec) 20 mg PO HS omeprazole 20 mg Tablet,Delayed Release (Dr/Ec) 20 mg PO DAILY hydrocodone-acetaminophen 10-325 mg tablet 1 tablet PO QID ezetimibe 10 mg tablet 10 mg PO DAILY cholecalciferol (vitamin D3) [Vitamin D3] 50 mcg (2,000 unit) Capsule 50 mcg PO DAILY Trelegy Ellipta 100-62.5-25 mcg blister with device 1 inh INHALATION DAILY roflumilast 250 mcg tablet 250 mcg PO DAILY Follow-up/Referrals: Octavia,MD Mahin [Primary Care Provider] -
[2025-02-16 17:17] VITALS: BP 128/54; PULSE 66; RESP 18; TEMP 36.2; O2SAT 100
== END 2025-02-16 17:25 | disposition home or self-care (01) ==
PROVIDERS: Emergency Provider Emergency Medicine; PCP Family Medicine
DX: S46.911A Strain of unspecified muscle, fascia and tendon at shoulder and upper arm level, right arm, initial encounter (principal); I25.10 Atherosclerotic heart disease of native coronary artery without angina pectoris; E11.9 Type 2 diabetes mellitus without complications; I25.2 Old myocardial infarction; E78.5 Hyperlipidemia, unspecified; I10 Essential (primary) hypertension; J44.9 Chronic obstructive pulmonary disease, unspecified; F17.210 Nicotine dependence, cigarettes, uncomplicated; Z79.01 Long term (current) use of anticoagulants; W05.0XXA Fall from non-moving wheelchair, initial encounter
CPT/HCPCS: 70450; 72125; 73030; 99284; A9270

== ENCOUNTER 2025-02-18 16:46 | Outpatient (CLI) | payer MEDICARE, MEDICAID, SELFPAY ==
--- NOTE | ~2025-02-18 | XR_ITS ---
EXAM: XR hip RT min 2V DATE: 02/18/2025 17:09 HISTORY: right hip pain, fall 2 days ago . COMPARISON: 07/21/2018. FINDINGS: Decreased mineralization. No fracture or dislocation. No lytic or blastic lesion. Lumbar d egenerative disc disease. Mild degenerative change at the left hip. Mild greater trochanter enthesopa thy. No erosion or periosteal change. Scattered vascular calcifications. IMPRESSION: No acute osseous finding in the right hip. Reviewed, dictated and finalized at location K.
--- OUTSIDE RECORDS SUMMARY | 2025-02-18 17:59 | XMS_ITS | Encounter Summary ---
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 Gender Identity Not on file Sexual Orientation Not on file documented as of this encounter Plan of Treatment Not on file documented as of this encounter Visit Diagnoses Not on filedocumented in this encounter Care Teams Ironer Sock Relationship Specialty Start Date End Date Cooper Nieto MD PCP - General Internal Medicine 08/25/18 03/11/24 Mahin Dudley MD [address] [place] [id number] PCP - General Family Medicine 03/12/24 Lourdes August NP Nurse Practitioner Plastic Surgery 06/10/22 Marek Vitale MD [address] [place] [address] Consulting Physician Cardiology 09/19/24 documented as of this encounter
--- OUTSIDE RECORDS SUMMARY | 2025-02-18 17:59 | XMS_ITS | Clinical Summary ---
Author Organization [facility] Address [address] [place] [address] Care Team Providers Care Garage Helper Name Role Phone Ketan Nguyễn MD Primary Care Provider [phone] Source Comments [facility],non-owned Affiliates and Associated Physician Practices is amultiple site organization consisting of ambulatory clinics and hospital sitesin [place], [place], [place] and [place]. This disclosure is being madepursuant to the Care Everywhere program and may not contain all information available regarding this patient. Last updated 18.[facility] Allergies Active Allergy Reactions Criticality Noted Date [...] by mouth once daily. 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
--- OUTSIDE RECORDS SUMMARY | 2025-02-18 17:59 | XMS_ITS | Encounter Summary ---
Author Organization [facility] Healthcare Address [address] [place] [address] Care Team Providers Care Certified Credit Counselor Name Role Phone Cooper Nieto MD Primary Care Provider [phone] Lourdes August NP Unavailable [phone] Mahin Dudley MD Primary Care Provider Marek Vitale MD Unavailable [phone] Encounter Details Date Type Department Care Team (Late st Contact Info) Description 12/19/2020 Telephone [facility] [address] [place] [address] Eyal Platt, RT Social History Tobacco Use Types Packs/Day Years Used Date Smoking Tobacco: Every Day Smokeless Tobacco: Never Alcohol Use Standard Drinks/Week Comments No 0 (1 standard drink = 0.6 oz pur e alcohol) Comments No Sex and Gender Information Value Date Recorded Sex Assigned at Not on file 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 Gender Identity Not on file Sexual Orientation Not on file documented as of this encounter Plan of Treatment Not on file documented as of this encounter Visit Diagnoses Not on filedocumented in this encounter Additional Health Concerns Infection Onset Date Last Indicated Resolved Time COVID: Suspected 01/19/2022 01/19/2022 01/19/2022 7:50 PM CDT documented as of this encounter Care Teams Certified Credit Counselor Relationship Specialty Start Date End Date Cooper Nieto MD PCP - General Internal Medicine 08/25/18 03/11/24 Mahin Dudley MD [address] [place] [id number] PCP - General Family Medicine 03/12/24 Lourdes August NP Nurse Practitioner Plastic Surgery 06/10/22 Marek Vitale MD [address] [place] [address] Consulting Physician Cardiology 09/19/24 documented as of this encounter
--- OUTSIDE RECORDS SUMMARY | 2025-02-18 17:59 | XMS_ITS | Clinical Summary ---
Author Organization [facility] Address 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 Active DULoxetine (CYMBALTA) 60 mg Capsule, Delayed [...] A AND B [place]ICA[place] Care Teams Electric Utility Lineworker Relationship Specialty Start Date End Date [facility], External Provider [address] [place] [address] PCP - General 01/24/15
--- OUTSIDE RECORDS SUMMARY | 2025-02-18 17:59 | XMS_ITS | Encounter Summary ---
Author Organization [facility] Healthcare Address [address] [place] [address] Care Team Providers Care Health Actuary Name Role Phone Cooper Nieto MD Primary Care Provider [phone] Lourdes August NP Unavailable [phone] Mahin Dudley MD Primary Care Provider Marek Vitale MD Unavailable [phone] Encounter Details Date Type Department Care Team (Late st Contact Info) Description 01/01/2021 Telephone [facility] [address] [place] [address] Eyal Platt, RT Social History Tobacco Use Types Packs/Day Years Used Date Smoking Tobacco: Every Day Smokeless Tobacco: Never Alcohol Use Standard Drinks/Week Comments No 0 (1 standard drink = 0.6 oz pur e alcohol) Comments No Sex and Gender Information Value Date Recorded Sex Assigned at Not on file 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 Gender Identity Not on file Sexual Orientation Not on file documented as of this encounter Plan of Treatment Not on file documented as of this encounter Visit Diagnoses Not on filedocumented in this encounter Additional Health Concerns Infection Onset Date Last Indicated Resolved Time COVID: Suspected 01/19/2022 01/19/2022 01/19/2022 7:50 PM CDT documented as of this encounter Care Teams Health Actuary Relationship Specialty Start Date End Date Cooper Nieto MD PCP - General Internal Medicine 08/25/18 03/11/24 Mahin Dudley MD [address] [place] [address] PCP - General Family Medicine 03/12/24 Lourdes August NP Nurse Practitioner Plastic Surgery 06/10/22 Marek Vitale MD [address] [place] [address] Consulting Physician Cardiology 09/19/24 documented as of this encounter
--- OUTSIDE RECORDS SUMMARY | 2025-02-18 17:59 | XMS_ITS | Encounter Summary ---
Author Organization [facility] Healthcare Address [address] [place] [address] Care Team Providers Care Manager Pool Name Role Phone Cooper Nieto MD Primary Care Provider [phone] Lourdes August NP Unavailable [phone] Mahin Dudley MD Primary Care Provider Marek Vitale MD Unavailable [phone] Encounter Details Date Type Department Care Team (Late st Contact Info) Description 03/27/2021 Telephone [facility] [address] [place] [address] Eyal Platt, RT Social History Tobacco Use Types Packs/Day Years Used Date Smoking Tobacco: Every Day Smokeless Tobacco: Never Alcohol Use Standard Drinks/Week Comments No 0 (1 standard drink = 0.6 oz pur e alcohol) Comments No Sex and Gender Information Value Date Recorded Sex Assigned at Not on file 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 Gender Identity Not on file Sexual Orientation Not on file documented as of this encounter Plan of Treatment Not on file documented as of this encounter Visit Diagnoses Not on filedocumented in this encounter Additional Health Concerns Infection Onset Date Last Indicated Resolved Time COVID: Suspected 01/19/2022 01/19/2022 01/19/2022 7:50 PM CDT documented as of this encounter Care Teams Manager Pool Relationship Specialty Start Date End Date Cooper Nieto MD PCP - General Internal Medicine 08/25/18 03/11/24 Mahin Dudley MD [address] [place] [address] PCP - General Family Medicine 03/12/24 Lourdes August NP Nurse Practitioner Plastic Surgery 06/10/22 Marek Vitale MD [address] [place] [address] Consulting Physician Cardiology 09/19/24 documented as of this encounter
--- OUTSIDE RECORDS SUMMARY | 2025-02-18 18:00 | XMS_ITS | Encounter Summary ---
Author Organization [facility] Address [facility] [place] [address] Care Team Providers Care Digital Artist Name Role Phone Cooper Nieto MD Primary Care Provider [phone] Mahin Dudley MD Primary Care Provider Encounter Details Date Type Department Care Team (Late st Contact Info) Description 02/16/2023 Hospital Orders Only [facility] [address] [place] [address] [place] [address] Kathy Vega RN Social History Tobacco Use Types Packs/Day Years Used Date Smoking Tobacco: Never Assessed Comments Unknown Sex and Gender Information Value Date Recorded Sex Assigned at Female 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
--- OUTSIDE RECORDS SUMMARY | 2025-02-18 18:00 | XMS_ITS | Clinical Summary ---
Author Organization [facility] Address [address] [place] [address] Care Team Providers Care Biomedical Engineering Professor Name Role Phone Mahin Dudley MD Primary [...] Department Care Team Description 12/31/2024 Transcribe Orders [facility] [place] [address] Daniel Myers MD 12/31/2024 Transcribe Orders [facility] [place] [address] Daniel Myers MD 12/27/2024 10:08 AM WALL CRANE OPERATOR - 12/27/2024 11:59 PM [facility] Hospital Encounter [facility] [place] [address] Mahin Dudley MD Injection Discharge Disposition: Home or Self Care (Routine Discharge) 12/27/2024 10:07 AM WALL CRANE OPERATOR Hospital Encounter [facility] [place] [address] Daniel Myers MD Discharge Disposition: Home or Self Care (Routine Discharge) 12/27/2024 10:00 AM WALL CRANE OPERATOR - 12/27/2024 10:06 AM [facility] Hospital Encounter [facility] [address] [place] [address] Mahin Dudley MD Discharge Disposition: Home or Self Care (Routine Discharge) 12/27/2024 Travel from Last 3 Months Social History Tobacco Use Types Packs/Day Years Used Date Smoking Tobacco: Every Day Cigarettes 1 50 Tobacco Cessation:Ready to Q uit: Not Asked; Counseling Given: Not Answered Comments Unknown Sex and Gender Information Value Date Recorded Sex Assigned at Female 12/13/2024 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 Legal Sex Female 8:58 PM CDT Gender Identity Not on file Sexual Orientation Not on file Last Filed Vital Signs Vital Sign Reading Time Taken Comments Blood Pressure 115/50 12/27/2024 10:58 AM WALL CRANE OPERATOR Pulse 74 12/27/2024 10:58 AM WALL CRANE OPERATOR Temperature 35.7 C (96.3 F) 12/27/2024 10:58 AM WALL CRANE OPERATOR Respiratory Rate 18 12/27/2024 10:58 AM WALL CRANE OPERATOR Oxygen Saturation 93% 12/27/2024 10:58 AM WALL CRANE OPERATOR Inhaled Oxygen Concentration - - Weight 73.2 kg (161 lb 6 oz) 12/27/2024 10:58 AM WALL CRANE OPERATOR Height 165.1 cm (5' 5 ) [...] SIX MINUTE WALK Routine 12/31/2024 10:46 AM WALL CRANE OPERATOR Chronic obstructive pulmonary disease, unspecified COPD type ([facility]) PULMONARY FUNCTION TEST Routine 12/31/2024 10:46 AM WALL CRANE OPERATOR Chronic obstructive pulmonary disease, unspecified COPD type ([facility]) COMPREHENSIVE METABOLIC PANEL Routine 12/27/2024 10:25 AM WALL CRANE OPERATOR Post-menopausal osteoporosis CT LUNG SCREENING Routine 07/23/2024 1:2 1 PM CDT Cigarette smoker from Last 3 Months or Most Recently Relevant to Health Maintenance Results * Complete PFT (pre/post [facility], Lung Vol, Diff Capacity) (82083, 01486, 33128, 91136) (12/31/2024 10:46 AM WALL CRANE OPERATOR) 12/31/2024 10:4 6 AM WALL CRANE OPERATOR Narrative ESCRIPTION - 01/02/2025 11:14 AM WALL CRANE OPERATOR Patient Name: RIVKA SANFORD Date of : 1950 Account: [id number] Facility: [facility] Location: [facility] Date of Service: 12/27/2024 Pulmonary Function Test [...] correlation is required. Signature/Date: Arabella MYERS MD #[id number] /PUS [place] Willie Myers MD PFT ORDERABLES Final Result ESCRIPTION * (ABNORMAL) COMPREHENSIVE METABOLIC PANEL (12/27/2024 10:25 AM [facility]) SODIUM S/P/B 141 136 - 145 MMOL/L 12/27/2024 10:48 AM [facility] POTASSIUM S/P/B 3.8 3.5 - 5.1 MMOL/L 12/27/2024 10:48 AM [facility] CHLORIDE S/P/B 103 98 - 107 MMOL/L 12/27/2024 10:48 AM [facility] CO2 30.8 21.0 - 32.0 MMOL/L 12/27/2024 10:48 AM [facility] GLUCOSE 140(H) 70 - 99 MG/DL 12/27/2024 10:48 AM [facility] Comment: FASTING GLUCOSE 100 TO 125 MG/DL IS CONSISTENT WITH IMPAIRED FASTING GLUCOSE. FASTING GLUCOSE >125 MG/DL IS CONSISTENT WITH DIABETES. RANDOM GLUCOSE >200 MG/DL WITH HYPERGLYCEMIC SYMPTOMS IS CONSISTENT WITH DIABETES. PER ADA GUIDELINES BUN 19 6 - 24 MG/DL 12/27/2024 10:48 AM [facility] CREATININE S/P/B 1.01 0.55 - 1.02 MG/DL 12/27/2024 10:48 AM [facility] CALCIUM S/P/B 8.9 8.4 - 10.5 MG/DL 12/27/2024 10:48 AM [facility] BILIRUBIN TOTAL S/P/B 0.4 0.2 - 1.0 MG/DL 12/27/2024 10:48 AM [facility] Comment: THIS ASSAY IS NOT RECOMMENDED FOR PATIENTS UNDERGOING TREATMENT WITH ELTROMBOPAG DUE TO THE POTENTIAL FOR FALSELY ELEVATED RESULTS. ALKALINE PHOSPHATASE S/P/B 53(L) 55 - 142 U/L 12/27/2024 10:48 AM [facility] AST 21 15 - 37 U/L 12/27/2024 10:48 AM [facility] ALT 25 14 - 59 U/L 12/27/2024 10:48 AM [facility] TOTAL PROTEIN S/P/B 6.6 6.4 - 8.2 G/DL 12/27/2024 10:48 AM [facility] ALBUMIN S/P/B 3.3(L) 3.4 - 5.0 G/DL 12/27/2024 10:48 AM [facility] ANION GAP 7.2 5.0 - 15.0 MMOL/L 12/27/2024 10:48 AM [facility] OSMOLALITY (CALC) 297 MOSM/KG 025 10:48 AM [facility] Comment:REFERENCE RANGE NOT ESTABLISHED GFR ESTIMATE 59(L) >89 ML/MIN/1. 73 M2 12/27/2024 10:48 AM [facility] GFR NOTES GFR REFERENCE S: 12/27/2024 10:48 AM [facility] Comment: THE ESTIMATED GFR IS CALCULATED [...] <15 ml/min/1.73 m2 12/27/2024 10:2 5 AM WALL CRANE OPERATOR us Mahin Dudley MD LABORATORY Final Resul t [facility] [address] [place] [address], * CT LUNG SCREENING (07/23/2024 1:21 PM [...] around 07/24/2025 Thank you for choosing the [facility] Lung Screening Program. Ordered By: DANIEL MYERS Interpreted By: Kimmy Alan MD, 08/03/2024 11:08 AM Narrative 08/03/2024 11:17 AM CDT [address] [place] [address] EXAM: LUNG SCREENING LOW-DOSE CT THORAX WITHOUT CONTRAST DATE: 07/23/2024. There was a delay in the final report for this exam due to attempts made to obtain outside prior comparison CT images from [facility] and [facility] which were unsuccessful through 08/03/2024. A [...] Procedure Note Kimmy Alan MD - 08/03/2024 [facility] [address] [place] [address] EXAM: LUNG SCREENING LOW-DOSE CT THORAX WITHOUT CONTRAST DATE: 07/23/2024. There was a delay in the final report for this exam dueto attempts made to obtain outside prior comparison CT images from [facility] which were unsuccessful through 08/03/2024. [...] around 07/24/2025 Thank you for choosing the [facility] Lung ScreeningProgram. Ordered By: DANIEL MYERS Interpreted By: Kimmy Alan MD, 08/03/2024 11:08 AM Daniel Myers MD CT Final Result from Last 3 Months or Most Recently Relevant to Health Maintenance Insurance MEDICAID [place], [place] [id number] [place] [address] Care Teams Biomedical Engineering Professor Relationship Specialty Start Date End Date Mahin Dudley MD [address] [place] [phone] PCP - General FAMILY PRACTICE 02/24/23
--- OUTSIDE RECORDS SUMMARY | 2025-02-18 18:00 | XMS_ITS | CONTINUITY OF CARE DOCUMENT ---
Author Name bonnie nicole Address Unknown Organization [facility] Address [address] [place] [address] Phone [phone] Care Team Providers Care Dry Color Tester Name Role Phone Bk RANDALL, Ayla Unavailable [phone] ADAN BARRAZA MD Unavailable [phone] ADAN BARRAZA MD Unavailable [phone] PROBLEMS Condition Status Date Provider Notes Dyspnea [...] In-person encounter Office Visit Ayla Bourgeois MD [facility] Cardiology examinati on - In-person encounter Office Visit Ayla Bourgeois MD [facility] hx of Microvascular angina;had ecpJaw pain - In-person encounter Office Visit Ayla Bourgeois MD [facility] - In-person encounter Office Visit Ayla Bourgeois MD [facility] Acute back pain with sciatica - In-person encounter Office Visit Ayla Bourgeois MD SL - In-person encounter Office Visit Ayla Bourgeois MD [facility] - In-person encounter Office Visit Ayla Bourgeois MD TeleHealth - In-person encounter Office Visit Ayla Bourgeois MD TeleHealth hx of Microvascular angina;had ecpB12 deficiencyVenous insufficiency - In-person encounter Office Visit Ayla Bourgeois MD [facility] - In-person encounter Office Visit Ayla Bourgeois MD [facility] - In-person encounter Office Visit Ayla Bourgeois MD [facility] - In-person encounter Office Visit Ayla Bourgeois MD [facility] - In-person encounter Office Visit Yimi Hernández MD [facility] -08/06 TAXUS LAD, multiple RCA stents, , small rev lat wall defect on nuc 01/2021Vitamin D deficiencyPREDIABETES; - In-person encounter Office Visit Ayla Bourgeois MD [facility] - In-person encounter Office Visit Ayla Bourgeois MD [facility] - In-person encounter Office Visit Ayla Bourgeois MD [facility] - In-person encounter Office Visit Ayla Bourgeois MD [facility] - In-person encounter Office Visit Ayla Bourgeois MD [facility] - In-person encounter Office Visit Ayla Bourgeois MD [facility] CAD-07/08 CAROTID NEGANGINA PECTORIS-NO NEW LESIONS ON CATH11/09CAD-08/06 TAXUS LAD, multiple RCA stents, , small rev lat wall defect on nuc IARRHEA - In-person encounter Office Visit Ayla Bourgeois MD [facility] - In-person encounter Office Visit Ayla Bourgeois MD [facility] - In-person encounter Office Visit Ayla Bourgeois MD [facility] - In-person encounter Office Visit Ayla Bourgeois MD [facility] - In-person encounter Office Visit Ayla Bourgeois MD [facility] - In-person encounter Office Visit Ayla Bourgeois MD [facility] - In-person encounter Office Visit Ayla Bourgeois MD [facility] - In-person encounter Office Visit Ayla Bourgeois MD [facility] - In-person encounter Office Visit Ayla Alanis [facility] - In-person encounter Office Visit Ayla Bourgeois MD [facility] - In-person encounter Office Visit Ayla Alanis Office SLEEP APNEA ON HOME 02TOBACCO ABUSE - In-person encounter Office Visit Ayla [place] [facility] - In-person encounter Office Visit Ayla Bourgeois MD [facility] - In-person encounter Office Visit Augie Pugh MD [facility] - In-person encounter Office Visit Ayla Bourgeois MD [facility] - In-person encounter Office Visit Ayla Bourgeois MD [facility] - In-person encounter Office Visit Ayla Bourgeois MD [facility] HTN ESSENTIAL--echo ef nl, NGINA PECTORIS-NO NEW LESIONS ON CATH11/09CAD-08/06 TAXUS LAD, multiple RCA stents, , small rev lat wall defect on nuc MPHYSEMA - In-person encounter Office Visit Ayla Bourgeois MD [facility] - In-person encounter Office Visit Ayla Bourgeois MD [facility] SLEEP APNEA ON HOME - In-person encounter Office Visit Ayla Bourgeois MD [facility] - In-person encounter Office Visit Ayla Bourgeois MD [facility] VITAL SIGNS Date Observation Value Provider [...] Keaton blood pressure, systolic 116 mm[Hg] Diane beraden [place] oxygen saturation, oximetry 97 % Ramu [...] elvi Ordonez blood pressure, systolic 100 mm[Hg] eWs Ordonez oxygen saturation, oximetry 98 % Fernando Ordonez respiratory rate E&M 16 /min Fernando Ordonez pulse rate 83 /min Fernando Ordonez weight E&M 182 [lb_av] [place] Ordonez height E&M 66 [in_i] Fernando Ordonez Body Mass Index (Ratio) 28.08 kg/m2 Pravin Bourgeois MD blood pressure, diastolic 68 mm[Hg] Isaiah Martinez blood pressure, systolic 121 mm[Hg] Emilee Martinez oxygen saturation, oximetry 94 % Brice Martinez respiratory rate E&M 18 /min Je Martinez pulse rate 77 /min Brice rm weight E&M 174 [lb_av] Brice Miguel kit height E&M 66 [in_i] Brice Miguel [facility] Body Mass Index (Ratio) 28.57 kg/m2 Pravin Bourgeois MD blood pressure, diastolic 58 mm[Hg] David daniels Rod blood pressure, systolic 134 mm[Hg] Tommy scanlon [facility] oxygen saturation, oximetry 97 % [facility] respiratory rate E&M 15 /min Francesca [facility] pulse rate 77 /min [facility] E&M 177 [lb_av] [facility] height E&M 66 [in_i] [facility] Body Mass Index (Ratio) 29.82 kg/m2 [...] Marsha Arndtby pulse rate 71 /min [facility] respiratory rate E&M 16 /min [facility] oxygen saturation, oximetry 98 % [facility] weight E&M 191.0 [lb_av] [facility] blood pressure, cuff size regular Ralph Arndtby height E&M 66 [in_i] [facility] blood pressure, diastolic 66 mm[Hg] Me kalpana [...] [place] Body Mass Index (Ratio) 27.38 kg/m2 eNmo Quiros respiratory rate E&M 17 /min Jahaira [...] Jahaira Quiros blood pressure, diastolic 72 mm[Hg] Lgoan Gallegos blood pressure, systolic 126 mm[Hg] Marleny [...] Edward Jacob pulse rate 77 /min Yolette Jcaob respiratory rate E&M 16 /min Yolette Jacob oxygen saturation, oximetry 97 % Yolette Jacob weight E&M 191 [lb_av] Yolette Jacob blood pressure, diastolic, left arm 52 mm [Hg] Milton Martínez blood pressure, systolic, left arm 90 mm[ Hg] [facility], diastolic, right arm 53 m m[Hg] [facility] blood pressure, systolic, right arm 98 mm [Hg] [facility] pressure, diastolic 53 mm[Hg] [facility], systolic 98 mm[Hg] [facility] 69 /min [facility] respiratory rate E&M 16 /min [facility] weight E&M 189 [lb_av] [facility] blood pressure, diastolic, left arm [...] diastolic, left arm 68 mm [Hg] [facility] blood pressure, systolic, left arm 110 mm [Hg] [facility] blood pressure, diastolic, right arm 64 m m[Hg] [facility] blood pressure, systolic, right arm 108 m m[Hg] [facility] pulse rate 72 /min [facility] oxygen saturation, oximetry 95 % [facility] respiratory rate E&M 16 /min Poppy rice weight E&M 195 [lb_av] [facility] blood pressure, diastolic 78 mm[Hg] Reshma seph [place] blood pressure, systolic 136 mm[Hg] Bryant eph [place] pulse rate 74 /min Milton [place] oxygen saturation, oximetry 95 % Milton [place] respiratory rate E&M 16 /min Milton [place] weight E&M 197 [lb_av] Milton [place] blood pressure, diastolic 74 mm[Hg] Ca diana LaceyBonnie blood pressure, systolic 116 mm[Hg] Hugo Laceykermann pulse rate 81 /min [facility] oxygen saturation, oximetry 94 % [facility] respiratory rate E&M 20 /min Poppy rice [...] sargent RN weight E&M 198 [lb_av] Eduardo Beinto RN blood pressure, diastolic 62 mm[Hg] Eric [...] (low-density lipoprotein/high-den sity lipoprotein) ratio 3.3 RATIO [facility] - lipoprotein, beta, serum, point, quantitative, calculated [...] 1.0 carbon dioxide, venous blood 23.0 mmol/L [facility] 23.0 - 31.0 calcium, serum 9.6 mg/dL [facility] 8.6 - 10.2 urea nitrogen, blood 14.0 mg/dL [facility] 8.0 - 23.0 blood glucose, random 105.0 mg/dL [facility] 74.0 - 99.0 High red blood cell distribution width, size density 42.5 fL [facility] - immature granulocytes, percentage of total cells, blood 0.2 % [facility] - nucleated red blood cells as percent of blood leukocytes 0.0 % [facility] - red blood cell (erythrocyte) count, per high power field 0.0 10*3/UL [facility] - eosinophils as percent of blood leukocytes 1.7 % [facility] - neutrophils as percent of blood leukocytes 58.3 % [facility] - Absolute Neutrophils 3.8 CELLS/UL [facility] 1.5 - 7.8 basophils as percent of blood leukocytes 0.9 % [facility] - Absolute Basophils 0.1 CELLS/UL [facility] 0.0 - 0.2 monocytes as percent of blood leukocytes 7.2 % [facility] - Absolute Monocytes 0.5 CELLS/UL [facility] 0.2 - 1.0 lymphocytes as percent of blood leukocytes 31.7 % [facility] - Absolute Lymphocytes 2.1 CELLS/UL [facility] 0.9 - 3.9 mean platelet volume 9.9 (?) [facility] - platelet count 272.0 THOUSAND/ UL [facility] 100.0 - 400.0 mean corpuscular hemoglobin concentration, RBC 33.1 G/DL [facility] 31.0 - 38.0 mean corpuscular hemoglobin, RBC 30.1 pg [facility] 25.0 - 35.0 mean corpuscular volume, RBC 90.9 fL [facility] 75.0 - 100.0 hematocrit, blood 39.0 % [facility] 35.0 - 55.0 hemoglobin, blood 12.9 g/dL [facility] 11.5 - 16.5 erythrocyte count, whole blood 4.3 MILLION/U L [facility] 3.5 - 5.5 prothrombin time (patient) 9.6 [facility] 9.0 - 11.5 international normalized ratio (INR) 0.9 [facility] 0.9 - 1.1 pro brain natriuretic peptide 461.3 pg/mL [facility] 0.0 - 125.0 High very low density lipoproteins 26.2 mg/dL [facility] 5.0 - 40.0 LDL/HDL (low-density lipoprotein/high-den sity lipoprotein) ratio 2.3 RATIO [facility] - lipoprotein, beta, serum, point, quantitative, calculated 122.8 (?) [facility] 0.0 - 100.0 High HDL cholesterol, serum 54.0 mg/dL [facility] 45.0 - 65.0 cholesterol, serum 203.0 mg/dL [facility] 0.0 - 200.0 High triglyceride, serum, fasting 131.0 mg/dL [facility] 0.0 - 150.0 ferritin, serum 22.1 ng/mL [facility] 13.0 - 150.0 iron, serum 58.0 ug/dL [facility] 25.0 - 156.0 iron saturation percent, serum 12.1 % [facility] 20.0 - 50.0 Low iron binding capacity, total 480.2 ug/dL [facility] 250.0 - 450.0 High hemoglobin A1C, blood, as % of total hemoglobin 6.0 % [facility] 4.0 - 5.6 High troponin I <0.02 Annette Miramontes creatine kinase, serum 38 1/L Annette Miramontes anion gap, serum 8 Annette Miramontes estimated glomerular filtration rate 68 mL/min Annette Miramontes albumin/globulin ratio, serum 1.1 [facility] protein, total, serum 7.0 g/dL [facility] albumin, serum 3.6 g/dL [facility] bilirubin, serum, total 0.23 mg/dL [facility] alkaline phosphatase, serum 59 1/L [facility] alanine aminotransferase (SGPT), serum 45 1/L [facility] aspartate aminotransferase (SGOT), serum 21 1/L [facility] calcium, serum 8.9 mg/dL [facility] blood glucose, fasting 91 mg/dL [facility] creatinine, serum 0.9 mg/dL [facility] urea nitrogen, blood 13 mg/dL [facility] carbon dioxide, serum, total 30.7 mmol/L [facility] chloride, serum 103 mmol/L [facility] potassium, serum 3.8 mmol/L [facility] sodium, serum 142 mmol/L [facility] PTT patient 28.6 s [facility] prothrombin time (patient) 10.20 s [facility] international normalized ratio (INR) 0.99 [facility] monocytes as percent of blood leukocytes 7.6 % [facility] lymphocytes as percent of blood leukocytes 36.0 % [facility] platelet count 346 10*3/uL [facility] mean corpuscular hemoglobin concentration, RBC 32.1 g/dL [facility] mean corpuscular hemoglobin, RBC 25.2 pg [facility] mean corpuscular volume, RBC 78 fL [facility] hematocrit, blood 35.8 % [facility] hemoglobin, blood 11.5 g/dL [facility] erythrocyte (RBC) count 4.57 10*6/mm3 [facility] leukocyte count, blood 6.5 10*3/mm3 [facility] prothrombin time (patient) 10.1 s [facility] international normalized ratio (INR) 0.98 [facility] calcium, serum 9.1 mg/dL [facility] blood glucose, fasting 99 mg/dL [facility] creatinine, serum 0.9 mg/dL [facility] urea nitrogen, blood 13 mg/dL [facility] carbon dioxide, serum, total 34.4 mmol/L [facility] chloride, serum 103 mmol/L [facility] potassium, serum 4.3 mmol/L [facility] sodium, serum 139 mmol/L [facility] platelet count 250 10*3/uL [facility] mean corpuscular hemoglobin concentration, RBC 32.8 g/dL [facility] mean corpuscular hemoglobin, RBC 28.9 pg [facility] mean corpuscular volume, RBC 88 fL [facility] hematocrit, blood 40.2 % [facility] hemoglobin, blood 13.2 g/dL [facility] erythrocyte (RBC) count 4.56 10*6/mm3 [facility] monocytes as percent of blood leukocytes 9.8 % [facility] lymphocytes as percent of blood leukocytes 30.3 % [facility] leukocyte count, blood 7.7 10*3/mm3 [...] TAKE 1 TABLET BY MOUTH EVERY DAY [facility] nitroglycerin 0.4 mg tablet, sublingual completed PLACE [...] TAKE 1 TABLET BY MOUTH EVERY DAY [facility] ranolazine 500 mg tablet extended release 12 hr active TAKE 1 TABLET BY MOUTH TWICE A DAY [facility] isosorbide mononitrate 60 mg tablet extended release 24 hr active TAKE 2 TABLETS BY MOUTH EVERY DAY [facility] ranolazine 500 mg tablet extended release 12 hr completed TAKE 1 TABLET BY MOUTH TWICE A DAY - Shekhar Hewitt furosemide 20 mg tablet active TAKE 1 TABLET BY MOUTH EVERY DAY NEEDED Sasha Bartlett clopidogrel 75 mg tablet active TAKE 1 TABLET BY MOUTH EVERY DAY [facility] ezetimibe 10 mg tablet completed Take 1 [...] puff twice a day Sana Duncan ERGOCALCIFEROL [id number] UNIT ORAL CAPSULE completed 1 cap once [...] Shekhar Hewitt VITAMIN D TABLET completed [id number] [id number] international units once weekly - Yimi Hernández [...] mouth once a day - Shekhar ANNAON [id number] UNIT ORAL CAPSULE DELAYED RELEASE PARTICLES completed [...] active 1 tablet once a day [facility] AMOXICILLIN TABLET completed 875mg one [...] Date Observation Value Provider drug use none [facility] smoking/tobacco cess ation, patient education and counseling yes [facility] number of years as a smoker less than 10 years [facility] smoking, date started 1971 [facility] smoking history, tot al pack/year 45 [facility] smoking history, tot al pack/day 1 [facility] cigarette use yes [facility] smoking status Current every day smoker [facility] drug use none [facility] smoking/tobacco cess ation, patient education and counseling yes [facility] number of years as a smoker less than 10 years [facility], date [facility], tot al pack/year [facility], tot al pack/day 1 Shekhar [...] Ayla Bourgeois MD seatbelt usage 100 % [facility] exercise type swimming [facility] physical exercise, f requency, days per week 2 /wk [facility] caffeine use, averag e drinks per day 3 /d [facility] smoking/tobacco cess ation, patient education and counseling yes [facility] number of years as a smoker less than 10 years [facility] smoking, date started 1971 [facility] smoking history, tot al pack/year 45 [facility] smoking history, tot al pack/day 1 [facility] cigarette use yes [facility] smoking status Current every day smoker T [facility] social history E&M Marital Statu s: L [...] of grandchildren Toniya Bourgeois MD K tiana Kensal seatbelt usage 100 % [place] exercise type swimming [facility] physical exercise, f requency, days per week 2 /wk [facility] alcohol use, average drinks per day social basis only [facility] caffeine use, averag e drinks per day 3 /d [facility] smoking/tobacco cess ation, patient education and counseling yes [facility] drug use none [facility] number of years as a smoker less than 10 years [facility] smoking, date started 1971 [facility] raquel Kensal smoking history, tot al pack/year 45 [facility] smoking history, tot al pack/day 1 [facility] cigarette use yes [facility] smoking status Current every day smoker K tiana Kensal smoking history, tot al pack/day 1 [facility] cigarette use yes [facility] smoking status Current every day smoker Arabella Thao exercise type swimming [facility] physical exercise, f requency, days per week 2 /wk [facility] caffeine use, averag e drinks per day 3 /d [facility] seatbelt usage 100 % Kim zhou physical [...] Cristina Hurtadoann smoking, date started 1971 Marisela Alvraez smoking history, tot al pack/year 45 Cristina [...] smoking history, tot al pack/day 1/2 Cristina hCew cigarette use yes Cristina Chew smoking status [...] E&M revi ewed - no changes required [facility] physical exercise, f requency, days per week no [facility] alcohol use, average drinks per day social basis only [facility] caffeine use, averag e drinks per day yes [facility] drug use none [facility] smoking/tobacco cess ation, patient education and counseling yes [facility] number of years as a smoker less than 10 years [facility] smoking, date [facility] tot [facility] pack/year [facility] smoking history, tot al pack/day 1/2 [facility] cigarette use yes [facility] smoking status current every day smoker [facility] social history reviewed E&M revi ewed [...] person. Mood and affect are normal. Eduardo Beinto RN assessment of judgme nt and insight [...] and person. Mood and affect are normal. yAla Borugeois MD assessment of judgme nt and insight [...] Payer name Policy type / Coverage type [place] red democrat ID [id number] (PPO C-SNP) [email or web address] insurance [employer] [id number] HE[employer] AND FAMILY SERVICES Medicaid 2 [id number] ADVANCE DIRECTIVES Name Date DISCUSSED - NO DECISION MADE TREATMENT PLAN Date Name Performer [id number],Shekhar Mattson i [id number],SShekhar i [id number],SShekhar i [id number],Shekhar Mattson i [id number],Shekhar Mattson i [id number],Shekhar Mattson i [id number],Ayla Knox MD [id number],S, Ayla Bourgeois MD [id number],S, Ayla Bourgeois MD [id number],S, Ayla Bourgeois MD [id number],W, Ayla Bourgeois MD [id number],S, Shekhar Ahmedza i [id number],S, Shekhar Ahmedza i [id number],S, Shekhar Ahmedza i [id number],S, Shekhar Ahmedza i [id number],S, Shekhar Ahmedza i [id number],S, Shekhar Ahmedza i [id number],S, Shekhar Ahmedza i [id number],S, Shekhar Ahmedza i [id number],S, Shekhar Ahmedza i [id number],S, Shekhar Ahmedza i [id number],S, Shekhar Ahmedza i [id number],S, Shekhar Ahmedza i [id number],W, Teri Fernández [id number],S, Teri Fernández [id number],S, Teri Fernández [id number],N, Teri Fernández [id number],S, Ayla Bourgeois MD [id number],S, Ayla Bourgeois MD [id number],S, Ayla Bourgeois MD [id number],B, Ayla Bourgeois MD [id number],S,S ANNA ENCOURAGED TO STOP SMOKING; SMOKING CESSATION TECHNIQUES DISCUSSED. Ingris More [id number],SShekhar i [id number],SShekhar i [id number],SShekhar i [id number],S, Shekhar Soliman i [id number],S, Shekhar Soliman i [id number],SShekhar i Telehealth Ayla Bourgeois MD Telehealth Ayla [...] 1 tablet by mouth twice a day [facility] Telehealth [facility] Telehealth: H er updated medication list for this problem includes: Atorvastatin 80 Mg Tablet (Atorvastatin) ..... Take 1 tablet by mouth every day Ezetimibe 10 Mg Tablet (Ezetimibe) ..... Take 1 tablet by mouth every day [facility] Tele[facility]: H er updated medication list for [...] tablet by mouth three times a day [facility] Telehealth: Len aviles BP: 120/48 (06/25/2024) Labs [...] tablet by mouth three times a day [facility] Cardiology:This visi t has been a part [...] Take 1 tablet by mouth every day [facility] Kash Cardiology:Patient w as advised to [...] (?) (06/11/2017) T.0 (06/11/2017) Shekharzaki Hewitt [facility]: H er updated medication list for [...] once a day. Metoprolol Succinate 50 Mg [id number] (Metoprolol succinate) ..... 1 tablet by mouth [...] ..... Po daily Metoprolol Succinate 50 Mg [id number] (Metoprolol succinate) ..... 1 tablet by mouth [...] ..... Po daily Metoprolol Succinate 50 Mg [id number] (Metoprolol succinate) ..... 1 tablet by mouth 3 times daily Lipitor 80 Mg Tabs (Atorvastatin calcium) ..... Daily Nitroglycerin 0.4 Mg Subl (Nitroglycerin) ..... Use as directed for chest pain Ranexa 500 Mg Tb12 (Ranolazine) ..... 1 tablet by mouth in the morning and 2 tablets in the afternoon Isosorbide Mononitrate Er 60 Mg Fm20y-[id number] (Isosorbide mononitrate) ..... 2 tablets daily Ayla Bourgeois MD follow up: H er updated medication list for this problem includes: Aspirin 81 Mg Tabs (Aspirin) ..... One tab. daily- on hold while taking med for gi infection Amlodipine Besylate 5 Mg Tabs (Amlodipine besylate) ..... Po daily Metoprolol Succinate 50 Mg [id number]-ljv (Metoprolol succinate) ..... 1 tablet by mouth [...] ..... Po daily Metoprolol Succinate 50 Mg [id number] (Metoprolol succinate) ..... 1 tablet by mouth [...] today: 107/71 Prior BP: 112/67 (06/22/2013) Ayla Borugeois MD follow up : H er updated medication list for this problem includes: Metoprolol Succinate 50 Mg [id number]-[id number] (Metoprolol succinate) ..... 1 tablet by mouth [...] ..... Daily Isosorbide Mononitrate Er 60 Mg We19v-odc (Isosorbide mononitrate) ..... 2 tablets daily Isosorbide Mononitrate Er 60 Mg Jw84e-qts (Isosorbide mononitrate) ..... 1 daily BP today: [...] this problem includes: Metoprolol Succinate 50 Mg Ug23c-hjj (Metoprolol succinate) ..... 1 tablet by mouth [...] this problem includes: Metoprolol Succinate 50 Mg Si42h-fag (Metoprolol succinate) ..... 1 tablet by mouth [...] this problem includes: Metoprolol Succinate 50 Mg Ye96p-vjr (Metoprolol succinate) ..... 1 tablet by mouth [...] ..... Daily Isosorbide Mononitrate Er 60 Mg Oi54p-ska (Isosorbide mononitrate) ..... 2 tablets daily Tricor [...] this problem includes: Metoprolol Succinate 50 Mg Uk44p-jmx (Metoprolol succinate) ..... 1 tablet by mouth [...] this problem includes: Metoprolol Succinate 50 Mg Sf48g-gbq (Metoprolol succinate) ..... 1 tablet by mouth [...] ..... Daily Isosorbide Mononitrate Er 60 Mg Ju40y-yoo (Isosorbide mononitrate) ..... 2 tablets daily Ayla Bourgeois MD follow up Ayla Bourgeois MD follow up: H er updated medication list for this problem includes: Metoprolol Succinate 50 Mg Fl90d-buq (Metoprolol succinate) ..... 1 tablet by mouth [...] (Amlodipine besylate) ..... Daily Imdur 60 Mg Dx34q-wfo (Isosorbide mononitrate) ..... Daily Tricor 145 Mg [...] 10 pm Isosorbide Mononitrate Cr 60 Mg Qd22o-osm (Isosorbide mononitrate) ..... 2 tabs daily Her [...] from the medication list: Imdur 60 Mg Ss10j-bqd (Isosorbide mononitrate) ..... 2 tablets by mouth [...] 1 tab as needed Orders: Hyun KG (CPT-[id number]) Ayla Bourgeois MD follow up: H er [...] ..... One tab. daily Orders: E KG ([id number]) B P today: 98/53 P rior BP: [...] ..... 145mg once daily Orders: E KG ([id number]) BP today: / Prior BP: 136/78 (06/09/2009) [...] pt24) ..... As needed Orders: E KG ([id number]) BP today: / Prior BP: 136/78 (06/09/2009) [...] the medication list: Lovaza 1 Gm Caps (Gqpfj-5-jxhm ethyl esters) Her updated medication list for [...] in both vertebrals. (07/22/2008) Orders: E KG (CPT-[id number]) Ayla Bourgeois MD : H er updated [...] the medication list: Lovaza 1 Gm Caps (Zvllc-7-ttzn ethyl esters) Her updated medication list for [...] One tab. daily Lovaza 1 Gm Caps (Pluhs-6-ucsf ethyl esters) BP today: 113/70 Prior BP: [...] One tab. daily Lovaza 1 Gm Caps (Exfsr-6-wike ethyl esters) Ayla Bourgeois MD FU: T [...] Artery Duplex Preop clearance, phn /internet/emr >5min 37597 HIGH 40-54min HISTORY OF PROCEDURES Procedure Date Procedure Name Provider Procedure Notes S tatus Complex e/m visit add on Ayla Bourgeois MD completed EKG Ayla Bourgeois MD completed EKG Ayla Bourgeois MD completed EKG Ayla Bourgeois MD completed Schedule Followup Ayla Bourgeois MD in 6 mo co mpleted EKG Ayla Bourgeois MD completed EKG Ayla Bourgeois MD completed SNOMED-CT: 100558978 920510 Current Medications Documented Ayla Bourgeois MD completed EKG Yimi Hernández MD complete d SNOMED-CT: 841395730 017503 Current Medications Documented Yimi Hernández MD completed SNOMED-CT: 87426297 Physical Exam, Performed: Pulse Exam of Foot Ayla Bourgeois MD completed SNOMED-CT: 284465490 920939 Current Medications Documented Ayla Bourgeois MD completed SNOMED-CT: 56830934 Physical Exam, Performed: Pulse Exam of Foot Ayla Bourgeois MD completed SNOMED-CT: 881979932 295181 Current Medications Documented Ayla Bourgeois MD completed SNOMED-CT: 04154599 Physical Exam, Performed: Pulse Exam of Foot Ayla Bourgeois MD completed EKG Ayla Bourgeois MD completed SNOMED-CT: 173612925 006158 Current Medications Documented Ayla Bourgeois MD completed EKG Ayla Bourgeois MD completed ePrescribe - Check t his box if eRx is used Ayla Bourgeois MD completed EKG Ayla Bourgeois MD completed EKG Ayla Bourgeois MD completed EKG Ayla Bourgeois MD completed EKG Ayla Bourgeois MD completed EKG Ayla Bourgeois MD completed EKG Ayla Bourgeois MD completed
--- OUTSIDE RECORDS SUMMARY | 2025-02-18 18:00 | XMS_ITS ---
Author Organization [facility] Address [address] [place] [address] Care Team Providers Care Frame Fixer Name Role Phone Lourdes August NP Unavailable [phone] Mahin Dudley MD Primary Care Provider [phone] Marek Vitale MD Unavailable [phone] Active Problems Problem Noted Date Diagnosed [...] 06/16/2009 Pulmonary emphysema ([facility]) 02/04/2009 Assessment & Plan (01/20/2022 11:45 AM [...] cervix 04/03/2008 Atherosclerotic heart diseas e of [place] coronary artery without angina pectoris 10/31/1958 Overview [...]
--- OUTSIDE RECORDS SUMMARY | 2025-02-18 18:00 | XMS_ITS | Clinical Summary ---
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 Utilities Answer Date Recorded In the past 12 months has [employer], gas, oil, or water [employer] threatened to shut off services in your home? No 09/19/2024 Social Connection and Isolat ion Panel [NHANES] Answer Date Recorded In a typical week, how many times do you talk on the phone with family, friends, or neighbors? Patient declined 09/19/2024 How often do you get togethe r with friends or relatives? Patient declined 09/19/2024 How often do you attend chur ch or episcopal services? More than 4 times per year 09/19/2024 Do you belong to any clubs o r organizations such as episcopal groups, unions, fraternal or athletic groups, or [...] any time in the past 12 m [facility], were you homeless or living in a [place] health care facility (including now)? No 09/19/2024 Personal Safety Answer Date Recorded Have you ever been in or are you currently in a harmful physical or emotional relationship or is someone making you feel afraid or unsafe? 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 Sex Female 1:07 AM PLASTICS BENCH MECHANIC Gender Identity Not on file Sexual Orientation Not on file Obstetrics History Para Term AB IAB SAB Ectopic Multiple Livin g Live Births 3 3 3 Date Outcome GA Total Labor Labor/2nd/3rd Weight Sex Type Anes PTL Heidi A1 A5 Name Clin Term Term Term Last Filed Vital Signs Vital Sign Reading Time Taken Comments Blood Pressure 114/54 09/19/2024 6:05 PM PLASTICS BENCH MECHANIC Pulse 76 09/19/2024 6:05 PM PLASTICS BENCH MECHANIC Temperature 36.7 C (98 F) 09/19/2024 4:50 AM PLASTICS BENCH MECHANIC Respiratory Rate 18 09/19/2024 6:05 PM PLASTICS BENCH MECHANIC Oxygen Saturation 90% 09/19/2024 6:05 PM PLASTICS BENCH MECHANIC Inhaled Oxygen Concentration - - Weight 71.7 kg (158 lb 1.1 oz) 09/18/2024 5:20 A M PLASTICS BENCH MECHANIC Height 165.1 cm (5' 5 ) 09/18/2024 8:22 AM PLASTICS BENCH MECHANIC Body Mass Index 26.3 09/18/2024 5:20 AM PLASTICS BENCH MECHANIC Plan of Treatment Health Maintenance Due Date [...] Read Routine (OP Routine) 12/06/2018 12:38 PM PLASTICS BENCH MECHANIC Personal history of tobacco use, presenting hazards [...] seen in the axillae or elsewhere. Mahin Dudley MD IMG MAMMO PROCEDURES Final Result * CT Lung Cancer Screening (12/06/2018 12:38 PM PLASTICS BENCH MECHANIC) Anatomical Region Laterality Modality Chest N/A Computed Tomogra phy 12/06/2018 12:5 5 PM PLASTICS BENCH MECHANIC Impressions 12/06/2018 1:10 PM PLASTICS BENCH MECHANIC INTERVAL RIGHT LOWER LOBE 6 MM NODULE, PROBABLY BENIGN, CATEGORY 2 PER LUNG-RADS. RECOMMEND 6 MONTH FOLLOW-UP LOW DOSE CT CHEST. BRONCHIAL THICKENING WITH MOSAIC LUNG ATTENUATION PROBABLY AT TRAPPING FROM BRONCHIOLITIS. STABLE RIGHT MIDDLE LOBE MEDIAL SEGMENTAL ATELECTASIS WITH INTERVAL UPPER LOBE SUBSEGMENTAL ATELECTASIS. Electronically signed by: Anna Castañeda M.D. Narrative 12/06/2018 1:10 PM PLASTICS BENCH MECHANIC RESULT: Examination: CT LUNG CANCER SCREENING Date: [...] Most Recently Relevant to Health Maintenance Insurance [facility] MEDICARE ADVANTAGE [facility] MEDICARE ADVANTAGE [address] [place] [address] Advance Directives For more information, please contact: [phone] * Full Code (Latest Code Status on File) Date Activated Date Inactivated Comments 09/18/2024 5:54 AM 09/19/2024 11:16 PM * Full Code Date Activated Date Inactivated Comments 11/01/2023 10:33 AM 11/01/2023 5:11 PM * Full Code Date Activated Date Inactivated Comments 11/01/2023 10:32 AM 11/01/2023 10:33 AM * Full Code Date Activated Date Inactivated Comments 01/17/2022 2:31 AM 01/20/2022 5:37 PM Care Teams Police Detention Attendant Relationship Specialty Start Date End Date Mahin Dudley MD [address] [place] [address] PCP - General Family Medicine 03/12/24 Lourdes August NP Nurse Practitioner Plastic Surgery 06/10/22 Marek Vitale MD [address] [place] [address] Consulting Physician Cardiology 09/19/24
--- OUTSIDE RECORDS SUMMARY | 2025-02-18 18:00 | XMS_ITS | Continuity of Care Document ---
Author Organization [facility] Address [address] [place] [address] [place] [address] Phone Care Team Providers Care Laundry Or Dry Cleaners Counter Clerk Name Role Phone Leo Piper Unavailable Unavailable Procedures Procedure Date Office/outpatient Visit, [facility] No Script Advance Directives Directive Yes / No Effective Date File Name No Information Encounters Encounter Description Practice Location Reason(s) For Visit Diagnoses Date Provider Providers Copied on Encounter Office/outpat ient Visit, [facility], [address], [place], [place], [id number], [place] tel:[phone] [facility] No Information 2-[address] Larymari Leo. [address] [facility] [address], [place], [address], [place]. tel:[phone] Family History Family Member Type Diagnosis Age At Onset No Information Payers Payer name Insurance type Covered green party ID Authoriza tion(s) [place] [id number] [employer] SOI 09 [id number] Social History Type Description Quantity Date Captured [...]
--- OUTSIDE RECORDS SUMMARY | 2025-02-18 18:00 | XMS_ITS | Referral Summary ---
Author Organization [facility] Address [address] [place] [address] Care Team Providers Care Story Analyst Name Role Phone Lourdes August NP Unavailable [phone] Mahin Dudley MD Primary Care Provider Marek Vitale MD Unavailable [phone] Allergies Active Allergy Reactions Criticality Noted [...] for cardiovascular disor ders 06/16/2009 Pulmonary emphysema ([facility]) 02/04/2009 Assessment & Plan (01/20/2022 [...] cervix 04/03/2008 Atherosclerotic heart diseas e of [place] coronary artery without angina pectoris 10/31/1959 Overview [...] drink = 0.6 oz pur e alcohol) [facility] Utilities Answer Date Recorded In [...] often do you attend chur ch or jewish services? More than 4 times per year 09/19/2024 Do you belong to any clubs o r organizations such as congregational groups, unions, fraternal or athletic groups, or [...] any time in the past 12 m [facility], were you homeless or living in a custodial (including now)? No 09/19/2024 Personal Safety Answer Date Recorded Have you ever been in or are you currently in a harmful physical or emotional relationship or is someone making you feel afraid or unsafe? 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 Sex Female 1:[address] SQL DEVELOPER Gender Identity Not on file Sexual Orientation Not on file Last Filed Vital Signs Vital Sign Reading Time Taken Comments Blood Pressure 114/54 09/19/2024 6:[address] SQL DEVELOPER Pulse 76 09/19/2024 6:[address] SQL DEVELOPER Temperature 36.7 C (98 F) 09/19/2024 4:[address] SQL DEVELOPER Respiratory Rate 18 09/19/2024 6:[address] SQL DEVELOPER Oxygen Saturation 90% 09/19/2024 6:[address] SQL DEVELOPER Inhaled Oxygen Concentration - - Weight 71.7 kg (158 lb 1.1 oz) 09/18/2024 5:[address] SQL DEVELOPER Height 165.1 cm (5' 5 ) 09/18/2024 8:[address] SQL DEVELOPER Body Mass Index 26.3 09/18/2024 5:[address] SQL DEVELOPER Plan of Treatment Not on file Procedures Procedure Name Priority Date/Time Associated Diagnosis Comments SCREENING MAMMOGRAM BILATERAL W JOHNNY Schedule Routine, Read Routine (OP Routine) 08/09/2024 10:54 AM CDT Visit for screening mammogram CT LUNG CANCER SCREENING Schedule Routine, Read Routine (OP Routine) 12/06/2018 12:[address] SQL DEVELOPER Personal history of tobacco use, presenting hazards [...] CT Lung Cancer Screening (12/06/2018 12:[address] SQL DEVELOPER) Anatomical Region Laterality Modality Chest N/A Computed Tomogra phy 12/06/2018 12:[address] SQL DEVELOPER Impressions 12/06/2018 1:[address] SQL DEVELOPER INTERVAL RIGHT LOWER LOBE 6 MM NODULE, PROBABLY BENIGN, CATEGORY 2 PER LUNG-RADS. RECOMMEND 6 MONTH FOLLOW-UP LOW DOSE CT CHEST. BRONCHIAL THICKENING WITH MOSAIC LUNG ATTENUATION PROBABLY AT TRAPPING FROM BRONCHIOLITIS. STABLE RIGHT MIDDLE LOBE MEDIAL SEGMENTAL ATELECTASIS WITH INTERVAL UPPER LOBE SUBSEGMENTAL ATELECTASIS. Electronically signed by: Anna Castañeda M.D. Narrative 12/06/2018 1:[address] SQL DEVELOPER RESULT: Examination: CT LUNG CANCER SCREENING Date: [...] 03/09/2018 Ordered by an unspecified provider. Result [facility] Tammi Provider IMG DXA PROCEDURES Final Result * Serum Hepatitis C ab (07/20/2016 4:49 PM CDT) HCV ab Negative Negative CDR HISTOR ICAL RESULTS Serum 07/20/2016 4:49 PM CDT Amber Terrazas MD LAB BLOOD ORDERABLES Final Resul t CDR HISTORICAL RESULTS from Last 3 Months or Most Recently Relevant to Health Maintenance Insurance [facility] MEDICARE ADVANTAGE [facility] MEDICARE ADVANTAGE Advance Directives For more information, please contact: [phone] * Full Code (Latest Code Status on File) Date Activated Date Inactivated Comments 09/18/2024 5:54 AM 09/19/2024 11:16 PM * Full Code Date Activated Date Inactivated Comments 11/01/2023 10:33 AM 11/01/2023 5:11 PM * Full Code Date Activated Date Inactivated Comments 11/01/2023 10:32 AM 11/01/2023 10:33 AM * Full Code Date Activated Date Inactivated Comments 01/17/2022 2:31 AM 01/20/2022 5:37 PM Care Teams Story Analyst Relationship Specialty Start Date End Date Mahin Dudley MD [address] [place] [address] PCP - General Family Medicine 03/12/24 Lourdes August NP Nurse Practitioner Plastic Surgery 06/10/22 Marek Vitale MD [address] [place] [address] Consulting Physician Cardiology 09/19/24
== END 2025-02-18 16:47 | disposition home or self-care (01) ==
PROVIDERS: PCP Family Medicine; Visit Provider Family Medicine
DX: M25.551 Pain in right hip (principal)
CPT/HCPCS: 73502

== ENCOUNTER 2025-03-11 07:36 | Outpatient (CLI) | payer MEDICARE, MEDICAID, SELFPAY ==
--- NOTE | ~2025-03-11 | US_ITS ---
US pelvic limited Ordering provider: Mahin Dudley, History: . URINARY HESITANCY . Comparison: None. Technique: Transabdominal ultrasound of the pelvis . FINDINGS/impression: The prevoid volume is 45.43 mL. The post void is 18.48 mL. Reviewed, dictated and finalized at location A.
--- NOTE | ~2025-03-11 | XR_ITS ---
XR hip LT min 2V Ordering provider: Mahin Dudley, History: . URINARY HESITANCY . Comparison: None. FINDINGS: BONES: No acute fracture or dislocation. HIP JOINT SPACES: Mild osteoarthritic changes. SACROILIAC JOINT SPACES/LUMBAR SPINE: The left sacroiliac joint spaces are normal. Mild degenerative changes of the visualized lower lumbar spine. SOFT TISSUES: Normal. IMPRESSION: No acute osseous abnormality pelvis and left hip. Mild left hip osteoarthritic changes. Reviewed, dictated and finalized at location A.
--- OUTSIDE RECORDS SUMMARY | 2025-03-11 07:42 | XMS_ITS | Encounter Summary ---
Author Organization [facility] Address [address] [place] [address] Care Team Providers Care Gas Regulator Repairer Helper Name Role Phone Cooper Nieto MD Primary Care Provider [phone] Lourdes Auugst NP Unavailable [phone] Mahin Dudley MD Primary Care Provider Marek Vitale MD Unavailable [phone] Encounter Details Date Type Department Care Team (Late st Contact Info) Description 01/20/2022 Documentation [facility] [address] [place] [id number] Heike Howard Social History Tobacco Use Types [...] on file Legal Sex Female 1:07 AM SHOVEL LOGGER Gender Identity Not on file Sexual Orientation Not on file documented as of this encounter Plan of Treatment Not on file documented as of this encounter Visit Diagnoses Not on filedocumented in this encounter Care Teams Gas Regulator Repairer Helper Relationship Specialty Start Date End Date Cooper Nieto MD PCP - General Internal Medicine 08/25/18 03/11/24 Mahin Dudley MD [address] [place] [address] PCP - General Family Medicine 03/12/24 Lourdes August NP Nurse Practitioner Plastic Surgery 06/10/22 Marek Vitale MD [address] [place] [address] Consulting Physician Cardiology 09/19/24 documented as of this encounter
--- OUTSIDE RECORDS SUMMARY | 2025-03-11 07:42 | XMS_ITS | Encounter Summary ---
Author Organization [facility] Address [address] [place] [address] Care Team Providers Care Inspector Machined Parts Name Role Phone Cooper Nieto MD Primary Care Provider [phone] Lourdes August NP Unavailable [phone] Mahin Dudley MD Primary Care Provider Marek Vitale MD Unavailable [phone] Encounter Details Date Type Department Care Team (Late st Contact Info) Description 01/01/2021 Telephone [facility] [address] [place] [address] Eyal Platt, RT Social History Tobacco Use Types Packs/Day Years Used Date Smoking Tobacco: Every Day Smokeless Tobacco: Never Alcohol Use Standard Drinks/Week Comments No 0 (1 standard drink = 0.6 oz pur e alcohol) Comments No Sex and Gender Information Value Date Recorded Sex Assigned at Not on file Legal Sex Female 1:07 AM MANAGER PEDIATRIC Gender Identity Not on file Sexual Orientation Not on file documented as of this encounter Plan of Treatment Not on file documented as of this encounter Visit Diagnoses Not on filedocumented in this encounter Additional Health Concerns Infection Onset Date Last Indicated Resolved Time COVID: Suspected 01/19/2022 01/19/2022 01/19/2022 7:50 PM CDT documented as of this encounter Care Teams Inspector Machined Parts Relationship Specialty Start Date End Date Cooper Nieto MD PCP - General Internal Medicine 08/25/18 03/11/24 Mahin Dudley MD [address] [place] [address] PCP - General Family Medicine 03/12/24 Lourdes August NP Nurse Practitioner Plastic Surgery 06/10/22 Marek Vitale MD [address] [place] [address] Consulting Physician Cardiology 09/19/24 documented as of this encounter
--- OUTSIDE RECORDS SUMMARY | 2025-03-11 07:42 | XMS_ITS | Clinical Summary ---
Author Organization [facility] Address [address] [place] [address] Care Team Providers Care Glass Ribbon Machine Operator Assistant Name Role Phone Ketan Nguyễn MD Primary Care Provider [phone] Source Comments [facility],non-owned Affiliates and Associated Physician Practices is amultiple site organization consisting of ambulatory clinics and hospital sitesin [place], [place]. This disclosure is being madepursuant to the Care Everywhere program and may not contain all information available regarding this patient. Last updated 18.[facility] Allergies Active Allergy Reactions Criticality Noted Date [...] by mouth once daily. Active nystatin (MYCOSTATIN) 428891 UNIT/ML suspension Take 5 mL by mouth [...] Active azelastine (ASTELIN) 0.1 % nasal spray [place] 2 Sprays into each nostril 2 times [...] mouth once daily Active Cholecalciferol (VITAMIN D3) 95092 UNITS TABS Take 1 Tab by mouth [...] on file Legal Sex Female 6:27 AM MANAGER TECHNOLOGY Gender Identity Not on file Sexual Orientation [...] 7:36 PM 05/25/2014 10:27 PM Care Teams Glass Ribbon Machine Operator Assistant Relationship Specialty Start Date End Date Ketan Nguyễn MD [address] [place] [address] PCP - General Family Medicine 05/25/14
--- OUTSIDE RECORDS SUMMARY | 2025-03-11 07:42 | XMS_ITS | Referral Summary ---
Author Organization [facility] Address [address] [place] [phone] Care Team Providers Care Platform Beater Name Role Phone Lourdes August NP Unavailable [phone] Mahin Dudley MD Primary Care Provider Marek Vitale MD Unavailable [phone] Allergies Active Allergy Reactions Criticality Noted [...] for cardiovascular disor ders 06/16/2009 Pulmonary emphysema ([facility]) 02/04/2009 Assessment & Plan [...] cervix 04/03/2008 Atherosclerotic heart diseas e of [place] coronary artery without angina pectoris 10/31/1959 Overview [...] Date Smoking Tobacco: Every Day Cigarettes 1.3 40.5 Started: 09/19/1984 Smokeless Tobacco: Never Tobacco Cessation:Ready to Q uit: No; Counseling Given: Yes Alcohol Use Standard Drinks/Week Comments No 0 (1 standard drink = 0.6 oz pur e alcohol) [facility] Utilities Answer Date Recorded In the [...] often do you attend chur ch or anabaptist services? More than 4 times per year 09/19/2024 Do you belong to any clubs o r organizations such as gnosticist groups, unions, fraternal or athletic groups, or [...] any time in the past 12 m [facility], were you homeless or living in [...] on file Legal Sex Female 1:[address] CLERK Gender Identity Not on file Sexual Orientation Not on file Last Filed Vital Signs Vital Sign Reading Time Taken Comments Blood Pressure 114/54 09/19/2024 6:[address] CLERK Pulse 76 09/19/2024 6:[address] CLERK Temperature 36.7 C (98 F) 09/19/2024 4:[address] CLERK Respiratory Rate 18 09/19/2024 6:[address] CLERK Oxygen Saturation 90% 09/19/2024 6:[address] CLERK Inhaled Oxygen Concentration - - Weight 71.7 kg (158 lb 1.1 oz) 09/18/2024 5:20 A M [address] CLERK Height 165.1 cm (5' 5 ) 09/18/2024 8:[address] CLERK Body Mass Index 26.3 09/18/2024 5:[address] CLERK Plan of Treatment Not on file Procedures Procedure Name Priority Date/Time Associated Diagnosis Comments SCREENING MAMMOGRAM BILATERAL W JOHNNY Schedule Routine, Read Routine (OP Routine) 08/09/2024 10:54 AM CDT Visit for screening mammogram CT LUNG CANCER SCREENING Schedule Routine, Read Routine (OP Routine) 12/06/2018 12:[address] CLERK Personal history of tobacco use, presenting hazards [...] CT Lung Cancer Screening (12/06/2018 12:[address] CLERK) Anatomical Region Laterality Modality Chest N/A Computed Tomogra phy 12/06/2018 12:[address] CLERK Impressions 12/06/2018 1:[address] CLERK INTERVAL RIGHT LOWER LOBE 6 MM NODULE, PROBABLY BENIGN, CATEGORY 2 PER LUNG-RADS. RECOMMEND 6 MONTH FOLLOW-UP LOW DOSE CT CHEST. BRONCHIAL THICKENING WITH MOSAIC LUNG ATTENUATION PROBABLY AT TRAPPING FROM BRONCHIOLITIS. STABLE RIGHT MIDDLE LOBE MEDIAL SEGMENTAL ATELECTASIS WITH INTERVAL UPPER LOBE SUBSEGMENTAL ATELECTASIS. Electronically signed by: Anna Castañeda M.D. Narrative 12/06/2018 1:[address] CLERK RESULT: Examination: CT LUNG CANCER SCREENING Date: [...] 03/09/2018 Ordered by an unspecified provider. Result [facility] Tammi Provider IMG DXA PROCEDURES Final Result * Serum Hepatitis C ab (07/20/2016 4:49 PM CDT) HCV ab Negative Negative CDR HISTOR ICAL RESULTS Serum 07/20/2016 4:49 PM CDT Amber Terrazas MD LAB BLOOD ORDERABLES Final Resul t CDR HISTORICAL RESULTS from Last 3 Months or Most Recently Relevant to Health Maintenance Insurance IDPA [facility] MEDICARE ADVANTAGE IDPA [facility] MEDICARE ADVANTAGE Advance Directives For more information, please contact: [phone] * Full Code (Latest Code Status on File) Date Activated Date Inactivated Comments 09/18/2024 5:54 AM 09/19/2024 11:16 PM * Full Code Date Activated Date Inactivated Comments 11/01/2023 10:33 AM 11/01/2023 5:11 PM * Full Code Date Activated Date Inactivated Comments 11/01/2023 10:32 AM 11/01/2023 10:33 AM * Full Code Date Activated Date Inactivated Comments 01/17/2022 2:31 AM 01/20/2022 5:37 PM Care Teams Platform Beater Relationship Specialty Start Date End Date Mahin Dudley MD [address] [place] [id number] PCP - General Family Medicine 03/12/24 Lourdes August NP Nurse Practitioner Plastic Surgery 06/10/22 Marek Vitale MD [address] [place] [address] Consulting Physician Cardiology 09/19/24
--- OUTSIDE RECORDS SUMMARY | 2025-03-11 07:42 | XMS_ITS | Clinical Summary ---
Author Organization [facility] Address [address] [place] [phone] Phone Care Team Providers Care Medical Biller Coder Name Role Phone [facility], External Provider Primary Care Provider Un [...] tablet Take 60 mg by mouth daily family law legal assistant. Active DULoxetine (CYMBALTA) 60 mg Capsule, Delayed [...] A AND B MEDICA[place] Care Teams Medical Biller Coder Relationship Specialty Start Date End Date [facility], External Provider [address] [place] [address] PCP - General 01/24/15
--- OUTSIDE RECORDS SUMMARY | 2025-03-11 07:42 | XMS_ITS | CONTINUITY OF CARE DOCUMENT ---
Author Name bonnie nicole Address Unknown Organization [facility] Address [address] [place] [address] Phone [phone] Care Team Providers Care Bow Maker Name Role Phone Bk RANDALL, Ayla Unavailable ADAN BARRAZA MD Unavailable [phone] ADAN BARRAZA MD Unavailable [phone] PROBLEMS Condition Status Date Provider Notes Dyspnea [...] In-person encounter Office Visit Ayla Bourgeois MD [facility] Cardiology examinati on - In-person encounter Office Visit Ayla Bourgeois MD [facility] hx of Microvascular angina;had ecpJaw pain - In-person encounter Office Visit Ayla Bourgeois MD [facility] - In-person encounter Office Visit Ayla Bourgeois MD [facility] Acute back pain with sciatica - In-person encounter Office Visit Ayla Bourgeois MD SL - In-person encounter Office Visit Ayla Bourgeois MD [facility] - In-person encounter Office Visit Ayla Bourgeois MD [facility] - In-person encounter Office Visit Ayla Bourgeois MD [facility] hx of Microvascular angina;had ecpB12 deficiencyVenous insufficiency - In-person encounter Office Visit Ayla Bourgeois MD [facility] - In-person encounter Office Visit Ayla Bourgeois MD [facility] - In-person encounter Office Visit Ayla Bourgeois MD [facility] - In-person encounter Office Visit Ayla Bourgeois MD [facility] - In-person encounter Office Visit Yimi Hernández MD [facility] -08/06 TAXUS LAD, multiple RCA stents, , small rev lat wall defect on nuc 01/2021Vitamin D deficiencyPREDIABETES; - In-person encounter Office Visit Ayla Bourgeois MD [facility] - In-person encounter Office Visit Ayla Bourgeois MD [facility] - In-person encounter Office Visit Ayla Bourgeois MD [facility] - In-person encounter Office Visit Ayla Bourgeois MD [facility] - In-person encounter Office Visit Ayla Bourgeois MD [facility] - In-person encounter Office Visit Ayla Bourgeois MD [facility] CAD-07/08 CAROTID NEGANGINA PECTORIS-NO NEW LESIONS ON CATH11/09CAD-08/06 TAXUS LAD, multiple RCA stents, , small rev lat wall defect on nuc IARRHEA - In-person encounter Office Visit Ayla Bourgeois MD [facility] - In-person encounter Office Visit Ayla Bourgeois MD [facility] - In-person encounter Office Visit Ayla Bourgeois MD [facility] - In-person encounter Office Visit Ayla Bourgeois MD [facility] - In-person encounter Office Visit Ayla Bourgeois MD [facility] - In-person encounter Office Visit Ayla Bourgeois MD [facility] - In-person encounter Office Visit Ayla Bourgeois MD [facility] - In-person encounter Office Visit Ayla Bourgeois MD [facility] - In-person encounter Office Visit Ayla [facility] - In-person encounter Office Visit Ayla Bourgeois MD [facility] - In-person encounter Office Visit Ayla [facility] SLEEP APNEA ON HOME 02TOBACCO ABUSE - In-person encounter Office Visit A[facility] [place] [facility] - In-person encounter Office Visit Ayla Bourgeois MD [facility] - In-person encounter Office Visit Augie Pugh MD [facility] - In-person encounter Office Visit Ayla Bourgeois MD [facility] - In-person encounter Office Visit Ayla Bourgeois MD [facility] - In-person encounter Office Visit Ayla Bourgeois MD [facility] HTN ESSENTIAL--echo ef nl, NGINA PECTORIS-NO NEW LESIONS ON CATH11/09CAD-08/06 TAXUS LAD, multiple RCA stents, , small rev lat wall defect on nuc MPHYSEMA - In-person encounter Office Visit Ayla Bourgeois MD [facility] - In-person encounter Office Visit Ayla Bourgeois MD [facility] SLEEP APNEA ON HOME - In-person encounter Office Visit Ayla Bourgeois MD [facility] - In-person encounter Office Visit Ayla Bourgeois MD [facility] VITAL SIGNS Date Observation Value Provider [...] Wes Ordonez oxygen saturation, oximetry 98 % [place] Ordonez respiratory rate E&M 16 /min Fernando Ordonez pulse rate 83 /min Fernando Ordonez weight E&M 182 [lb_av] [place] Ordonez height E&M 66 [in_i] Fernando Ordonez Body Mass Index (Ratio) 28.08 kg/m2 Pravin Bourgeois MD blood pressure, diastolic 68 mm[Hg] Isaiah Martinez blood pressure, systolic 121 mm[Hg] Emilee Martinez oxygen saturation, oximetry 94 % Brice Martinez respiratory rate E&M 18 /min Je Martinez pulse rate 77 /min Brice rm weight E&M 174 [lb_av] Brice Miguel kit height E&M 66 [in_i] Brice Miguel [facility] Body Mass Index (Ratio) 28.57 kg/m2 Pravin Bourgeois MD blood pressure, diastolic 58 mm[Hg] David daniels Rod blood pressure, systolic 134 mm[Hg] Tommy scanlon [facility] oxygen saturation, oximetry 97 % [facility] respiratory rate E&M 15 /min Francesca [facility] pulse rate 77 /[facility] 177 [lb_av] [facility] height E&M 66 [in_i] [facility] Body Mass Index (Ratio) 29.82 kg/m2 Adrienne [...] Marsha Arndtby pulse rate 71 /min [facility] respiratory rate E&M 16 /min [facility] oxygen saturation, oximetry 98 % [facility] [place] weight E&M 191.0 [lb_av] [facility] blood pressure, cuff size regular Ralph Arndtby height E&M 66 [in_i] [facility] [place] blood pressure, diastolic 66 mm[Hg] Me kalpana [...] Garth Trevizo blood pressure, systolic 120 mm[Hg] Ielne Trevizo pulse rate 82 /min Felix Trevizo [...] pressure, systolic, left arm 90 mm[ Hg] [facility], diastolic, right arm 53 m m[Hg] [facility] blood pressure, systolic, right arm 98 mm [Hg] [facility] blood pressure, diastolic 53 mm[Hg] [facility], systolic 98 mm[Hg] [facility] 69 /min [facility] respiratory rate E&M 16 /min [facility] weight E&M 189 [lb_av] [facility] blood pressure, diastolic, left arm 72 mm [...] diastolic, left arm 68 mm [Hg] Poppy [facility] blood pressure, systolic, left arm 110 mm [Hg] [facility] blood pressure, diastolic, right arm 64 m m[Hg] [facility] blood pressure, systolic, right arm 108 m m[Hg] Po[facility] pulse rate 72 /min Po[facility] oxygen saturation, oximetry 95 % Po[facility] respiratory rate E&M 16 /min Poppy rice weight E&M 195 [lb_av] Po[facility] blood pressure, diastolic 78 mm[Hg] Reshma seph [place] blood pressure, systolic 136 mm[Hg] Bryant eph [place] pulse rate 74 /min Milton [place] oxygen saturation, oximetry 95 % Milton [place] respiratory rate E&M 16 /min Milton [place] weight E&M 197 [lb_av] Milton [place] blood pressure, diastolic 74 mm[Hg] Ca diana LaceyBonnie blood pressure, systolic 116 mm[Hg] Hugo Laceykermann pulse rate 81 /min Po[facility] oxygen saturation, oximetry 94 % [facility] respiratory rate E&M 20 /min Poppy [...] (low-density lipoprotein/high-den sity lipoprotein) ratio 3.3 RATIO [facility] - lipoprotein, beta, serum, point, quantitative, [...] 1.0 carbon dioxide, venous blood 23.0 mmol/L [facility] 23.0 - 31.0 calcium, serum 9.6 mg/dL [facility] 8.6 - 10.2 urea nitrogen, blood 14.0 mg/dL [facility] 8.0 - 23.0 blood glucose, random 105.0 mg/dL [facility] 74.0 - 99.0 High red blood cell distribution width, size density 42.5 fL [facility] - immature granulocytes, percentage of total cells, blood 0.2 % [facility] - nucleated red blood cells as percent of blood leukocytes 0.0 % [facility] - red blood cell (erythrocyte) count, per high power field 0.0 10*3/UL [facility] - eosinophils as percent of blood leukocytes 1.7 % [facility] - neutrophils as percent of blood leukocytes 58.3 % [facility] - Absolute Neutrophils 3.8 CELLS/UL [facility] 1.5 - 7.8 basophils as percent of blood leukocytes 0.9 % [facility] - Absolute Basophils 0.1 CELLS/UL [facility] 0.0 - 0.2 monocytes as percent of blood leukocytes 7.2 % [facility] - Absolute Monocytes 0.5 CELLS/UL [facility] 0.2 - 1.0 lymphocytes as percent of blood leukocytes 31.7 % [facility] - Absolute Lymphocytes 2.1 CELLS/UL [facility] 0.9 - 3.9 mean platelet volume 9.9 (?) [facility] - platelet count 272.0 THOUSAND/ UL [facility] 100.0 - 400.0 mean corpuscular hemoglobin concentration, RBC 33.1 G/DL [facility] 31.0 - 38.0 mean corpuscular hemoglobin, RBC 30.1 pg [facility] 25.0 - 35.0 mean corpuscular volume, RBC 90.9 fL [facility] 75.0 - 100.0 hematocrit, blood 39.0 % [facility] 35.0 - 55.0 hemoglobin, blood 12.9 g/dL [facility] 11.5 - 16.5 erythrocyte count, whole blood 4.3 MILLION/U L [facility] 3.5 - 5.5 prothrombin time (patient) [facility] 9.0 - 11.5 international normalized ratio (INR) 0.9 [facility] 0.9 - 1.1 pro brain natriuretic peptide 461.3 pg/mL [facility] 0.0 - 125.0 High very low density lipoproteins 26.2 mg/dL [facility] 5.0 - 40.0 LDL/HDL (low-density lipoprotein/high-den sity lipoprotein) ratio 2.3 RATIO [facility] - lipoprotein, beta, serum, point, quantitative, calculated 122.8 (?) [facility] 0.0 - 100.0 High HDL cholesterol, serum 54.0 mg/dL [facility] 45.0 - 65.0 cholesterol, serum 203.0 mg/dL [facility] 0.0 - 200.0 High triglyceride, serum, fasting 131.0 mg/dL [facility] 0.0 - 150.0 ferritin, serum 22.1 ng/mL [facility] 13.0 - 150.0 iron, serum 58.0 ug/dL [facility] 25.0 - 156.0 iron saturation percent, serum 12.1 % [facility] 20.0 - 50.0 Low iron binding capacity, total 480.2 ug/dL [facility] 250.0 - 450.0 High hemoglobin A1C, blood, as % of total hemoglobin 6.0 % [facility] 4.0 - 5.6 High troponin I <0.02 Annette Miramontes creatine kinase, serum 38 1/L Annette Miramontes anion gap, serum 8 Annette Miramontes estimated glomerular filtration rate 68 mL/min Annette iMramontes albumin/globulin ratio, serum 1.1 [facility] protein, total, serum 7.0 g/dL [facility] albumin, serum 3.6 g/dL [facility] bilirubin, serum, total 0.23 mg/dL [facility] alkaline phosphatase, serum 59 1/L [facility] alanine aminotransferase (SGPT), serum 45 1/L [facility] aspartate aminotransferase (SGOT), serum 21 1/L [facility] calcium, serum 8.9 mg/dL [facility] blood glucose, fasting 91 mg/dL [facility] creatinine, serum 0.9 mg/dL [facility] urea nitrogen, blood 13 mg/dL [facility] carbon dioxide, serum, total 30.7 mmol/L [facility] chloride, serum 103 mmol/L [facility] potassium, serum 3.8 mmol/L [facility] sodium, serum 142 mmol/L [facility] PTT patient 28.[address] [facility] prothrombin time (patient) 10.[address] [facility] international normalized ratio (INR) 0.99 [facility] monocytes as percent of blood leukocytes 7.6 % [facility] lymphocytes as percent of blood leukocytes 36.0 % [facility] platelet count 346 10*3/uL [facility] mean corpuscular hemoglobin concentration, RBC 32.1 g/dL [facility] mean corpuscular hemoglobin, RBC 25.[address] [facility] mean corpuscular volume, RBC [address] [facility] hematocrit, blood 35.8 % [facility] hemoglobin, blood 11.5 g/dL [facility] erythrocyte (RBC) count 4.57 10*6/mm3 [facility] leukocyte count, blood 6.5 10*3/mm3 [facility] prothrombin time (patient) 10.[address] [facility] international normalized ratio (INR) 0.98 [facility] calcium, serum 9.1 mg/dL [facility] blood glucose, fasting 99 mg/dL [facility] creatinine, serum 0.9 mg/dL [facility] urea nitrogen, blood 13 mg/dL [facility] carbon dioxide, serum, total 34.4 mmol/L [facility] chloride, serum 103 mmol/L [facility] potassium, serum 4.3 mmol/L [facility] sodium, serum 139 mmol/L [facility] platelet count 250 10*3/uL [facility] mean corpuscular hemoglobin concentration, RBC 32.8 g/dL [facility] mean corpuscular hemoglobin, RBC 28.[address] [facility] mean corpuscular volume, RBC [address] [facility] hematocrit, blood 40.2 % [facility] hemoglobin, blood 13.2 g/dL [facility] erythrocyte (RBC) count 4.56 10*6/mm3 [facility] monocytes as percent of blood leukocytes 9.8 % [facility] lymphocytes as percent of blood leukocytes 30.3 % [facility] leukocyte count, blood 7.7 10*3/mm3 [facility] Kulwinder international normalized ratio (INR) 1.0 Joie [...] TAKE 1 TABLET BY MOUTH EVERY DAY Shekhar Hewitt nitroglycerin 0.4 mg tablet, sublingual completed PLACE [...] TAKE 1 TABLET BY MOUTH EVERY DAY Shekhar Hewitt ranolazine 500 mg tablet extended release 12 hr active TAKE 1 TABLET BY MOUTH TWICE A DAY [facility] isosorbide mononitrate 60 mg tablet extended release 24 hr active TAKE 2 TABLETS BY MOUTH EVERY DAY [facility] ranolazine 500 mg tablet extended release 12 hr completed TAKE 1 TABLET BY MOUTH TWICE A DAY - Shekhar Hewitt furosemide 20 mg tablet active TAKE 1 TABLET BY MOUTH EVERY DAY NEEDED Sasha Bartlett clopidogrel 75 mg tablet active TAKE 1 TABLET BY MOUTH EVERY DAY [facility] ezetimibe 10 mg tablet completed Take 1 tablet by mouth once a day - Lorna Osborne metoprolol succinate 50 mg tablet extended release 24 hr active TAKE 1 TABLET BY MOUTH THREE TIMES A DAY Shekhar Hewitt ezetimibe 10 mg tablet completed Take 1 tablet by mouth every night - Jody Clements RN amlodipine 5 mg tablet active TAKE 1 TABLET BY MOUTH EVERY DAY Shekhar Hewitt Anoro Ellipta 62.5-25 mcg/actuation blister with device active Take 2 puff twice a day Sana Duncan ERGOCALCIFEROL [id number] UNIT ORAL CAPSULE completed 1 cap once [...] 3 times daily as needed - Ramu Pugh montelukast 10 mg tablet active as directed [...] TABLET completed One tablet daily - Ramu Pugh omeprazole 20 mg capsule,delayed release(/EC) active Take 1 capsule once a day Shekhar Hewitt VITAMIN D TABLET completed D2 55855 international units once weekly - Yimi Hernández MD HYDROXYCHLOROQUINE SULFATE 200 MG ORAL TABLET completed TAKE ONE TABLET BY MOUTH ONCE DAILY - Fernando Ordonez RANITIDINE HCL 150 MG ORAL TABLET completed ONE TAB TWICE DAILY - Cristina Alvarez amlodipine 5 mg tablet completed Take 1 tablet by mouth once a day - Shekhar Shukla Allergy Relief 50 mcg/actuation spray,suspension active Take as needed Shekhar Hewitt VENTOLIN HFA 108 (90 BASE) MCG/ACT INHALATION AEROSOL SOLUTION completed TAKE NEEDED - Brice Martinez BENADRYL 25 MG ORAL CAPSULE completed 2-3 times daily as needed - Ramu Keaton NYSTATIN ORAL POWDER active as needed Skylar [...] by mouth once a day - Shekhar ANANON [id number] UNIT ORAL CAPSULE DELAYED RELEASE PARTICLES completed daily - Jahaira Quiros AMLODIPINE BESYLATE 10 MG ORAL TABLET completed daily - Reshma Hightower VENLAFAXINE HCL ER 150 MG ORAL TABLET EXTENDED RELEASE 24 HOUR completed daily - Ninfa Harvey RANITIDINE HCL 150 MG ORAL TABLET completed daily - Aneatris Brown LOMOTIL TABLET completed as directed - [...] EXTENDED RELEASE completed ONE TALBE DAILY - Zakieverzacheryarpan Nestor DARVOCET A500 TABS completed - Lubna Baez LEVAQUIN 500 MG ORAL TABLET completed one [...] Lubna Baez ALBUTEROL AERS completed DIRECTED - Lubna Nestor ABILIFY TABLET completed 1mg daily - Poppy Nicole XANAX 0.5 MG ORAL TABLET completed ONE TAB. DAILY - Milton Abelacolen PRILOSEC 20 MG ORAL CAPSULE DELAYED RELEASE completed ONE TAB.twice DAILY - Yolette GARRIDO PRES-B LIQD completed NEEDED - Yolette Jacob AMRIX 30 MG ORAL CAPSULE EXTENDED RELEASE 24 HOUR completed NEEDED - Yolette Jacob LOVAZA 1 GM ORAL CAPSULE completed - Eduardo Benito RN LIPITOR 80 MG ORAL TABLET completed one tablet daily - Zakieverbeck Baez TRICOR 145 MG ORAL TABLET completed [...] TABLET active 1 tablet once a day [facility] AMOXICILLIN TABLET completed 875mg one tab . [...] Date Observation Value Provider drug use none [facility] smoking/tobacco cess ation, patient education and counseling yes [facility] number of years as a smoker less than 10 years [facility] smoking, date started 1971 [facility] smoking history, tot al pack/year 45 [facility] smoking history, tot al pack/day 1 [facility] cigarette use yes [facility] smoking status Current every day smoker R [facility] drug use none [facility] smoking/tobacco cess ation, patient education and counseling yes [facility] number of years as a smoker less than 10 years [facility] smoking, date started 1971 [facility] smoking history, tot al pack/year 45 [facility] smoking [facility], tot al pack/day 1 Shekhar Solimaninocencio cigarette use yes Shekhar Solimaninocencio smoking status Current every day smoker R tequila Shiness smoking status Current every day smoker Mandy Bear social history reviewed E&M revi ewed - no changes required Erich Bear seatbelt usage 100 % Patito Josh exercise type swimming Patito Josh physical exercise, f requency, days per week 2 /wk Patito Josh caffeine use, averag e drinks per day 3 /d Patito Josh smoking/tobacco cess ation, patient education and counseling yes Patitoyahir Moreno number of years as a smoker less [...] family/friends E thnicity: S moking History: P lashonda currently smokes every day. P atulices has been counseled to quit. Sebastian Bear social history reviewed E&M revi ewed - no changes required Sebastian Bear social history reviewed E&M revi ewed - no changes required Sylvester Mccauley seatbelt usage 100 % Ramu Keaton exercise type swimming [facility] Keaton physical exercise, f requency, days per week 2 /wk Ramu Keaton caffeine use, averag e drinks per day 3 /d Ramu Keaton number of years as a smoker less than 10 years Ramu Pugh smoking, date started 1971 Ramusuleiman Pugh [...] Ayla Bourgeois MD seatbelt usage 100 % [facility] exercise type swimming [facility] physical exercise, f requency, days per week 2 /wk [facility] caffeine use, averag e drinks per day 3 /d [facility] smoking/tobacco cess ation, patient education and counseling yes [facility] number of years as a smoker less than 10 years [facility] smoking, date started 1971 [facility] smoking history, tot al pack/year 45 [facility] smoking history, tot al pack/day 1 [facility] cigarette use yes [facility] smoking status Current every day smoker T [facility] social history E&M Marital Statu s: [...] quit. Ayla Bourgeois MD number of grandchildren Ayla Bourgeois MD K tiana Murphy seatbelt usage 100 % Fernando ortiz exercise type swimming [facility] physical exercise, f requency, days per week 2 /wk [facility] alcohol use, average drinks per day social basis only [facility] caffeine use, averag e drinks per day 3 /d [facility] smoking/tobacco cess ation, patient education and counseling yes [facility] drug use none [facility] number of years as a smoker less than 10 years [facility] smoking, date started 1971 Dori garcía Murphy smoking history, tot al pack/year 45 [facility] smoking history, tot al pack/day 1 [facility] cigarette use yes [facility] smoking status Current every day smoker K tiana Murphy smoking history, tot al pack/day 1 [facility] cigarette use yes [facility] smoking status Current every day smoker M reilly Thao [facility], f requency, days per week 2 /wk [facility] caffeine use, averag e drinks per day 3 /d [facility] seatbelt usage 100 % Kim zhou physical [...] Kim Gonzalez drug use none Kim Vasquez juan manuel number of years as a smoker less [...] Brice Martinez drug use none Brice rm number of years as a smoker less than 10 years Brice Martinez smoking, date started 1971 Geo Martinez smoking history, tot al pack/year 45 Brice Martinez smoking history, tot al pack/day 1/2 Brice Martinez cigarette use yes Brice espinosa smoking status Current every day smoker Arabella Martinez smoking history, tot al pack/year 45 Donna Bowman RN social history reviewed E&M revi ewed - no changes required Ayla Bourgeois MD social history E&M Marital Statu s: L little with family/friends E thnicity: Smoking History: P atulices currently smokes every day. P lashonda has been counseled to quit. Yimi Hernández MD social history reviewed E&M revi ewed - no changes required Yimi Hernández MD number of grandchildren Yimi Rosasistdonita Sawyer physical exercise, f requency, days per [...] f requency, days per week no Cristina Alvarez alcohol use, average drinks per day social basis only Cristina Alvarez caffeine use, averag e drinks per day yes Cristina Alvarez drug use none Cristina Alvarez number of years as a smoker less than 10 years Cristina Alvarez smoking, date started 1971 Marisela Alvarez smoking history, tot al pack/year 44 Cristina Alvarez smoking history, tot al pack/day 1/2 Cristina Alvarez cigarette use yes Cristina Alvarez smoking status [...] Cristina Chew smoking history, tot al pack/day 2 Cristina Chew cigarette use yes rCistina Chew smoking status Current every day smoker [...] E&M revi ewed - no changes required [facility] physical exercise, f requency, days per week no [facility] alcohol use, average drinks per day social basis only [facility] caffeine use, averag e drinks per day yes [facility] drug use none [facility] smoking/tobacco cess ation, patient education and counseling yes [facility] number of years as a smoker less than 10 years [facility] smoking, date started 1971 [facility] smoking history, tot al pack/year 42 [facility] smoking history, tot al pack/day 1/2 [facility] cigarette use yes [facility] smoking status current every day smoker [facility] social history reviewed E&M revi ewed [...] Harvey smoking status current every day smoker N sriram Harvey smoking/tobacco cess ation, patient education and [...] 42 Martha Ko smoking, date started 1972 Rosetta Ko smoking history, tot al pack/day / Martha Ko cigarette use yes Martha Ko [...] cess ation, patient education and counseling yes Ayal Bourgeois MD social history reviewed E&M reviewed [...] as a smoker less than 10 years LinkLog smoking status Quit LinkLog FUNCTIONAL STATUS Date [...] Payer name Policy type / Coverage type [place] [employer] party ID [facility] COMPLETE CARE [id number] (PPO C-SNP) 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 [id number] [facility] [facility] FAMILY [facility] Medicaid 2 [id number] ADVANCE DIRECTIVES Name Date DISCUSSED - NO DECISION MADE TREATMENT PLAN Date Name Performer [id number],SShekhar i [id number],SShekhar i [id number],SShekhar i [id number],Shekhar Mattson i [id number],SShekhar i [id number],Shekhar Mattson i [id number],WAyla MD [id number],S, Ayla Bourgeois MD [id number],S, Ayla Bourgeois MD [id number],S, Ayla Bourgeois MD [id number],W, Ayla Bourgeois MD [id number],S, Shekhar medza i [id number],S, Shekhar Ahmedza i [id number],S, Shekhar Ahmedza i [id number],S, Shekhar Ahmedza i [id number],S, Shekhar Ahmedza i [id number],S, Shekhar Ahmedza i [id number],S, Shekhar Ahmedza i [id number],S, Shekhar Ahmedza i [id number],S, Shekhar Ahmedza i [id number],S, Shekhar Ahmedza i [id number],S, Shekhar Ahmedza i [id number],S, Shekhra medza i [id number],W, Teri Fernández [id number],S, Teri Fernández [id number],S, Teri Fernández [id number],N, Teri Fernández [id number],S, Ayla Bourgeois MD [id number],S, Ayla Bourgeois MD [id number],S, Ayla Bourgeois MD [id number],B, Ayla Bourgeois MD [id number],S,S ANNA ENCOURAGED TO STOP SMOKING; SMOKING CESSATION TECHNIQUES DISCUSSED. Ingris More [id number],SShekhar i [id number],SShekhar i [id number],S, Shekhar Soliman i [id number],S, Shekhar Soliman i [id number],S, Shekhar Soliman i [id number],SShekhar i Telehealth Ayla Bourgeois MD Telehealth Ayla [...] 1 tablet by mouth twice a day [facility] Telehealth: H er updated medication list for this problem includes: Atorvastatin 80 Mg Tablet (Atorvastatin) ..... Take 1 tablet by mouth every day Ezetimibe 10 Mg Tablet (Ezetimibe) ..... Take 1 tablet by mouth every day [facility] Tele[facility]: H er updated medication list for [...] tablet by mouth three times a day [facility] Telehealth: Len aviles BP: 120/48 (06/25/2024) Labs [...] tablet by mouth three times a day [facility] Cardiology:This visi t has been a part [...] Take 1 tablet by mouth every day Shekharzaki Hewitt Cardiology:Patient w as advised to stop smoking. Shekhar [facility] Shekhar [facility] Cardiology: H er updated medication [...] (06/11/2017) LDL: 153.8 (?) (06/11/2017) T.0 (06/11/2017) [facility] Shekharzaki [facility] Cardiology: H er updated medication list [...] tablet by mouth every day Shekhar Hew[facility] Cardiology:Patient w as advised to stop smoking. Shekhar Dwainmedzai Cardiology Shekhar Ahmedzai Cardiology Shekhar Dwainmedzai Cardiology Shekhar Dwainmedzai Telehealth- 11-20 min Shekharzaki ramoni Telehealth- 11-20 min Shekhar ramoni Telehealth- 11-20 min Shekhar ramoni Telehealth- 11-20 min Shekhar Shi ness Telehealth- 11-20 min Shekhar Shi ness Telehealth- 11-20 min Shekhar Shi ness Cardiology- High Complexity Pravininocencio Bourgeois MD Cardiology- High Complexity Pravin jareth Bourgeois MD Cardiology- High Complexity Pravininocencio Bourgeois MD Cardiology- High Complexity Pravin jareth Bourgeois MD Cardiology- High Complexity Pravin jareth Bourgeois MD Telehealth Shekhar Prakashmedzainocencio Telehealth Shekhar Prakashmedzainocencio Telehealth Shekhar Prakashmedzainocencio Telehealth Shekhar Prakashmedzainocencio Telehealth Shekhar Ahmedzai Telehealth Shekhar Ahmedzai Telehealth Shekhar Ahmedzai Telehealth Shekhar Ahmedzai Telehealth Shekhar Ahmedzai Telehealth Shekhar Ahmedzai Telehealth Shekhar Ahmedzai Telehealth Shekhar Ahmedzai Cardiology Teri Fernández Cardiology Teri Fernández Cardiology Teri Fernández Cardiology Teri Pradeep Telehealth Ayla Bourgeois MD Telehealth Ayla Bourgeois MD Telehealth Ayla Bourgeois MD Telehealth Ayla Bourgeois MD Telehealth:STRONGLY ENCOURAGED TO STOP SMOKING; SMOKING CESSATION TECHNIQUES DISCUSSED. Ingris More Telehealth Shekhar Ahmedzai Telehealth Shekhar Ahmedzai Telehealth Shekhar Ahmedzai Telehealth Shekhar Ahmedzai Telehealth Shekhar Ahmedzai Telehealth Shekhar Ahmedzai Cardiology:The Patie nt was reencouraged to stop smoking. Sebastian Bear Cardiology Sebastian Bear Cardiology: Len rior BP: 116/60 (06/04/2020) Labs Reviewed: C [...] Ayla pro MD Cardiology follow up Ayla rpo MD Cardiology follow up Ayla pro MD [...] once a day. Metoprolol Succinate 50 Mg Ys19w-nkv (Metoprolol succinate) ..... 1 tablet by mouth [...] ..... Po daily Metoprolol Succinate 50 Mg Xp46s-gmz (Metoprolol succinate) ..... 1 tablet by mouth [...] ..... Po daily Metoprolol Succinate 50 Mg Py24x-azp (Metoprolol succinate) ..... 1 tablet by mouth 3 times daily Lipitor 80 Mg Tabs (Atorvastatin calcium) ..... Daily Nitroglycerin 0.4 Mg Subl (Nitroglycerin) ..... Use as directed for chest pain Ranexa 500 Mg Tb12 (Ranolazine) ..... 1 tablet by mouth in the morning and 2 tablets in the afternoon Isosorbide Mononitrate Er 60 Mg Fk00e-fdl (Isosorbide mononitrate) ..... 2 tablets daily Ayla Bourgeois MD follow up: H er updated medication list for this problem includes: Aspirin 81 Mg Tabs (Aspirin) ..... One tab. daily- on hold while taking med for gi infection Amlodipine Besylate 5 Mg Tabs (Amlodipine besylate) ..... Po daily Metoprolol Succinate 50 Mg Ch54d-jjo (Metoprolol succinate) ..... 1 tablet by mouth [...] ..... Po daily Metoprolol Succinate 50 Mg Gy52s-kxc (Metoprolol succinate) ..... 1 tablet by mouth [...] this problem includes: Metoprolol Succinate 50 Mg Je84m-gzd (Metoprolol succinate) ..... 1 tablet by mouth [...] ..... Daily Isosorbide Mononitrate Er 60 Mg Kk28b-hcm (Isosorbide mononitrate) ..... 2 tablets daily Isosorbide Mononitrate Er 60 Mg Py74v-kjv (Isosorbide mononitrate) ..... 1 daily BP today: [...] this problem includes: Metoprolol Succinate 50 Mg Tt00i-hhn (Metoprolol succinate) ..... 1 tablet by mouth [...] this problem includes: Metoprolol Succinate 50 Mg Rs13f-uti (Metoprolol succinate) ..... 1 tablet by mouth [...] this problem includes: Metoprolol Succinate 50 Mg Ks19p-jtk (Metoprolol succinate) ..... 1 tablet by mouth [...] ..... Daily Isosorbide Mononitrate Er 60 Mg Dp66v-pkd (Isosorbide mononitrate) ..... 2 tablets daily Tricor [...] this problem includes: Metoprolol Succinate 50 Mg Gr91n-cdb (Metoprolol succinate) ..... 1 tablet by mouth [...] this problem includes: Metoprolol Succinate 50 Mg Ed75x-ogf (Metoprolol succinate) ..... 1 tablet by mouth [...] ..... Daily Isosorbide Mononitrate Er 60 Mg Kz08b-wgr (Isosorbide mononitrate) ..... 2 tablets daily Ayla Bourgeois MD follow up Ayla Bourgeois MD follow up: H er updated medication list for this problem includes: Metoprolol Succinate 50 Mg Oj90n-aae (Metoprolol succinate) ..... 1 tablet by mouth [...] (Amlodipine besylate) ..... Daily Imdur 60 Mg Ym31n-mrb (Isosorbide mononitrate) ..... Daily Tricor 145 Mg [...] 10 pm Isosorbide Mononitrate Cr 60 Mg Ie23r-bea (Isosorbide mononitrate) ..... 2 tabs daily Her [...] up Ayla Bourgeois MD Chest Pain Ayla Buorgeois MD Chest Pain Ayla Bourgeois MD Chest Pain: T he following medications were removed from the medication list: Imdur 60 Mg Nj39n-acj (Isosorbide mononitrate) ..... 2 tablets by mouth [...] 1 tab as needed Orders: Hyun KG (CPT-[id number]) Ayla Bourgeois MD follow up: H er [...] ..... One tab. daily Orders: E KG (CPT-[id number]) B P today: 98/53 P rior BP: [...] ..... 145mg once daily Orders: E KG (CPT-[id number]) BP today: / Prior BP: 136/78 (06/09/2009) [...] pt24) ..... As needed Orders: E KG ([id number]) BP today: / Prior BP: 136/78 (06/09/2009) [...] night Augie Pugh MD pt having chest -rafafele k discomfort: H er updated medication list [...] the medication list: Lovaza 1 Gm Caps (Xgbew-5-sskq ethyl esters) Her updated medication list for [...] in both vertebrals. (07/22/2008) Orders: E KG (CPT-[id number]) Ayla Bourgeois MD : H er updated [...] the medication list: Lovaza 1 Gm Caps (Xmcpf-8-iscg ethyl esters) Her updated medication list for [...] One tab. daily Lovaza 1 Gm Caps (Pjpfr-8-idgo ethyl esters) BP today: 113/70 Prior BP: [...] One tab. daily Lovaza 1 Gm Caps (Dlfol-8-tfod ethyl esters) Ayla Bourgeois MD FU: T [...] Artery Duplex Preop clearance, phn /internet/emr >5min 83562 HIGH 40-54min HISTORY OF PROCEDURES Procedure Date Procedure Name Provider Procedure Notes S tatus Complex e/m visit add on Ayla Bourgeois MD completed EKG Ayla Bourgeois MD completed EKG Ayla Bourgeois MD completed EKG Ayla Bourgeois MD completed Schedule Followup Ayla Bourgeois MD in 6 mo co mpleted EKG Ayla Bourgeois MD completed EKG Ayla Bourgeois MD completed SNOMED-CT: 575809981 998256 Current Medications Documented Ayla Bourgeois MD completed EKG Yimi Hernández MD complete d SNOMED-CT: 018263900 924818 Current Medications Documented Yimi Hernández MD completed SNOMED-CT: 20080317 Physical Exam, Performed: Pulse Exam of Foot Ayla Bourgeois MD completed SNOMED-CT: 136196534 162538 Current Medications Documented Ayla Bourgeois MD completed SNOMED-CT: 56518692 Physical Exam, Performed: Pulse Exam of Foot Ayla Bourgeois MD completed SNOMED-CT: 888532317 041571 Current Medications Documented Ayla Bourgeois MD completed SNOMED-CT: 34868149 Physical Exam, Performed: Pulse Exam of Foot Ayla Bourgeois MD completed EKG Ayla Bourgeois MD completed SNOMED-CT: 057496552 206713 Current Medications Documented Ayla Bourgeois MD completed EKG Ayla Bourgeois MD completed ePrescribe - Check t his box if eRx is used Ayla Bourgeois MD completed EKG Ayla Bourgeois MD completed EKG Ayla Bourgeois MD completed EKG Ayla Bourgeois MD completed EKG Ayla Bourgeois MD completed EKG Ayla Bourgeois MD completed EKG Ayla Bourgeois MD completed
--- OUTSIDE RECORDS SUMMARY | 2025-03-11 07:42 | XMS_ITS | Clinical Summary ---
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 No 09/19/2024 Social Connection and Isolat ion Panel [NHANES] Answer Date Recorded In a typical week, how many times do you talk on the phone with family, friends, or neighbors? Patient declined 09/19/2024 How often do you get togethe r with friends or relatives? Patient declined 09/19/2024 How often do you attend chur ch or moravian services? More than 4 times per year 09/19/2024 Do you belong to any clubs o r organizations such as congregation groups, unions, fraternal or athletic groups, or [...] any time in the past 12 m [facility], were you homeless or living in a fci (including now)? No 09/19/2024 Personal Safety Answer Date Recorded Have you ever been in or are you currently in a harmful physical or emotional relationship or is someone making you feel afraid or unsafe? 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 Sex Female 1:07 AM CORE SHAPER TOP Gender Identity Not on file Sexual Orientation Not on file Obstetrics History Para Term AB IAB SAB Ectopic Multiple Livin g Live Births 3 3 3 Date Outcome GA Total Labor Labor/2nd/3rd Weight Sex Type Anes PTL Heidi A1 A5 Name Clin Term Term Term Last Filed Vital Signs Vital Sign Reading Time Taken Comments Blood Pressure 114/54 09/19/2024 6:05 PM CORE SHAPER TOP Pulse 76 09/19/2024 6:05 PM CORE SHAPER TOP Temperature 36.7 C (98 F) 09/19/2024 4:50 AM CORE SHAPER TOP Respiratory Rate 18 09/19/2024 6:05 PM CORE SHAPER TOP Oxygen Saturation 90% 09/19/2024 6:05 PM CORE SHAPER TOP Inhaled Oxygen Concentration - - Weight 71.7 kg (158 lb 1.1 oz) 09/18/2024 5:20 A M CORE SHAPER TOP Height 165.1 cm (5' 5 ) 09/18/2024 8:22 AM CORE SHAPER TOP Body Mass Index 26.3 09/18/2024 5:20 AM CORE SHAPER TOP Plan of Treatment Health Maintenance Due Date [...] Read Routine (OP Routine) 12/06/2018 12:38 PM CORE SHAPER TOP Personal history of tobacco use, presenting hazards [...] CT Lung Cancer Screening (12/06/2018 12:38 PM CORE SHAPER TOP) Anatomical Region Laterality Modality Chest N/A Computed Tomogra phy 12/06/2018 12:5 5 PM CORE SHAPER TOP Impressions 12/06/2018 1:10 PM CORE SHAPER TOP INTERVAL RIGHT LOWER LOBE 6 MM NODULE, PROBABLY BENIGN, CATEGORY 2 PER LUNG-RADS. RECOMMEND 6 MONTH FOLLOW-UP LOW DOSE CT CHEST. BRONCHIAL THICKENING WITH MOSAIC LUNG ATTENUATION PROBABLY AT TRAPPING FROM BRONCHIOLITIS. STABLE RIGHT MIDDLE LOBE MEDIAL SEGMENTAL ATELECTASIS WITH INTERVAL UPPER LOBE SUBSEGMENTAL ATELECTASIS. Electronically signed by: Anna Castañeda M.D. Narrative 12/06/2018 1:10 PM CORE SHAPER TOP RESULT: Examination: CT LUNG CANCER SCREENING Date: [...] Most Recently Relevant to Health Maintenance Insurance [facility] MEDICARE ADVANTAGE IDFL [facility] MEDICARE ADVANTAGE [address] [place] [id number] Advance Directives For more information, please contact: [phone] * Full Code (Latest Code Status on File) Date Activated Date Inactivated Comments 09/18/2024 5:54 AM 09/19/2024 11:16 PM * Full Code Date Activated Date Inactivated Comments 11/01/2023 10:33 AM 11/01/2023 5:11 PM * Full Code Date Activated Date Inactivated Comments 11/01/2023 10:32 AM 11/01/2023 10:33 AM * Full Code Date Activated Date Inactivated Comments 01/17/2022 2:31 AM 01/20/2022 5:37 PM Care Teams Digital Marketing Officer Relationship Specialty Start Date End Date Mahin Dudley MD [address] [place] [id number] PCP - General Family Medicine 03/12/24 Lourdes August NP Nurse Practitioner Plastic Surgery 06/10/22 Marek Vitale MD [address] [place] [address] Consulting Physician Cardiology 09/19/24
--- OUTSIDE RECORDS SUMMARY | 2025-03-11 07:42 | XMS_ITS | Encounter Summary ---
Author Organization [facility] Address [address] [place] [address] Care Team Providers Care Raw Stock Dyeing Machine Tender Name Role Phone Cooper Nieto MD Primary Care Provider [phone] Lourdes August NP Unavailable [phone] Mahin Dudley MD Primary Care Provider Marek Vitale MD Unavailable [phone] Encounter Details Date Type Department Care Team (Late st Contact Info) Description 12/19/2020 Telephone [facility] [address] [place] [id number] Eyal Platt, RT Social History Tobacco Use Types Packs/Day Years Used Date Smoking Tobacco: Every Day Smokeless Tobacco: Never Alcohol Use Standard Drinks/Week Comments No 0 (1 standard drink = 0.6 oz pur e alcohol) Comments No Sex and Gender Information Value Date Recorded Sex Assigned at Not on file Legal Sex Female 1:07 AM FLIGHT CONTROLS ENGINEER Gender Identity Not on file Sexual Orientation Not on file documented as of this encounter Plan of Treatment Not on file documented as of this encounter Visit Diagnoses Not on filedocumented in this encounter Additional Health Concerns Infection Onset Date Last Indicated Resolved Time COVID: Suspected 01/19/2022 01/19/2022 01/19/2022 7:50 PM CDT documented as of this encounter Care Teams Raw Stock Dyeing Machine Tender Relationship Specialty Start Date End Date Cooper Nieto MD PCP - General Internal Medicine 08/25/18 03/11/24 Mahin Dudley MD [address] [place] [id number] PCP - General Family Medicine 03/12/24 Lourdes August NP Nurse Practitioner Plastic Surgery 06/10/22 Marek Vitale MD [address] [place] [address] Consulting Physician Cardiology 09/19/24 documented as of this encounter
--- OUTSIDE RECORDS SUMMARY | 2025-03-11 07:42 | XMS_ITS | Clinical Summary ---
Author Organization [facility] Address [facility] [place] [address] Care Team Providers Care Electric Hoist Operator Name Role Phone Mahin Dudley MD Primary [...] Department Care Team Description 12/31/2024 Transcribe Orders [facility] [place] [address] Daniel Myers MD 12/31/2024 Transcribe Orders [facility] [place] [address] Daniel Myers MD 12/27/2024 10:08 AM PIANO CASE MAKER - 12/27/2024 11:59 PM [facility] Hospital Encounter [facility] [place] [address] Mahin Dudley MD Injection Discharge Disposition: Home or Self Care (Routine Discharge) 12/27/2024 10:07 AM PIANO CASE MAKER Hospital Encounter [facility] [place] [address] Daniel Myers MD Discharge Disposition: Home or Self Care (Routine Discharge) 12/27/2024 10:00 AM PIANO CASE MAKER - 12/27/2024 10:06 AM [facility] Hospital Encounter [facility] [address] [place] [address] Mahin Dudley MD Discharge Disposition: Home or Self Care (Routine Discharge) 12/27/2024 Travel from Last 3 Months Social History Tobacco Use Types Packs/Day Years Used Date Smoking Tobacco: Every Day Cigarettes 1 50 Tobacco Cessation:Ready to Q uit: Not Asked; Counseling Given: Not Answered Comments Unknown Sex and Gender Information Value Date Recorded Sex Assigned at Female 12/13/2024 9:43 AM PIANO CASE MAKER Legal Sex Female 8:58 PM CDT Gender Identity Not on file Sexual Orientation Not on file Last Filed Vital Signs Vital Sign Reading Time Taken Comments Blood Pressure 115/50 12/27/2024 10:58 AM PIANO CASE MAKER Pulse 74 12/27/2024 10:58 AM PIANO CASE MAKER Temperature 35.7 C (96.3 F) 12/27/2024 10:58 AM PIANO CASE MAKER Respiratory Rate 18 12/27/2024 10:58 AM PIANO CASE MAKER Oxygen Saturation 93% 12/27/2024 10:58 AM PIANO CASE MAKER Inhaled Oxygen Concentration - - Weight 73.2 kg (161 lb 6 oz) 12/27/2024 10:58 AM PIANO CASE MAKER Height 165.1 cm (5' 5 ) 02/24/2023 [...] SIX MINUTE WALK Routine 12/31/2024 10:46 AM PIANO CASE MAKER Chronic obstructive pulmonary disease, unspecified COPD type ([facility]) PULMONARY FUNCTION TEST Routine 12/31/2024 10:46 AM PIANO CASE MAKER Chronic obstructive pulmonary disease, unspecified COPD type ([facility]) COMPREHENSIVE METABOLIC PANEL Routine 12/27/2024 10:25 AM PIANO CASE MAKER Post-menopausal osteoporosis CT LUNG SCREENING Routine 07/23/2024 1:2 1 PM CDT Cigarette smoker from Last 3 Months or Most Recently Relevant to Health Maintenance Results * Complete PFT (pre/post [facility], Lung Vol, Diff Capacity) (74179, 10264, 89601, 92897) (12/31/2024 10:46 AM PIANO CASE MAKER) 12/31/2024 10:4 6 AM PIANO CASE MAKER Narrative ESCRIPTION - 01/02/2025 11:14 AM PIANO CASE MAKER Patient Name: RIVKA SANFORD Date of : 1950 Account: [id number] Facility: [facility] Location: [facility] Date of Service: 12/27/2024 Pulmonary Function Test [...] correlation is required. Signature/Date: Arabella MYERS MD #[id number] /PUS Bonybailey Willie Myers MD PFT ORDERABLES Final Result ESCRIPTION * (ABNORMAL) COMPREHENSIVE METABOLIC PANEL (12/27/2024 10:25 AM [facility]) SODIUM S/P/B 141 136 - 145 MMOL/L 12/27/2024 10:48 AM [facility] POTASSIUM S/P/B 3.8 3.5 - 5.1 MMOL/L 12/27/2024 10:48 AM [facility] CHLORIDE S/P/B 103 98 - 107 MMOL/L 12/27/2024 10:48 AM [facility] CO2 30.8 21.0 - 32.0 MMOL/L 12/27/2024 10:48 AM [facility] GLUCOSE 140(H) 70 - 99 MG/DL 12/27/2024 10:48 AM [facility] Comment: FASTING GLUCOSE 100 TO 125 MG/DL IS CONSISTENT WITH IMPAIRED FASTING GLUCOSE. FASTING GLUCOSE >125 MG/DL IS CONSISTENT WITH DIABETES. RANDOM GLUCOSE >200 MG/DL WITH HYPERGLYCEMIC SYMPTOMS IS CONSISTENT WITH DIABETES. PER ADA GUIDELINES BUN 19 6 - 24 MG/DL 12/27/2024 10:48 AM [facility] CREATININE S/P/B 1.01 0.55 - 1.02 MG/DL 12/27/2024 10:48 AM [facility] CALCIUM S/P/B 8.9 8.4 - 10.5 MG/DL 12/27/2024 10:48 AM [facility] BILIRUBIN TOTAL S/P/B 0.4 0.2 - 1.0 MG/DL 12/27/2024 10:48 AM [facility] Comment: THIS ASSAY IS NOT RECOMMENDED FOR PATIENTS UNDERGOING TREATMENT WITH ELTROMBOPAG DUE TO THE POTENTIAL FOR FALSELY ELEVATED RESULTS. ALKALINE PHOSPHATASE S/P/B 53(L) 55 - 142 U/L 12/27/2024 10:48 AM [facility] AST 21 15 - 37 U/L 12/27/2024 10:48 AM [facility] ALT 25 14 - 59 U/L 12/27/2024 10:48 AM [facility] TOTAL PROTEIN S/P/B 6.6 6.4 - 8.2 G/DL 12/27/2024 10:48 AM [facility] ALBUMIN S/P/B 3.3(L) 3.4 - 5.0 G/DL 12/27/2024 10:48 AM [facility] ANION GAP 7.2 5.0 - 15.0 MMOL/L 12/27/2024 10:48 AM [facility] OSMOLALITY (CALC) 297 MOSM/KG 025 10:48 AM [facility] Comment:REFERENCE RANGE NOT ESTABLISHED GFR ESTIMATE 59(L) >89 ML/MIN/1. 73 M2 12/27/2024 10:48 AM [facility] GFR NOTES GFR REFERENCE S: 12/27/2024 10:48 AM [facility] Comment: THE ESTIMATED GFR IS CALCULATED [...] <15 ml/min/1.73 m2 12/27/2024 10:2 5 AM PIANO CASE MAKER us Mahin Dudley MD LABORATORY Final Resul t [facility] [address] [place] [address], * CT LUNG SCREENING (07/23/2024 1:21 PM [...] around 07/24/2025 Thank you for choosing the [facility] Lung Screening Program. Ordered By: DANIEL MYERS Interpreted By: Kimmy Alan MD, 08/03/2024 11:08 AM Narrative 08/03/2024 11:17 AM CDT [address] [place] [address] EXAM: LUNG SCREENING LOW-DOSE CT THORAX WITHOUT CONTRAST DATE: 07/23/2024. There was a delay in the final report for this exam due to attempts made to obtain outside prior comparison CT images from [facility] which were unsuccessful through 08/03/2024. A final [...] Procedure Note Kimmy Alan MD - 08/03/2024 [facility] [address] [place] [address] EXAM: LUNG SCREENING LOW-DOSE CT THORAX WITHOUT CONTRAST DATE: 07/23/2024. There was a delay in the final report for this exam dueto attempts made to obtain outside prior comparison CT images from [facility] which were unsuccessful through 08/03/2024. [...] around 07/24/2025 Thank you for choosing the [facility] Lung ScreeningProgram. Ordered By: DANIEL MYERS Interpreted By: Kimmy Alan MD, 08/03/2024 11:08 AM Daniel Myers MD CT Final Result from Last 3 Months or Most Recently Relevant to Health Maintenance Insurance [place] [address] [place] [address] Care Teams Electric Hoist Operator Relationship Specialty Start Date End Date Mahin Dudley MD [address] [place] [id number] PCP - General FAMILY PRACTICE 02/24/23
--- OUTSIDE RECORDS SUMMARY | 2025-03-11 07:42 | XMS_ITS | Encounter Summary ---
Author Organization [facility] Address [facility] [place] [address] Care Team Providers Care Crab Catcher Name Role Phone Cooper Nieto MD Primary Care Provider [phone] Mahin Dudley MD Primary Care Provider Encounter Details Date Type Department Care Team (Late st Contact Info) Description 02/16/2023 Hospital Orders Only [facility] [address] [place] [address] [place] [address] Kathy Vega RN Social History Tobacco Use Types Packs/Day Years Used Date Smoking Tobacco: Never Assessed Comments Unknown Sex and Gender Information Value Date Recorded Sex Assigned at Female 12/13/2024 9:43 AM CHLORINE CELL TENDER Legal Sex Female 8:58 PM CDT Gender Identity Not on file Sexual Orientation Not on file documented as of this encounter Plan of Treatment Not on file documented as of this encounter Visit Diagnoses Not on filedocumented in this encounter Care Teams Crab Catcher Relationship Specialty Start Date End Date Cooper Nieto MD [address] [place] [address] PCP - General INTERNAL MEDICINE 01/28/21 02/23/23 Mahin Dudley MD [address] [place] [phone] PCP - General FAMILY PRACTICE 02/24/23 documented as of this encounter
--- OUTSIDE RECORDS SUMMARY | 2025-03-11 07:42 | XMS_ITS ---
Author Organization [facility] Address [address] [place] [address] Care Team Providers Care Agricultural Extension Agent Name Role Phone Lourdes August NP Unavailable [phone] Mahin Dudley MD Primary Care Provider Marek Vitale MD Unavailable [phone] Active Problems Problem Noted Date Diagnosed [...] for cardiovascular disor ders 06/16/2009 Pulmonary emphysema ([facility]) 02/04/2009 Assessment & Plan (01/20/2022 11:45 AM [...] cervix 04/03/2008 Atherosclerotic heart diseas e of [place] coronary artery without angina pectoris 10/31/1959 Overview [...]
--- OUTSIDE RECORDS SUMMARY | 2025-03-11 07:42 | XMS_ITS | Continuity of Care Document ---
Author Organization [facility] Address [address] [place] [address] [place] [address] Phone Care Team Providers Care Hot Top Liner Name Role Phone Leo Piper Unavailable Unavailable Procedures Procedure Date Office/outpatient Visit, [facility] No Script Advance Directives Directive Yes / No Effective Date File Name No Information Encounters Encounter Description Practice Location Reason(s) For Visit Diagnoses Date Provider Providers Copied on Encounter Office/outpat ient Visit, [facility], [address], [place], [place], [id number], [place] tel:[phone] [facility] No Information 2-200 [address] Larymari Leo. [address] [facility] [address], [place], [address], [place]. tel:[phone] Family History Family Member Type Diagnosis Age At Onset No Information Payers Payer name Insurance type Covered constitution party ID Authoriza tion(s) [place] [id number] [employer] SOI 09 [id number] Social History Type Description Quantity Date Captured [...]
--- OUTSIDE RECORDS SUMMARY | 2025-03-11 07:42 | XMS_ITS | Encounter Summary ---
Author Organization [facility] Address [address] [place] [address] Care Team Providers Care Grain Elevator Clerk Name Role Phone Cooper Nieto MD Primary Care Provider [phone] Lourdes August NP Unavailable [phone] Mahin Dudley MD Primary Care Provider Marek Vitale MD Unavailable [phone] Encounter Details Date Type Department Care Team (Late st Contact Info) Description 03/27/2021 Telephone [facility] [address] [place] [address] Eyal Platt, RT Social History Tobacco Use Types Packs/Day Years Used Date Smoking Tobacco: Every Day Smokeless Tobacco: Never Alcohol Use Standard Drinks/Week Comments No 0 (1 standard drink = 0.6 oz pur e alcohol) Comments No Sex and Gender Information Value Date Recorded Sex Assigned at Not on file Legal Sex Female 1:07 AM LIGHT EQUIPMENT OPERATOR Gender Identity Not on file Sexual Orientation Not on file documented as of this encounter Plan of Treatment Not on file documented as of this encounter Visit Diagnoses Not on filedocumented in this encounter Additional Health Concerns Infection Onset Date Last Indicated Resolved Time COVID: Suspected 01/19/2022 01/19/2022 01/19/2022 7:50 PM CDT documented as of this encounter Care Teams Grain Elevator Clerk Relationship Specialty Start Date End Date Cooper Nieto MD PCP - General Internal Medicine 08/25/18 03/11/24 Mahin Dudley MD [address] [place] [address] PCP - General Family Medicine 03/12/24 Lourdes August NP Nurse Practitioner Plastic Surgery 06/10/22 Marek Vitale MD [address] [place] [address] Consulting Physician Cardiology 09/19/24 documented as of this encounter
== END 2025-03-11 07:37 | disposition home or self-care (01) ==
LOC: CHSIMG 07:40
PROVIDERS: PCP Family Medicine; Visit Provider Family Medicine
DX: R39.11 Hesitancy of micturition (principal); M16.12 Unilateral primary osteoarthritis, left hip
CPT/HCPCS: 73502; 76857

== ENCOUNTER 2025-08-05 08:09 | Outpatient (CLI) | payer MEDICARE, MEDICAID, SELFPAY ==
--- OUTSIDE RECORDS SUMMARY | 2009-06-11 09:15 | XMS_ITS | Continuity of Care Document ---
Author Organization [facility] Address [address] [place] [address] [place] [address] Phone Care Team Providers Care Check Embosser Name Role Phone Leo Piper Unavailable Unavailable Procedures Procedure Date Office/outpatient Visit, [facility] No Script Advance Directives Directive Yes / No Effective Date File Name No Information Encounters Encounter Description Practice Location Reason(s) For Visit Diagnoses Date Provider Providers Copied on Encounter Office/outpat ient Visit, [facility], [address], [place], [place], [id number], [place] tel:[phone] [facility] No Information 2-[address] Larymari Leo. [address] [facility] [address], [address], [place]. tel:[phone] Family History Family Member Type Diagnosis Age At Onset No Information Payers Payer name Insurance type Covered constitution party ID Authoriza tion(s) Medicare [facility] [id number] Healthlink SOI 09 [id number] Social History Type Description Quantity Date Captured Comments Sex Female Smoking Status No Information Chief Complaint And Reason For Visit No Information Reason For Referral Reason For Referral No Information History Of Present Illness Encounter Date Complaint History Of Prese nt Illness No Information Functional Status Date Functional Assessmen t No Information Instructions Date Instruction Additional Infor mation No Information Assessments Type Assessment Date No Information Patient Care Teams Name Effective Dates (start - stop) Status Members No Information
--- NOTE | ~2025-08-05 | CT_ITS ---
EXAMINATION:CT lung screening DATE: 08/05/2025 09:35 INDICATION: Personal history of nicotine dependence. TECHNIQUE: Computed tomography (CT) of the chest was performed without intravenous contrast. Automated exposure control and iterative reconstruction technique were employed. The dose-length product (DLP) was 74.53 mGy-cm. COMPARISON: Chest CT 06/23/2022 FINDINGS: There is chronic diffuse peripheral septal thickening in the lungs. There is mild atelectasis in right middle lobe and right lower lobe. No pleural effusion. The heart size is normal. There are coronary artery calcifications. No pericardial effusion. There is severe thoracic and lumbar spondylosis. IMPRESSION: 1. Lung-RADS category 1: Negative. Continue annual screening with noncontrast low-dose chest CT in 12 months. Reviewed, dictated and finalized at location E. IMPRESSION: 1. Lung-RADS category 1: Negative. Continue annual screening with noncontrast l ow-dose chest CT in 12 months.
--- NOTE | ~2025-08-05 | CT_ITS ---
EXAMINATION: CT abdomen pelvis w con DATE: 08/05/2025 09:36 INDICATION: Abdominal pain. Nausea. TECHNIQUE: Computed tomography (CT) of the abdomen and pelvis was performed with 100 mL Omnipaque 350 intravenous contrast. Automated exposure control and iterative reconstruction technique were employed. The dose-length product was 322.65 mGy-cm. COMPARISON: CT 06/23/2022, 08/2016 FINDINGS: The visualized portions of the lung bases demonstrate mild atelectasis. No pleural effusion. The heart size is normal. There are coronary artery calcifications. No pericardial effusion. The liver, gallbladder, spleen, are normal. There is a 15 mm mass in the head of the pancreas. The adrenal glands are normal. There are cysts in the kidneys measuring up to 2.3 cm on the right. There is a 2 mm stone in right kidney. There is chronic wall thickening of the stomach, likely benign. There is diverticulosis of the colon without evidence of diverticulitis. There are no dilated loops of bowel. The appendix is not visualized. There are no pathologically enlarged lymph nodes. There is no free intraperitoneal fluid. There is severe lumbar spondylosis. IMPRESSION: 1. 15 mm mass in the head of the pancreas, which may be benign or less likely malignant. Abdomen MRI without and with contrast is recommended. Reviewed, dictated and finalized at location E. IMPRESSION: 1. 15 mm mass in the head of the pancreas, which may be benign or less likely m alignant. Abdomen MRI without and with contrast is recommended.
--- OUTSIDE RECORDS SUMMARY | 2025-08-05 08:24 | XMS_ITS | Clinical Summary ---
Author Organization [facility] Address [address] [place] [id number] Care Team Providers Care Batch Room Technician Name Role Phone Lourdes August NP Unavailable [phone] Mahin Dudley MD Primary Care Provider [phone] Marek Vitale MD Unavailable [phone] Allergies Active Allergy Reactions Criticality Noted [...] for cardiovascular disor ders 06/16/2009 Pulmonary emphysema ([facility]) 02/04/2009 Assessment & Plan (01/20/2022 11:45 AM [...] Comm ents: MAYRA 07/20/2016 - Chronic obstructive pulmonary disease COPD Osteoporosis Osteoporosis Hx Other Medical Lt [...] Date Smoking Tobacco: Every Day Cigarettes 1.3 40.9 Started: 09/19/1984 Smokeless Tobacco: Never Tobacco Cessation:Ready to Q uit: No; Counseling Given: Yes Alcohol Use Standard Drinks/Week Comments No 0 (1 standard drink = 0.6 oz pur e alcohol) [facility] Utilities Answer Date Recorded In the past 12 months has [employer] gas, oil, or water [facility] threatened to shut off services in your home? No 09/19/2024 Social Connection and Isolation Panel Answer Date Recorded In a typical week, how many times do you talk on the phone with family, friends, or neighbors? Patient declined 09/19/2024 How often do you get togethe r with friends or relatives? Patient declined 09/19/2024 How often do you attend chur ch or sikh services? More than 4 times per year 09/19/2024 Do you belong to any clubs o r organizations such as confucianist groups, unions, fraternal or athletic groups, or [...] any time in the past 12 [facility], were you homeless or living in a jail (including now)? No 09/19/2024 Personal Safety Answer Date Recorded Have you ever been in or are you currently in a harmful physical or emotional relationship or is someone making you feel afraid or unsafe? 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 Gender Identity Not on file Sexual Orientation Not on file Obstetrics History Para Term AB IAB SAB Ectopic Multiple Livin g Live Births 3 3 3 Date Outcome GA Total Labor Labor/2nd/3rd Weight Sex Type Anes PTL Heidi A1 A5 Name Clin Term Term Term Last Filed Vital Signs Vital Sign Reading Time Taken Comments Blood Pressure 114/54 09/19/2024 6:05 PM PERMACULTURE DESIGNER Pulse 76 09/19/2024 6:05 PM PERMACULTURE DESIGNER Temperature 36.7 C (98 F) 09/19/2024 4:50 AM PERMACULTURE DESIGNER Respiratory Rate 18 09/19/2024 6:05 PM PERMACULTURE DESIGNER Oxygen Saturation 90% 09/19/2024 6:05 PM PERMACULTURE DESIGNER Inhaled Oxygen Concentration - - Weight 71.7 kg (158 lb 1.1 oz) 09/18/2024 5:20 A M PERMACULTURE DESIGNER Height 165.1 cm (5' 5) 09/18/2024 8:22 AM PERMACULTURE DESIGNER Body Mass Index 26.3 09/18/2024 5:20 AM PERMACULTURE DESIGNER Plan of Treatment Health Maintenance Due Date Last Done Comments Colon Cancer Screening-Colonoscopy 1950 Depression Screening 1950 Hepatitis B Screening 1969 DTaP/Tdap/Td Vaccine (1 - Tdap) 08/11/1999 9 Well Visit 65+ 2016 Pneumococcal vaccine 65+ (2 of 2 - PPSV23, PCV20, or PCV21) 09/27/2018 08/02/2018 Lung Cancer Screening 12/06/2019 12/06/2018 , 02/07/2018, 11/16/2017 Osteoporosis Screening-Bone Density Scan 03/09/2020 03/09/2018, 02/24/2017, 07/26/2013 Influenza Vaccine (#1) 2025 , 08/02/2018, 12/14/2016, Additional history exists Breast Cancer [...] Read Routine (OP Routine) 12/06/2018 12:38 PM PERMACULTURE DESIGNER Personal history of tobacco use, presenting hazards [...] CT Lung Cancer Screening (12/06/2018 12:38 PM PERMACULTURE DESIGNER) Anatomical Region Laterality Modality Chest N/A Computed Tomogra phy 12/06/2018 12:5 5 PM PERMACULTURE DESIGNER Impressions 12/06/2018 1:10 PM PERMACULTURE DESIGNER INTERVAL RIGHT LOWER LOBE 6 MM NODULE, PROBABLY BENIGN, CATEGORY 2 PER LUNG-RADS. RECOMMEND 6 MONTH FOLLOW-UP LOW DOSE CT CHEST. BRONCHIAL THICKENING WITH MOSAIC LUNG ATTENUATION PROBABLY AT TRAPPING FROM BRONCHIOLITIS. STABLE RIGHT MIDDLE LOBE MEDIAL SEGMENTAL ATELECTASIS WITH INTERVAL UPPER LOBE SUBSEGMENTAL ATELECTASIS. Electronically signed by: Anna Castañeda M.D. Narrative 12/06/2018 1:10 PM PERMACULTURE DESIGNER RESULT: Examination: CT LUNG CANCER SCREENING Date: [...] Ordered by an unspecified provider. Historical Provider IM DXA PROCEDURES Final Result * Serum Hepatitis C ab (07/20/2016 4:49 PM CDT) HCV ab Negative Negative CDR HISTOR ICAL RESULTS Serum 07/20/2016 4:49 PM CDT us Amber Terrazas MD LAB BLOOD ORDERABLES Final Resul t CDR HISTORICAL RESULTS from Last 3 Months or Most Recently Relevant to Health Maintenance Insurance [facility] MEDICARE ADVANTAGE [employer] [facility]ICARE [facility] Address: [address] [address] Advance Directives For more information, please contact: [phone] * Full Code (Latest Code Status on File) Date Activated Date Inactivated Comments 09/18/2024 5:54 AM 09/19/2024 11:16 PM * Full Code Date Activated Date Inactivated Comments 11/01/2023 10:33 AM 11/01/2023 5:11 PM * Full Code Date Activated Date Inactivated Comments 11/01/2023 10:32 AM 11/01/2023 10:33 AM * Full Code Date Activated Date Inactivated Comments 01/17/2022 2:31 AM 01/20/2022 5:37 PM Care Teams Batch Room Technician Relationship Specialty Start Date End Date Mahin Dudley MD [address] [place] [address] PCP - General Family Medicine 03/12/24 Lourdes August NP Nurse Practitioner Plastic Surgery 06/10/22 Marek Vitale MD [address] [place] [address] Consulting Physician Cardiology 09/19/24
--- OUTSIDE RECORDS SUMMARY | 2025-08-05 08:24 | XMS_ITS | Clinical Summary ---
Author Organization [facility] Address 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 Active DULoxetine (CYMBALTA) 60 mg Capsule, Delayed [...] 3:36 PM CDT Height 167.6 cm (5' 6) 01/24/2015 3:36 PM CDT Body Mass Index [...] 2001 OSTEOPOROSIS SCREENING 2016 INFLUENZA VACCINE (#1) 2025 07/30/2016 RSV VACCINE (60+ or ) (1 - 1-dose 75+ series) 2026 Insurance MEDICARE PART A AND B [place]ICAID [place] Care Teams Meter Reading Clerk Relationship Specialty Start Date End Date [facility], External Provider [address] [facility] [place] [address] PCP - General 01/24/15
--- OUTSIDE RECORDS SUMMARY | 2025-08-05 08:24 | XMS_ITS | Encounter Summary ---
Author Organization [facility] Address [address] [place] [address] Care Team Providers Care Liquor Department Manager Name Role Phone Cooper Nieto MD Primary Care Provider [phone] Lourdes August NP Unavailable [phone] Mahin Dudley MD Primary Care Provider Marek Vitale MD Unavailable [phone] Encounter Details Date Type Department Care Team (Late st Contact Info) Description 01/01/2021 Telephone [facility] [address] [place] [address] Eyal Platt, RT Social History Tobacco Use Types Packs/Day Years Used Date Smoking Tobacco: Every Day Smokeless Tobacco: Never Alcohol Use Standard Drinks/Week Comments No 0 (1 standard drink = 0.6 oz pur e alcohol) Comments No Sex and Gender Information Value Date Recorded Sex Assigned at Not on file 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 Gender Identity Not on file Sexual Orientation Not on file documented as of this encounter Plan of Treatment Not on file documented as of this encounter Visit Diagnoses Not on filedocumented in this encounter Additional Health Concerns Infection Onset Date Last Indicated Resolved Time COVID: Suspected 01/19/2022 01/19/2022 01/19/2022 7:50 PM CDT documented as of this encounter Care Teams Liquor Department Manager Relationship Specialty Start Date End Date Cooper Nieto MD PCP - General Internal Medicine 08/25/18 03/11/24 Mahin Dudley MD [address] [place] [address] PCP - General Family Medicine 03/12/24 Lourdes August NP Nurse Practitioner Plastic Surgery 06/10/22 Marek Vitale MD [address] [place] [address] Consulting Physician Cardiology 09/19/24 documented as of this encounter
--- OUTSIDE RECORDS SUMMARY | 2025-08-05 08:24 | XMS_ITS | Encounter Summary ---
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 Gender Identity Not on file Sexual Orientation Not on file documented as of this encounter Plan of Treatment Not on file documented as of this encounter Visit Diagnoses Not on filedocumented in this encounter Care Teams Back Sizer Relationship Specialty Start Date End Date Cooper Nieto MD PCP - General Internal Medicine 08/25/18 03/11/24 Mahin Dudley MD [address] [place] [address] PCP - General Family Medicine 03/12/24 Lourdes August NP Nurse Practitioner Plastic Surgery 06/10/22 Marek Vitale MD [address] [place] [address] Consulting Physician Cardiology 09/19/24 documented as of this encounter
--- OUTSIDE RECORDS SUMMARY | 2025-08-05 08:24 | XMS_ITS | Clinical Summary ---
Author Organization [facility] Address [address] [place] [address] Care Team Providers Care Transplant Coordinator Name Role Phone Ketan Nguyễn MD Primary Care Provider [phone] Source Comments [facility],non-owned Affiliates and Associated Physician Practices is amultiple site organization consisting of ambulatory clinics and hospital sitesin [place], [place], [place] and [place]. This disclosure is being madepursuant to the Care Everywhere program and may not contain all information available regarding this patient. Last updated 18.[facility] Allergies Active Allergy Reactions Criticality Noted Date [...] by mouth once daily. 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 Gender Identity Not on file Sexual Orientation [...] A M CDT Height 167.6 cm (5' 6) 06/15/2017 7:37 AM CDT Body Mass Index [...] 2001 ZOSTER VACCINE (1 of 2) 2001 DEPRESSION SCREENING 10/31/2024 COVID-19 VACCINE (1 - 2023-2 5 season) 2025 INFLUENZA VACCINE (#1) 2025 07/30/2016 Respiratory Syncytial Virus (RSV) Vaccine Pt: or [...] Insurance MEDICARE MEDICAID - [place] MEDICARE MEDICAID [facility] Advance Directives * Full Code (Latest Code Status on File) Date Activated Date Inactivated Comments 06/15/2017 9:09 AM 06/15/2017 3:14 PM * Full Code Date Activated Date Inactivated Comments 05/25/2014 7:36 PM 05/25/2014 10:27 PM Care Teams Transplant Coordinator Relationship Specialty Start Date End Date Ketan Nguyễn MD [address] [place] [address] PCP - General Family Medicine 05/25/14
--- OUTSIDE RECORDS SUMMARY | 2025-08-05 08:24 | XMS_ITS ---
Author Organization [facility] Address [address] [place] [address] Care Team Providers Care Casing Inspector Name Role Phone Lourdes August NP Unavailable [phone] Mahin Dudley MD Primary Care Provider Marek Vitale MD Unavailable [phone] Active Problems Problem Noted Date Diagnosed [...] for cardiovascular disor ders 06/16/2009 Pulmonary emphysema ([facility]) 02/04/2009 Assessment & Plan (01/20/2022 11:45 AM [...] cervix 04/03/2008 Atherosclerotic heart diseas e of [place] coronary artery without angina pectoris 10/31/1959 Overview [...]
--- OUTSIDE RECORDS SUMMARY | 2025-08-05 08:24 | XMS_ITS | Clinical Summary ---
Author Organization [facility] Address [address] [place] [address] Care Team Providers Care Child Care Teacher Name Role Phone Mahin Dudley MD Primary [...] of left hand 03/11/2023 Post-menopausal osteoporosis 02/16/2023 Social History Tobacco Use Types Packs/Day Years Used Date Smoking Tobacco: Every Day Cigarettes 1 50 Tobacco Cessation:Ready to Q uit: Not Asked; Counseling Given: Not Answered Comments Unknown Sex and Gender Information Value Date Recorded Sex Assigned at Female 12/13/2024 9:43 AM ULTRASONIC TESTER Legal Sex Female 8:58 PM CDT Gender Identity Not on file Sexual Orientation Not on file Last Filed Vital Signs Vital Sign Reading Time Taken Comments Blood Pressure 115/50 12/27/2024 10:58 AM ULTRASONIC TESTER Pulse 74 12/27/2024 10:58 AM ULTRASONIC TESTER Temperature 35.7 C (96.3 F) 12/27/2024 10:58 AM ULTRASONIC TESTER Respiratory Rate 18 12/27/2024 10:58 AM ULTRASONIC TESTER Oxygen Saturation 93% 12/27/2024 10:58 AM ULTRASONIC TESTER Inhaled Oxygen Concentration - - Weight 73.2 kg (161 lb 6 oz) 12/27/2024 10:58 AM ULTRASONIC TESTER Height 165.1 cm (5' 5) 02/24/2023 11:01 AM CDT Body Mass Index 26.85 02/24/2023 11:01 AM CDT Plan of Treatment Health Maintenance Due Date Last Done Comments Colorectal Cancer Screening Colonoscopy (10 Years) 1950 Hepatitis C 1969 DTaP, Tdap and Td Vaccines (1 - Tdap) 08/11/1999 08/10/1999 Annual Medicare Wellness Visit 2016 Dexa Scan (General) 2016 COVID-19 Vaccine ( season) 2025 02/16/2024, 11/26/2022, 04/08/2022, Additional history exists Mammogram Screening 08/09/2026 08/09/2024, [...] patient's age to complete this topic Insurance [place] [address] [facility] MEDICARE Care Teams Child Care Teacher Relationship Specialty Start Date End Date Mahin Dudley MD [address] [place] [phone] PCP - General FAMILY PRACTICE 4/27/23
--- OUTSIDE RECORDS SUMMARY | 2025-08-05 08:24 | XMS_ITS | Encounter Summary ---
Author Organization [facility] Address [address] [place] [address] Care Team Providers Care Cash Application Representative Name Role Phone Cooper Nieto MD Primary Care Provider [phone] Lourdes August NP Unavailable [phone] Mahin Dudley MD Primary Care Provider Marek Vitale MD Unavailable [phone] Encounter Details Date Type Department Care Team (Late st Contact Info) Description 12/19/2020 Telephone [facility] [address] [place] [address] Eyal Platt, RT Social History Tobacco Use Types Packs/Day Years Used Date Smoking Tobacco: Every Day Smokeless Tobacco: Never Alcohol Use Standard Drinks/Week Comments No 0 (1 standard drink = 0.6 oz pur e alcohol) Comments No Sex and Gender Information Value Date Recorded Sex Assigned at Not on file 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 Gender Identity Not on file Sexual Orientation Not on file documented as of this encounter Plan of Treatment Not on file documented as of this encounter Visit Diagnoses Not on filedocumented in this encounter Additional Health Concerns Infection Onset Date Last Indicated Resolved Time COVID: Suspected 01/19/2022 01/19/2022 01/19/2022 7:50 PM CDT documented as of this encounter Care Teams Cash Application Representative Relationship Specialty Start Date End Date Cooper Nieto MD PCP - General Internal Medicine 08/25/18 03/11/24 Mahin Dudley MD [address] [place] [phone] PCP - General Family Medicine 03/12/24 Lourdes August NP Nurse Practitioner Plastic Surgery 06/10/22 Marek Vitale MD [address] [place] [address] Consulting Physician Cardiology 09/19/24 documented as of this encounter
--- OUTSIDE RECORDS SUMMARY | 2025-08-05 08:24 | XMS_ITS | Encounter Summary ---
Author Organization [facility] Healthcare Address [address] [place] [address] Care Team Providers Care Certified Wellness Program Coordinator Name Role Phone Cooper Nieto MD Primary Care Provider [phone] Lourdes August NP Unavailable [phone] Mahin Dudley MD Primary Care Provider Marek Vitale MD Unavailable [phone] Encounter Details Date Type Department Care Team (Late st Contact Info) Description 03/27/2021 Telephone [facility] [address] [place] [address] Eyal Platt, RT Social History Tobacco Use Types Packs/Day Years Used Date Smoking Tobacco: Every Day Smokeless Tobacco: Never Alcohol Use Standard Drinks/Week Comments No 0 (1 standard drink = 0.6 oz pur e alcohol) Comments No Sex and Gender Information Value Date Recorded Sex Assigned at Not on file 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 Gender Identity Not on file Sexual Orientation Not on file documented as of this encounter Plan of Treatment Not on file documented as of this encounter Visit Diagnoses Not on filedocumented in this encounter Additional Health Concerns Infection Onset Date Last Indicated Resolved Time COVID: Suspected 01/19/2022 01/19/2022 01/19/2022 7:50 PM CDT documented as of this encounter Care Teams Certified Wellness Program Coordinator Relationship Specialty Start Date End Date Cooper Nieto MD PCP - General Internal Medicine 08/25/18 03/11/24 Mahin Dudley MD [address] [place] [phone] PCP - General Family Medicine 03/12/24 Lourdes August NP Nurse Practitioner Plastic Surgery 06/10/22 Marek Vitale MD [address] [place] [address] Consulting Physician Cardiology 09/19/24 documented as of this encounter
--- OUTSIDE RECORDS SUMMARY | 2025-08-05 08:24 | XMS_ITS | Encounter Summary ---
Author Organization [facility] Address [facility] [place] [address] Care Team Providers Care Desk Lieutenant Name Role Phone Cooper Nieto MD Primary Care Provider [phone] Mahin Dudley MD Primary Care Provider [phone] Encounter Details Date Type Department Care Team (Late st Contact Info) Description 02/16/2023 Hospital Orders Only [facility] [address] [place] [address] [place] [address] Kathy Vega RN Social History Tobacco Use Types Packs/Day Years Used Date Smoking Tobacco: Never Assessed Comments Unknown Sex and Gender Information Value Date Recorded Sex Assigned at Female 12/13/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
[2025-08-05 08:44] LABS: Estimated Glomerular Filt Rate > 60
== END 2025-08-05 08:10 | disposition home or self-care (01) ==
LOC: CHSIMG 08:11
PROVIDERS: PCP Family Medicine; Visit Provider Family Medicine
DX: R13.10 Dysphagia, unspecified (principal); R10.9 Unspecified abdominal pain; K86.9 Disease of pancreas, unspecified; Z12.2 Encounter for screening for malignant neoplasm of respiratory organs; Z87.891 Personal history of nicotine dependence
CPT/HCPCS: 71271; 74177; Q9967

== ENCOUNTER 2025-08-17 10:28 | Outpatient (CLI) | payer MEDICARE, MEDICAID, SELFPAY ==
--- OUTSIDE RECORDS SUMMARY | 2009-06-11 09:15 | XMS_ITS | Continuity of Care Document ---
Author Organization [facility] Address [address] [place] [address] [place] [address] Phone Care Team Providers Care Him Assistant Name Role Phone Leo Piper Unavailable Unavailable Procedures Procedure Date Office/outpatient Visit, [facility] No Script Advance Directives Directive Yes / No Effective Date File Name No Information Encounters Encounter Description Practice Location Reason(s) For Visit Diagnoses Date Provider Providers Copied on Encounter Office/outpat ient Visit, [facility], [address], [place], [place], [id number], [place] tel:[phone] [facility] No Information [address] Larymari Leo. [address] [facility] [address], [place], [address], [place]. tel:[phone] Family History Family Member Type Diagnosis Age At Onset No Information Payers Payer name Insurance type Covered alliance party ID Authoriza tion(s) Medicare [facility] [id number] Healthlink SOI 09 [id number] Social History Type Description Quantity Date Captured [...]
--- OUTSIDE RECORDS SUMMARY | 2025-08-17 10:31 | XMS_ITS | Clinical Summary ---
Author Organization [facility] Address [address] [place] [phone] Phone Care Team Providers Care Tool Planer Set Up Operator Name Role Phone [facility], External Provider Primary Care Provider Un [...] tablet Take 60 mg by mouth daily black topper. Active DULoxetine (CYMBALTA) 60 mg Capsule, Delayed [...] A AND B [place] Care Teams Tool Planer Set Up Operator Relationship Specialty Start Date End Date [facility], External Provider [address] [place] [address] PCP - General 01/24/15
--- OUTSIDE RECORDS SUMMARY | 2025-08-17 10:31 | XMS_ITS | Encounter Summary ---
Author Organization [facility] Healthcare Address [address] [place] [address] Care Team Providers Care Collection Specialist Name Role Phone Cooper Nieto MD Primary Care Provider [phone] Lourdes August NP Unavailable [phone] Mahin Dudley MD Primary Care Provider [phone] Marek Vitale MD Unavailable [phone] Encounter Details Date Type Department Care Team (Late st Contact Info) Description 03/27/2021 Telephone [facility] [address] [place] [address] Eyal Platt, RT Social History Tobacco Use Types Packs/Day Years Used Date Smoking Tobacco: Every Day Smokeless Tobacco: Never Alcohol Use Standard Drinks/Week Comments No 0 (1 standard drink = 0.6 oz pur e alcohol) Comments No Sex and Gender Information Value Date Recorded Sex Assigned at Not on file 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 Gender Identity Not on file Sexual Orientation Not on file documented as of this encounter Plan of Treatment Not on file documented as of this encounter Visit Diagnoses Not on filedocumented in this encounter Additional Health Concerns Infection Onset Date Last Indicated Resolved Time COVID: Suspected 01/19/2022 01/19/2022 01/19/2022 7:50 PM CDT documented as of this encounter Care Teams Collection Specialist Relationship Specialty Start Date End Date Cooper Nieto MD PCP - General Internal Medicine 08/25/18 03/11/24 Mahin Dudley MD [address] [place] [address] PCP - General Family Medicine 03/12/24 Lourdes August NP Nurse Practitioner Plastic Surgery 06/10/22 Marek Vitale MD [address] [place] [address] Consulting Physician Cardiology 09/19/24 documented as of this encounter
--- OUTSIDE RECORDS SUMMARY | 2025-08-17 10:31 | XMS_ITS | Clinical Summary ---
Author Organization [facility] Address [address] [place] [phone] Care Team Providers Care Planer Operator / Grader Name Role Phone Lourdes August NP Unavailable Mahin Dudley MD Primary Care Provider [phone] Marek Vitale MD Unavailable [phone] Allergies Active Allergy Reactions Criticality Noted [...] for cardiovascular disor ders 06/16/2009 Pulmonary emphysema ([facility]) 02/04/2009 Assessment & Plan [...] cervix 04/03/2008 Atherosclerotic heart diseas e of [place] coronary artery without angina pectoris 10/31/1959 Overview [...] drink = 0.6 oz pur e alcohol) [facility] Utilities Answer Date Recorded In the past 12 months has [employer], gas, oil, or water [employer] threatened to shut off services in your home? No 09/19/2024 Social Connection and Isolation Panel Answer Date Recorded In a typical week, how many times do you talk on the phone with family, friends, or neighbors? Patient declined 09/19/2024 How often do you get togethe r with friends or relatives? Patient declined 09/19/2024 How often do you attend chur ch or mormon services? More than 4 times per year 09/19/2024 Do you belong to any clubs o r organizations such as bahai groups, unions, fraternal or athletic groups, or [...] any time in the past 12 m [facility], were you homeless or living in a halfway (including now)? No 09/19/2024 Personal Safety Answer Date Recorded Have you ever been in or are you currently in a harmful physical or emotional relationship or is someone making you feel afraid or unsafe? 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 Gender Identity Not on file Sexual Orientation Not on file Obstetrics History Para Term AB IAB SAB Ectopic Multiple Livin g Live Births 3 3 3 Date Outcome GA Total Labor Labor/2nd/3rd Weight Sex Type Anes PTL Heidi A1 A5 Name Clin Term Term Term Last Filed Vital Signs Vital Sign Reading Time Taken Comments Blood Pressure 114/54 09/19/2024 6:05 PM PHOTONICS ENGINEERING TECHNOLOGIST Pulse 76 09/19/2024 6:05 PM PHOTONICS ENGINEERING TECHNOLOGIST Temperature 36.7 C (98 F) 09/19/2024 4:50 AM PHOTONICS ENGINEERING TECHNOLOGIST Respiratory Rate 18 09/19/2024 6:05 PM PHOTONICS ENGINEERING TECHNOLOGIST Oxygen Saturation 90% 09/19/2024 6:05 PM PHOTONICS ENGINEERING TECHNOLOGIST Inhaled Oxygen Concentration - - Weight 71.7 kg (158 lb 1.1 oz) 09/18/2024 5:20 A M PHOTONICS ENGINEERING TECHNOLOGIST Height 165.1 cm (5' 5) 09/18/2024 8:22 AM PHOTONICS ENGINEERING TECHNOLOGIST Body Mass Index 26.3 09/18/2024 5:20 AM PHOTONICS ENGINEERING TECHNOLOGIST Plan of Treatment Health Maintenance Due Date [...] Read Routine (OP Routine) 12/06/2018 12:38 PM PHOTONICS ENGINEERING TECHNOLOGIST Personal history of tobacco use, presenting hazards [...] CT Lung Cancer Screening (12/06/2018 12:38 PM PHOTONICS ENGINEERING TECHNOLOGIST) Anatomical Region Laterality Modality Chest N/A Computed Tomogra phy 12/06/2018 12:5 5 PM PHOTONICS ENGINEERING TECHNOLOGIST Impressions 12/06/2018 1:10 PM PHOTONICS ENGINEERING TECHNOLOGIST INTERVAL RIGHT LOWER LOBE 6 MM NODULE, PROBABLY BENIGN, CATEGORY 2 PER LUNG-RADS. RECOMMEND 6 MONTH FOLLOW-UP LOW DOSE CT CHEST. BRONCHIAL THICKENING WITH MOSAIC LUNG ATTENUATION PROBABLY AT TRAPPING FROM BRONCHIOLITIS. STABLE RIGHT MIDDLE LOBE MEDIAL SEGMENTAL ATELECTASIS WITH INTERVAL UPPER LOBE SUBSEGMENTAL ATELECTASIS. Electronically signed by: Anna Castañeda M.D. Narrative 12/06/2018 1:10 PM PHOTONICS ENGINEERING TECHNOLOGIST RESULT: Examination: CT LUNG CANCER SCREENING Date: [...] Most Recently Relevant to Health Maintenance Insurance [facility] MEDICARE ADVANTAGE [place] [facility] MEDICARE ADVANTAGE Advance Directives For more information, please contact: [phone] * Full Code (Latest Code Status on File) Date Activated Date Inactivated Comments 09/18/2024 5:54 AM 09/19/2024 11:16 PM * Full Code Date Activated Date Inactivated Comments 11/01/2023 10:33 AM 11/01/2023 5:11 PM * Full Code Date Activated Date Inactivated Comments 11/01/2023 10:32 AM 11/01/2023 10:33 AM * Full Code Date Activated Date Inactivated Comments 01/17/2022 2:31 AM 01/20/2022 5:37 PM Care Teams Planer Operator / Grader Relationship Specialty Start Date End Date Mahin Dudley MD [address] [place] [address] PCP - General Family Medicine 03/12/24 Lourdes August NP Nurse Practitioner Plastic Surgery 06/10/22 Marek Vitale MD [address] [place] [address] Consulting Physician Cardiology 09/19/24
--- OUTSIDE RECORDS SUMMARY | 2025-08-17 10:31 | XMS_ITS | Encounter Summary ---
Author Organization [facility] Healthcare Address [address] [place] [address] Care Team Providers Care Brush Maker Name Role Phone Cooper Nieto MD Primary Care Provider [phone] Lourdes August NP Unavailable [phone] Mahin Dudley MD Primary Care Provider [phone] Marek Vitale MD Unavailable [phone] Encounter Details Date Type Department Care Team (Late st Contact Info) Description 01/20/[address] 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 Gender Identity Not on file Sexual Orientation Not on file documented as of this encounter Plan of Treatment Not on file documented as of this encounter Visit Diagnoses Not on filedocumented in this encounter Care Teams Brush Maker Relationship Specialty Start Date End Date Cooper Nieto MD PCP - General Internal Medicine 08/25/18 03/11/24 Mahin Dudley MD [address] [place] [address] PCP - General Family Medicine 03/12/24 Lourdes August NP Nurse Practitioner Plastic Surgery 06/10/22 Marek Vitale MD [address] [place] [address] Consulting Physician Cardiology 09/19/24 documented as of this encounter
--- OUTSIDE RECORDS SUMMARY | 2025-08-17 10:31 | XMS_ITS ---
Author Organization [facility] Address [address] [place] [phone] Care Team Providers Care Wood Gluer Name Role Phone Lourdes August NP Unavailable [phone] Mahin Dudley MD Primary Care Provider Marek Vitale MD Unavailable [phone] Active Problems Problem Noted Date Diagnosed [...] for cardiovascular disor ders 06/16/2009 Pulmonary emphysema ([facility]) 02/04/2009 Assessment & Plan (01/20/2022 11:45 AM [...] cervix 04/03/2008 Atherosclerotic heart diseas e of [place] coronary artery without angina pectoris 10/31/1959 Overview [...]
--- OUTSIDE RECORDS SUMMARY | 2025-08-17 10:31 | XMS_ITS | Encounter Summary ---
Author Organization [facility] Address [address] [place] [address] Care Team Providers Care Actuarial Assistant Name Role Phone Cooper Nieto MD Primary Care Provider [phone] Mahin Dudley MD Primary Care Provider [phone] Encounter Details Date Type Department Care Team (Late st Contact Info) Description 02/16/2023 Hospital Orders Only [facility] [address] [place] [address] [place] [address] Kathy Vega RN Social History Tobacco Use Types Packs/Day Years Used Date Smoking Tobacco: Never Assessed Comments Unknown Sex and Gender Information Value Date Recorded Sex Assigned at Female 12/13/2024 9:43 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
--- OUTSIDE RECORDS SUMMARY | 2025-08-17 10:31 | XMS_ITS | Encounter Summary ---
Author Organization [facility] Address [address] [place] [address] Care Team Providers Care Driver Trainee Name Role Phone Mahin Dudley MD Primary Care Provider Encounter Details Date Type Department Care Team (Late st Contact Info) Description 08/14/2025 Orders Only [facility] [address] [place] [address] Gabrielle Stewart MD [address] [place] [address] Social History Tobacco Use Types Packs/Day Years Used Date Smoking Tobacco: Every Day Cigarettes 1 50 Comments Unknown Sex and Gender Information Value Date Recorded Sex Assigned at Female 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 Legal Sex Female 8:58 PM CDT Gender Identity Not on file Sexual Orientation Not on file documented as of this encounter Plan of Treatment Not on file documented as of this encounter Results * (ABNORMAL) CBC W/DIFF AUTOMATED (08/14/2025 2:23 PM CDT) WBC 5.43 4.00 - 10.80 x10'3/uL 08/14/2025 2:34 PM CDT [facility] RBC 3.93(L) 4.10 - 5.40 x10'6/uL 08/14/2025 2:34 PM CDT [facility] HGB 10.9(L) 12.0 - 16.0 G/DL 08/14/2025 2:34 PM CDT [facility] HCT 34.0(L) 36.0 - 47.0 % 08/14/2025 2:34 PM CDT [facility] MCV 86.5 78.0 - 100.0 FL 08/14/2025 2:34 PM CDT [facility] MCH 27.7 27.0 - 31.0 PG 08/14/2025 2:34 PM CDT [facility] MCHC 32.1(L) 33.0 - 36.0 G/DL 08/14/2025 2:34 PM CDT [facility] RDW 13.1 11.5 - 14.5 % 08/14/2025 2:34 PM CDT [facility] PLT 245 150 - 350 x10'3/uL 08/14/2025 2:34 PM CDT [facility] MPV 8.8 7.4 - 10.4 FL 08/14/2025 2:34 PM CDT [facility] CBC COMMENT NORMAL REFERENCE RANGE NOT ESTABLISHED FOR THE PROPORTIONAL LEUKOCYTE DIFFERENTIAL. 08/14/2025 2:34 PM CDT [facility] NEUTROPHILS % 56.5 % 08/14/2025 2:34 PM CDT [facility] LYMPHOCYTES % 31.5 % 08/14/2025 2:34 PM CDT [facility] MONOCYTES % 8.8 % 08/14/2025 2:34 PM CDT [facility] EOSINOPHILS % 1.7 % 08/14/2025 2:34 PM CDT [facility] BASOPHILS % 1.3 % 08/14/2025 2:34 PM CDT [facility] IMMATURE GRANS % 0.2 % 08/14/20 2:34 PM CDT [facility] NRBC % 0.0 % 08/14/2025 2:34 PM CDT [facility] ABS. NEUTROPHILS 3.07 1.60 - 8.30 x10'3/uL 08/14/2025 2:34 PM CDT [facility] ABS. LYMPHOCYTES 1.71 0.80 - 4.70 x10'3/uL 08/14/2025 2:34 PM CDT [facility] ABS. MONOCYTES 0.48 0.00 - 1.50 x10'3/uL 08/14/2025 2:34 PM CDT [facility] ABS. EOSINOPHILS 0.09 0.00 - 0.40 x10'3/uL 08/14/2025 2:34 PM CDT [facility] ABS. BASOPHILS 0.07 0.00 - 0.20 x10'3/uL 08/14/2025 2:34 PM CDT [facility] ABS. IMMATURE GRANULOCYTES 0.01 0.00 - 0.03 x10'3/uL 08/14/2025 2:34 PM CDT [facility] ABS. NUCLEATED RBC'S 0.00 0.00 - 0.01 x10'3/uL 08/14/2025 2:34 PM CDT [facility] 08/14/2025 2:23 PM CDT [facility] Willie Stewart MD LABORATORY Final Result [facility] [address] [place] [address], documented in this encounter Visit Diagnoses Diagnosis COPD with exacerbation (CMS/HCC HHS/HCC)- Primary Obstructive chronic bronchitis with exacerbation documented in this encounter Care Teams Driver Trainee Relationship Specialty Start Date End Date Mahin Dudley MD [address] [place] [phone] PCP - General FAMILY PRACTICE 02/24/23 documented as of this encounter
--- OUTSIDE RECORDS SUMMARY | 2025-08-17 10:31 | XMS_ITS | Clinical Summary ---
Author Organization [facility] Address [address] [facility] [place] [place] [address] Care Team Providers Care Maker Up Folding Name Role Phone Ketan Nguyễn MD Primary Care Provider [phone] Source Comments [facility],non-owned Affiliates and Associated Physician Practices is amultiple site organization consisting of ambulatory clinics and hospital sitesin [place] and [place]. This disclosure is being madepursuant to the Care Everywhere program and may not contain all information available regarding this patient. Last updated 18.[facility] Allergies Active Allergy Reactions Criticality Noted Date [...] by mouth once daily. 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
--- OUTSIDE RECORDS SUMMARY | 2025-08-17 10:31 | XMS_ITS | Clinical Summary ---
Author Organization [facility] Address [address] [place] [address] Care Team Providers Care Extract Mixer Name Role Phone Mahin Dudley MD Primary [...] Encounters Date Type Department Care Team Description 08/14/2025 2:09 PM CDT - 08/14/2025 11:59 PM CDT Hospital Encounter [facility] [address] [facility] [place] [address] Daniel Myers MD Arrived Discharge Disposition: Home or Self Care (Routine Discharge) 08/14/2025 Orders Only [facility] [address] [facility] [place] [address] Daniel Myers MD 08/14/2025 Travel from Last 3 Months Social History Tobacco Use Types Packs/Day Years Used Date Smoking Tobacco: Every Day Cigarettes 1 50 Tobacco Cessation:Ready to Q uit: Not Asked; Counseling Given: Not Answered Comments Unknown Sex and Gender Information Value Date Recorded Sex Assigned at Female 12/13/2024 9:43 AM RECEIVING DOCK CHECKER Legal Sex Female 8:58 PM CDT Gender Identity Not on file Sexual Orientation Not on file Last Filed Vital Signs Vital Sign Reading Time Taken Comments Blood Pressure 115/50 12/27/2024 10:58 AM RECEIVING DOCK CHECKER Pulse 74 12/27/2024 10:58 AM RECEIVING DOCK CHECKER Temperature 35.7 C (96.3 F) 12/27/2024 10:58 AM RECEIVING DOCK CHECKER Respiratory Rate 18 12/27/2024 10:58 AM RECEIVING DOCK CHECKER Oxygen Saturation 93% 12/27/2024 10:58 AM RECEIVING DOCK CHECKER Inhaled Oxygen Concentration - - Weight 73.2 kg (161 lb 6 oz) 12/27/2024 10:58 AM RECEIVING DOCK CHECKER Height 165.1 cm (5' 5) 02/24/2023 11:01 AM CDT Body Mass Index 26.85 02/24/2023 11:01 AM CDT Plan of Treatment Health Maintenance Due Date Last Done Comments Colorectal Cancer Screening Colonoscopy (10 Years) 1950 Hepatitis C 1968 Annual Medicare Wellness Visit 2016 Dexa Scan (General) 2016 COVID-19 Vaccine ( season) 2025 02/16/2024, 11/26/2022, 04/08/2022, Additional history exists Lung Cancer Screening 07/23/2025 07/23/2024 , 05/02/2023, 01/16/2020, Additional history exists Influenza Adult (#1) 2025 07/31/2022, 07/10/2020, 07/25/2019, Additional history exists DTaP, Tdap and Td Vaccines (3 - Td or Tdap) 11/20/2025 11/20/2015, 06/17/2008, 08/10/1999 Mammogram Screening 08/09/2026 08/09/2024, 02/09/2023, 02/03/2021, Additional history exists Zoster Vaccines Completed 07/10/2020, 07/01, 04/30/2019, Additional history exists Pneumococcal Vaccine: 50+ Years Completed 07/13/2023, 08/02/2018, 09/01/2005 RSV Immunization or 60+ Years Completed 01/03/2024 Hepatitis A Vaccines Aged Out No long er eligible based on patient's age to complete this topic Meningococcal B Vaccine Aged Out No l onger eligible based on patient's age to complete this topic Meningococcal Vaccine Aged Out No yevgeniy eduardo eligible based on patient's age to complete this topic RSV Immunizations Under 20 Months Aged Out No longer eligible based on patient's age to complete this topic Procedures Procedure Name Priority Date/Time Associated Diagnosis Comments CBC W/DIFF AUTOMATED Routine 08/14/2025 2:23 PM CDT COPD with exacerbation ([facility]/HCC [facility] CT LUNG SCREENING Routine 07/23/2024 1:2 1 PM CDT Cigarette smoker from Last 3 Months or Most Recently Relevant to Health Maintenance Results * (ABNORMAL) CBC W/DIFF AUTOMATED (08/14/2025 2:23 PM CDT) WBC 5.43 4.00 - 10.80 x10'3/uL 08/14/2025 2:34 PM CDT [facility] RBC 3.93(L) 4.10 - 5.40 x10'6/uL 08/14/2025 2:34 PM CDT [facility] HGB 10.9(L) 12.0 - 16.0 G/DL 08/14/2025 2:34 PM CDT [facility] HCT 34.0(L) 36.0 - 47.0 % 08/14/2025 2:34 PM CDT [facility] MCV 86.5 78.0 - 100.0 FL 08/14/2025 2:34 PM CDT [facility] MCH 27.7 27.0 - 31.0 PG 08/14/2025 2:34 PM CDT [facility] MCHC 32.1(L) 33.0 - 36.0 G/DL 08/14/2025 2:34 PM CDT [facility] RDW 13.1 11.5 - 14.5 % 08/14/2025 2:34 PM CDT [facility] PLT 245 150 - 350 x10'3/uL 08/14/2025 2:34 PM CDT [facility] MPV 8.8 7.4 - 10.4 FL 08/14/2025 2:34 PM CDT [facility] CBC COMMENT NORMAL REFERENCE RANGE NOT ESTABLISHED FOR THE PROPORTIONAL LEUKOCYTE DIFFERENTIAL. 08/14/2025 2:34 PM CDT [facility] NEUTROPHILS % 56.5 % 08/14/2025 2:34 PM CDT [facility] LYMPHOCYTES % 31.5 % 08/14/2025 2:34 PM CDT [facility] MONOCYTES % 8.8 % 08/14/2025 2:34 PM CDT [facility] EOSINOPHILS % 1.7 % 08/14/2025 2:34 PM CDT [facility] BASOPHILS % 1.3 % 08/14/2025 2:34 PM CDT [facility] IMMATURE GRANS % 0.2 % 08/14/20 2:34 PM CDT [facility] NRBC % 0.0 % 08/14/2025 2:34 PM CDT [facility] ABS. NEUTROPHILS 3.07 1.60 - 8.30 x10'3/uL 08/14/2025 2:34 PM CDT [facility] ABS. LYMPHOCYTES 1.71 0.80 - 4.70 x10'3/uL 08/14/2025 2:34 PM CDT [facility] ABS. MONOCYTES 0.48 0.00 - 1.50 x10'3/uL 08/14/2025 2:34 PM CDT [facility] ABS. EOSINOPHILS 0.09 0.00 - 0.40 x10'3/uL 08/14/2025 2:34 PM CDT [facility] ABS. BASOPHILS 0.07 0.00 - 0.20 x10'3/uL 08/14/2025 2:34 PM CDT [facility] ABS. IMMATURE GRANULOCYTES 0.01 0.00 - 0.03 x10'3/uL 08/14/2025 2:34 PM CDT [facility] ABS. NUCLEATED RBC'S 0.00 0.00 - 0.01 x10'3/uL 08/14/2025 2:34 PM CDT [facility] 08/14/2025 2:23 PM CDT Daniel Myers MD LABORATORY Final Result [facility] [address] [place] [address], * CT LUNG SCREENING (07/23/2024 1:21 PM [...] around 07/24/2025 Thank you for choosing the [facility] Lung Screening Program. Ordered By: DANIEL MYERS Interpreted By: Kimmy Alan MD, 08/03/2024 11:08 AM Narrative 08/03/2024 11:[address] AM [address]T [address] [place] [address] EXAM: LUNG SCREENING LOW-DOSE CT THORAX WITHOUT CONTRAST DATE: 07/23/2024. There was a delay in the final report for this exam due to attempts made to obtain outside prior comparison CT images from [facility] and [facility] which were unsuccessful through 08/03/2024. A final [...] Procedure Note Kimmy Alan MD - 08/03/2024 [facility] [address] [place] [address] EXAM: LUNG SCREENING LOW-DOSE CT THORAX WITHOUT CONTRAST DATE: 07/23/2024. There was a delay in the final report for this exam dueto attempts made to obtain outside prior comparison CT images from [facility] which were unsuccessful through 08/03/2024. A [...] around 07/24/2025 Thank you for choosing the [facility] Lung ScreeningProgram. Ordered By: DANIEL MYERS Interpreted By: Kimmy Alan MD, 08/03/2024 11:08 AM Daniel Myers MD CT Final Result from Last 3 Months or Most Recently Relevant to Health Maintenance Insurance MEDICAID [employer] [address] MEDICARE Care Teams Extract Mixer Relationship Specialty Start Date End Date Mahin Dudley MD [address] [place] [phone] PCP - General FAMILY PRACTICE 02/24/23
--- OUTSIDE RECORDS SUMMARY | 2025-08-17 10:31 | XMS_ITS | Encounter Summary ---
Author Organization [facility] Address [address] [place] [address] Care Team Providers Care Division Sergeant Name Role Phone Cooper Nieto MD Primary Care Provider [phone] Lourdes August NP Unavailable [phone] Mahin Dudley MD Primary Care Provider Marek Vitale MD Unavailable [phone] Encounter Details Date Type Department Care Team (Late st Contact Info) Description 01/01/2021 Telephone [facility] [address] [place] [id number] Eyal Platt, RT Social History Tobacco Use Types Packs/Day Years Used Date Smoking Tobacco: Every Day Smokeless Tobacco: Never Alcohol Use Standard Drinks/Week Comments No 0 (1 standard drink = 0.6 oz pur e alcohol) Comments No Sex and Gender Information Value Date Recorded Sex Assigned at Not on file Legal Sex Female 1:07 AM FRENCH BINDING FOLDER Gender Identity Not on file Sexual Orientation Not on file documented as of this encounter Plan of Treatment Not on file documented as of this encounter Visit Diagnoses Not on filedocumented in this encounter Additional Health Concerns Infection Onset Date Last Indicated Resolved Time COVID: Suspected 01/19/2022 01/19/2022 01/19/2022 7:50 PM CDT documented as of this encounter Care Teams Division Sergeant Relationship Specialty Start Date End Date Cooper Nieto MD PCP - General Internal Medicine 08/25/18 03/11/24 Mahin Dudley MD [address] [place] [phone] PCP - General Family Medicine 03/12/24 Lourdes August NP Nurse Practitioner Plastic Surgery 06/10/22 Marek Vitale MD [address] [place] [address] Consulting Physician Cardiology 09/19/24 documented as of this encounter
--- OUTSIDE RECORDS SUMMARY | 2025-08-17 10:31 | XMS_ITS | Encounter Summary ---
Author Organization [facility] Address [address] [place] [address] Care Team Providers Care Process Line Operator Name Role Phone Cooper Nieto MD Primary Care Provider [phone] Lourdes August NP Unavailable [phone] Mahin Dudley MD Primary Care Provider Marek Vitale MD Unavailable [phone] Encounter Details Date Type Department Care Team (Late st Contact Info) Description 12/19/2020 Telephone [facility] [address] [place] [phone] Eyal Platt, RT Social History Tobacco Use Types Packs/Day Years Used Date Smoking Tobacco: Every Day Smokeless Tobacco: Never Alcohol Use Standard Drinks/Week Comments No 0 (1 standard drink = 0.6 oz pur e alcohol) Comments No Sex and Gender Information Value Date Recorded Sex Assigned at Not on file Legal Sex Female 1:07 AM BUSINESS INTELLIGENCE ETL DEVELOPER Gender Identity Not on file Sexual Orientation Not on file documented as of this encounter Plan of Treatment Not on file documented as of this encounter Visit Diagnoses Not on filedocumented in this encounter Additional Health Concerns Infection Onset Date Last Indicated Resolved Time COVID: Suspected 01/19/2022 01/19/2022 01/19/2022 7:50 PM CDT documented as of this encounter Care Teams Process Line Operator Relationship Specialty Start Date End Date Cooper Nieto MD PCP - General Internal Medicine 08/25/18 03/11/24 Mahin Dudley MD [address] [place] [id number] PCP - General Family Medicine 03/12/24 Lourdes August NP Nurse Practitioner Plastic Surgery 06/10/22 Marek Vitale MD [address] [place] [address] Consulting Physician Cardiology 09/19/24 documented as of this encounter
== END 2025-08-17 10:29 | disposition home or self-care (01) ==
LOC: CHSIMG 10:29
PROVIDERS: PCP Family Medicine; Visit Provider Family Medicine
DX: K86.89 Other specified diseases of pancreas (principal)
CPT/HCPCS: 99199

== ENCOUNTER 2025-09-07 07:02 | Outpatient (CLI) | payer MEDICARE, MEDICAID, SELFPAY ==
--- NOTE | ~2025-09-07 | MR_ITS ---
EXAMINATION: MR MRCP wo/w con/w 3D wo ind DATE: 09/07/2025 09:51 INDICATION: Pancreatic mass TECHNIQUE: Magnetic resonance imaging (MRI) of the abdomen was performed with intravenous contrast. Sequences included coronal T2-weighted FS FSE, coronal T2- weighted FSE, axial T1-weighted LAVA, coronal FS FIESTA, axial dual-echo T1- weighted SPGR, coronal lava-FLEX, sagittal T2-weighted FSE, axial T2-weighted FSE, and axial DWI. Thick-slab T2-weighted FSE images were obtained for magnetic resonance cholangiopancreatography (MRCP). Maximum intensity projection 3-D reconstructions of the volumetric data were created by the technologist. Postcontrast sequences included coronal LAVA-flex and time course of axial T1- weighted LAVA. COMPARISON: CT of the abdomen from August 05, 2025. Note: Biliary ducts somewhat limited in evaluation due to motion artifact. FINDINGS: ABDOMEN MRI: A 1.8 x 1.2 x 1.3 cm heterogeneously T2 weighted hyperintense lesion in the pancreatic uncinate region seen on image 13 series 9 appears to have some cystic components. No compelling restricted diffusion. Enhancement within the lesion may be confined to septal or bandlike areas of parenchyma. The remainder of the pancreas appears normal. The gallbladder is borderline distended with no gallstones gallbladder wall thickening or pericholecystic fluid. Common bile duct and intrahepatic biliary ductal system within normal limits. No choledocholithiasis or discrete filling defects identified, although exam somewhat limited as noted above.. Cystic-appearing lesions in both kidneys. The anterior wall of the gastric fundus and mid body region appears thickened. No obvious perforation seen. Atelectatic changes or scarring present in the right lung base. The remainder the exam is unremarkable. IMPRESSION: 1. Complex cystic lesion in the uncinate portion of the pancreas with neoplasm such such as intraductal papillary mucinous neoplasm or IPMN not excluded. Consultation was surgical service recommended. If patient is managed conservatively, follow-up abdominal MRI in 6 months recommended, sooner if clini mickey appropriate. 2. Somewhat thickened appearance of the gastric antral and body wall could be associated with gastritis. 3. Benign-appearing renal cysts. Reviewed, dictated and finalized at location A. OFFICER IMPRESSION: 1. Complex cystic lesion in the uncinate portion of the pancreas with neoplasm such such as intraductal papillary mucinous neoplasm or IPMN not excluded. Cons ultation was surgical service recommended. If patient is managed conservatively , follow-up abdominal MRI in 6 months recommended, sooner if clinically appropr iate. 2. Somewhat thickened appearance of the gastric antral and body wall could be a ssociated with gastritis. 3. Benign-appearing renal cysts.
--- OUTSIDE RECORDS SUMMARY | 2025-09-07 07:07 | XMS_ITS | Clinical Summary ---
Author Organization [facility] Address [address] [place] [address] Care Team Providers Care Manager Social Name Role Phone Ketan Nguyễn MD Primary Care Provider [phone] Source Comments [facility],non-owned Affiliates and Associated Physician Practices is amultiple site organization consisting of ambulatory clinics and hospital sitesin [place], [place], [place] and [place]. This disclosure is being madepursuant to the Care Everywhere program and may not contain all information available regarding this patient. Last updated 18.[facility] Allergies Active Allergy Reactions Criticality Noted Date [...] by mouth once daily. Active nystatin (MYCOSTATIN) 378979 UNIT/ML suspension Take 5 mL by mouth [...] Active azelastine (ASTELIN) 0.1 % nasal spray [place] 2 Sprays into each nostril 2 times [...] mouth once daily Active Cholecalciferol (VITAMIN D3) 78025 UNITS TABS Take 1 Tab by mouth [...] on file Legal Sex Female 6:27 AM DIRECTOR OF CATERING SALES Gender Identity Not on file Sexual Orientation [...] Insurance MEDICARE MEDICAID - [place] MEDICARE MEDICAID [facility] Advance Directives * Full Code (Latest Code Status on File) Date Activated Date Inactivated Comments 06/15/2017 9:09 AM 06/15/2017 3:14 PM * Full Code Date Activated Date Inactivated Comments 05/25/2014 7:36 PM 05/25/2014 10:27 PM Care Teams Manager Social Relationship Specialty Start Date End Date Ketan Nguyễn MD [address] [place] [address] PCP - General Family Medicine 05/25/14
--- OUTSIDE RECORDS SUMMARY | 2025-09-07 07:07 | XMS_ITS | Encounter Summary ---
Author Organization [facility] Healthcare Address [address] [place] [address] Care Team Providers Care Lab Clerk Name Role Phone Cooper Nieto MD Primary Care Provider [phone] Lourdes August NP Unavailable [phone] Mahin Dudley MD Primary Care Provider Marek Vitale MD Unavailable [phone] Encounter Details Date Type Department Care Team (Late st Contact Info) Description 01/01/2021 Telephone [facility] [address] [place] [address] Eyal Platt, RT Social History Tobacco Use Types Packs/Day Years Used Date Smoking Tobacco: Every Day Smokeless Tobacco: Never Alcohol Use Standard Drinks/Week Comments No 0 (1 standard drink = 0.6 oz pur e alcohol) Comments No Sex and Gender Information Value Date Recorded Sex Assigned at Not on file Legal Sex Female 1:07 AM EDUCATIONAL COORDINATOR Gender Identity Not on file Sexual Orientation Not on file documented as of this encounter Plan of Treatment Not on file documented as of this encounter Visit Diagnoses Not on filedocumented in this encounter Additional Health Concerns Infection Onset Date Last Indicated Resolved Time COVID: Suspected 01/19/2022 01/19/2022 01/19/2022 7:50 PM CDT documented as of this encounter Care Teams Lab Clerk Relationship Specialty Start Date End Date Cooper Nieto MD PCP - General Internal Medicine 08/25/18 03/11/24 Mahin Dudley MD [address] [place] [phone] PCP - General Family Medicine 03/12/24 Lourdes August NP Nurse Practitioner Plastic Surgery 06/10/22 Marek Vitale MD [address] [place] [address] Consulting Physician Cardiology 09/19/24 documented as of this encounter
--- OUTSIDE RECORDS SUMMARY | 2025-09-07 07:07 | XMS_ITS | Clinical Summary ---
Author Organization [facility] Address [address] [place] [phone] Phone Care Team Providers Care Surgical Elastic Knitter Hand Frame Name Role Phone [facility], External Provider Primary Care Provider [...] Take 60 mg by mouth daily early interventionist. Active DULoxetine (CYMBALTA) 60 mg Capsule, Delayed [...] A AND B MEDICA[place] Care Teams Surgical Elastic Knitter Hand Frame Relationship Specialty Start Date End Date [facility], External Provider [address] [place] [address] PCP - General 01/24/15
--- OUTSIDE RECORDS SUMMARY | 2025-09-07 07:07 | XMS_ITS | Encounter Summary ---
Author Organization [facility] Healthcare Address [address] [place] [address] Care Team Providers Care Airplane Inspector Name Role Phone Cooper Nieto MD Primary Care Provider [phone] Lourdes August NP Unavailable [phone] Mahin Dudley MD Primary Care Provider Marek Vitale MD Unavailable [phone] Encounter Details Date Type Department Care Team (Late st Contact Info) Description 01/20/2022 Documentation [facility] [address] [place] [id number] Heike Howard Social History Tobacco Use Types [...] on file Legal Sex Female 1:07 AM AZURE DEVELOPER Gender Identity Not on file Sexual Orientation Not on file documented as of this encounter Functional Status * Question Answer Date of Assessment Author BP Location Right arm 01/20/2022 9:05 AM CDT Heike Pyle BP Method Automatic 01/20/2022 9:05 AM TRIT Heike Pyle MAP (mmHg) 74 01/20/2022 9:05 AM CDT Mtsek aHeike * Wilson Fall Risk Question Answer Date of Assessment Author History of Falling 25 01/20/2022 7:00 PM CDT MtsekaHeike Secondary Diagnosis 15 01/20/2022 7:00 PM CD T Mtseka, Heike Ambulatory Aids 15 01/20/2022 7:00 PM CDT Mt smitha, Heike Intravenous Therapy/Heparin/ Saline Lock 20 01/20/2022 7:00 PM CDT Mtseka, Heike Gait/Transferring 10 01/20/2022 7:00 PM CDT Mtseka, Heike Mental Status 0 01/20/2022 7:00 PM CDT Mtse kaHeike Wilson Fall Risk Score (Score >= 45 places fall precaution order) 85 01/20/2022 7:00 PM CDT Heike Howard * Kolton Scale Question Answer Date of Assessment Author Sensory Perceptions 3 01/20/2022 9:05 AM CD T Aye Camarena, DONAVON Moisture 3 01/20/2022 9:05 AM CDT Aye Camarena RN Activity 3 01/20/2022 9:05 AM CDT Aye Camarena, DONAVON Mobility 3 01/20/2022 9:05 AM CDT Aye Camarena, DONAVON Nutrition 3 01/20/2022 9:05 AM CDT Aye Camarena RN Friction and Shear 3 01/20/2022 9:05 AM CDT Aye Camarena RN Kolton Scale Score 18 01/20/2022 9:05 AM CDT Aye Camarena RN * Fall Risk Interventions Question Answer Date of Assessment Author All Low Fall Interventions Applied Yes 01/20/2022 7:00 PM CDT Heike Howard All Moderate Fall Interventions Applied Yes 01/20/2022 7:00 PM CDT Heike Howard All Moderate Fall Risk Interventions EXCEPT: OT eval requested or obtained;PT eval requested or obtained 01/20/2022 7:00 PM CDT Heike Howard All High Risk Interventions EXCEPT: Collaborate with family;Bed alarm;Near RN station/area;Fall risk sign with education 01/20/2022 7:00 PM CDT MtsjessicaaHeike Additional Interventions Applied Exit bed on strong/preferred side;Over-bed table on non-exit side;Bed/chair alarm 01/20/2022 7:00 PM CDT Aaron Howardance * Pressure Injury Prevention Question Answer Date of Assessment Author Pressure Ulcer Prevention Interventions Keep skin clean and dry (Sensory Perception/Moistur e) 01/20/2022 9:05 AM TRIT Aye Camarena, DONAVON 2 Nurse Skin Assessment n/a 01/20/2022 7:44 A M CDT ArielaHeike * Integumentary Question Answer Date of Assessment Author Integumentary (WDL) WDL 01/20/2022 9:05 AM CD T Aye Camarena, DONAVON * Question Answer Date of Assessment Author BP Location Right arm 01/20/2022 9:05 AM CDT Mtsek Heike juares BP Method Automatic 01/20/2022 9:05 AM CDT Mtsek aHeike * Question Answer Date of Assessment Author Affect Anxious/Worried 01/20/2022 9:14 AM TRIT Aye Michael RN Mood Anxious/Worried 01/20/2022 9:14 AM CDT Aye Michael, DONAVON * Question Answer Date of Assessment Author Bed In Lowest Position Yes 01/20/2022 7:40 AM CDT Heike Howard Bed Wheels Locked Yes 01/20/2022 7:40 AM CDT Heike Howard * Fall Risk Interventions Question Answer Date of Assessment Author All Low Fall Interventions Applied Yes 01/20/2022 7:00 PM CDT MtsekaAaronHeike All Moderate Fall Interventions Applied Yes 01/20/2022 7:00 PM CDT Mtseka, Heike All Moderate Fall Risk Interventions EXCEPT: OT eval requested or obtained;PT eval requested or obtained 01/20/2022 7:00 PM CDT Ariela Heike All High Risk Interventions EXCEPT: Collaborate with family;Bed alarm;Near RN station/area;Fall risk sign with education 01/20/2022 7:00 PM CDT ArielaHeike Additional Interventions Applied Exit bed on strong/preferred side;Over-bed table on non-exit side;Bed/chair alarm 01/20/2022 7:00 PM CDT Heike Howard * Question Answer Date of Assessment Author Skin Care Skin cleanser 01/20/2022 11:30 AM CDT Heike Howard Hygiene Bathed/showered with chlorhexidine gluconate (CHG);Yane care;Hair washed;Shaved 01/20/2022 11:30 AM CDT Heike Howard Oral Care Teeth brushed 01/20/2022 11:30 AM CDT Heike Howard Hygiene Level of Assistance Moderate assist 01/20/2022 11:30 AM CDT Heike Howard Toileting: Assistance with Increased time to complete 01/20/2022 11:30 AM Heike Caruso Toileting: Level of assistance Moderate 01/20/2022 11:30 AM TRIT Heike Howard documented as of this encounter Mental Status * Question Answer Entry Date Author Level of Consciousness Alert;Awake 01/20/2022 9:05 AM CDT Heike Howard * Question Answer Entry Date Author Orientation Oriented X4 (person, place, time, situation) 01/20/2022 9:14 AM CDT Hali Mason OT * Question Answer Entry Date Author Neuro (WDL) X 01/20/2022 9:05 AM CDT Aye Camarena RN Other Neuro Symptoms Fatigue;Forgetful 01/20/2022 9:05 AM CDT Heike Howard * Short Blessed Test Question Answer Entry Date Author What year is it now? 0 01/20/2022 9:14 AM CDT Hali Mason OT What month is it now? 0 01/20/2022 9:14 AM CDT Hali Mason OT Without looking at the clock, tell me what time it is 0 01/20/2022 9:14 AM CDT Hali Mason OT Count aloud backwards from 20-1 0 01/20/2022 9:14 AM CDT Hali Mason OT Say the months of the year backwards in reverse order 0 01/20/2022 9:14 AM CDT Hali Mason OT Repeat the name and address I asked you to remember 2 01/20/2022 9:14 AM CDT Hali Mason OT Repeat this name and address after me Ramesh Wynne [address] [place] [address] 01/20/2022 9:14 AM CDHali Field OT Short Blessed Total Score 2 2021 9:14 AM Hali De Jesus OT Short Blessed Comments WFL. 9:14 AM Hali De Jesus OT documented in this encounter Plan of Treatment Not on file documented as of this encounter Visit Diagnoses Not on filedocumented in this encounter Care Teams Airplane Inspector Relationship Specialty Start Date End Date Cooper Nieto MD PCP - General Internal Medicine 08/25/18 03/11/24 Mahin Dudley MD [address] [place] [id number] PCP - General Family Medicine 03/12/24 Lourdes August NP Nurse Practitioner Plastic Surgery 06/10/22 Marek Vitale MD [address] [place] [address] Consulting Physician Cardiology 09/19/24 documented as of this encounter
--- OUTSIDE RECORDS SUMMARY | 2025-09-07 07:07 | XMS_ITS | Clinical Summary ---
Author Organization [facility] Address [address] [place] [address] Care Team Providers Care Dining Room Host/Hostess Name Role Phone Mahin Dudley MD Primary [...] - 08/14/2025 11:59 PM CDT Hospital Encounter [facility] [address] [place] [address] Daniel Myers MD Discharge Disposition: Home or Self Care (Routine Discharge) 08/14/2025 Orders Only [facility] [address] [place] [address] Daniel Myers MD 08/14/2025 Travel from Last 3 Months Social History Tobacco Use Types Packs/Day Years Used Date Smoking Tobacco: Every Day Cigarettes 1 50 Tobacco Cessation:Ready to Q uit: Not Asked; Counseling Given: Not Answered Comments Unknown Sex and Gender Information Value Date Recorded Sex Assigned at Female 12/13/2024 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 Legal Sex Female 8:58 PM CDT Gender Identity Not on file Sexual Orientation Not on file Last Filed Vital Signs Vital Sign Reading Time Taken Comments Blood Pressure 115/50 12/27/2024 10:58 AM SOLAR FIELD INSTALLATION CREW MEMBER Pulse 74 12/27/2024 10:58 AM SOLAR FIELD INSTALLATION CREW MEMBER Temperature 35.7 C (96.3 F) 12/27/2024 10:58 AM SOLAR FIELD INSTALLATION CREW MEMBER Respiratory Rate 18 12/27/2024 10:58 AM SOLAR FIELD INSTALLATION CREW MEMBER Oxygen Saturation 93% 12/27/2024 10:58 AM SOLAR FIELD INSTALLATION CREW MEMBER Inhaled Oxygen Concentration - - Weight 73.2 kg (161 lb 6 oz) 12/27/2024 10:58 AM SOLAR FIELD INSTALLATION CREW MEMBER Height 165.1 cm (5' 5) 02/24/2023 11:01 [...] 08/14/2025 2:23 PM CDT COPD with exacerbation ([facility] CT LUNG SCREENING Routine 07/23/2024 1:2 1 PM CDT Cigarette smoker from Last 3 Months or Most Recently Relevant to Health Maintenance Results * (ABNORMAL) CBC W/DIFF AUTOMATED (08/14/2025 2:23 PM CDT) WBC 5.43 4.00 - 10.80 x10'3/uL 08/14/2025 2:34 PM CDT [facility] RBC 3.93(L) 4.10 - 5.40 x10'6/uL 08/14/2025 2:34 PM CDT [facility] HGB 10.9(L) 12.0 - 16.0 G/DL 08/14/2025 2:34 PM CDT [facility] HCT 34.0(L) 36.0 - 47.0 % 08/14/2025 2:34 PM CDT [facility] MCV 86.5 78.0 - 100.0 FL 08/14/2025 2:34 PM CDT [facility] MCH 27.7 27.0 - 31.0 PG 08/14/2025 2:34 PM CDT [facility] MCHC 32.1(L) 33.0 - 36.0 G/DL 08/14/2025 2:34 PM CDT [facility] RDW 13.1 11.5 - 14.5 % 08/14/2025 2:34 PM CDT [facility] PLT 245 150 - 350 x10'3/uL 08/14/2025 2:34 PM CDT [facility] MPV 8.8 7.4 - 10.4 FL 08/14/2025 2:34 PM CDT [facility] CBC COMMENT NORMAL REFERENCE RANGE NOT ESTABLISHED FOR THE PROPORTIONAL LEUKOCYTE DIFFERENTIAL. 08/14/2025 2:34 PM CDT [facility] NEUTROPHILS % 56.5 % 08/14/2025 2:34 PM CDT [facility] LYMPHOCYTES % 31.5 % 08/14/2025 2:34 PM CDT [facility] MONOCYTES % 8.8 % 08/14/2025 2:34 PM CDT [facility] EOSINOPHILS % 1.7 % 08/14/2025 2:34 PM CDT [facility] BASOPHILS % 1.3 % 08/14/2025 2:34 PM CDT [facility] IMMATURE GRANS % 0.2 % 08/14/20 2:34 PM CDT [facility] NRBC % 0.0 % 08/14/2025 2:34 PM CDT [facility] ABS. NEUTROPHILS 3.07 1.60 - 8.30 x10'3/uL 08/14/2025 2:34 PM CDT [facility] ABS. LYMPHOCYTES 1.71 0.80 - 4.70 x10'3/uL 08/14/2025 2:34 PM CDT [facility] ABS. MONOCYTES 0.48 0.00 - 1.50 x10'3/uL 08/14/2025 2:34 PM CDT [facility] ABS. EOSINOPHILS 0.09 0.00 - 0.40 x10'3/uL 08/14/2025 2:34 PM CDT [facility] ABS. BASOPHILS 0.07 0.00 - 0.20 x10'3/uL 08/14/2025 2:34 PM CDT [facility] ABS. IMMATURE GRANULOCYTES 0.01 0.00 - 0.03 x10'3/uL 08/14/2025 2:34 PM CDT [facility] ABS. NUCLEATED RBC'S 0.00 0.00 - 0.01 x10'3/uL 08/14/2025 2:34 PM CDT [facility] 08/14/2025 2:23 PM CDT Daniel Myers MD LABORATORY Final Result [facility] [address] [place] [address], * CT LUNG SCREENING (07/23/2024 1:21 PM [...] around 07/24/2025 Thank you for choosing the [facility] Lung Screening Program. Ordered By: DANIEL MYERS Interpreted By: Kimmy Alan MD, 08/03/2024 11:08 AM Narrative 08/03/2024 11:[address] AM [address]T [address] [place] [address] EXAM: LUNG SCREENING LOW-DOSE CT THORAX WITHOUT CONTRAST DATE: 07/23/2024. There was a delay in the final report for this exam due to attempts made to obtain outside prior comparison CT images from [facility] and [facility] which were unsuccessful through [...] Procedure Note Kimmy Alan MD - 08/03/2024 [facility] [address] [place] [address] EXAM: LUNG SCREENING LOW-DOSE CT THORAX WITHOUT CONTRAST DATE: 07/23/2024. There was a delay in the final report for this exam dueto attempts made to obtain outside prior comparison CT images from [facility] which were unsuccessful through 08/03/2024. A finalreport [...] around 07/24/2025 Thank you for choosing the [facility] Lung ScreeningProgram. Ordered By: DANIEL MYERS Interpreted By: Kimmy Alan MD, 08/03/2024 11:08 AM Daniel Myers MD CT Final Result from Last 3 Months or Most Recently Relevant to Health Maintenance Insurance [place] [address] [place] [address] MEDICARE Care Teams Dining Room Host/Hostess Relationship Specialty Start Date End Date Mahin Dudley MD [address] [place] [phone] PCP - General FAMILY PRACTICE 02/24/23
--- OUTSIDE RECORDS SUMMARY | 2025-09-07 07:07 | XMS_ITS | Encounter Summary ---
Author Organization [facility] Healthcare Address [address] [place] [address] Care Team Providers Care Automatic Hemmer Name Role Phone Cooper Nieto MD Primary Care Provider [phone] Lourdes August NP Unavailable [phone] Mahin Dudley MD Primary Care Provider Marek Vitale MD Unavailable [phone] Encounter Details Date Type Department Care Team (Late st Contact Info) Description 12/19/2020 Telephone [facility] [address] [place] [address] Eyal Platt, RT Social History Tobacco Use Types Packs/Day Years Used Date Smoking Tobacco: Every Day Smokeless Tobacco: Never Alcohol Use Standard Drinks/Week Comments No 0 (1 standard drink = 0.6 oz pur e alcohol) Comments No Sex and Gender Information Value Date Recorded Sex Assigned at Not on file 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 Gender Identity Not on file Sexual Orientation Not on file documented as of this encounter Plan of Treatment Not on file documented as of this encounter Visit Diagnoses Not on filedocumented in this encounter Additional Health Concerns Infection Onset Date Last Indicated Resolved Time COVID: Suspected 01/19/2022 01/19/2022 01/19/2022 7:50 PM CDT documented as of this encounter Care Teams Automatic Hemmer Relationship Specialty Start Date End Date Cooper Nieto MD PCP - General Internal Medicine 08/25/18 03/11/24 Mahin Dudley MD [address] [place] [id number] PCP - General Family Medicine 03/12/24 Lourdes August NP Nurse Practitioner Plastic Surgery 06/10/22 Marek Vitale MD [address] [place] [address] Consulting Physician Cardiology 09/19/24 documented as of this encounter
--- OUTSIDE RECORDS SUMMARY | 2025-09-07 07:07 | XMS_ITS | Encounter Summary ---
Author Organization [facility] Address [address] [place] [address] Care Team Providers Care Hot Knife Cutter Name Role Phone Cooper Nieto MD Primary Care Provider [phone] Mahin Dudley MD Primary Care Provider Encounter Details Date Type Department Care Team (Late st Contact Info) Description 02/16/2023 Hospital Orders Only [facility] [address] [address] [place] [address] Kathy Vega RN Social History Tobacco Use Types Packs/Day Years Used Date Smoking Tobacco: Never Assessed Comments Unknown Sex and Gender Information Value Date Recorded Sex Assigned at Female 12/13/2024 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
--- OUTSIDE RECORDS SUMMARY | 2025-09-07 07:08 | XMS_ITS | Clinical Summary ---
Author Organization [facility] Address [address] [place] [id number] Care Team Providers Care Vp Scientific Name Role Phone Lourdes August NP Unavailable [phone] Mahin Dudley MD Primary Care Provider Marek Vitale MD Unavailable [phone] Allergies Active Allergy Reactions Criticality Noted [...] for cardiovascular disor ders 06/16/2009 Pulmonary emphysema ([facility]) 02/04/2009 Assessment & Plan (01/20/2022 [...] cervix 04/03/2008 Atherosclerotic heart diseas e of [place] coronary artery without angina pectoris 10/31/1959 Overview [...] Date Smoking Tobacco: Every Day Cigarettes 1.3 41 Started: 09/19/1984 Smokeless Tobacco: Never Tobacco Cessation:Ready to Q uit: No; Counseling Given: Yes Alcohol Use Standard Drinks/Week Comments No 0 (1 standard drink = 0.6 oz pur e alcohol) [facility] Utilities Answer Date Recorded In the past 12 months has [employer], gas, oil, or water [employer] threatened to shut off services in your home? No 09/19/2024 Social Connection and Isolation Panel Answer Date Recorded In a typical week, how many times do you talk on the phone with family, friends, or neighbors? Patient declined 09/19/2024 How often do you get togethe r with friends or relatives? Patient declined 09/19/2024 How often do you attend chur ch or christian services? More than 4 times per year 09/19/2024 Do you belong to any clubs o r organizations such as druze groups, unions, fraternal or athletic groups, or [...] any time in the past [address] [facility], were you homeless or living in a snf (including now)? No 09/19/2024 Personal Safety Answer Date Recorded Have you ever been in or are you currently in a harmful physical or emotional relationship or is someone making you feel afraid or unsafe? 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 Gender Identity Not on file Sexual Orientation Not on file Obstetrics History Para Term AB IAB SAB Ectopic Multiple Livin g Live Births 3 3 3 Date Outcome GA Total Labor Labor/2nd/3rd Weight Sex Type Anes PTL Heidi A1 A5 Name Clin Term Term Term Last Filed Vital Signs Vital Sign Reading Time Taken Comments Blood Pressure 114/54 09/19/2024 6:05 PM ENGAGEMENT EXECUTIVE Pulse 76 09/19/2024 6:05 PM ENGAGEMENT EXECUTIVE Temperature 36.7 C (98 F) 09/19/2024 4:50 AM ENGAGEMENT EXECUTIVE Respiratory Rate 18 09/19/2024 6:05 PM ENGAGEMENT EXECUTIVE Oxygen Saturation 90% 09/19/2024 6:05 PM ENGAGEMENT EXECUTIVE Inhaled Oxygen Concentration - - Weight 71.7 kg (158 lb 1.1 oz) 09/18/2024 5:20 A M ENGAGEMENT EXECUTIVE Height 165.1 cm (5' 5) 09/18/2024 8:22 AM ENGAGEMENT EXECUTIVE Body Mass Index 26.3 09/18/2024 5:20 AM ENGAGEMENT EXECUTIVE Plan of Treatment Health Maintenance Due Date [...] Read Routine (OP Routine) 12/06/2018 12:38 PM ENGAGEMENT EXECUTIVE Personal history of tobacco use, presenting hazards [...] CT Lung Cancer Screening (12/06/2018 12:38 PM ENGAGEMENT EXECUTIVE) Anatomical Region Laterality Modality Chest N/A Computed Tomogra phy 12/06/2018 12:5 5 PM ENGAGEMENT EXECUTIVE Impressions 12/06/2018 1:10 PM ENGAGEMENT EXECUTIVE INTERVAL RIGHT LOWER LOBE 6 MM NODULE, PROBABLY BENIGN, CATEGORY 2 PER LUNG-RADS. RECOMMEND 6 MONTH FOLLOW-UP LOW DOSE CT CHEST. BRONCHIAL THICKENING WITH MOSAIC LUNG ATTENUATION PROBABLY AT TRAPPING FROM BRONCHIOLITIS. STABLE RIGHT MIDDLE LOBE MEDIAL SEGMENTAL ATELECTASIS WITH INTERVAL UPPER LOBE SUBSEGMENTAL ATELECTASIS. Electronically signed by: Anna Castañeda M.D. Narrative 12/06/2018 1:10 PM ENGAGEMENT EXECUTIVE RESULT: Examination: CT LUNG CANCER SCREENING Date: [...] Narrative 03/09/2018 Ordered by an unspecified provider. Tammi Provider IMG DXA PROCEDURES Final Result * Serum Hepatitis C ab (07/20/2016 4:49 PM CDT) HCV ab Negative Negative CDR HISTOR ICAL RESULTS Serum 07/20/2016 4:49 PM CDT us Amber Terrazas MD LAB BLOOD ORDERABLES Final Resul t CDR HISTORICAL RESULTS from Last 3 Months or Most Recently Relevant to Health Maintenance Insurance [facility] MEDICARE [facility] Address: [address] [address] [place] [address] [employer] MEDICARE [facility] Address: [address] [address] Advance Directives For more information, please contact: [phone] * Full Code (Latest Code Status on File) Date Activated Date Inactivated Comments 09/18/2024 5:54 AM 09/19/2024 11:16 PM * Full Code Date Activated Date Inactivated Comments 11/01/2023 10:33 AM 11/01/2023 5:11 PM * Full Code Date Activated Date Inactivated Comments 11/01/2023 10:32 AM 11/01/2023 10:33 AM * Full Code Date Activated Date Inactivated Comments 01/17/2022 2:31 AM 01/20/2022 5:37 PM Care Teams Vp Scientific Relationship Specialty Start Date End Date Mahin Dudley MD [address] [place] [phone] PCP - General Family Medicine 03/12/24 Lourdes August NP Nurse Practitioner Plastic Surgery 06/10/22 Marek Vitale MD [address] [place] [address] Consulting Physician Cardiology 09/19/24
--- OUTSIDE RECORDS SUMMARY | 2025-09-07 07:08 | XMS_ITS ---
Author Organization [facility] Address [address] [place] [phone] Care Team Providers Care Antenna Rigger Name Role Phone Lourdes August NP Unavailable [phone] Mahin Dudley MD Primary Care Provider Marek Vitale MD Unavailable [phone] Active Problems Problem Noted Date Diagnosed [...] for cardiovascular disor ders 06/16/2009 Pulmonary emphysema ([facility]) 02/04/2009 Assessment & Plan (01/20/2022 [...] cervix 04/03/2008 Atherosclerotic heart diseas e of [place] coronary artery without angina pectoris 10/31/1959 Overview [...]
== END 2025-09-07 07:03 | disposition home or self-care (01) ==
LOC: CHSIMG 07:04
PROVIDERS: PCP Family Medicine; Visit Provider Family Medicine
DX: K86.89 Other specified diseases of pancreas (principal); N28.1 Cyst of kidney, acquired
CPT/HCPCS: 74183; 76376; A9577